=== PATIENT | male | born 1980 | race Caucasian/White ===

== ENCOUNTER 2018-01-12 04:19 | Inpatient (IN) | payer OTHER ==
[2018-01-12] MEDS ORDERED: HYDROmorphone 0.5 MG/0.5 ML Syringe IVPUSH ONE ×2 (05:14→07:19)
[2018-01-12] MEDS ORDERED: Ondansetron 4 MG/2 ML SDV IVPUSH ONE (05:14)
[2018-01-12] MEDS ORDERED: Sodium Chloride 0.9% 1,000 ML IV SCH ×2 (05:15→05:45)
--- NOTE | 2018-01-12 05:21 | EDM.PDOC ---
<Yajaira Muir - Last Filed: 01/12/18 07:03> ED HPI GENERAL MEDICAL PROBLEM - General Chief Complaint: Abdominal Pain Stated Complaint: ABD PAIN Time Seen by Provider: 01/12/18 04:50 Source of Information: Reports: Patient History Limitations: Reports: No Limitations - History of Present Illness INITIAL COMMENTS - FREE TEXT/NARRATIVE: pt arrived with severe pain around the umbilicus. He has vomited 5 times prior to arrival. He sneezed really hard and he developed the pain after that. Onset: Today, Sudden Duration: Hour(s): Location: Reports: Abdomen Associated Symptoms: Reports: Nausea/Vomiting Middle Abdomen Pain Score (Numeric/FACES): 9 - Related Data Allergies Allergy/AdvReac Type Severity Reaction Status Date / Time No Known Allergies Allergy Verified 04/21/14 05:22 Home Meds: Home Meds NK [No Known Home Meds] 04/21/14 [History] Past Medical History - Past Surgical History HEENT Surgical History: Reports: Adenoidectomy, Tonsillectomy GI Surgical History: Reports: Appendectomy, Cholecystectomy Social & Family History - Tobacco Use Smoking Status *Q: Never Smoker - Caffeine Use Caffeine Use: Reports: Tea - Recreational Drug Use Recreational Drug Use: No ED ROS GENERAL - Review of Systems Review Of Systems: See Below Constitutional: Reports: No Symptoms HEENT: Reports: No Symptoms Respiratory: Reports: No Symptoms Cardiovascular: Reports: No Symptoms Endocrine: Reports: No Symptoms GI/Abdominal: Reports: Abdominal Pain, Nausea, Vomiting, Other (pt has a palpable mass near the umbilcus. ) : Reports: No Symptoms Musculoskeletal: Reports: No Symptoms Skin: Reports: No Symptoms ED EXAM, GI/ABD - Physical Exam Exam: See Below Text/Narrative:: pt arrived with pain near the umbilcus on the rt. He can palpate a mass present. Exam Limited By: No Limitations General Appearance: Alert, Moderate Distress, Other (pt has been vomiting. ) Ears: Normal TMs Nose: Normal Inspection Throat/Mouth: Normal Inspection Head: Atraumatic Neck: Normal Inspection Respiratory/Chest: No Respiratory Distress Cardiovascular: Regular Rate, Rhythm GI/Abdominal Exam: Tender, Other (pt has a palpable tender mass which feels like a incarcerated hernia near the umbilcus. He has no history of a hernia previously. ) (Male) Exam: Deferred Course - Vital Signs Last Recorded V/S: Last Vital Signs Temp 98.3 F 01/12/18 09:04 Pulse 84 01/12/18 09:04 Resp 18 01/12/18 09:04 BP 143/80 H 01/12/18 09:04 Pulse Ox 96 01/12/18 09:04 - Orders/Labs/Meds Orders: Active Orders 24 hr Category Date Time Status Abdomen Pelvis w Cont [CT] Stat Exams 01/12/18 06:01 Taken UA W/MICROSCOPIC [URIN] Urgent Lab 01/12/18 07:01 Ordered Iopamidol [Isovue-300 (61%)] Med 01/12/18 06:15 Active 150 ml IV . DIRECTED PRN Sodium Chloride 0.9% [Normal Saline] 1,000 ml Med 01/12/18 05:15 Active IV ASDIRECTED Sodium Chloride 0.9% [Normal Saline] 1,000 ml Med 01/12/18 05:45 Active IV ASDIRECTED Sodium Chloride 0.9% [Normal Saline] 85 ml Med 01/12/18 06:15 Active IV ASDIRECTED Medication Orders Sodium Chloride (Normal Saline) 1,000 mls @ 999 mls/hr IV ASDIRECTED MICHELLE Last Admin: 01/12/18 05:21 Dose: 999 mls/hr Sodium Chloride (Normal Saline) 1,000 mls @ 999 mls/hr IV ASDIRECTED MICHELLE Last Admin: 01/12/18 06:43 Dose: 999 mls/hr Sodium Chloride (Normal Saline) 85 mls @ 3.5 mls/sec IV ASDIRECTED MICHELLE Last Admin: 01/12/18 06:35 Dose: 3.5 mls/sec Iopamidol (Isovue-300 (61%)) 150 ml IV . DIRECTED PRN PRN Reason: RADIOLOGY EXAM Stop: 01/13/18 06:16 Last Admin: 01/12/18 06:36 Dose: 150 ml Labs: Laboratory Tests 01/12/18 01/12/18 01/12/18 Range/Units 05:32 05:32 07:01 WBC 17.9 H (4.5-11.0) K/uL RBC 5.79 (4.30-5.90) M/uL Hgb 17.1 H (12.0-15.0) g/dL Hct 48.5 (40.0-54.0) % MCV 84 (80-98) fL MCH 30 (27-31) pg MCHC 35 (32-36) % Plt Count 381 (150-400) K/uL Neut % (Auto) 90 H (36-66) % Lymph % (Auto) 5 L (24-44) % Dale % (Auto) 4 (2-6) % Eos % (Auto) 0 L (2-4) % Baso % (Auto) 0 (0-1) % Sodium 140 (140-148) mmol/L Potassium 3.7 (3.6-5.2) mmol/L Chloride 104 (100-108) mmol/L Carbon Dioxide 22 (21-32) mmol/L Anion Gap 13.9 (5.0-14.0) mmol/L BUN 7 (7-18) mg/dL Creatinine 1.1 (0.8-1.3) mg/dL Est Cr Clr Drug Dosing 113.98 mL/min Estimated GFR (MDRD) > 60 (>60) Glucose 137 H (74-106) mg/dL Calcium 9.3 (8.5-10.1) mg/dL Total Bilirubin 1.2 H (0.2-1.0) mg/dL AST 14 L (15-37) U/L ALT 31 (12-78) U/L Alkaline Phosphatase 69 (46-116) U/L Total Protein 7.2 (6.4-8.2) g/dL Albumin 4.3 (3.4-5.0) g/dL Globulin 2.9 (2.3-3.5) g/dL Albumin/Globulin Ratio 1.5 (1.2-2.2) Urine Color Yellow Urine Appearance Clear Urine pH 5.0 (4.5-8.0) Ur Specific [place] 1.005 L (1.008-1.030) Urine Protein Negative (NEGATIVE) mg/dL Urine Glucose (UA) Normal (NEGATIVE) mg/dL Urine Ketones 150 H (NEGATIVE) mg/dL Urine Occult Blood Negative (NEGATIVE) Urine Nitrite Negative (NEGAITVE) Urine Bilirubin Negative (NEGATIVE) Urine Urobilinogen 1 (NORMAL) mg/dL Ur Leukocyte Esterase Negative (NEGATIVE) Urine RBC Not seen (0-5) Urine WBC Not seen (0-5) Ur Epithelial Cells Not seen Amorphous Sediment Rare Urine Bacteria Not seen Urine Mucus Rare Meds: Medications Generic Name Dose Route Start Last Admin Trade Name Freq PRN Reason Stop Dose Admin Sodium Chloride 1,000 mls @ 999 mls/hr 01/12/18 05:15 01/12/18 05:21 Normal Saline IV 999 mls/hr ASDIRECTED MICHELLE Administration Sodium Chloride 1,000 mls @ 999 mls/hr 01/12/18 05:45 01/12/18 06:43 Normal Saline IV 999 mls/hr ASDIRECTED MICHELLE Administration Sodium Chloride 85 mls @ 3.5 mls/sec 01/12/18 06:15 01/12/18 06:35 Normal Saline IV 3.5 mls/sec ASDIRECTED MICHELLE Administration Iopamidol 150 ml 01/12/18 06:15 01/12/18 06:36 Isovue-300 (61%) IV 01/13/18 06:16 150 ml . DIRECTED PRN Administration RADIOLOGY EXAM Discontinued Medications Generic Name Dose Route Start Last Admin Trade Name Freq PRN Reason Stop Dose Admin Hydromorphone HCl 0.5 mg 01/12/18 05:14 01/12/18 05:22 Dilaudid IVPUSH 01/12/18 05:15 0.5 mg ONETIME ONE Administration Hydromorphone HCl 0.5 mg 01/12/18 07:19 Dilaudid IVPUSH 01/12/18 07:20 ONETIME ONE Hydromorphone HCl 0.5 mg 01/12/18 08:00 01/12/18 08:02 Dilaudid IVPUSH 01/12/18 08:01 0.5 mg ONETIME ONE Administration Ondansetron HCl 4 mg 01/12/18 05:14 01/12/18 05:22 Zofran IVPUSH 01/12/18 05:15 4 mg ONETIME ONE Administration Prochlorperazine Edisylate 5 mg 01/12/18 07:47 01/12/18 08:04 Compazine IVPUSH 01/12/18 07:48 5 mg ONETIME ONE Administration - Re-Assessments/Exams Free Text/Narrative Re-Assessment/Exam: 01/12/18 07:04 pt has the appearance of a incarcinated hernia. His cat scan is pending His wbc is elevated. He has had [address] hanson has been called. Departure - Departure Time of Disposition: 07:05 Disposition: Admitted As Inpatient 67 Condition: Fair Clinical Impression: Incarcerated hernia, Dehydration - Discharge Information Referrals: PCP,None [Primary Care Provider] - Forms: ED Department Discharge Care Plan Goals: admit to Dr Hanson <OfficerLeland - Last Filed: 01/12/18 09:10> - Assessment/Plan Plan: Assessment Acuity = acute Site and laterality = incarcerated hernia and umbilical region Etiology = probable ventral hernia Manifestations = pain, nausea, vomiting Location of injury = Home Lab values = WBC elevated at 17.9 consistent leukocytosis, total bilirubin elevated 1.2 consistent hyperbilirubinemia, CT scan describes hernia about Plan Called discussed case with Dr. Hanson general surgery he evaluated the patient in the emergency department for surgical intervention This note was dictated using [employer] voice recognition software please call with any questions on syntax or grammar.
[2018-01-12] MEDS ORDERED: Iopamidol 612 MG/ML 150 ML Bottle IV PRN (06:15)
[2018-01-12] MEDS ORDERED: Prochlorperazine 10 MG/2 ML SDV IVPUSH ONE (07:47)
[2018-01-12] MEDS ORDERED: HYDROmorphone 1 MG/ML Syringe IVPUSH ONE (08:00)
[2018-01-12] MEDS ORDERED: fentaNYL 100 MCG/2 ML SDV IVPUSH ONE (09:18)
[2018-01-12] MEDS ORDERED: Piperacillin/Tazobactam 4.5 GM in Sodium Chloride 0.9% 100 ML IV ONE (09:30)
[2018-01-12] MEDS ORDERED: Succinylcholine 200 MG/10 ML MDV ONE ×3 (09:34→12:00)
[2018-01-12] MEDS ORDERED: Propofol 200 MG/20 ML SDV ONE (09:34)
[2018-01-12] MEDS ORDERED: Rocuronium 50 MG/5 ML Vial ONE (09:34)
[2018-01-12] MEDS ORDERED: Neostigmine Methylsulfate 1 MG/ML 5 ML Syringe ONE (09:34)
[2018-01-12] MEDS ORDERED: Ondansetron 4 MG/2 ML SDV ONE (09:34)
[2018-01-12] MEDS ORDERED: Dexamethasone 4 MG/ML SDV ONE (09:34)
[2018-01-12] MEDS ORDERED: Glycopyrrolate 0.2 MG/ML 5 ML MDV ONE (09:34)
[2018-01-12] MEDS ORDERED: Bupivacaine 0.5%/EPINEPHrine 1:200,000 50 ML MDV ONE (10:14)
[2018-01-12] MEDS ORDERED: Benzocaine/Cetylpyridinium/Menthol Lozenge MUCMEM PRN (10:28)
[2018-01-12] MEDS ORDERED: Polyethylene Glycol 3350 Powder 17 GM Packet PO PRN (10:28)
[2018-01-12] MEDS ORDERED: diphenhydrAMINE 50 MG/ML SDV IVPUSH PRN (10:28)
[2018-01-12] MEDS ORDERED: Acetaminophen 325 MG Tab PO PRN (10:28)
[2018-01-12] MEDS ORDERED: Bisacodyl 5 MG Tab PO PRN (10:28)
[2018-01-12] MEDS ORDERED: fentaNYL 250 MCG/5 ML SDV ONE (11:22)
[2018-01-12] MEDS ORDERED: Lactated Ringers 1,000 ML ONE (11:31)
[2018-01-12] MEDS ORDERED: Meropenem 500 MG SDV ONE ×2 (11:34→11:41)
[2018-01-12] MEDS ORDERED: Sodium Chloride 0.9% 10 ML ONE ×2 (11:34→11:41)
[2018-01-12] MEDS ORDERED: fentaNYL 100 MCG/2 ML SDV ONE (12:04)
[2018-01-12] MEDS ORDERED: Ketorolac 60 MG/2 ML SDV ONE (12:07)
[2018-01-12] MEDS ORDERED: Naloxone 0.4 MG/ML SDV IV PRN (12:38)
[2018-01-12] MEDS: hydrOXYzine HCl 100 MG/2 ML SDV IM PRN ×3 (12:39→22:22)
[2018-01-12] MEDS ORDERED: fentaNYL/Normal Saline 600 MCG/30 ML PCA Vial ONE (12:40)
[2018-01-12] MEDS: fentaNYL/Normal Saline 600 MCG/30 ML PCA Vial IV PRN (12:45)
[2018-01-12] MEDS: Piperacillin/Tazobactam/Dext 3.375 GM in Premix Bag 1 BAG IV SCH ×2 (15:46→21:35)
[2018-01-12] MEDS: Sodium Chloride 0.9% 1,000 ML IV SCH (19:26)
[2018-01-12] MEDS: Acetaminophen 325 MG Tab PO PRN (22:30)
[2018-01-13] MEDS: Acetaminophen 325 MG Tab PO PRN ×3 (03:07→19:41)
[2018-01-13] MEDS: Piperacillin/Tazobactam/Dext 3.375 GM in Premix Bag 1 BAG IV SCH ×4 (03:10→21:17)
[2018-01-13] MEDS ORDERED: Calcium Carbonate 500 MG Tab.Chew PO ONE (05:57)
[2018-01-13] MEDS ORDERED: Sodium Chloride 0.9% 250 ML IV SCH (07:45)
[2018-01-13] MEDS ORDERED: Sodium Chloride 0.9% 1,000 ML IV SCH (08:20)
[2018-01-13] MEDS: Calcium Carbonate 500 MG Tab.Chew PO PRN ×5 (08:48→22:32)
[2018-01-13] MEDS: Pantoprazole 40 MG Tab.CR PO SCH (09:55)
--- NOTE | 2018-01-13 10:02 | PN ---
DATE OF SERVICE: 01/13/2018 SUBJECTIVE: The patient is doing well today. Pain is controlled, it is 1-2/10. No nausea, vomiting, shortness of breath, or chest pain, passing any gas. OBJECTIVE: VITAL SIGNS: Stable, temperature 98.9, blood pressure 130/85, pulse 99, respirations 16, and saturation 93% on room air. CARDIOVASCULAR: Regular rate. RESPIRATORY: Lungs are clear to auscultation bilaterally. SKIN: Incision is healing well. Drain output is serosanguineous. ASSESSMENT: Status post small bowel resection for necrotic small bowel. PLAN: 1. GI. He will continue with the clear/full liquid diet today. 2. Fluid, electrolyte, nutrition. The patient's output with respect to urine is low. We will encourage moderate amount of IV fluid support with further IV fluids. 3. Prophylaxis. The patient will be started on Lovenox today. He does have SCDs and has been placed on Protonix. 4. Activity. Activity is highly encouraged. The patient is instructed to ambulate as often as possible. 5. Infectious Disease. His temperature has normalized. His laboratory, white blood cell count is 24,000, which is not surprising. We will continue the Zosyn at this time. 6. General disposition. The patient will continue the same plan and if he continues to progress, estimated time of discharge is approximately 3-4 days, obviously depending on future outcomes. Kevin Hanson MD /[id number]
[2018-01-13] MEDS: hydrOXYzine HCl 100 MG/2 ML SDV IM PRN (10:14)
[2018-01-13] MEDS: Enoxaparin 40 MG/0.4 ML Syringe SUBCUT SCH (11:09)
[2018-01-13] MEDS: Promethazine 25 MG/ML SDV IM PRN ×2 (12:30→23:56)
[2018-01-13] MEDS: Scopolamine 1.5 MG Transdermal Patch TRDERM PRN (14:28)
[2018-01-13] MEDS: Sodium Chloride 0.9% 1,000 ML IV SCH ×2 (15:18→23:33)
[2018-01-13] MEDS: fentaNYL/Normal Saline 600 MCG/30 ML PCA Vial IV PRN (22:29)
[2018-01-14] MEDS: Piperacillin/Tazobactam/Dext 3.375 GM in Premix Bag 1 BAG IV SCH (03:04)
[2018-01-14] MEDS: Sodium Chloride 0.9% 1,000 ML IV SCH (07:36)
--- NOTE | 2018-01-14 07:36 | OR ---
DATE OF PROCEDURE: 01/12/2018 PROCEDURES: 1. Laparoscopic repair of strangulated ventral hernia, converted to open. 2. Small bowel resection, ileum. COMPLICATIONS: None. ASSISTANTS: None. FINDINGS: Necrotic small bowel incarcerated into the ventral hernia. RISKS: Risks, benefits, alternatives, and limitations including, but not limited to infection, bleeding, perforation, or injury to abdominal structures such as bowel, bladder, or blood vessels were explained to the patient. They were also explained of the possibility and sequelae with small bowel resection, open ventral hernia repair, and other risks not listed here. In addition, the patient was also explained the role of pathology, scar formation, abscess formation, and the role of antibiotics. ANESTHESIA: General/local. PREOPERATIVE DIAGNOSIS: Strangulated ventral hernia. POSTOPERATIVE DIAGNOSIS: Strangulated ventral hernia. PROCEDURE IN DETAIL: The patient was placed in the supine position. In the right mid- abdomen, a 10-mm incision was made. A Veress needle was used to enter the abdomen without abnormality. A drop test was also performed without abnormality. Two additional 5-mm ports, one will be eventually converted to an additional 12-mm port, were entered under direct visualization. The small bowel was noted to be incarcerated, and the hernia was approximately 4 cm in size and approximately 3 cm superior to the umbilicus. This was able to be reduced. Upon initial inspection, this was noted to be strangulated and nonviable. Therefore, the decision was made to do a small bowel resection. The blue-load stapler was used to transect the small bowel along with mobilization of this and a ro-load staple would be then used to transect the small bowel along with ro loads to resect the associated mesentery. Transection of the mesentery was close to the bowel to permit maximum preservation of vascular arcade. Through a midline incision, which was approximately 8 cm in size, a [id number] functional end-to-end anastomosis will be performed. A 3-0 Vicryl stitch was used to decrease the potential of an internal hernia. During this process, the anastomosis was created double-wide using two 60 staplers. An Allis clamp was used to close the defect and subsequent transection and 3-0 Vicryl was used to reinforce it. There was spillage from the bowel during this process. This was suction irrigated during this process. Tisseel was also placed over the anastomosis. The fascia was then closed with #1 Vicryl in an interrupted fashion x approximately 10. The subcutaneous tissues were irrigated and closed over a round drain with marry. The abdomen was subsequently re-insufflated. There was gross spillage or leakage from anastomotic process in the abdomen, and this was suction irrigated with meropenem-containing solution. Approximately, 2 L more of irrigation was used during this process also and a 10 flat Danial-Ramos drain was placed in the lower abdomen. The incisions were then reapproximated and irrigated closed with marry. The patient tolerated the procedure well. Of note, the ventral hernia was repaired via the midline incision. Mesh was not used to repair this. However, this was repaired primarily with sutures. Kevin Hanson MD /[id number]
[2018-01-14] MEDS: Calcium Carbonate 500 MG Tab.Chew PO PRN (07:41)
[2018-01-14] MEDS: Pantoprazole 40 MG Tab.CR PO SCH (07:41)
--- NOTE | 2018-01-14 07:42 | CONS ---
DATE OF SERVICE: 01/12/2018 REFERRING PHYSICIAN: CONSULTING PHYSICIAN: Kevin Hanson MD REASON FOR CONSULTATION: Abdominal pain. HISTORY OF PRESENT ILLNESS: A 37-year-old male who has had a 2-day history of periumbilical pain. This is a new problem for him. This is a 4 to 5 on a 10 and has been worsening. It is associated with very mild nausea. Modified by moderate obesity. PAST SURGICAL HISTORY: 1. Laparoscopic cholecystectomy. 2. Open appendectomy. PAST MEDICAL HISTORY: None besides from related to surgery. SOCIAL HISTORY: He does not smoke. FAMILY HISTORY: Noncontributory. REVIEW OF SYSTEMS: GENERAL: No significant change/described above. HEENT: No symptoms. CARDIOVASCULAR: No history of myocardial infarction. RESPIRATORY: No history of shortness of breath. GASTROINTESTINAL: Abdominal pain as described above. GENITOURINARY: No dysuria. NEUROLOGICAL: No symptoms. PSYCHIATRIC: No gross symptoms. The remainder of review of systems is reviewed and is negative. PHYSICAL EXAMINATION: VITAL SIGNS: Stable. GENERAL: The patient is in pain, but not quiet resting. HEENT: Pupils are equal. NECK: Supple. LUNGS: Clear. CARDIOVASCULAR: Regular rhythm and rate. ABDOMEN: Non reducible hernia, midline to the umbilicus, about 2 cm. EXTREMITIES: Full range of motion. Strength 5/5. NEUROLOGICAL: Oriented x3. PSYCHIATRIC: No gross depression. IMAGING DATA: I did review the CT scan which shows incarcerated hernia of small bowel. ASSESSMENT AND PLAN: To the operating room for hernia repair. The patient and I discussed the normal course, which is reduction of the hernia, repaired with mesh. However, we discussed the alternative course which can include open hernia repair, requirement for small bowel resection, delayed primary closure, additional surgery. We also discussed scar formation, neural pathology and injury to abdominal structures during this procedure such as bowel, bladder, and blood vessels. The patient understands these risks and wishes to proceed. Kevin Hanson MD /[id number]
[2018-01-14] MEDS: Ampicillin/Sulbactam Na 3 GM in Sodium Chloride 0.9% 100 ML IV SCH ×3 (10:01→22:13)
[2018-01-14] MEDS: Enoxaparin 40 MG/0.4 ML Syringe SUBCUT SCH (10:01)
[2018-01-14] MEDS: Acetaminophen/HYDROcodone 325-10 MG Tab PO PRN ×3 (10:15→20:21)
[2018-01-14] MEDS ORDERED: Sodium Chloride 0.9% 1,000 ML IV SCH (10:30)
--- NOTE | 2018-01-14 10:30 | PN ---
DATE OF SERVICE: 01/14/2018 SUBJECTIVE: The patient is doing well today. His pain is well controlled. No nausea, vomiting, shortness of breath, or chest pain. The patient is passing gas and is having bowel movements. OBJECTIVE: VITAL SIGNS: Stable. CARDIOVASCULAR: Regular rate. RESPIRATORY: Lungs are clear to auscultation bilaterally. ABDOMEN: Soft. Bowel sounds are positive. ASSESSMENT: Status post small bowel resection. PLAN: 1. GI. We will continue to advance diet to regular diet today. 2. Infectious Disease. The patient's white blood cell count remains elevated, which is the only concern at this point. Therefore, we will stop his Zosyn. We will start Unasyn and vancomycin and remove his Lopez catheter and repeat white blood cell count in the morning. If this remains elevated, we will perform a CT scan to evaluate for any hidden infectious etiology. In addition, we will also perform a UA. 3. Prophylaxis. The patient is ambulating quite well. He is on Lovenox and proton pump inhibitors. 4. The patient may shower today. 5. Pain management. 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 6. We will stop his telemetry. Kevin Hanson MD /[id number]
[2018-01-14] MEDS ORDERED: Vancomycin 2 GM in Sodium Chloride 0.9% 500 ML IV ONE (11:00)
[2018-01-15] MEDS: Acetaminophen/HYDROcodone 325-10 MG Tab PO PRN ×3 (01:50→12:37)
[2018-01-15] MEDS: Ampicillin/Sulbactam Na 3 GM in Sodium Chloride 0.9% 100 ML IV SCH ×4 (04:30→22:23)
[2018-01-15] MEDS: Pantoprazole 40 MG Tab.CR PO SCH (08:05)
--- NOTE | 2018-01-15 09:44 | PN ---
DATE OF SERVICE: 01/15/2018 SUBJECTIVE: The patient is doing much better today. White blood cell count is down by approximately 50%. No nausea, vomiting, shortness of breath, or chest pain. OBJECTIVE: VITAL SIGNS: Stable. CARDIOVASCULAR: Regular rhythm and rate. RESPIRATORY: Lungs clear to auscultation bilaterally. ABDOMEN: Incision healing well. ASSESSMENT: Status post small bowel resection. PLAN: We will continue to work on diet and activity. Continue same antibiotic regimen. Anticipate discharge in approximately next 48 hours. Kevin Hanson MD /[id number]
[2018-01-15] MEDS: Enoxaparin 40 MG/0.4 ML Syringe SUBCUT SCH (10:07)
[2018-01-15] MEDS: oxyCODONE 5 MG Tab PO PRN ×2 (15:11→19:33)
[2018-01-15] MEDS: Calcium Carbonate 500 MG Tab.Chew PO PRN (19:34)
[2018-01-16] MEDS: Acetaminophen 325 MG Tab PO PRN ×2 (00:34→21:45)
[2018-01-16] MEDS: Docusate Sodium 100 MG Cap PO PRN ×2 (00:35→21:41)
[2018-01-16] MEDS: oxyCODONE 5 MG Tab PO PRN ×5 (00:35→20:02)
[2018-01-16] MEDS: Calcium Carbonate 500 MG Tab.Chew PO PRN ×2 (00:52→06:41)
[2018-01-16] MEDS: Ampicillin/Sulbactam Na 3 GM in Sodium Chloride 0.9% 100 ML IV SCH ×4 (03:25→21:41)
[2018-01-16] MEDS: Pantoprazole 40 MG Tab.CR PO SCH (06:41)
[2018-01-16] MEDS: Ibuprofen 600 MG Tab PO PRN (08:05)
[2018-01-16] MEDS: hydrOXYzine HCl 100 MG/2 ML SDV IM PRN (09:32)
[2018-01-16] MEDS: Lactobacillus Rhamnosus GG (Probiotic) Cap PO SCH ×2 (09:32→20:03)
--- NOTE | 2018-01-16 09:32 | PN ---
DATE OF SERVICE: 01/16/2018 SUBJECTIVE: The patient continues to improve. No nausea, vomiting, shortness of breath, or chest pain. He is having bowel movements and tolerating a regular diet. OBJECTIVE: VITAL SIGNS: Stable. CARDIOVASCULAR: Regular rhythm and rate. RESPIRATORY: Lungs clear to auscultation bilaterally. ABDOMEN: Incision healing well. Drain output is serosanguineous. ASSESSMENT: Status post necrotic bowel. PLAN: The patient will continue his regular diet. He is saline locked. We will continue his antibiotic. He still does have a low-grade fever. We will check his white blood cell count in the a.m. again. Overall though, significant improvement comparatively. Kevin Hanson MD /[id number]
[2018-01-16] MEDS: Enoxaparin 40 MG/0.4 ML Syringe SUBCUT SCH (10:36)
[2018-01-17] MEDS: Ibuprofen 600 MG Tab PO PRN ×3 (00:03→17:05)
[2018-01-17] MEDS: oxyCODONE 5 MG Tab PO PRN ×4 (02:36→15:45)
[2018-01-17] MEDS: Acetaminophen 325 MG Tab PO PRN ×3 (02:37→15:46)
[2018-01-17] MEDS: Ampicillin/Sulbactam Na 3 GM in Sodium Chloride 0.9% 100 ML IV SCH ×4 (03:44→22:34)
[2018-01-17] MEDS: Lactobacillus Rhamnosus GG (Probiotic) Cap PO SCH ×2 (08:35→20:12)
[2018-01-17] MEDS: Pantoprazole 40 MG Tab.CR PO SCH (08:36)
[2018-01-17] MEDS ORDERED: Iohexol 300 MG/ML 30 ML Bottle PO ONE (10:56)
[2018-01-17] MEDS: Enoxaparin 40 MG/0.4 ML Syringe SUBCUT SCH (11:23)
--- NOTE | 2018-01-17 13:49 | CT ---
Abdomen Pelvis wo Cont CLINICAL HISTORY: Recent surgery, leukocytosis COMPARISON: 01/12/2018. TECHNIQUE: Axial tomographic images are obtained from the dome of the diaphragm to the pubic symphysi s without IV contrast enhancement. Water soluble oral contrast was used. Auto dosage reduction and it erative reconstruction techniques employed. FINDINGS: There is small bibasal pleural effusions. There is some patchy bibasal airspace disease whi ch is greater on the right. This is likely atelectasis. The liver shows no mass or biliary dilatation . The gallbladder has been removed. The spleen has a normal size and shape. The pancreas shows no mas s or inflammatory change. . The kidneys are free of stones or hydronephrosis. There is moderate diffuse small bowel distention. This may represent the postoperative ileus. There a re numerous surgical clips and sutures from previous bowel resection. There is some fluid density thr oughout the mesenteric fat in the right lower quadrant. There are 2 small fluid collections in the ri ght lower quadrant . The more rostral collection measures 2.6 x 2.0 x 2.3 cm. There is also a small f luid collection lower in the right lower quadrant measuring 2.3 x 2.7 x 1.8 cm. Evaluation is limited without IV contrast. This could represent some minimal residual postoperative fluid. Abscess is not absolutely excluded IMPRESSION: Moderate small bowel distention may represent postoperative ileus. The transition point i s not identified. This has increased since the preop study. Obstruction is not excluded. There is some increased fluid density of the right lower quadrant mesentery. There are 2 small irregu lar shaped fluid collections in the right lower quadrant. This may represent postoperative fluid but abscess cannot be excluded. If clinically relevant short-term follow-up CT with IV contrast should be considered.
--- NOTE | 2018-01-17 18:49 | PN ---
DATE OF SERVICE: 01/17/2018 SUBJECTIVE: The patient continues to improve today. White blood cell count is down again. No nausea, vomiting, shortness of breath, or chest pain. He is having bowel movements. OBJECTIVE: Vital signs are stable. He is afebrile for the last approximately 16 hours. Incision is healing well. ASSESSMENT AND PLAN: Status post small bowel resection. PLAN: The patient will continue to have IV antibiotics. CT scan, which was performed today showed a small amount of fluid but no evidence of abscess. Therefore, continue antibiotics probably through the weekend and re-evaluate on discharge on Sunday or early next week. Kevin Hanson MD /[id number]
[2018-01-17] MEDS: Scopolamine 1.5 MG Transdermal Patch TRDERM PRN (19:34)
[2018-01-17] MEDS: Ondansetron 4 MG/2 ML SDV IVPUSH PRN (20:34)
[2018-01-17] MEDS: Acetaminophen/HYDROcodone 325-10 MG Tab PO PRN (20:34)
[2018-01-18] MEDS: Acetaminophen/HYDROcodone 325-10 MG Tab PO PRN ×5 (02:26→23:07)
[2018-01-18] MEDS: Docusate Sodium 100 MG Cap PO PRN (03:11)
[2018-01-18] MEDS: Ampicillin/Sulbactam Na 3 GM in Sodium Chloride 0.9% 100 ML IV SCH ×4 (03:11→23:07)
[2018-01-18] MEDS: Pantoprazole 40 MG Tab.CR PO SCH (07:32)
[2018-01-18] MEDS: Enoxaparin 40 MG/0.4 ML Syringe SUBCUT SCH (10:20)
[2018-01-18] MEDS: Lactobacillus Rhamnosus GG (Probiotic) Cap PO SCH ×2 (10:20→21:12)
[2018-01-19] MEDS: Ampicillin/Sulbactam Na 3 GM in Sodium Chloride 0.9% 100 ML IV SCH ×4 (04:23→21:13)
[2018-01-19] MEDS: Acetaminophen/HYDROcodone 325-10 MG Tab PO PRN ×5 (04:29→19:35)
[2018-01-19] MEDS: Pantoprazole 40 MG Tab.CR PO SCH (07:07)
--- NOTE | 2018-01-19 08:22 | PCM.SURGPN ---
- General Info Date of Service: 01/19/18 Admission Diagnosis/Problem: Hernia with strangulation Functional Status: Reports: Pain Controlled, Tolerating Diet, Ambulating, Urinating, Incentive Spirometry - Review of Systems General: Reports: No Symptoms (Except wants to go home. He is here for IV antibiotics. ) HEENT: Reports: No Symptoms Pulmonary: Reports: No Symptoms Cardiovascular: Reports: No Symptoms Gastrointestinal: Reports: No Symptoms Genitourinary: Reports: No Symptoms Musculoskeletal: Reports: No Symptoms Skin: Reports: No Symptoms Neurological: Reports: No Symptoms Psychiatric: Reports: No Symptoms - Patient Data Vitals - Most Recent: Last Vital Signs Temp 100.1 F 01/19/18 06:58 Pulse 95 01/19/18 06:58 Resp 18 01/19/18 06:58 BP 142/85 H 01/19/18 06:58 Pulse Ox 93 L 01/19/18 06:58 Weight - Most Recent: 239 lb 15.994 oz I&O - Last 24 Hours: Intake & Output 01/18/18 01/19/18 01/19/18 22:59 06:59 14:59 Intake Total 1070 1370 150 Output Total 545 1110 680 Balance 525 260 -530 Lab Results Last 24 Hrs: Laboratory Results - last 24 hr 01/19/18 Range/Units 06:08 WBC 14.5 H (4.5-11.0) K/uL RBC 4.42 (4.30-5.90) M/uL Hgb 13.0 (12.0-15.0) g/dL Hct 37.5 L (40.0-54.0) % MCV 85 (80-98) fL MCH 29 (27-31) pg MCHC 35 (32-36) % Plt Count 391 (150-400) K/uL Med Orders - Current: Current Medications Acetaminophen (Tylenol) 650 mg PO Q4H PRN PRN Reason: Fever Last Admin: 01/17/18 15:46 Dose: 650 mg Hydrocodone Bitart/Acetaminophen ([place] 325-10 Mg) 1 - 2 tab PO Q4H PRN PRN Reason: Pain Last Admin: 01/19/18 05:23 Dose: 1 tab Benzocaine/Menthol (Cepacol Sore Throat) 1 lozenge MUCMEM Q1H PRN PRN Reason: Sore Throat Bisacodyl (Dulcolax) 5 mg PO DAILY PRN PRN Reason: Constipation Diphenhydramine HCl (Benadryl) 50 mg IVPUSH Q4H PRN PRN Reason: Itching Docusate Sodium (Colace) 100 mg PO BID PRN PRN Reason: Constipation Last Admin: 01/18/18 03:11 Dose: 100 mg Enoxaparin Sodium (Lovenox) 40 mg SUBCUT Q24H [facility] Last Admin: 01/18/18 10:20 Dose: 40 mg Hydroxyzine HCl (Vistaril) 50 mg IM Q4H PRN PRN Reason: Nausea Last Admin: 01/16/18 09:32 Dose: 50 mg Ampicillin Sodium/Sulbactam (Sodium 3 gm/ Sodium Chloride) 100 mls @ 200 mls/ hr IV Q6H [facility] Last Admin: 01/19/18 04:23 Dose: 200 mls/hr Sodium Chloride (Normal Saline) 1,000 mls @ 0 mls/hr IV ASDIRECTED [facility] Last Admin: 01/16/18 00:35 Dose: 25 mls/hr Vancomycin HCl 1.75 gm/ Sodium (Chloride) 250 mls @ 150 mls/hr IV Q8H [facility] Last Admin: 01/19/18 05:16 Dose: 150 mls/hr Ibuprofen (Motrin) 600 mg PO Q6H PRN PRN Reason: Pain Last Admin: 01/17/18 17:05 Dose: 600 mg Lactobacillus Rhamnosus (Culturelle) 1 cap PO BID [facility] Last Admin: 01/18/18 21:12 Dose: 1 cap Ondansetron HCl (Zofran) 4 - 8 mg IVPUSH Q6H PRN PRN Reason: Nausea/Vomiting Last Admin: 01/17/18 20:34 Dose: 8 mg Pantoprazole Sodium (Protonix) 40 mg PO ACBREAKFAST [facility] Last Admin: 01/19/18 07:07 Dose: 40 mg Polyethylene Glycol (Miralax) 17 gm PO DAILY PRN PRN Reason: Constipation Promethazine HCl (Phenergan) 25 mg IM Q6H PRN PRN Reason: Nausea Last Admin: 01/13/18 23:56 Dose: 25 mg Ranitidine HCl (Zantac) 150 mg PO BID [facility] Last Admin: 01/18/18 21:12 Dose: 150 mg Scopolamine (Transderm-Scop) 1.5 mg TRDERM Q72H PRN PRN Reason: Indigestion Last Admin: 01/17/18 19:34 Dose: 1.5 mg Senna/Docusate Sodium (Senna Plus) 1 tab PO BID PRN PRN Reason: Constipation Last Admin: 01/13/18 19:42 Dose: 1 tab Zolpidem Tartrate (Ambien) 5 mg PO BEDTIME PRN PRN Reason: Insomnia Discontinued Medications Acetaminophen (Tylenol) 650 mg PO Q6H PRN PRN Reason: Pain (mild 1-3) Last Admin: 01/12/18 18:15 Dose: 650 mg Hydrocodone Bitart/Acetaminophen ([place] 325-10 Mg) 1 - 2 tab PO Q4H PRN PRN Reason: Abdominal Pain Last Admin: 01/15/18 12:37 Dose: 2 tab Bupivacaine HCl/Epinephrine Bitart (Marcaine 0.5%/Epinephrine 1:200,000) Confirm Administered Dose 50 ml .ROUTE .STK-MED ONE Stop: 01/12/18 10:15 Calcium Carbonate/Glycine (Tums) 1,000 mg PO ONETIME ONE Stop: 01/13/18 05:58 Last Admin: 01/13/18 06:12 Dose: 1,000 mg Calcium Carbonate/Glycine (Tums) 1,000 mg PO Q2H PRN PRN Reason: Indigestion Last Admin: 01/16/18 06:41 Dose: 1,000 mg Dexamethasone (Dexamethasone) Confirm Administered Dose 4 mg .ROUTE .STK-MED ONE Stop: 01/12/18 09:35 Fentanyl (Sublimaze) 30 mcg IVPUSH ONETIME ONE Stop: 01/12/18 09:19 Last Admin: 01/12/18 09:30 Dose: 30 mcg Fentanyl (Sublimaze) Confirm Administered Dose 250 mcg .ROUTE .STK-MED ONE Stop: 01/12/18 11:23 Fentanyl (Sublimaze) Confirm Administered Dose 100 mcg .ROUTE .STK-MED ONE Stop: 01/12/18 12:05 Fentanyl Citrate (Fentanyl) Confirm Administered Dose 500 mcg .ROUTE .STK-MED ONE Stop: 01/12/18 09:44 Fentanyl Citrate (Fentanyl In Ns 20 Mcg/Ml 30 Ml [employer]) 0 mcg IV ASDIRECTED PRN; Protocol PRN Reason: PAIN Last Admin: 01/13/18 22:29 Dose: 600 mcg Fentanyl Citrate (Fentanyl In Ns 20 Mcg/Ml 30 Ml [employer]) Confirm Administered Dose 600 mcg .ROUTE .STK-MED ONE Stop: 01/12/18 12:41 Last Admin: 01/12/18 14:33 Dose: Not Given Glycopyrrolate (Robinul) Confirm Administered Dose 1 mg .ROUTE .STK-MED ONE Stop: 01/12/18 09:35 Hydromorphone HCl (Dilaudid) 0.5 mg IVPUSH ONETIME ONE Stop: 01/12/18 05:15 Last Admin: 01/12/18 05:22 Dose: 0.5 mg Hydromorphone HCl (Dilaudid) 0.5 mg IVPUSH ONETIME ONE Stop: 01/12/18 07:20 Last Admin: 01/12/18 10:33 Dose: Not Given Hydromorphone HCl (Dilaudid) 0.5 mg IVPUSH ONETIME ONE Stop: 01/12/18 08:01 Last Admin: 01/12/18 08:02 Dose: 0.5 mg Sodium Chloride (Normal Saline) 1,000 mls @ 999 mls/hr IV ASDIRECTED [facility] Last Admin: 01/12/18 05:21 Dose: 999 mls/hr Sodium Chloride (Normal Saline) 1,000 mls @ 999 mls/hr IV ASDIRECTED [facility] Last Admin: 01/12/18 06:43 Dose: 999 mls/hr Sodium Chloride (Normal Saline) 85 mls @ 3.5 mls/sec IV ASDIRECTED [facility] Last Admin: 01/12/18 06:35 Dose: 3.5 mls/sec Piperacillin Sod/Tazobactam (Sod 4.5 gm/ Sodium Chloride) 100 mls @ 200 mls/hr IV ONETIME ONE Stop: 01/12/18 09:59 Last Admin: 01/12/18 09:44 Dose: 200 mls/hr Sodium Chloride (Normal Saline) 1,000 mls @ 125 mls/hr IV ASDIRECTED [facility] Last Admin: 01/14/18 07:36 Dose: 125 mls/hr Lactated Ringer's (Ringers, Lactated) Confirm Administered Dose 1,000 mls @ as directed .ROUTE .STK-MED ONE Stop: 01/12/18 11:32 Sodium Chloride (Normal Saline) Confirm Administered Dose 10 mls @ as directed .ROUTE .STK-MED ONE Stop: 01/12/18 11:35 Sodium Chloride (Normal Saline) Confirm Administered Dose 10 mls @ as directed .ROUTE .STK-MED ONE Stop: 01/12/18 11:42 Piperacillin/Tazobactam/ (Dextrose 3.375 gm/ Premix) 50 mls @ 100 mls/hr IV Q6H [facility] Last Admin: 01/14/18 03:04 Dose: 100 mls/hr Sodium Chloride (Normal Saline) 250 mls @ 999 mls/hr IV ASDIRECTED [facility] Last Admin: 01/13/18 07:48 Dose: 999 mls/hr Sodium Chloride (Normal Saline) 1,000 mls @ 250 mls/hr IV ASDIRECTED [facility] Stop: 01/13/18 14:30 Last Infusion: 01/13/18 14:55 Dose: 125 mls/hr Vancomycin HCl 2 gm/ Sodium (Chloride) 500 mls @ 250 mls/hr IV ONETIME ONE Stop: 01/14/18 12:59 Last Admin: 01/14/18 12:42 Dose: 250 mls/hr Vancomycin HCl 1.5 gm/ Sodium (Chloride) 250 mls @ 160 mls/hr IV Q8H [facility] Last Admin: 01/16/18 04:52 Dose: 160 mls/hr Iohexol (Omnipaque) 20 ml PO ONETIME ONE Stop: 01/17/18 10:57 Last Admin: 01/17/18 11:22 Dose: 20 ml Iopamidol (Isovue-300 (61%)) 150 ml IV . DIRECTED PRN PRN Reason: RADIOLOGY EXAM Stop: 01/13/18 06:16 Last Admin: 01/12/18 06:36 Dose: 150 ml Ketorolac Tromethamine (Toradol) Confirm Administered Dose 60 mg .ROUTE .STK- MED ONE Stop: 01/12/18 12:08 Meropenem (Merrem) Confirm Administered Dose 500 mg .ROUTE .STK-MED ONE Stop: 01/12/18 11:35 Last Admin: 01/12/18 11:29 Dose: 500 mg Meropenem (Merrem) Confirm Administered Dose 500 mg .ROUTE .STK-MED ONE Stop: 01/12/18 11:42 Last Admin: 01/12/18 11:43 Dose: 500 mg Naloxone HCl (Narcan) 0.1 mg IV ASDIRECTED PRN PRN Reason: RESP Neostigmine Methylsulfate (Neostigmine) Confirm Administered Dose 5 mg .ROUTE .STK-MED ONE Stop: 01/12/18 09:35 Ondansetron HCl (Zofran) 4 mg IVPUSH ONETIME ONE Stop: 01/12/18 05:15 Last Admin: 01/12/18 05:22 Dose: 4 mg Ondansetron HCl (Zofran) Confirm Administered Dose 4 mg .ROUTE .STK-MED ONE Stop: 01/12/18 09:35 Oxycodone HCl (Oxycodone) 5 mg PO Q4H PRN PRN Reason: Pain Last Admin: 01/17/18 15:45 Dose: 5 mg Prochlorperazine Edisylate (Compazine) 5 mg IVPUSH ONETIME ONE Stop: 01/12/18 07:48 Last Admin: 01/12/18 08:04 Dose: 5 mg Propofol (Diprivan 20 Ml) Confirm Administered Dose 200 mg .ROUTE .STK-MED ONE Stop: 01/12/18 09:35 Rocuronium [place] (Zemuron) Confirm Administered Dose 50 mg .ROUTE .STK-MED ONE Stop: 01/12/18 09:35 Succinylcholine Chloride (Quelicin) Confirm Administered Dose 200 mg .ROUTE .STK -MED ONE Stop: 01/12/18 09:35 Succinylcholine Chloride (Quelicin) Confirm Administered Dose 200 mg .ROUTE .STK -MED ONE Stop: 01/12/18 11:47 Succinylcholine Chloride (Quelicin) 100 mg .ROUTE .STK-MED ONE Stop: 01/12/18 12:01 - Exam Wound/Incisions: Healing Well, No Drainage General: Alert, Oriented, Cooperative, No Acute Distress Lungs: Clear to Auscultation, Normal Respiratory Effort Cardiovascular: Regular Rate, Regular Rhythm GI/Abdominal Exam: Normal Bowel Sounds, Soft, Non-Tender, No Distention Extremities: Normal Inspection Skin: Warm, Dry, Intact Neurological: No New Focal Deficit Psy/Mental Status: Alert, Normal Affect, Normal Mood - Problem List Review Problem List Initiated/Reviewed/Updated: Yes - My Orders Last 24 Hours: Active Orders 24 hr Category Date Time Status CBC W/O DIFF,HEMOGRAM [HEME] DAILY Lab 01/20/18 05:00 Ordered CBC W/O DIFF,HEMOGRAM [HEME] DAILY Lab 01/21/18 05:00 Ordered CBC W/O DIFF,HEMOGRAM [HEME] DAILY Lab 01/22/18 05:00 Ordered CREATININE W/GFR [CHEM] Routine Lab 01/19/18 12:45 Ordered VANCOMYCIN TROUGH [CHEM] Routine Lab 01/19/18 12:45 Ordered Medication Orders Acetaminophen (Tylenol) 650 mg PO Q4H PRN PRN Reason: Fever Last Admin: 01/17/18 15:46 Dose: 650 mg Admin: 01/17/18 06:41 Dose: 650 mg Admin: 01/17/18 02:37 Dose: 650 mg Admin: 01/16/18 21:45 Dose: 650 mg Admin: 01/16/18 00:34 Dose: 650 mg Admin: 01/13/18 19:41 Dose: 650 mg Admin: 01/13/18 11:22 Dose: 650 mg Admin: 01/13/18 03:07 Dose: 650 mg Admin: 01/12/18 22:30 Dose: 650 mg Hydrocodone Bitart/Acetaminophen ([place] 325-10 Mg) 1 - 2 tab PO Q4H PRN PRN Reason: Pain Last Admin: 01/19/18 05:23 Dose: 1 tab Admin: 01/19/18 04:29 Dose: 1 tab Admin: 01/18/18 23:07 Dose: 2 tab Admin: 01/18/18 18:06 Dose: 2 tab Admin: 01/18/18 12:19 Dose: 2 tab Admin: 01/18/18 07:37 Dose: 2 tab Admin: 01/18/18 02:26 Dose: 2 tab Admin: 01/17/18 20:34 Dose: 2 tab Benzocaine/Menthol (Cepacol Sore Throat) 1 lozenge MUCMEM Q1H PRN PRN Reason: Sore Throat Bisacodyl (Dulcolax) 5 mg PO DAILY PRN PRN Reason: Constipation Diphenhydramine HCl (Benadryl) 50 mg IVPUSH Q4H PRN PRN Reason: Itching Docusate Sodium (Colace) 100 mg PO BID PRN PRN Reason: Constipation Last Admin: 01/18/18 03:11 Dose: 100 mg Admin: 01/16/18 21:41 Dose: 100 mg Admin: 01/16/18 00:35 Dose: 100 mg Enoxaparin Sodium (Lovenox) 40 mg SUBCUT Q24H [facility] Last Admin: 01/18/18 10:20 Dose: 40 mg Admin: 01/17/18 11:23 Dose: 40 mg Admin: 01/16/18 10:36 Dose: 40 mg Admin: 01/15/18 10:07 Dose: 40 mg Admin: 01/14/18 10:01 Dose: 40 mg Admin: 01/13/18 11:09 Dose: 40 mg Hydroxyzine HCl (Vistaril) 50 mg IM Q4H PRN PRN Reason: Nausea Last Admin: 01/16/18 09:32 Dose: 50 mg Admin: 01/13/18 10:14 Dose: 50 mg Admin: 01/12/18 22:22 Dose: 50 mg Admin: 01/12/18 17:21 Dose: 50 mg Admin: 01/12/18 12:39 Dose: 50 mg Ampicillin Sodium/Sulbactam (Sodium 3 gm/ Sodium Chloride) 100 mls @ 200 mls/ hr IV Q6H [facility] Last Admin: 01/19/18 04:23 Dose: 200 mls/hr Admin: 01/18/18 23:07 Dose: 200 mls/hr Admin: 01/18/18 15:45 Dose: 200 mls/hr Admin: 01/18/18 10:21 Dose: 200 mls/hr Admin: 01/18/18 03:11 Dose: 200 mls/hr Admin: 01/17/18 22:34 Dose: 200 mls/hr Admin: 01/17/18 16:55 Dose: 200 mls/hr Admin: 01/17/18 10:23 Dose: 200 mls/hr Admin: 01/17/18 03:44 Dose: 200 mls/hr Admin: 01/16/18 21:41 Dose: 200 mls/hr Admin: 01/16/18 15:30 Dose: 200 mls/hr Admin: 01/16/18 09:27 Dose: 200 mls/hr Admin: 01/16/18 03:25 Dose: 200 mls/hr Admin: 01/15/18 22:23 Dose: 200 mls/hr Admin: 01/15/18 16:08 Dose: 200 mls/hr Admin: 01/15/18 10:07 Dose: 200 mls/hr Admin: 01/15/18 04:30 Dose: 200 mls/hr Admin: 01/14/18 22:13 Dose: 200 mls/hr Admin: 01/14/18 16:22 Dose: 200 mls/hr Admin: 01/14/18 10:01 Dose: 200 mls/hr Sodium Chloride (Normal Saline) 1,000 mls @ 0 mls/hr IV ASDIRECTED [facility] Last Admin: 01/16/18 00:35 Dose: 25 mls/hr Vancomycin HCl 1.75 gm/ Sodium (Chloride) 250 mls @ 150 mls/hr IV Q8H [facility] Last Admin: 01/19/18 05:16 Dose: 150 mls/hr Admin: 01/18/18 21:11 Dose: 150 mls/hr Admin: 01/18/18 13:43 Dose: 150 mls/hr Admin: 01/18/18 04:45 Dose: 150 mls/hr Admin: 01/17/18 20:22 Dose: 150 mls/hr Admin: 01/17/18 12:50 Dose: 150 mls/hr Admin: 01/17/18 05:21 Dose: 150 mls/hr Admin: 01/16/18 20:06 Dose: 150 mls/hr Admin: 01/16/18 13:00 Dose: 150 mls/hr Ibuprofen (Motrin) 600 mg PO Q6H PRN PRN Reason: Pain Last Admin: 01/17/18 17:05 Dose: 600 mg Admin: 01/17/18 08:39 Dose: 600 mg Admin: 01/17/18 00:03 Dose: 600 mg Admin: 01/16/18 08:05 Dose: 600 mg Lactobacillus Rhamnosus (Culturelle) 1 cap PO BID [facility] Last Admin: 01/18/18 21:12 Dose: 1 cap Admin: 01/18/18 10:20 Dose: 1 cap Admin: 01/17/18 20:12 Dose: 1 cap Admin: 01/17/18 08:35 Dose: 1 cap Admin: 01/16/18 20:03 Dose: 1 cap Admin: 01/16/18 09:32 Dose: 1 cap Ondansetron HCl (Zofran) 4 - 8 mg IVPUSH Q6H PRN PRN Reason: Nausea/Vomiting Last Admin: 01/17/18 20:34 Dose: 8 mg Pantoprazole Sodium (Protonix) 40 mg PO ACBREAKFAST [facility] Last Admin: 01/19/18 07:07 Dose: 40 mg Admin: 01/18/18 07:32 Dose: 40 mg Admin: 01/17/18 08:36 Dose: 40 mg Admin: 01/16/18 06:41 Dose: 40 mg Admin: 01/15/18 08:05 Dose: 40 mg Admin: 01/14/18 07:41 Dose: 40 mg Admin: 01/13/18 09:55 Dose: 40 mg Polyethylene Glycol (Miralax) 17 gm PO DAILY PRN PRN Reason: Constipation Promethazine HCl (Phenergan) 25 mg IM Q6H PRN PRN Reason: Nausea Last Admin: 01/13/18 23:56 Dose: 25 mg Admin: 01/13/18 12:30 Dose: 25 mg Ranitidine HCl (Zantac) 150 mg PO BID [facility] Last Admin: 01/18/18 21:12 Dose: 150 mg Admin: 01/18/18 10:20 Dose: 150 mg Admin: 01/17/18 20:12 Dose: 150 mg Admin: 01/17/18 08:35 Dose: 150 mg Admin: 01/16/18 20:02 Dose: 150 mg Admin: 01/16/18 10:38 Dose: 150 mg Scopolamine (Transderm-Scop) 1.5 mg TRDERM Q72H PRN PRN Reason: Indigestion Last Admin: 01/17/18 19:34 Dose: 1.5 mg Admin: 01/13/18 14:28 Dose: 1.5 mg Senna/Docusate Sodium (Senna Plus) 1 tab PO BID PRN PRN Reason: Constipation Last Admin: 01/13/18 19:42 Dose: 1 tab Zolpidem Tartrate (Ambien) 5 mg PO BEDTIME PRN PRN Reason: Insomnia - Assessment Assessment (Free Text/Narrative):: He is doing well. He is still in the hospital to receive IV antibiotics. He is afebrile. His WBC is trending down although still slightly elevated. - Plan Plan (Free Text/Narrative):: No change. Continue IV antibiotics.
[2018-01-19] MEDS: Lactobacillus Rhamnosus GG (Probiotic) Cap PO SCH ×2 (09:33→21:13)
[2018-01-19] MEDS: Enoxaparin 40 MG/0.4 ML Syringe SUBCUT SCH (10:38)
[2018-01-19] MEDS: Vancomycin 2 GM in Sodium Chloride 0.9% 500 ML IV SCH ×2 (14:05→22:32)
[2018-01-20] MEDS: Acetaminophen/HYDROcodone 325-10 MG Tab PO PRN ×6 (00:32→22:15)
[2018-01-20] MEDS: Ampicillin/Sulbactam Na 3 GM in Sodium Chloride 0.9% 100 ML IV SCH ×4 (03:26→22:16)
[2018-01-20] MEDS: Vancomycin 2 GM in Sodium Chloride 0.9% 500 ML IV SCH ×3 (05:49→22:50)
[2018-01-20] MEDS: Lactobacillus Rhamnosus GG (Probiotic) Cap PO SCH ×2 (08:34→22:15)
[2018-01-20] MEDS: Pantoprazole 40 MG Tab.CR PO SCH (08:34)
--- NOTE | 2018-01-20 09:46 | PCM.SURGPN ---
- General Info Date of Service: 01/20/18 Date of Surgery/Procedure: 01/12/18 POD#: 8 Functional Status: Reports: Pain Controlled, Tolerating Diet, Ambulating, Urinating - Review of Systems General: Reports: Other (He does not feel any worse, but feels "different." Did not sleep well last night. ) HEENT: Reports: No Symptoms Pulmonary: Reports: No Symptoms Cardiovascular: Reports: No Symptoms Gastrointestinal: Reports: No Symptoms Genitourinary: Reports: No Symptoms Musculoskeletal: Reports: No Symptoms Skin: Reports: No Symptoms Neurological: Reports: No Symptoms Psychiatric: Reports: No Symptoms - Patient Data Vitals - Most Recent: Last Vital Signs Temp 100.8 F H 01/20/18 07:00 Pulse 108 H 01/20/18 07:00 Resp 18 01/20/18 07:00 BP 144/79 H 01/20/18 07:00 Pulse Ox 94 L 01/20/18 07:00 Weight - Most Recent: 244 lb I&O - Last 24 Hours: Intake & Output 01/19/18 01/20/18 01/20/18 22:59 06:59 14:59 Intake Total 1100 1600 Output Total 300 271 750 Balance 800 1329 -750 Lab Results Last 24 Hrs: Laboratory Results - last 24 hr 01/19/18 01/20/18 Range/Units 12:46 05:55 WBC 20.9 H (4.5-11.0) K/uL RBC 4.56 (4.30-5.90) M/uL Hgb 13.1 (12.0-15.0) g/dL Hct 38.9 L (40.0-54.0) % MCV 85 (80-98) fL MCH 29 (27-31) pg MCHC 34 (32-36) % Plt Count 435 H (150-400) K/uL Creatinine 1.0 (0.8-1.3) mg/dL Est Cr Clr Drug Dosing 125.32 mL/min Estimated GFR (MDRD) > 60 (>60) Vancomycin Trough 13.4 (10.0-20.0) ug/mL Med Orders - Current: Current Medications Acetaminophen (Tylenol) 650 mg PO Q4H PRN PRN Reason: Fever Last Admin: 01/17/18 15:46 Dose: 650 mg Hydrocodone Bitart/Acetaminophen ([place] 325-10 Mg) 1 - 2 tab PO Q4H PRN PRN Reason: Pain Last Admin: 01/20/18 05:55 Dose: 2 tab Benzocaine/Menthol (Cepacol Sore Throat) 1 lozenge MUCMEM Q1H PRN PRN Reason: Sore Throat Bisacodyl (Dulcolax) 5 mg PO DAILY PRN PRN Reason: Constipation Diphenhydramine HCl (Benadryl) 50 mg IVPUSH Q4H PRN PRN Reason: Itching Docusate Sodium (Colace) 100 mg PO BID PRN PRN Reason: Constipation Last Admin: 01/18/18 03:11 Dose: 100 mg Enoxaparin Sodium (Lovenox) 40 mg SUBCUT Q24H [facility] Last Admin: 01/19/18 10:38 Dose: 40 mg Hydroxyzine HCl (Vistaril) 50 mg IM Q4H PRN PRN Reason: Nausea Last Admin: 01/16/18 09:32 Dose: 50 mg Ampicillin Sodium/Sulbactam (Sodium 3 gm/ Sodium Chloride) 100 mls @ 200 mls/ hr IV Q6H [facility] Last Admin: 01/20/18 03:26 Dose: 200 mls/hr Sodium Chloride (Normal Saline) 1,000 mls @ 0 mls/hr IV ASDIRECTED [facility] Last Admin: 01/16/18 00:35 Dose: 25 mls/hr Vancomycin HCl 2 gm/ Sodium (Chloride) 500 mls @ 250 mls/hr IV Q8H [facility] Last Admin: 01/20/18 05:49 Dose: 250 mls/hr Ibuprofen (Motrin) 600 mg PO Q6H PRN PRN Reason: Pain Last Admin: 01/17/18 17:05 Dose: 600 mg Lactobacillus Rhamnosus (Culturelle) 1 cap PO BID [facility] Last Admin: 01/20/18 08:34 Dose: 1 cap Ondansetron HCl (Zofran) 4 - 8 mg IVPUSH Q6H PRN PRN Reason: Nausea/Vomiting Last Admin: 01/17/18 20:34 Dose: 8 mg Pantoprazole Sodium (Protonix) 40 mg PO ACBREAKFAST [facility] Last Admin: 01/20/18 08:34 Dose: 40 mg Polyethylene Glycol (Miralax) 17 gm PO DAILY PRN PRN Reason: Constipation Promethazine HCl (Phenergan) 25 mg IM Q6H PRN PRN Reason: Nausea Last Admin: 01/13/18 23:56 Dose: 25 mg Ranitidine HCl (Zantac) 150 mg PO BID [facility] Last Admin: 01/20/18 08:34 Dose: 150 mg Scopolamine (Transderm-Scop) 1.5 mg TRDERM Q72H PRN PRN Reason: Indigestion Last Admin: 01/17/18 19:34 Dose: 1.5 mg Senna/Docusate Sodium (Senna Plus) 1 tab PO BID PRN PRN Reason: Constipation Last Admin: 01/13/18 19:42 Dose: 1 tab Zolpidem Tartrate (Ambien) 5 mg PO BEDTIME PRN PRN Reason: Insomnia Discontinued Medications Acetaminophen (Tylenol) 650 mg PO Q6H PRN PRN Reason: Pain (mild 1-3) Last Admin: 01/12/18 18:15 Dose: 650 mg Hydrocodone Bitart/Acetaminophen ([place] 325-10 Mg) 1 - 2 tab PO Q4H PRN PRN Reason: Abdominal Pain Last Admin: 01/15/18 12:37 Dose: 2 tab Bupivacaine HCl/Epinephrine Bitart (Marcaine 0.5%/Epinephrine 1:200,000) Confirm Administered Dose 50 ml .ROUTE .STK-MED ONE Stop: 01/12/18 10:15 Calcium Carbonate/Glycine (Tums) 1,000 mg PO ONETIME ONE Stop: 01/13/18 05:58 Last Admin: 01/13/18 06:12 Dose: 1,000 mg Calcium Carbonate/Glycine (Tums) 1,000 mg PO Q2H PRN PRN Reason: Indigestion Last Admin: 01/16/18 06:41 Dose: 1,000 mg Dexamethasone (Dexamethasone) Confirm Administered Dose 4 mg .ROUTE .STK-MED ONE Stop: 01/12/18 09:35 Fentanyl (Sublimaze) 30 mcg IVPUSH ONETIME ONE Stop: 01/12/18 09:19 Last Admin: 01/12/18 09:30 Dose: 30 mcg Fentanyl (Sublimaze) Confirm Administered Dose 250 mcg .ROUTE .STK-MED ONE Stop: 01/12/18 11:23 Fentanyl (Sublimaze) Confirm Administered Dose 100 mcg .ROUTE .STK-MED ONE Stop: 01/12/18 12:05 Fentanyl Citrate (Fentanyl) Confirm Administered Dose 500 mcg .ROUTE .STK-MED ONE Stop: 01/12/18 09:44 Fentanyl Citrate (Fentanyl In Ns 20 Mcg/Ml 30 Ml Optimization Engineer) 0 mcg IV ASDIRECTED PRN; Protocol PRN Reason: PAIN Last Admin: 01/13/18 22:29 Dose: 600 mcg Fentanyl Citrate (Fentanyl In Ns 20 Mcg/Ml 30 Ml Optimization Engineer) Confirm Administered Dose 600 mcg .ROUTE .STK-MED ONE Stop: 01/12/18 12:41 Last Admin: 01/12/18 14:33 Dose: Not Given Glycopyrrolate (Robinul) Confirm Administered Dose 1 mg .ROUTE .STK-MED ONE Stop: 01/12/18 09:35 Hydromorphone HCl (Dilaudid) 0.5 mg IVPUSH ONETIME ONE Stop: 01/12/18 05:15 Last Admin: 01/12/18 05:22 Dose: 0.5 mg Hydromorphone HCl (Dilaudid) 0.5 mg IVPUSH ONETIME ONE Stop: 01/12/18 07:20 Last Admin: 01/12/18 10:33 Dose: Not Given Hydromorphone HCl (Dilaudid) 0.5 mg IVPUSH ONETIME ONE Stop: 01/12/18 08:01 Last Admin: 01/12/18 08:02 Dose: 0.5 mg Sodium Chloride (Normal Saline) 1,000 mls @ 999 mls/hr IV ASDIRECTED [facility] Last Admin: 01/12/18 05:21 Dose: 999 mls/hr Sodium Chloride (Normal Saline) 1,000 mls @ 999 mls/hr IV ASDIRECTED [facility] Last Admin: 01/12/18 06:43 Dose: 999 mls/hr Sodium Chloride (Normal Saline) 85 mls @ 3.5 mls/sec IV ASDIRECTED [facility] Last Admin: 01/12/18 06:35 Dose: 3.5 mls/sec Piperacillin Sod/Tazobactam (Sod 4.5 gm/ Sodium Chloride) 100 mls @ 200 mls/hr IV ONETIME ONE Stop: 01/12/18 09:59 Last Admin: 01/12/18 09:44 Dose: 200 mls/hr Sodium Chloride (Normal Saline) 1,000 mls @ 125 mls/hr IV ASDIRECTED [facility] Last Admin: 01/14/18 07:36 Dose: 125 mls/hr Lactated Ringer's (Ringers, Lactated) Confirm Administered Dose 1,000 mls @ as directed .ROUTE .K-MED ONE Stop: 01/12/18 11:32 Sodium Chloride (Normal Saline) Confirm Administered Dose 10 mls @ as directed .ROUTE .[facility] ONE Stop: 01/12/18 11:35 Sodium Chloride (Normal Saline) Confirm Administered Dose 10 mls @ as directed .ROUTE .K-MED ONE Stop: 01/12/18 11:42 Piperacillin/Tazobactam/ (Dextrose 3.375 gm/ Premix) 50 mls @ 100 mls/hr IV Q6H [facility] Last Admin: 01/14/18 03:04 Dose: 100 mls/hr Sodium Chloride (Normal Saline) 250 mls @ [facility] Last Admin: 01/13/18 07:48 Dose: 999 mls/hr Sodium Chloride (Normal Saline) 1,000 mls @ 250 mls/hr IV ASDIRECTED [facility] Stop: 01/13/18 14:30 Last Infusion: 01/13/18 14:55 Dose: 125 mls/hr Vancomycin HCl 2 gm/ Sodium (Chloride) 500 mls @ 250 mls/hr IV ONETIME ONE Stop: 01/14/18 12:59 Last Admin: 01/14/18 12:42 Dose: 250 mls/hr Vancomycin HCl 1.5 gm/ Sodium (Chloride) 250 mls @ 160 mls/hr IV Q8H [facility] Last Admin: 01/16/18 04:52 Dose: 160 mls/hr Vancomycin HCl 1.75 gm/ Sodium (Chloride) 250 mls @ 150 mls/hr IV Q8H [facility] Last Admin: 01/19/18 05:16 Dose: 150 mls/hr Iohexol (Omnipaque) 20 ml PO ONETIME ONE Stop: 01/17/18 10:57 Last Admin: 01/17/18 11:22 Dose: 20 ml Iopamidol (Isovue-300 (61%)) 150 ml IV . DIRECTED PRN PRN Reason: RADIOLOGY EXAM Stop: 01/13/18 06:16 Last Admin: 01/12/18 06:36 Dose: 150 ml Ketorolac Tromethamine (Toradol) Confirm Administered Dose 60 mg .ROUTE .STK- MED ONE Stop: 01/12/18 12:08 Meropenem (Merrem) Confirm Administered Dose 500 mg .ROUTE .STK-MED ONE Stop: 01/12/18 11:35 Last Admin: 01/12/18 11:29 Dose: 500 mg Meropenem (Merrem) Confirm Administered Dose 500 mg .ROUTE .STK-MED ONE Stop: 01/12/18 11:42 Last Admin: 01/12/18 11:43 Dose: 500 mg Naloxone HCl (Narcan) 0.1 mg IV ASDIRECTED PRN PRN Reason: RESP Neostigmine Methylsulfate (Neostigmine) Confirm Administered Dose 5 mg .ROUTE .STK-MED ONE Stop: 01/12/18 09:35 Ondansetron HCl (Zofran) 4 mg IVPUSH ONETIME ONE Stop: 01/12/18 05:15 Last Admin: 01/12/18 05:22 Dose: 4 mg Ondansetron HCl (Zofran) Confirm Administered Dose 4 mg .ROUTE .STK-MED ONE Stop: 01/12/18 09:35 Oxycodone HCl (Oxycodone) 5 mg PO Q4H PRN PRN Reason: Pain Last Admin: 01/17/18 15:45 Dose: 5 mg Prochlorperazine Edisylate (Compazine) 5 mg IVPUSH ONETIME ONE Stop: 01/12/18 07:48 Last Admin: 01/12/18 08:04 Dose: 5 mg Propofol (Diprivan 20 Ml) Confirm Administered Dose 200 mg .ROUTE .STK-MED ONE Stop: 01/12/18 09:35 Rocuronium [place] (Zemuron) Confirm Administered Dose 50 mg .ROUTE .STK-MED ONE Stop: 01/12/18 09:35 Succinylcholine Chloride (Quelicin) Confirm Administered Dose 200 mg .ROUTE .STK -MED ONE Stop: 01/12/18 09:35 Succinylcholine Chloride (Quelicin) Confirm Administered Dose 200 mg .ROUTE .STK -MED ONE Stop: 01/12/18 11:47 Succinylcholine Chloride (Quelicin) 100 mg .ROUTE .STK-MED ONE Stop: 01/12/18 12:01 - Exam Wound/Incisions: Healing Well, No Drainage General: Alert, Oriented, Cooperative, No Acute Distress Lungs: Clear to Auscultation, Normal Respiratory Effort Cardiovascular: Regular Rate, Regular Rhythm GI/Abdominal Exam: Normal Bowel Sounds, Soft, Non-Tender, No Distention Extremities: Normal Inspection Skin: Warm, Dry, Intact Psy/Mental Status: Alert, Normal Affect, Normal Mood - Problem List & Annotations (1) Status post small bowel resection SNOMED Code(s): 905716647469373, 441936316, 802168686034842 Code(s): Z90.49 - ACQUIRED ABSENCE OF OTHER SPECIFIED PARTS OF DIGESTIVE TRACT Status: Acute Current Visit: Yes - Problem List Review Problem List Initiated/Reviewed/Updated: Yes - My Orders Last 24 Hours: Active Orders 24 hr Category Date Time Status CBC W/O DIFF,HEMOGRAM [HEME] DAILY Lab 01/21/18 05:00 Ordered CBC W/O DIFF,HEMOGRAM [HEME] DAILY Lab 01/22/18 05:00 Ordered Vancomycin 2 gm Med 01/19/18 14:00 Active Sodium Chloride 0.9% [Normal Saline] 500 ml IV Q8H Medication Orders Acetaminophen (Tylenol) 650 mg PO Q4H PRN PRN Reason: Fever Last Admin: 01/17/18 15:46 Dose: 650 mg Admin: 01/17/18 06:41 Dose: 650 mg Admin: 01/17/18 02:37 Dose: 650 mg Admin: 01/16/18 21:45 Dose: 650 mg Admin: 01/16/18 00:34 Dose: 650 mg Admin: 01/13/18 19:41 Dose: 650 mg Admin: 01/13/18 11:22 Dose: 650 mg Admin: 01/13/18 03:07 Dose: 650 mg Admin: 01/12/18 22:30 Dose: 650 mg Hydrocodone Bitart/Acetaminophen ([place] 325-10 Mg) 1 - 2 tab PO Q4H PRN PRN Reason: Pain Last Admin: 01/20/18 05:55 Dose: 2 tab Admin: 01/20/18 00:32 Dose: 2 tab Admin: 01/19/18 19:35 Dose: 1 tab Admin: 01/19/18 14:32 Dose: 2 tab Admin: 01/19/18 10:31 Dose: 2 tab Admin: 01/19/18 05:23 Dose: 1 tab Admin: 01/19/18 04:29 Dose: 1 tab Admin: 01/18/18 23:07 Dose: 2 tab Admin: 01/18/18 18:06 Dose: 2 tab Admin: 01/18/18 12:19 Dose: 2 tab Admin: 01/18/18 07:37 Dose: 2 tab Admin: 01/18/18 02:26 Dose: 2 tab Admin: 01/17/18 20:34 Dose: 2 tab Benzocaine/Menthol (Cepacol Sore Throat) 1 lozenge MUCMEM Q1H PRN PRN Reason: Sore Throat Bisacodyl (Dulcolax) 5 mg PO DAILY PRN PRN Reason: Constipation Diphenhydramine HCl (Benadryl) 50 mg IVPUSH Q4H PRN PRN Reason: Itching Docusate Sodium (Colace) 100 mg PO BID PRN PRN Reason: Constipation Last Admin: 01/18/18 03:11 Dose: 100 mg Admin: 01/16/18 21:41 Dose: 100 mg Admin: 01/16/18 00:35 Dose: 100 mg Enoxaparin Sodium (Lovenox) 40 mg SUBCUT Q24H [facility] Last Admin: 01/19/18 10:38 Dose: 40 mg Admin: 01/18/18 10:20 Dose: 40 mg Admin: 01/17/18 11:23 Dose: 40 mg Admin: 01/16/18 10:36 Dose: 40 mg Admin: 01/15/18 10:07 Dose: 40 mg Admin: 01/14/18 10:01 Dose: 40 mg Admin: 01/13/18 11:09 Dose: 40 mg Hydroxyzine HCl (Vistaril) 50 mg IM Q4H PRN PRN Reason: Nausea Last Admin: 01/16/18 09:32 Dose: 50 mg Admin: 01/13/18 10:14 Dose: 50 mg Admin: 01/12/18 22:22 Dose: 50 mg Admin: 01/12/18 17:21 Dose: 50 mg Admin: 01/12/18 12:39 Dose: 50 mg Ampicillin Sodium/Sulbactam (Sodium 3 gm/ Sodium Chloride) 100 mls @ 200 mls/ hr IV Q6H [facility] Last Admin: 01/20/18 03:26 Dose: 200 mls/hr Admin: 01/19/18 21:13 Dose: 200 mls/hr Admin: 01/19/18 16:40 Dose: 200 mls/hr Admin: 01/19/18 10:16 Dose: 200 mls/hr Admin: 01/19/18 04:23 Dose: 200 mls/hr Admin: 01/18/18 23:07 Dose: 200 mls/hr Admin: 01/18/18 15:45 Dose: 200 mls/hr Admin: 01/18/18 10:21 Dose: 200 mls/hr Admin: 01/18/18 03:11 Dose: 200 mls/hr Admin: 01/17/18 22:34 Dose: 200 mls/hr Admin: 01/17/18 16:55 Dose: 200 mls/hr Admin: 01/17/18 10:23 Dose: 200 mls/hr Admin: 01/17/18 03:44 Dose: 200 mls/hr Admin: 01/16/18 21:41 Dose: 200 mls/hr Admin: 01/16/18 15:30 Dose: 200 mls/hr Admin: 01/16/18 09:27 Dose: 200 mls/hr Admin: 01/16/18 03:25 Dose: 200 mls/hr Admin: 01/15/18 22:23 Dose: 200 mls/hr Admin: 01/15/18 16:08 Dose: 200 mls/hr Admin: 01/15/18 10:07 Dose: 200 mls/hr Admin: 01/15/18 04:30 Dose: 200 mls/hr Admin: 01/14/18 22:13 Dose: 200 mls/hr Admin: 01/14/18 16:22 Dose: 200 mls/hr Admin: 01/14/18 10:01 Dose: 200 mls/hr Sodium Chloride (Normal Saline) 1,000 mls @ 0 mls/hr IV ASDIRECTED [facility] Last Admin: 01/16/18 00:35 Dose: 25 mls/hr Vancomycin HCl 2 gm/ Sodium (Chloride) 500 mls @ 250 mls/hr IV Q8H [facility] Last Admin: 01/20/18 05:49 Dose: 250 mls/hr Admin: 01/19/18 22:32 Dose: 250 mls/hr Admin: 01/19/18 14:05 Dose: 250 mls/hr Ibuprofen (Motrin) 600 mg PO Q6H PRN PRN Reason: Pain Last Admin: 01/17/18 17:05 Dose: 600 mg Admin: 01/17/18 08:39 Dose: 600 mg Admin: 01/17/18 00:03 Dose: 600 mg Admin: 01/16/18 08:05 Dose: 600 mg Lactobacillus Rhamnosus (Culturelle) 1 cap PO BID [facility] Last Admin: 01/20/18 08:34 Dose: 1 cap Admin: 01/19/18 21:13 Dose: 1 cap Admin: 01/19/18 09:33 Dose: 1 cap Admin: 01/18/18 21:12 Dose: 1 cap Admin: 01/18/18 10:20 Dose: 1 cap Admin: 01/17/18 20:12 Dose: 1 cap Admin: 01/17/18 08:35 Dose: 1 cap Admin: 01/16/18 20:03 Dose: 1 cap Admin: 01/16/18 09:32 Dose: 1 cap Ondansetron HCl (Zofran) 4 - 8 mg IVPUSH Q6H PRN PRN Reason: Nausea/Vomiting Last Admin: 01/17/18 20:34 Dose: 8 mg Pantoprazole Sodium (Protonix) 40 mg PO ACBREAKFAST [facility] Last Admin: 01/20/18 08:34 Dose: 40 mg Admin: 01/19/18 07:07 Dose: 40 mg Admin: 01/18/18 07:32 Dose: 40 mg Admin: 01/17/18 08:36 Dose: 40 mg Admin: 01/16/18 06:41 Dose: 40 mg Admin: 01/15/18 08:05 Dose: 40 mg Admin: 01/14/18 07:41 Dose: 40 mg Admin: 01/13/18 09:55 Dose: 40 mg Polyethylene Glycol (Miralax) 17 gm PO DAILY PRN PRN Reason: Constipation Promethazine HCl (Phenergan) 25 mg IM Q6H PRN PRN Reason: Nausea Last Admin: 01/13/18 23:56 Dose: 25 mg Admin: 01/13/18 12:30 Dose: 25 mg Ranitidine HCl (Zantac) 150 mg PO BID [facility] Last Admin: 01/20/18 08:34 Dose: 150 mg Admin: 01/19/18 21:13 Dose: 150 mg Admin: 01/19/18 09:33 Dose: 150 mg Admin: 01/18/18 21:12 Dose: 150 mg Admin: 01/18/18 10:20 Dose: 150 mg Admin: 01/17/18 20:12 Dose: 150 mg Admin: 01/17/18 08:35 Dose: 150 mg Admin: 01/16/18 20:02 Dose: 150 mg Admin: 01/16/18 10:38 Dose: 150 mg Scopolamine (Transderm-Scop) 1.5 mg TRDERM Q72H PRN PRN Reason: Indigestion Last Admin: 01/17/18 19:34 Dose: 1.5 mg Admin: 01/13/18 14:28 Dose: 1.5 mg Senna/Docusate Sodium (Senna Plus) 1 tab PO BID PRN PRN Reason: Constipation Last Admin: 01/13/18 19:42 Dose: 1 tab Zolpidem Tartrate (Ambien) 5 mg PO BEDTIME PRN PRN Reason: Insomnia - Assessment Assessment (Free Text/Narrative):: Low grade fever and WBC increased. He looks well, though. - Plan Plan (Free Text/Narrative):: Continue IV antibiotics.
[2018-01-20] MEDS ORDERED: Furosemide 20 MG Tab PO ONE (10:15)
[2018-01-20] MEDS: Enoxaparin 40 MG/0.4 ML Syringe SUBCUT SCH (10:46)
[2018-01-20] MEDS: Zolpidem 5 MG Tab PO PRN (22:14)
[2018-01-20] MEDS: Docusate Sodium 100 MG Cap PO PRN (22:23)
[2018-01-21] MEDS: Ampicillin/Sulbactam Na 3 GM in Sodium Chloride 0.9% 100 ML IV SCH ×4 (03:17→21:53)
[2018-01-21] MEDS: Acetaminophen/HYDROcodone 325-10 MG Tab PO PRN (03:17)
[2018-01-21] MEDS: Ibuprofen 600 MG Tab PO PRN (03:17)
[2018-01-21] MEDS: Vancomycin 2 GM in Sodium Chloride 0.9% 500 ML IV SCH ×3 (05:18→22:32)
[2018-01-21] MEDS ORDERED: Iopamidol 612 MG/ML 150 ML Bottle IV STA (06:08)
[2018-01-21] MEDS ORDERED: Sodium Chloride 0.9% 1,000 ML IV SCH ×2 (08:30→22:28)
[2018-01-21] MEDS: Lactobacillus Rhamnosus GG (Probiotic) Cap PO SCH ×2 (09:45→21:03)
[2018-01-21] MEDS: Pantoprazole 40 MG Tab.CR PO SCH (09:45)
[2018-01-21] MEDS ORDERED: Bupivacaine 0.5%/EPINEPHrine 1:200,000 50 ML MDV ONE (10:04)
[2018-01-21] MEDS ORDERED: Dexamethasone 4 MG/ML SDV ONE (10:12)
[2018-01-21] MEDS ORDERED: Neostigmine Methylsulfate 1 MG/ML 5 ML Syringe ONE (10:12)
[2018-01-21] MEDS ORDERED: Propofol 200 MG/20 ML SDV ONE (10:12)
[2018-01-21] MEDS ORDERED: fentaNYL 250 MCG/5 ML SDV ONE (10:12)
[2018-01-21] MEDS ORDERED: Glycopyrrolate 0.2 MG/ML 5 ML MDV ONE (10:12)
[2018-01-21] MEDS ORDERED: Rocuronium 50 MG/5 ML Vial ONE ×2 (10:12→15:07)
[2018-01-21] MEDS ORDERED: Ondansetron 4 MG/2 ML SDV ONE (10:12)
[2018-01-21] MEDS ORDERED: Succinylcholine 200 MG/10 ML MDV ONE (10:12)
[2018-01-21] MEDS: Morphine 2 MG/ML Syringe IVPUSH PRN ×2 (11:11→12:46)
[2018-01-21] MEDS: Enoxaparin 40 MG/0.4 ML Syringe SUBCUT SCH (11:47)
[2018-01-21] MEDS: Acetaminophen 325 MG Tab PO PRN (11:51)
[2018-01-21] MEDS ORDERED: Ropivacaine 60 ML, Dexamethasone 8 MG, EPINEPHrine 0.4 MG, Sodium Chloride 0.9% 17.6 ML NERVRT SCH ×4 (14:00)
[2018-01-21] MEDS ORDERED: Lactated Ringers 1,000 ML ONE ×2 (14:27→15:45)
--- NOTE | 2018-01-21 14:51 | PN ---
DATE OF SERVICE: 01/21/2018 SUBJECTIVE: The patient has continued to do well. Pain is well controlled. No nausea, vomiting, shortness of breath, or chest pain. Having normal bowel movements. OBJECTIVE: VITAL SIGNS: Stable. The patient is febrile. SKIN: Incision is healing well. ABDOMEN: Nontender, nondistended. ASSESSMENT: Status post small bowel resection. PLAN: The patient and I had a long discussion about his condition. In my absence over the last couple days his white blood cell count has returned. I did CT scan him this morning and it suggests there is a fluid collection or infection. Therefore, we will take the patient back for exploratory laparotomy, open his abdomen, wash his abdomen, and reinspect the anastomosis. If there is a failure to that, we will revise that and address any other indicated procedures. We discussed risks, benefits, alternatives, limitations of this plan including, but not limited to infection, bleeding, injury to bowel, bladder, requirement for multiple operation, and other risks not listed here including septic shock, and the risks of anesthesia. Kevin Hanson MD /[id number] MTDD
[2018-01-21] MEDS ORDERED: Meropenem 500 MG SDV ONE (15:20)
[2018-01-21] MEDS ORDERED: Ketorolac 30 MG/ML SDV IM SCH (16:30)
[2018-01-21] MEDS ORDERED: Naloxone 0.4 MG/ML SDV IV PRN (17:29)
[2018-01-21] MEDS: fentaNYL/Normal Saline 600 MCG/30 ML PCA Vial IV PRN (17:48)
[2018-01-21] MEDS: Acetaminophen 1,000 MG in Premix Bag 1 BAG IV PRN (18:42)
[2018-01-21] MEDS: Ketorolac 30 MG/ML SDV IVPUSH SCH (22:07)
[2018-01-21] MEDS: Sodium Chloride 0.9% 250 ML IV SCH (22:32)
[2018-01-22] MEDS: Sodium Chloride 0.9% 250 ML IV SCH (02:02)
[2018-01-22] MEDS: Ketorolac 30 MG/ML SDV IVPUSH SCH ×2 (03:58→11:07)
[2018-01-22] MEDS: Ampicillin/Sulbactam Na 3 GM in Sodium Chloride 0.9% 100 ML IV SCH ×4 (04:02→21:44)
[2018-01-22] MEDS: Vancomycin 2 GM in Sodium Chloride 0.9% 500 ML IV SCH ×3 (05:38→22:24)
--- NOTE | 2018-01-22 08:26 | OR ---
DATE OF PROCEDURE: 01/21/2018 PROCEDURE: 1. Reopening of recent laparotomy. 2. Lysis of adhesions. FINDINGS: 1. No definitive transition point with respect to bowel obstruction. 2. Patent and functional non leaking anastomotic site in small bowel. 3. Dense adhesions consistent with a postoperative state. COMPLICATIONS: None. CERTIFIED REAL ESTATE APPRAISER: None. ANESTHETIC: General/TAP block. RISKS: Risks, benefits, alternatives, and limitations including, but not limited to infection, bleeding, perforation, injury to abdominal structures such as bowel, bladder, ureter, and other risk not listed here were explained to the patient and wished to proceed. PREOPERATIVE DIAGNOSIS: Concern for small-bowel obstruction. POSTOPERATIVE DIAGNOSIS: Concern for small-bowel obstruction. INDICATIONS: A 37-year-old male who underwent a small-bowel obstruction for necrotic small bowel. The patient continued to have low-grade fevers. CT scan was performed, which diagnosed a small bowel obstruction. Based upon these findings, the patient was taken for exploratory laparotomy. PROCEDURE IN DETAIL: The patient was placed in a supine position. The previous incision was opened. This would be extended throughout the case to optimize maximum visualization. Once the abdomen was open, there was noted to be small bowel, which was very distended. However, there was no gross evidence of purulent fecal material or other significant abnormalities. For the next hour, gentle dissection was performed due to the significant adhesions, which were consistent with the patient's state. There was approximately 5 serosal tears, however, no full thickness tears occurred. These were closed at the end of the case with interrupted or running Vicryl sutures in overlay. The areas of concern for abscess were identified. These appeared to be just fluid pockets; however, there probably was some bacteria noted; therefore, they were cultured aerobic and anaerobic. The irrigation continued throughout this process with meropenem containing antibiotic solution. The small bowel we ran in its entirety multiple times. Due to the concern for perforation due to serosal tears, a small enterotomy was created full thickness and suction was used to remove a large amount of gastrointestinal contents. This was then over sewn with interrupted sutures. No other abnormalities in the pelvis or any other places were noted. This was then thoroughly irrigated again. Of note, approximately 4 L of irrigation were used during this process. The small bowel was resected one more time, placed back in the abdomen. The fascia was closed with #1 Vicryl sutures x3. The fascial defect was then closed with interrupted sutures x3 as previously described. Subcutaneous tissues was approximated with 3-0 Vicryl. A 10 round drain was placed underneath in the subcutaneous layers and marry were used to close the skin. The patient tolerated the procedure well. Kevin Hanson MD /[id number]
--- NOTE | 2018-01-22 08:29 | OR ---
DATE OF PROCEDURE: 01/21/2018 PROCEDURE: Transversus abdominis plain block, bilateral. COMPLICATIONS: None. SENIOR LOAN PROCESSOR: None. ANESTHESIA: TAP block. RISKS: Risks, benefits, alternatives, and limitations including, but not limited to infection, bleeding, and injury to abdominal structures were explained to the patient who wished to proceed. PROCEDURE IN DETAIL: Abdomen was prepped and draped. Using the ultrasound in conjunction with the nuclear fuel processing technician, transverse plane was readily identified. The needle was advanced into this plane under direct ultrasound guide. Needle was drawn back. No intravascular abnormality or blood was noted. Therefore, the entire content of the syringe was injected on the left side. This procedure was then performed the same on the right side, same manner, same fashion, same technique in the same sequences with improvement. The abdomen was then prepped and draped after direct pressure for up to 10 minutes before the procedure. Kevin Hanson MD /[id number]
[2018-01-22] MEDS: Pantoprazole 40 MG Tab.CR PO SCH (09:53)
[2018-01-22] MEDS: Lactobacillus Rhamnosus GG (Probiotic) Cap PO SCH ×2 (09:55→21:48)
[2018-01-22] MEDS: Enoxaparin 40 MG/0.4 ML Syringe SUBCUT SCH (11:07)
[2018-01-22] MEDS: fentaNYL/Normal Saline 600 MCG/30 ML PCA Vial IV PRN (13:37)
[2018-01-22] MEDS ORDERED: Furosemide 20 MG/2 ML VIAL IVPUSH ONE (16:00)
[2018-01-22] MEDS: Potassium Chloride 20 MEQ, Lidocaine 1% 2 ML in Sodium Chloride 0.9% 100 ML IV SCH ×3 (17:16→21:43)
[2018-01-22] MEDS: Acetaminophen 1,000 MG in Premix Bag 1 BAG IV PRN (17:35)
[2018-01-22] MEDS: Sodium Chloride 0.9% 1,000 ML IV SCH ×2 (17:35→19:38)
[2018-01-23] MEDS: Acetaminophen 1,000 MG in Premix Bag 1 BAG IV PRN ×3 (00:13→13:05)
[2018-01-23] MEDS: hydrOXYzine HCl 100 MG/2 ML SDV IM PRN (02:14)
[2018-01-23] MEDS: Ampicillin/Sulbactam Na 3 GM in Sodium Chloride 0.9% 100 ML IV SCH ×4 (03:46→21:08)
[2018-01-23] MEDS: Vancomycin 2 GM in Sodium Chloride 0.9% 500 ML IV SCH ×3 (05:45→22:25)
[2018-01-23] MEDS: fentaNYL/Normal Saline 600 MCG/30 ML PCA Vial IV PRN (07:16)
[2018-01-23] MEDS ORDERED: D5 1/2 NS w/ 20 mEq/L KCl 1,000 ML IV SCH (09:00)
[2018-01-23] MEDS: Potassium Chloride 20 MEQ, Lidocaine 1% 2 ML in Sodium Chloride 0.9% 100 ML IV SCH ×3 (09:48→15:02)
[2018-01-23] MEDS: Furosemide 20 MG/2 ML VIAL IVPUSH SCH (09:50)
--- NOTE | 2018-01-23 09:53 | PN ---
DATE OF SERVICE: 01/23/2018 SUBJECTIVE: The patient showed significant improvement today. He is having multiple bowel movements and is passing large amount of gas. He reports that he has no more fevers or chills. OBJECTIVE: VITAL SIGNS: The patient has remained afebrile since surgery. CARDIOVASCULAR: Regular rhythm and rate. RESPIRATORY: Lungs clear to auscultation bilaterally. ABDOMEN: Distended, but improved. Dressings intact/incision healing well. NG output is approximately 300. Urine output is adequate. ASSESSMENT AND PLAN: Status post lysis of adhesions and incarcerated/strangulated hernia. 1. Infectious Disease. We will continue on Unasyn and vancomycin. We will discuss this with Pharmacy for further evaluation. 2. Fluid/Electrolyte/Nutrition. The patient continues to improve. We will see if we can clamp his NG tube and/or remove it later today or tomorrow. We will also replace potassium. We will change his IV fluids from LR to D5 half-normal saline and 20 of KCl. 3. Prophylaxis. He will remain on Lovenox. The patient is ambulating quite often. 4. Pain control. Continue same pain management, but need to advance to switch him on a p.o. diet in the morning and switch him to p.o. medications. 5. General disposition. The patient overall subjectively and objectively has shown significant improvement from this recent surgery. Kevin Hanson MD /[id number]
[2018-01-23] MEDS: Pantoprazole 40 MG Tab.CR PO SCH (09:54)
[2018-01-23] MEDS: Lactobacillus Rhamnosus GG (Probiotic) Cap PO SCH ×2 (09:54→20:54)
[2018-01-23] MEDS: Enoxaparin 40 MG/0.4 ML Syringe SUBCUT SCH (10:00)
[2018-01-23] MEDS: Acetaminophen 325 MG Tab PO PRN (19:45)
[2018-01-23] MEDS: Zolpidem 5 MG Tab PO PRN (22:26)
[2018-01-24] MEDS: Acetaminophen 325 MG Tab PO PRN ×2 (00:09→05:52)
[2018-01-24] MEDS: Ampicillin/Sulbactam Na 3 GM in Sodium Chloride 0.9% 100 ML IV SCH ×4 (04:13→22:06)
[2018-01-24] MEDS: Ibuprofen 600 MG Tab PO PRN (04:16)
[2018-01-24] MEDS: Vancomycin 2 GM in Sodium Chloride 0.9% 500 ML IV SCH (05:44)
[2018-01-24] MEDS: Pantoprazole 40 MG Tab.CR PO SCH (07:33)
[2018-01-24] MEDS: Furosemide 20 MG/2 ML VIAL IVPUSH SCH (08:19)
[2018-01-24] MEDS: Lactobacillus Rhamnosus GG (Probiotic) Cap PO SCH ×2 (08:19→21:43)
[2018-01-24] MEDS ORDERED: Acetaminophen/HYDROcodone 325-5 MG Tab PO PRN (08:41)
--- NOTE | 2018-01-24 09:11 | PCM.CONS ---
H&P History of Present Illness - General Date of Service: 01/24/18 Admit Problem/Dx: Admission Diagnosis/Problem Admission Diagnosis/Problem Hernia with strangulation Admission Diagnosis/Problem Hernia Source of Information: Patient, Provider, RN History Limitations: Reports: No Limitations - History of Present Illness Initial Comments - Free Text/Narative: Jayce was admitted on January 12 for surgical management of an incarcerated hernia complicated by ischemic bowel. Postoperative course has been complicated by slow return of bowel function as well as fevers and leukocytosis. I was asked to see him today by Dr. Hanson regarding antibiotic management, yeast culture from abdominal fluid as well as PTSD management. Emmanuel reports ongoing mild to moderate left lower abdominal pain. This is an achy pain that is worse with activity. Pain medications to help the pain. It has been slowly getting better following surgery. He does not feel short of breath but appears mildly tachycardic. No complaints of nausea and he's been tolerating clear liquids. Over the last several days he has had a fever around 6:54 PM with fever spikes as high as 103 2 days ago. He has lower extremity swelling which has been slowly improving with diuresis. He required a repeat laparotomy 3 days ago with persistent fevers and ongoing abdominal pain. Small fluid collections were identified but they did not appear to be grossly infected. Cultures from this fluid are growing germ tube positive yeast. Middle Abdomen Pain Score (Numeric/FACES): 7 - Related Data Allergies/Adverse Reactions: Allergies Allergy/AdvReac Type Severity Reaction Status Date / Time No Known Allergies Allergy Verified 04/21/14 05:22 Home Medications: Home Meds NK [No Known Home Meds] 04/21/14 [History] Past Medical History - Past Surgical History HEENT Surgical History: Reports: Adenoidectomy, Tonsillectomy GI Surgical History: Reports: Appendectomy, Cholecystectomy Social & Family History - Family History Family Medical History: Noncontributory - Tobacco Use Smoking Status *Q: Never Smoker - Caffeine Use Caffeine Use: Reports: Tea - Alcohol Use Alcohol Use History: No - Recreational Drug Use Recreational Drug Use: No H&P Review of Systems - Review of Systems: Review Of Systems: See Below Free Text/Narrative: A complete 12 point review of systems was obtained. Pertinent positives and negatives are noted in the history of present illness. All other systems were reviewed and were negative except as noted. Exam - Exam Exam: See Below - Vital Signs Vital Signs: Last Vital Signs Temp 35.4 C 01/24/18 08:08 Pulse 93 01/24/18 08:08 Resp 16 01/24/18 08:08 BP 132/82 01/24/18 08:08 Pulse Ox 95 01/24/18 08:08 Weight: 118.932 kg - Exam Quality Assessment: No: Supplemental Oxygen General: Alert, Oriented, Cooperative. No: Mild Distress HEENT: Conjunctiva Clear, Mucosa Moist & [place]. No: Scleral Icterus Neck: Supple, Trachea Midline. No: Lymphadenopathy Lungs: Normal Respiratory Effort, Decreased Breath Sounds (both bases). No: Crackles, Wheezing Cardiovascular: Regular Rate, Regular Rhythm GI/Abdominal Exam: Soft, No Distention Extremities: Pedal Edema (pitting edema both lower legs). No: Increased Warmth Skin: Warm, Dry Neuro Extensive - Mental Status: Alert, Oriented x3, Nl Response to Commands Neuro Extensive - Motor, Sensory, Reflexes: CN II-XII Intact. No: Dysarthria, Abnormal Motor, Tremor Psychiatric: Alert, Normal Affect - Patient Data Lab Results Last 24 hrs: Laboratory Results - last 24 hr 01/24/18 01/24/18 Range/Units 04:51 04:51 WBC 18.8 H (4.5-11.0) K/uL RBC 3.74 L (4.30-5.90) M/uL Hgb 10.5 L (12.0-15.0) g/dL Hct 33.4 L (40.0-54.0) % MCV 89 (80-98) fL MCH 28 (27-31) pg MCHC 31 L (32-36) % Plt Count 492 H (150-400) K/uL Sodium 139 L (140-148) mmol/L Potassium 3.2 L (3.6-5.2) mmol/L Chloride 103 (100-108) mmol/L Carbon Dioxide 27 (21-32) mmol/L Anion Gap 12.2 (5.0-14.0) mmol/L BUN 13 (7-18) mg/dL Creatinine 0.9 (0.8-1.3) mg/dL Est Cr Clr Drug Dosing 139.25 mL/min Estimated GFR (MDRD) > 60 (>60) Glucose 103 (74-106) mg/dL Calcium 7.5 L (8.5-10.1) mg/dL Result Diagrams: 01/24/18 04:51 01/24/18 04:51 Kaushik Results Last 24 hrs: Microbiology 01/21/18 14:15 Gram Stain - Final Peritoneal Fluid Wound Culture - Preliminary Yeast Isolated Anaerobic Culture - Preliminary NO GROWTH AFTER 2 DAYS Consult PN Assessment/Plan POD#: 2 Procedures: Procedures ASSAY THYROID STIM HORMONE (04/21/14) COMPLETE CBC W/AUTO DIFF WBC (04/21/14) COMPREHEN METABOLIC PANEL (04/21/14) EMERGENCY DEPT VISIT (04/21/14) INFLUENZA A/B AG IA (04/21/14) ROUTINE VENIPUNCTURE (04/21/14) URINALYSIS AUTO W/SCOPE (04/21/14) (1) Fever SNOMED Code(s): 600209848 Code(s): R50.9 - FEVER, UNSPECIFIED Current Visit: Yes Qualifiers: Fever type: unspecified Qualified Code(s): R50.9 - Fever, unspecified (2) PTSD (post-traumatic stress disorder) SNOMED Code(s): 21960797 Code(s): F43.10 - POST-TRAUMATIC STRESS DISORDER, UNSPECIFIED Current Visit : Yes (3) Hypokalemia SNOMED Code(s): 52512052 Code(s): E87.6 - HYPOKALEMIA Current Visit: Yes Problem List Initiated/Reviewed/Updated: Yes My Orders Last 24 Hours: My Active Orders 01/24/18 09:07 Chest 2V [CR] Urgent UA W/MICROSCOPIC [URIN] Routine 01/24/18 09:15 Fluconazole/Normal Saline [Diflucan in NS 200 MG/100 ML] 200 mg Premix Bag 1 bag IV Q24H Potassium Chloride [Klor-Con M20] 40 meq PO BID 01/24/18 15:00 Furosemide [Lasix] 20 mg IVPUSH NOW ONE 01/24/18 21:00 Melatonin 9 mg PO BEDTIME Plan: ASSESSMENT AND PLAN - Recurrent fever - suspect intra-abdominal source. Fluid culture from recent laparotomy is growing germ to positive yeast and this could be the culprit organism. No definite abscess identified on CT scan. Urinalysis not suggestive of infection and chest x-ray did not suggest pneumonia. No MRSA has been cultured and the vancomycin can likely be discontinued. He has been on Amp/ Sulbactam since admission. white blood cell count is trending down. He is still tachycardic. -Discontinue vancomycin -Continue Amp/Sulbactam -start fluconazole -Repeat white blood cell count in the morning hypokalemia - planning to replace again today and repeat in the morning. PTSD - history of involvement. Having trouble sleeping at night. -Melatonin at bedtime Volume overload - still some excess volume from resuscitation at the time of presentation. -Furosemide 2 today and reassess in the morning Status post exploratory laparotomy and surgical repair of incarcerated hernia - seems to be slowly improving from a surgical standpoint. -Postoperative care per Dr. Valentin Kebede MD Requesting Provider: Dr Hanson Date Consult Requested: 01/24/18 Reason for Consult: fever, PTSD Patient History Reviewed: Yes Admission H&P Reviewed: Yes Notified Requestor: Yes Time Spent (in minutes): 60
--- NOTE | 2018-01-24 09:30 | PN ---
DATE OF SERVICE: 01/24/2018 SUBJECTIVE: The patient subjectively is improving. He is having multiple bowel movements. His pain is well controlled. He has no nausea, vomiting, shortness of breath, or chest pain. OBJECTIVE: VITAL SIGNS: Stable, except one temperature of 101.8. CARDIOVASCULAR: Regular rhythm and rate. RESPIRATORY: Lungs clear to auscultation bilaterally. ABDOMEN: Bowel sounds positive. Incision healing well. LABORATORY RESULTS: White blood cell count, which has now decreased to 18 from 24 and potassium is improving at 3.2. ASSESSMENT: Status post small bowel resection. PLAN: 1. Infectious Disease. This is our #1 concern, as he did grow a small amount of yeast from his culture. However, no abdominal infection was cultured. We will discontinue vancomycin. For the etiology of his fever, this is unknown at this time. We will consult the hospitalist service. We will continue Unasyn at this time. Also, of note, the patient's white blood cell count does show some basically well with symptoms and this is also improved. 2. Diet. We will start him on a clear liquid diet and advance the diet today. 3. Prophylaxis. He will remain on Lovenox, SCDs, ambulation, and Zantac. 4. Anxiety. I will also ask the hospitalist to see if we can address this in a better fashion and he did not tolerate the Ambien previously. 5. General disposition. Subjectively and objectively, the patient continues to previous aside from the low-grade fever. Kevin Hanson MD /[id number]
[2018-01-24] MEDS: Potassium Chloride 20 MEQ Tab.ER PO SCH ×2 (09:50→21:43)
[2018-01-24] MEDS ORDERED: Sodium Chloride 0.9% 500 ML IV ONE (10:19)
[2018-01-24] MEDS: Acetaminophen/HYDROcodone 325-10 MG Tab PO PRN ×4 (10:33→22:02)
[2018-01-24] MEDS: Fluconazole/Normal Saline 200 MG in Premix Bag 1 BAG IV SCH (11:16)
[2018-01-24] MEDS: Enoxaparin 40 MG/0.4 ML Syringe SUBCUT SCH (11:20)
--- NOTE | 2018-01-24 12:05 | CR ---
CHEST: 2 view CLINICAL HISTORY:Fever COMPARISON:None FINDINGS: There is mild patchy densities in both lung bases left greater than right. This is likely some atelectasis. No effusion or pneumothorax is seen. Heart and pulmonary vascular is normal. There is moderate diffuse small bowel distention also seen on prior CT. IMPRESSION: Patchy bibasal atelectasis No infiltrates are seen Moderate small bowel distention
[2018-01-24] MEDS: Morphine 2 MG/ML Syringe IVPUSH PRN (12:45)
[2018-01-24] MEDS: tiZANidine 4 MG Tab PO PRN (13:27)
[2018-01-24] MEDS ORDERED: Furosemide 20 MG/2 ML VIAL IVPUSH ONE (15:00)
[2018-01-24] MEDS: Melatonin 3 MG Tab PO SCH (21:43)
[2018-01-25] MEDS: Acetaminophen/HYDROcodone 325-10 MG Tab PO PRN ×2 (03:04→07:44)
[2018-01-25] MEDS: Ampicillin/Sulbactam Na 3 GM in Sodium Chloride 0.9% 100 ML IV SCH (03:05)
[2018-01-25] MEDS: Pantoprazole 40 MG Tab.CR PO SCH (07:39)
--- NOTE | 2018-01-25 08:59 | CR ---
Abdomen 2V AP Flat Upright CLINICAL HISTORY: Emesis FINDINGS: There is moderate the small bowel distention which has increased since prior studies. There are scattered air-fluid levels. There is no significant colonic distention IMPRESSION: Moderate increasing small bowel distention with scattered air-fluid levels. Distal small bowel obstruction is suspected. Dr. Hansno was notified at the time of this dictation at 9:00 AM
[2018-01-25] MEDS: Cefepime 1 GM in Sodium Chloride 0.9% 50 ML IV SCH ×2 (10:05→19:27)
[2018-01-25] MEDS: Lactobacillus Rhamnosus GG (Probiotic) Cap PO SCH ×2 (10:06→22:04)
[2018-01-25] MEDS: Furosemide 20 MG/2 ML VIAL IVPUSH SCH (10:07)
--- NOTE | 2018-01-25 10:54 | PCM.CONSN ---
- General Info Date of Service: 01/25/18 Functional Status: Reports: Pain Controlled. Denies: Tolerating Diet - Review of Systems Gastrointestinal: Reports: Abdominal Pain, Nausea Systems Review Comment:: There were no acute events overnight. The patient did not have any fevers. He does report increasing abdominal distention and vomiting this morning. Abdominal x-ray suggestive of ileus or small bowel obstruction and some air- fluid levels were noted. He did sleep better last night. He reports increasing abdominal pain today compared to yesterday. He also reports increasing anxiety because of the prolonged hospital stay and ongoing difficulties. - Patient Data Vitals - Most Recent: Last Vital Signs Temp 36.1 C 01/25/18 07:00 Pulse 99 01/25/18 07:00 Resp 16 01/25/18 07:00 BP 141/89 H 01/25/18 07:00 Pulse Ox 94 L 01/25/18 07:00 Weight - Most Recent: 118.932 kg I&O - Last 24 Hours: Intake & Output 01/24/18 01/25/18 01/25/18 22:59 06:59 14:59 Intake Total 540 100 Output Total 885 977 Balance -345 -877 Lab Results Last 24 Hours: Laboratory Results - last 24 hr 01/25/18 01/25/18 Range/Units 05:54 05:54 WBC 25.0 H (4.5-11.0) K/uL RBC 4.06 L (4.30-5.90) M/uL Hgb 11.4 L (12.0-15.0) g/dL Hct 35.9 L (40.0-54.0) % MCV 88 (80-98) fL MCH 28 (27-31) pg MCHC 32 (32-36) % Plt Count 685 H (150-400) K/uL Sodium 139 L (140-148) mmol/L Potassium 3.6 (3.6-5.2) mmol/L Chloride 102 (100-108) mmol/L Carbon Dioxide 26 (21-32) mmol/L Anion Gap 14.6 H (5.0-14.0) mmol/L BUN 13 (7-18) mg/dL Creatinine 0.9 (0.8-1.3) mg/dL Est Cr Clr Drug Dosing 139.25 mL/min Estimated GFR (MDRD) > 60 (>60) Glucose 110 H (74-106) mg/dL Calcium 8.1 L (8.5-10.1) mg/dL Kaushik Results Last 24 Hours: Microbiology 01/25/18 10:01 Gram Stain - Final Abdomen - Incision 01/21/18 14:15 Gram Stain - Final Peritoneal Fluid Wound Culture - Final Yeast Isolated Klebsiella Oxytoca Anaerobic Culture - Final NO GROWTH AFTER 3 DAYS Med Orders - Current: Current Medications Acetaminophen (Tylenol) 650 mg PO Q4H PRN PRN Reason: Fever Last Admin: 01/24/18 05:52 Dose: 650 mg Alvimopan (Entereg) 12 mg PO BID MICHELLE Stop: 01/27/18 21:01 Benzocaine/Menthol (Cepacol Sore Throat) 1 lozenge MUCMEM Q1H PRN PRN Reason: Sore Throat Bisacodyl (Dulcolax) 5 mg PO DAILY PRN PRN Reason: Constipation Diphenhydramine HCl (Benadryl) 50 mg IVPUSH Q4H PRN PRN Reason: Itching Last Admin: 01/23/18 20:59 Dose: 50 mg Docusate Sodium (Colace) 100 mg PO BID PRN PRN Reason: Constipation Last Admin: 01/20/18 22:23 Dose: 100 mg Enoxaparin Sodium (Lovenox) 40 mg SUBCUT Q24H [facility] Last Admin: 01/24/18 11:20 Dose: 40 mg Furosemide (Lasix) 20 mg IVPUSH DAILY [facility] Last Admin: 01/25/18 10:07 Dose: 20 mg Hydroxyzine HCl (Vistaril) 50 mg IM Q4H PRN PRN Reason: Nausea Last Admin: 01/23/18 02:14 Dose: 50 mg Potassium Chloride/Dextrose/Sod Cl (D5 1/2 Ns W/ 20 Meq/L Kcl) 1,000 mls @ 25 mls/hr IV ASDIRECTED [facility] Fluconazole/Sodium Chloride (200 mg/ Premix) 100 mls @ 100 mls/hr IV Q24H [facility] Last Admin: 01/24/18 11:16 Dose: 100 mls/hr Cefepime HCl 1 gm/ Sodium (Chloride) 50 mls @ 100 mls/hr IV Q8H [facility] Last Admin: 01/25/18 10:05 Dose: 100 mls/hr Ibuprofen (Motrin) 600 mg PO Q6H PRN PRN Reason: Pain Last Admin: 01/24/18 04:16 Dose: 600 mg Lactobacillus Rhamnosus (Culturelle) 1 cap PO BID MICHELLE Last Admin: 01/25/18 10:06 Dose: 1 cap Melatonin (Melatonin) 9 mg PO BEDTIME [facility] Last Admin: 01/24/18 21:43 Dose: 9 mg Naloxone HCl (Narcan) 0.1 mg IV ASDIRECTED PRN PRN Reason: DYSPNEA Ondansetron HCl (Zofran) 4 - 8 mg IVPUSH Q6H PRN PRN Reason: Nausea/Vomiting Last Admin: 01/17/18 20:34 Dose: 8 mg Polyethylene Glycol (Miralax) 17 gm PO DAILY PRN PRN Reason: Constipation Promethazine HCl (Phenergan) 25 mg IM Q6H PRN PRN Reason: Nausea Last Admin: 01/13/18 23:56 Dose: 25 mg Scopolamine (Transderm-Scop) 1.5 mg TRDERM Q72H PRN PRN Reason: Indigestion Last Admin: 01/17/18 19:34 Dose: 1.5 mg Senna/Docusate Sodium (Senna Plus) 1 tab PO BID PRN PRN Reason: Constipation Last Admin: 01/13/18 19:42 Dose: 1 tab Tizanidine HCl (Zanaflex) 4 mg PO Q6H PRN PRN Reason: Muscle Spasm Last Admin: 01/24/18 13:27 Dose: 4 mg Discontinued Medications Acetaminophen (Tylenol) 650 mg PO Q6H PRN PRN Reason: Pain (mild 1-3) Last Admin: 01/12/18 18:15 Dose: 650 mg Hydrocodone Bitart/Acetaminophen ([place] 325-10 Mg) 1 - 2 tab PO Q4H PRN PRN Reason: Abdominal Pain Last Admin: 01/15/18 12:37 Dose: 2 tab Hydrocodone Bitart/Acetaminophen ([place] 325-10 Mg) 1 - 2 tab PO Q4H PRN PRN Reason: Pain Last Admin: 01/25/18 07:44 Dose: 1 tab Bupivacaine HCl/Epinephrine Bitart (Marcaine 0.5%/Epinephrine 1:200,000) Confirm Administered Dose 50 ml .ROUTE .[facility] ONE Stop: 01/12/18 10:15 Bupivacaine HCl/Epinephrine Bitart (Marcaine 0.5%/Epinephrine 1:200,000) Confirm Administered Dose 50 ml .ROUTE .STK-MED ONE Stop: 01/21/18 10:05 Calcium Carbonate/Glycine (Tums) 1,000 mg PO ONETIME ONE Stop: 01/13/18 05:58 Last Admin: 01/13/18 06:12 Dose: 1,000 mg Calcium Carbonate/Glycine (Tums) 1,000 mg PO Q2H PRN PRN Reason: Indigestion Last Admin: 01/16/18 06:41 Dose: 1,000 mg Ropivacaine 60 ml/Dexamethasone 8 mg/Epinephrine HCl 0.4 mg/ Sodium Chloride 17.6 ml 0 ml NERVRT ASDIRECTED MICHELLE Last Admin: 01/21/18 13:45 Dose: 80 syringe Dexamethasone (Dexamethasone) Confirm Administered Dose 4 mg .ROUTE .STK-MED ONE Stop: 01/12/18 09:35 Dexamethasone (Dexamethasone) Confirm Administered Dose 4 mg .ROUTE .STK-MED ONE Stop: 01/21/18 10:13 Fentanyl (Sublimaze) 30 mcg IVPUSH ONETIME ONE Stop: 01/12/18 09:19 Last Admin: 01/12/18 09:30 Dose: 30 mcg Fentanyl (Sublimaze) Confirm Administered Dose 250 mcg .ROUTE .STK-MED ONE Stop: 01/12/18 11:23 Fentanyl (Sublimaze) Confirm Administered Dose 100 mcg .ROUTE .STK-MED ONE Stop: 01/12/18 12:05 Fentanyl (Sublimaze) Confirm Administered Dose 250 mcg .ROUTE .STK-MED ONE Stop: 01/21/18 10:13 Fentanyl Citrate (Fentanyl) Confirm Administered Dose 500 mcg .ROUTE .STK-MED ONE Stop: 01/12/18 09:44 Fentanyl Citrate (Fentanyl In Ns 20 Mcg/Ml 30 Ml Obstetric Anaesthetist) 0 mcg IV ASDIRECTED PRN; Protocol PRN Reason: PAIN Last Admin: 01/13/18 22:29 Dose: 600 mcg Fentanyl Citrate (Fentanyl In Ns 20 Mcg/Ml 30 Ml Obstetric Anaesthetist) Confirm Administered Dose 600 mcg .ROUTE .STK-MED ONE Stop: 01/12/18 12:41 Last Admin: 01/12/18 14:33 Dose: Not Given Fentanyl Citrate (Fentanyl) Confirm Administered Dose 500 mcg .ROUTE .STK-MED ONE Stop: 01/21/18 14:11 Fentanyl Citrate (Fentanyl In Ns 20 Mcg/Ml 30 Ml Obstetric Anaesthetist) 0 mcg IV ASDIRECTED PRN; Protocol PRN Reason: PAIN Last Admin: 01/23/18 07:16 Dose: 600 mcg Furosemide (Lasix) 20 mg PO ONETIME ONE Stop: 01/20/18 10:16 Last Admin: 01/20/18 10:46 Dose: 20 mg Furosemide (Lasix) 20 mg IVPUSH ONETIME ONE Stop: 01/22/18 16:01 Last Admin: 01/22/18 15:55 Dose: 20 mg Furosemide (Lasix) 20 mg IVPUSH NOW ONE Stop: 01/24/18 15:01 Last Admin: 01/24/18 15:50 Dose: 20 mg Glycopyrrolate (Robinul) Confirm Administered Dose 1 mg .ROUTE .STK-MED ONE Stop: 01/12/18 09:35 Glycopyrrolate (Robinul) Confirm Administered Dose 1 mg .ROUTE .STK-MED ONE Stop: 01/21/18 10:13 Hydromorphone HCl (Dilaudid) 0.5 mg IVPUSH ONETIME ONE Stop: 01/12/18 05:15 Last Admin: 01/12/18 05:22 Dose: 0.5 mg Hydromorphone HCl (Dilaudid) 0.5 mg IVPUSH ONETIME ONE Stop: 01/12/18 07:20 Last Admin: 01/12/18 10:33 Dose: Not Given Hydromorphone HCl (Dilaudid) 0.5 mg IVPUSH ONETIME ONE Stop: 01/12/18 08:01 Last Admin: 01/12/18 08:02 Dose: 0.5 mg Sodium Chloride (Normal Saline) 1,000 mls @ 999 mls/hr IV ASDIRECTED [facility] Last Admin: 01/12/18 05:21 Dose: 999 mls/hr Sodium Chloride (Normal Saline) 1,000 mls @ 999 mls/hr IV ASDIRECTED MICHELLE Last Admin: 01/12/18 06:43 Dose: 999 mls/hr Sodium Chloride (Normal Saline) 85 mls @ 3.5 mls/sec IV ASDIRECTED [facility] Last Admin: 01/12/18 06:35 Dose: 3.5 mls/sec Piperacillin Sod/Tazobactam (Sod 4.5 gm/ Sodium Chloride) 100 mls @ 200 mls/hr IV ONETIME ONE Stop: 01/12/18 09:59 Last Admin: 01/12/18 09:44 Dose: 200 mls/hr Sodium Chloride (Normal Saline) 1,000 mls @ 125 mls/hr IV ASDIRECTED [facility] Last Admin: 01/14/18 07:36 Dose: 125 mls/hr Lactated Ringer's (Ringers, Lactated) Confirm Administered Dose 1,000 mls @ as directed .ROUTE .STK-MED ONE Stop: 01/12/18 11:32 Sodium Chloride (Normal Saline) Confirm Administered Dose 10 mls @ as directed .ROUTE .[facility] ONE Stop: 01/12/18 11:35 Sodium Chloride (Normal Saline) Confirm Administered Dose 10 mls @ as directed .ROUTE .[facility] ONE Stop: 01/12/18 11:42 Piperacillin/Tazobactam/ (Dextrose 3.375 gm/ Premix) 50 mls @ 100 mls/hr IV Q6H [facility] Last Admin: 01/14/18 03:04 Dose: 100 mls/hr Sodium Chloride (Normal Saline) 250 mls @ 999 mls/hr IV ASDIRECTED [facility] Last Admin: 01/13/18 07:48 Dose: 999 mls/hr Sodium Chloride (Normal Saline) 1,000 mls @ 250 [facility]ls[facility] Stop: 01/13/18 14:30 Last Infusion: 01/13/18 14:55 Dose: 125 mls/hr Ampicillin Sodium/Sulbactam (Sodium 3 gm/ Sodium Chloride) 100 mls @ 200 mls/ hr IV Q6H [facility] Last Admin: 01/25/18 03:05 Dose: 200 mls/hr Vancomycin HCl 2 gm/ Sodium (Chloride) 500 mls @ 250 mls/hr IV ONETIME ONE Stop: 01/14/18 12:59 Last Admin: 01/14/18 12:42 Dose: 250 mls/hr Vancomycin HCl 1.5 gm/ Sodium (Chloride) 250 mls @ 160 mls/hr IV Q8H [facility] Last Admin: 01/16/18 04:52 Dose: 160 mls/hr Sodium Chloride (Normal Saline) 1,000 mls @ 0 mls/hr IV ASDIRECTED [facility] Last Admin: 01/16/18 00:35 Dose: 25 mls/hr Vancomycin HCl 1.75 gm/ Sodium (Chloride) 250 mls @ 150 mls/hr IV Q8H [facility] Last Admin: 01/19/18 05:16 Dose: 150 mls/hr Vancomycin HCl 2 gm/ Sodium (Chloride) 500 mls @ 250 mls/hr IV Q8H [facility] Last Admin: 01/24/18 05:44 Dose: 250 mls/hr Sodium Chloride (Normal Saline) 85 mls @ 4 mls/sec IV ASDIRECTED STA Stop: 01/21/18 06:09 Last Admin: 01/21/18 13:36 Dose: Not Given Sodium Chloride (Normal Saline) 1,000 mls @ 125 mls/hr IV ASDIRECTED [facility] Last Admin: 01/21/18 13:14 Dose: 125 mls/hr Lactated Ringer's (Ringers, Lactated) Confirm Administered Dose 1,000 mls @ as directed .ROUTE .STK-MED ONE Stop: 01/21/18 14:28 Lactated Ringer's (Ringers, Lactated) Confirm Administered Dose 1,000 mls @ as directed .ROUTE .STK-MED ONE Stop: 01/21/18 15:46 Acetaminophen 1,000 mg/ Premix 100 mls @ 400 mls/hr IV Q6H PRN PRN Reason: Fever Stop: 01/22/18 18:07 Last Admin: 01/22/18 17:35 Dose: 400 mls/hr Sodium Chloride (Normal Saline) 250 mls @ 999 mls/hr IV ASDIRECTED [facility] Last Admin: 01/22/18 02:02 Dose: 999 mls/hr Sodium Chloride (Normal Saline) 1,000 mls @ 200 mls/hr IV ASDIRECTED [facility] Last Admin: 01/22/18 01:49 Dose: 200 mls/hr Sodium Chloride (Normal Saline) 1,000 mls @ 125 mls/hr IV ASDIRECTED [facility] Last Admin: 01/22/18 19:38 Dose: 125 mls/hr Potassium Chloride 20 meq/Lidocaine HCl 2 ml/ Sodium Chloride 112 mls @ 56 mls/ hr IV Q2H MICHELLE Stop: 01/22/18 21:59 Last Admin: 01/22/18 21:43 Dose: 56 mls/hr Acetaminophen 1,000 mg/ Premix 100 mls @ 400 mls/hr IV Q6H PRN PRN Reason: Pain Stop: 01/28/18 22:30 Last Admin: 01/23/18 13:05 Dose: 400 mls/hr Potassium Chloride 20 meq/Lidocaine HCl 2 ml/ Sodium Chloride 112 mls @ 50 mls/ hr IV Q2H MICHELLE Stop: 01/23/18 14:59 Last Admin: 01/23/18 15:02 Dose: 50 mls/hr Potassium Chloride/Dextrose/Sod Cl (D5 1/2 Ns W/ 20 Meq/L Kcl) 1,000 mls @ 75 mls/hr IV ASDIRECTED MICHELLE Last Admin: 01/23/18 09:55 Dose: 75 mls/hr Sodium Chloride (Normal Saline) 500 mls @ 0 mls/hr IV ASDIRECTED ONE Stop: 01/24/18 10:20 Last Admin: 01/24/18 10:35 Dose: 25 mls/hr Iohexol (Omnipaque) 20 ml PO ONETIME ONE Stop: 01/17/18 10:57 Last Admin: 01/17/18 11:22 Dose: 20 ml Iopamidol (Isovue-300 (61%)) 150 ml IV . DIRECTED PRN PRN Reason: RADIOLOGY EXAM Stop: 01/13/18 06:16 Last Admin: 01/12/18 06:36 Dose: 150 ml Iopamidol (Isovue-300 (61%)) 150 ml IV . DIRECTED STA Stop: 01/21/18 06:09 Last Admin: 01/21/18 13:36 Dose: Not Given Ketorolac Tromethamine (Toradol) Confirm Administered Dose 60 mg .ROUTE .STK- MED ONE Stop: 01/12/18 12:08 Ketorolac Tromethamine (Toradol) 30 mg IM Q6H MICHELLE Stop: 01/22/18 10:31 Last Admin: 01/21/18 17:17 Dose: 30 mg Ketorolac Tromethamine (Toradol) 30 mg IVPUSH Q6H MICHELLE Stop: 01/22/18 10:31 Last Admin: 01/22/18 11:07 Dose: 30 mg Meropenem (Merrem) Confirm Administered Dose 500 mg .ROUTE .STK-MED ONE Stop: 01/12/18 11:35 Last Admin: 01/12/18 11:29 Dose: 500 mg Meropenem (Merrem) Confirm Administered Dose 500 mg .ROUTE .STK-MED ONE Stop: 01/12/18 11:42 Last Admin: 01/12/18 11:43 Dose: 500 mg Meropenem (Merrem) Confirm Administered Dose 500 mg .ROUTE .STK-MED ONE Stop: 01/21/18 15:21 Last Admin: 01/21/18 15:25 Dose: 500 mg Morphine Sulfate (Morphine) 1 - 3 mg IVPUSH Q1H PRN PRN Reason: Pain Last Admin: 01/24/18 12:45 Dose: 1 mg Naloxone HCl (Narcan) 0.1 mg IV ASDIRECTED PRN PRN Reason: RESP Neostigmine Methylsulfate (Neostigmine) Confirm Administered Dose 5 mg .ROUTE .STK-MED ONE Stop: 01/12/18 09:35 Neostigmine Methylsulfate (Neostigmine) Confirm Administered Dose 5 mg .ROUTE .STK-MED ONE Stop: 01/21/18 10:13 Ondansetron HCl (Zofran) 4 mg IVPUSH ONETIME ONE Stop: 01/12/18 05:15 Last Admin: 01/12/18 05:22 Dose: 4 mg Ondansetron HCl (Zofran) Confirm Administered Dose 4 mg .ROUTE .STK-MED ONE Stop: 01/12/18 09:35 Ondansetron HCl (Zofran) Confirm Administered Dose 4 mg .ROUTE .STK-MED ONE Stop: 01/21/18 10:13 Oxycodone HCl (Oxycodone) 5 mg PO Q4H PRN PRN Reason: Pain Last Admin: 01/17/18 15:45 Dose: 5 mg Pantoprazole Sodium (Protonix) 40 mg PO ACBREAKFAST MICHELLE Last Admin: 01/25/18 07:39 Dose: 40 mg Potassium Chloride (Klor-Con M20) 40 meq PO BID MICHELLE Stop: 01/24/18 21:01 Last Admin: 01/24/18 21:43 Dose: 40 meq Prochlorperazine Edisylate (Compazine) 5 mg IVPUSH ONETIME ONE Stop: 01/12/18 07:48 Last Admin: 01/12/18 08:04 Dose: 5 mg Propofol (Diprivan 20 Ml) Confirm Administered Dose 200 mg .ROUTE .STK-MED ONE Stop: 01/12/18 09:35 Propofol (Diprivan 20 Ml) Confirm Administered Dose 200 mg .ROUTE .STK-MED ONE Stop: 01/21/18 10:13 Ranitidine HCl (Zantac) 150 mg PO BID MICHELLE Last Admin: 01/25/18 10:07 Dose: 150 mg Rocuronium [place] (Zemuron) Confirm Administered Dose 50 mg .ROUTE .STK-MED ONE Stop: 01/12/18 09:35 Rocuronium [place] (Zemuron) Confirm Administered Dose 50 mg .ROUTE .STK-MED ONE Stop: 01/21/18 10:13 Rocuronium [place] (Zemuron) Confirm Administered Dose 50 mg .ROUTE .STK-MED ONE Stop: 01/21/18 15:08 Succinylcholine Chloride (Quelicin) Confirm Administered Dose 200 mg .ROUTE .STK -MED ONE Stop: 01/12/18 09:35 Succinylcholine Chloride (Quelicin) Confirm Administered Dose 200 mg .ROUTE .STK -MED ONE Stop: 01/12/18 11:47 Succinylcholine Chloride (Quelicin) 100 mg .ROUTE .STK-MED ONE Stop: 01/12/18 12:01 Succinylcholine Chloride (Quelicin) Confirm Administered Dose 200 mg .ROUTE .STK -MED ONE Stop: 01/21/18 10:13 Zolpidem Tartrate (Ambien) 5 mg PO BEDTIME PRN PRN Reason: Insomnia Last Admin: 01/23/18 22:26 Dose: 5 mg - Exam Quality Assessment: No: Supplemental Oxygen General: Alert, Oriented, Cooperative, No Acute Distress Lungs: Normal Respiratory Effort, Decreased Breath Sounds (both bases). No: Crackles Cardiovascular: Regular Rate, Regular Rhythm GI/Abdominal Exam: Distended, Tender, Abnormal Bowel Sounds (hypoactive) Extremities: Pedal Edema Psy/Mental Status: Alert, Normal Affect Consult PN Assessment/Plan POD#: 3 Procedures: Procedures ASSAY THYROID STIM HORMONE (04/21/14) COMPLETE CBC W/AUTO DIFF WBC (04/21/14) COMPREHEN METABOLIC PANEL (04/21/14) EMERGENCY DEPT VISIT (04/21/14) INFLUENZA A/B AG IA (04/21/14) ROUTINE VENIPUNCTURE (04/21/14) URINALYSIS AUTO W/SCOPE (04/21/14) (1) Fever SNOMED Code(s): 904684814 Code(s): R50.9 - FEVER, UNSPECIFIED Current Visit: Yes Qualifiers: Fever type: unspecified Qualified Code(s): R50.9 - Fever, unspecified (2) PTSD (post-traumatic stress disorder) SNOMED Code(s): 96494870 Code(s): F43.10 - POST-TRAUMATIC STRESS DISORDER, UNSPECIFIED Current Visit : Yes (3) Hypokalemia SNOMED Code(s): 81388647 Code(s): E87.6 - HYPOKALEMIA Current Visit: Yes Problem List Initiated/Reviewed/Updated: Yes My Orders Last 24 Hours: My Active Orders 01/24/18 11:00 Fluconazole/Normal Saline [Diflucan in NS 200 MG/100 ML] 200 mg Premix Bag 1 bag IV Q24H 01/24/18 13:13 tiZANidine [Zanaflex] 4 mg PO Q6H PRN 01/24/18 21:00 Melatonin 9 mg PO BEDTIME 01/25/18 10:00 Cefepime [Maxipime] 1 gm Sodium Chloride 0.9% [Normal Saline] 50 ml IV Q8H 01/25/18 10:51 HYDROmorphone [Dilaudid] 0.5 mg IVPUSH Q2H PRN oxyCODONE 5 mg PO Q4H PRN 01/25/18 10:52 LORazepam [Ativan] 0.5 mg IVPUSH Q4H PRN 01/26/18 09:00 Pantoprazole [ProTONIX IV] 40 mg IVPUSH DAILY Plan: ASSESSMENT AND PLAN - Recurrent fever - suspect intra-abdominal source. Fluid culture from recent laparotomy is growing germ to positive yeast and Klebsiella. Despite what appears to be appropriate antibiotics he continues to have increasing leukocytosis and increasing difficulty. -Change antibiotic coverage to cefepime -Continue fluconazole -Repeat white blood cell count in the morning Hypokalemia - level slowly improving with supplementation. -40 mEq supplementation today PTSD - history of involvement. Slept better last night with melatonin. He does report some increasing anxiety difficulties. -Melatonin at bedtime -Lorazepam as needed for anxiety Volume overload - volume status slowly improving and is mostly located in the ankle region at this time. -Furosemide 1 today Status post exploratory laparotomy and surgical repair of incarcerated hernia - surgical recovery hampered today by either an ileus or developing small bowel obstruction as noted on the abdominal x-ray and by patient's symptoms. NG tube is being replaced today. -Postoperative care per Dr. Valentin Kebede MD
[2018-01-25] MEDS: Fluconazole/Normal Saline 200 MG in Premix Bag 1 BAG IV SCH (11:00)
[2018-01-25] MEDS: Enoxaparin 40 MG/0.4 ML Syringe SUBCUT SCH (11:00)
--- NOTE | 2018-01-25 11:53 | PN ---
DATE OF SERVICE: 01/25/2018 SUBJECTIVE: The patient feels better today. He did have one episode of nausea and vomiting, however, states things are going quite well, and his abdominal pain is well controlled, at 0 to 1. He did have a small bowel movement this morning and is passing small amount of gas. OBJECTIVE: VITAL SIGNS: Stable. He is not tachycardic for the first time. He has no fever at this moment. CARDIOVASCULAR: Regular rhythm and rate. RESPIRATORY: Lungs clear to auscultation bilaterally. ABDOMEN: Distended, moderate, marry are noted. Small amount of drainage in the superior aspect of the wound. Some drainage from the incision site wound around it. Drain bulb output, mostly serous. ASSESSMENT: Status post bowel obstruction/chronic bowel/lysis of adhesions. PLAN: 1. Infectious Disease. It is concerning that the patient's white blood cell count is elevated this morning. Although, other signs of his infectious etiology show improvement. No fever at this moment. He is not tachycardic for the first time since this hospitalization. Cultures did grow up some Klebsiella and fungus. We will, in conjunction with the hospitalist service, change him to cefepime today. I have discontinued his Unasyn. Furthermore, I have removed the bottom 5 marry of his incision and a small amount of drainage was noted. The drain from the incision has also been removed as this may harbor infectious etiology, and this was then cultured. 2. GI activity. The patient has most likely an ileus. I did review the imaging with Radiology. The patient has a definite air-fluid level. No evidence of free air. The obvious concern here is that there is some occult bowel obstruction. However, during the recent surgery, the anastomosis was inspected, found to be patent, and liquid could transverse through the anastomosis. No evidence of a definitive transition point was noted during that surgery. The concern here is repeated surgical evaluations will lead to a worsening or enterotomy, which can lead to fistula formation. Therefore, the GI plan today is to place an NG tube, give him bowel rest. As there is no definitive bowel obstruction, we will start him on Entereg for the next 48 hours. In addition, we will re-evaluate his white blood cell count, fever, and KUB tomorrow and if this is worse, then we will repeat a CT scan. 3. Prophylaxis. The patient remains on Zantac, SCDs, and Lovenox. 4. Fluid, Electrolyte, and Nutrition: Dr. Arzola will continue to assist us with respect to these. 5. General disposition. Aside from the patient's one episode of nausea, vomiting, and elevation of his white blood cell count, he looks resting comfortably, he is ambulating in the halls. He is going to bathroom by himself. He does not appear to be in any extreme. Nonetheless, we will definitely address this elevated white blood cell count and what appears to be postoperative ileus at this moment. Kevin Hanson MD /[id number]
[2018-01-25] MEDS: HYDROmorphone 0.5 MG/0.5 ML Syringe IVPUSH PRN ×4 (12:34→22:04)
[2018-01-25] MEDS: LORazepam 2 MG/ML SDV IVPUSH PRN ×2 (14:42→23:21)
[2018-01-25] MEDS: Potassium Chloride 20 MEQ, Lidocaine 1% 2 ML in Sodium Chloride 0.9% 100 ML IV SCH ×2 (14:42→17:10)
[2018-01-25] MEDS: Melatonin 3 MG Tab PO SCH (22:04)
[2018-01-26] MEDS: Cefepime 1 GM in Sodium Chloride 0.9% 50 ML IV SCH ×3 (02:05→17:13)
[2018-01-26] MEDS: HYDROmorphone 0.5 MG/0.5 ML Syringe IVPUSH PRN ×6 (04:45→19:37)
[2018-01-26] MEDS: Lactobacillus Rhamnosus GG (Probiotic) Cap PO SCH ×2 (08:10→20:47)
[2018-01-26] MEDS: Furosemide 20 MG/2 ML VIAL IVPUSH SCH (08:11)
[2018-01-26] MEDS: Pantoprazole 40 MG Vial IVPUSH SCH (08:12)
--- NOTE | 2018-01-26 10:55 | PN ---
DATE OF SERVICE: 01/26/2018 SUBJECTIVE: The patient improved significantly overnight. He states his pain is essentially 0-1/10. There are no other episodes of nausea and vomiting. OBJECTIVE: VITAL SIGNS: Stable. He remains afebrile, slightly tachycardic. CARDIOVASCULAR: Regular rhythm and rate. RESPIRATORY: Lungs are clear to auscultation bilaterally. ABDOMEN: Moderately distended. SKIN: Incision did not show any evidence of cellulitis. ASSESSMENT: Status post small bowel resection. PLAN: 1. GI. The patient reports having 4 very large well formed bowel movements in the last 24 hours. In addition, he is reporting large amount of gas. We will keep the NG tube in at this time. The abdominal film shows some improvement and also noted gas pattern in the colon itself. 2. Fluid, electrolyte, nutrition. We will start the patient on TPN today. Although, he is having bowel movements, it is unclear his natural course of this process, and he continues to have prolonged delayed gastrointestinal activity. He will require nutrition. We will also replace the potassium in that TPN today. 3. Anxiety, which has significantly improved. It has been managed with the help of the hospitalist service. 4. Infectious Disease. White blood cell count is down today. He remains afebrile throughout the last 24 hours per nursing. 5. General disposition: The patient subjectively and objectively shows again improvement today. We will re-evaluate tomorrow. I did discuss with the patient the role of CT scan at this point because his x-rays show improvement and he has had significant bowel movements and he no longer had fever and improvement of white blood cell count. We will delay any further imaging at this moment. Kevin Hanson MD /[id number]
[2018-01-26] MEDS: LORazepam 2 MG/ML SDV IVPUSH PRN ×2 (11:04→22:24)
[2018-01-26] MEDS: Enoxaparin 40 MG/0.4 ML Syringe SUBCUT SCH (11:23)
[2018-01-26] MEDS: Fluconazole/Normal Saline 200 MG in Premix Bag 1 BAG IV SCH (11:23)
--- NOTE | 2018-01-26 12:42 | PCM.CONSN ---
- General Info Date of Service: 01/26/18 Functional Status: Reports: Pain Controlled - Review of Systems General: Denies: Fever Gastrointestinal: Reports: Abdominal Pain Systems Review Comment:: there were no acute events overnight. Abdominal pain and distention are slightly better today. No significant nausea this morning. Patient has had good rest with use of lorazepam. Anxiety is better today. No fevers overnight. White blood cell count is slightly better today. - Patient Data Vitals - Most Recent: Last Vital Signs Temp 37.9 C 01/26/18 11:21 Pulse 106 H 01/26/18 11:21 Resp 18 01/26/18 11:21 BP 123/77 01/26/18 11:21 Pulse Ox 96 01/26/18 11:21 Weight - Most Recent: 113.942 kg I&O - Last 24 Hours: Intake & Output 01/25/18 01/26/18 01/26/18 22:59 06:59 14:59 Intake Total 356 553 150 Output Total 1435 750 Balance -1079 -197 150 Lab Results Last 24 Hours: Laboratory Results - last 24 hr 01/26/18 01/26/18 Range/Units 05:20 05:20 WBC 23.7 H (4.5-11.0) K/uL RBC 3.88 L (4.30-5.90) M/uL Hgb 11.1 L (12.0-15.0) g/dL Hct 34.2 L (40.0-54.0) % MCV 88 (80-98) fL MCH 29 (27-31) pg MCHC 33 (32-36) % Plt Count 693 H (150-400) K/uL Sodium 140 (140-148) mmol/L Potassium 3.2 L (3.6-5.2) mmol/L Chloride 102 (100-108) mmol/L Carbon Dioxide 26 (21-32) mmol/L Anion Gap 15.2 H (5.0-14.0) mmol/L BUN 14 (7-18) mg/dL Creatinine 0.9 (0.8-1.3) mg/dL Est Cr Clr Drug Dosing 139.25 mL/min Estimated GFR (MDRD) > 60 (>60) Glucose 99 (74-106) mg/dL Calcium 7.7 L (8.5-10.1) mg/dL Kaushik Results Last 24 Hours: Microbiology 01/25/18 10:01 Gram Stain - Final Abdomen - Incision Wound Culture - Preliminary Yeast Med Orders - Current: Current Medications Acetaminophen (Tylenol) 650 mg PO Q4H PRN PRN Reason: Fever Last Admin: 01/24/18 05:52 Dose: 650 mg Alvimopan (Entereg) 12 mg PO BID [facility] Stop: 01/27/18 21:01 Last Admin: 01/26/18 08:10 Dose: 12 mg Benzocaine/Menthol (Cepacol Sore Throat) 1 lozenge MUCMEM Q1H PRN PRN Reason: Sore Throat Bisacodyl (Dulcolax) 5 mg PO DAILY PRN PRN Reason: Constipation Diphenhydramine HCl (Benadryl) 50 mg IVPUSH Q4H PRN PRN Reason: Itching Last Admin: 01/23/18 20:59 Dose: 50 mg Docusate Sodium (Colace) 100 mg PO BID PRN PRN Reason: Constipation Last Admin: 01/20/18 22:23 Dose: 100 mg Enoxaparin Sodium (Lovenox) 40 mg SUBCUT Q24H [facility] Last Admin: 01/26/18 11:23 Dose: 40 mg Furosemide (Lasix) 20 mg IVPUSH DAILY [facility] Last Admin: 01/26/18 08:11 Dose: 20 mg Furosemide (Lasix) 20 mg IVPUSH ONETIME ONE Stop: 01/26/18 15:01 Hydromorphone HCl (Dilaudid) 0.5 mg IVPUSH Q2H PRN PRN Reason: Pain Last Admin: 01/26/18 12:38 Dose: 0.5 mg Hydroxyzine HCl (Vistaril) 50 mg IM Q4H PRN PRN Reason: Nausea Last Admin: 01/23/18 02:14 Dose: 50 mg Potassium Chloride/Dextrose/Sod Cl (D5 1/2 Ns W/ 20 Meq/L Kcl) 1,000 mls @ 25 mls/hr IV ASDIRECTED [facility] Fluconazole/Sodium Chloride (200 mg/ Premix) 100 mls @ 100 mls/hr IV Q24H [facility] Last Admin: 01/26/18 11:23 Dose: 100 mls/hr Cefepime HCl 1 gm/ Sodium (Chloride) 50 mls @ 100 mls/hr IV Q8H [facility] Last Admin: 01/26/18 09:26 Dose: 100 mls/hr Potassium Chloride 20 meq/Lidocaine HCl 2 ml/ Sodium Chloride 112 mls @ 50 mls/ hr IV Q2H [facility] Stop: 01/26/18 18:44 Ibuprofen (Motrin) 600 mg PO Q6H PRN PRN Reason: Pain Last Admin: 01/24/18 04:16 Dose: 600 mg Lactobacillus Rhamnosus (Culturelle) 1 cap PO BID [facility] Last Admin: 01/26/18 08:10 Dose: 1 cap Lorazepam (Ativan) 0.5 mg IVPUSH Q4H PRN PRN Reason: Anxiety Last Admin: 01/26/18 11:04 Dose: 0.5 mg Melatonin (Melatonin) 9 mg PO BEDTIME [facility] Last Admin: 01/25/18 22:04 Dose: Not Given Naloxone HCl (Narcan) 0.1 mg IV ASDIRECTED PRN PRN Reason: DYSPNEA Ondansetron HCl (Zofran) 4 - 8 mg IVPUSH Q6H PRN PRN Reason: Nausea/Vomiting Last Admin: 01/17/18 20:34 Dose: 8 mg Oxycodone HCl (Oxycodone) 5 mg PO Q4H PRN PRN Reason: Pain Pantoprazole Sodium (Protonix Iv) 40 mg IVPUSH DAILY [facility] Last Admin: 01/26/18 08:12 Dose: 40 mg Polyethylene Glycol (Miralax) 17 gm PO DAILY PRN PRN Reason: Constipation Promethazine HCl (Phenergan) 25 mg IM Q6H PRN PRN Reason: Nausea Last Admin: 01/13/18 23:56 Dose: 25 mg Scopolamine (Transderm-Scop) 1.5 mg TRDERM Q72H PRN PRN Reason: Indigestion Last Admin: 01/17/18 19:34 Dose: 1.5 mg Senna/Docusate Sodium (Senna Plus) 1 tab PO BID PRN PRN Reason: Constipation Last Admin: 01/13/18 19:42 Dose: 1 tab Tizanidine HCl (Zanaflex) 4 mg PO Q6H PRN PRN Reason: Muscle Spasm Last Admin: 01/24/18 13:27 Dose: 4 mg Discontinued Medications Acetaminophen (Tylenol) 650 mg PO Q6H PRN PRN Reason: Pain (mild 1-3) Last Admin: 01/12/18 18:15 Dose: 650 mg Hydrocodone Bitart/Acetaminophen (Bonner 325-10 Mg) 1 - 2 tab PO Q4H PRN PRN Reason: Abdominal Pain Last Admin: 01/15/18 12:37 Dose: 2 tab Hydrocodone Bitart/Acetaminophen (Bonner 325-10 Mg) 1 - 2 tab PO Q4H PRN PRN Reason: Pain Last Admin: 01/25/18 07:44 Dose: 1 tab Bupivacaine HCl/Epinephrine Bitart (Marcaine 0.5%/Epinephrine 1:200,000) Confirm Administered Dose 50 ml .ROUTE .STK-MED ONE Stop: 01/12/18 10:15 Bupivacaine HCl/Epinephrine Bitart (Marcaine 0.5%/Epinephrine 1:200,000) Confirm Administered Dose 50 ml .ROUTE .STK-MED ONE Stop: 01/21/18 10:05 Calcium Carbonate/Glycine (Tums) 1,000 mg PO ONETIME ONE Stop: 01/13/18 05:58 Last Admin: 01/13/18 06:12 Dose: 1,000 mg Calcium Carbonate/Glycine (Tums) 1,000 mg PO Q2H PRN PRN Reason: Indigestion Last Admin: 01/16/18 06:41 Dose: 1,000 mg Ropivacaine 60 ml/Dexamethasone 8 mg/Epinephrine HCl 0.4 mg/ Sodium Chloride 17.6 ml 0 ml NERVRT ASDIRECTED [facility] Last Admin: 01/21/18 13:45 Dose: 80 syringe Dexamethasone (Dexamethasone) Confirm Administered Dose 4 mg .ROUTE .STK-MED ONE Stop: 01/12/18 09:35 Dexamethasone (Dexamethasone) Confirm Administered Dose 4 mg .ROUTE .STK-MED ONE Stop: 01/21/18 10:13 Fentanyl (Sublimaze) 30 mcg IVPUSH ONETIME ONE Stop: 01/12/18 09:19 Last Admin: 01/12/18 09:30 Dose: 30 mcg Fentanyl (Sublimaze) Confirm Administered Dose 250 mcg .ROUTE .STK-MED ONE Stop: 01/12/18 11:23 Fentanyl (Sublimaze) Confirm Administered Dose 100 mcg .ROUTE .STK-MED ONE Stop: 01/12/18 12:05 Fentanyl (Sublimaze) Confirm Administered Dose 250 mcg .ROUTE .STK-MED ONE Stop: 01/21/18 10:13 Fentanyl Citrate (Fentanyl) Confirm Administered Dose 500 mcg .ROUTE .STK-MED ONE Stop: 01/12/18 09:44 Fentanyl Citrate (Fentanyl In Ns 20 Mcg/Ml 30 Ml [employer]) 0 mcg IV ASDIRECTED PRN; Protocol PRN Reason: PAIN Last Admin: 01/13/18 22:29 Dose: 600 mcg Fentanyl Citrate (Fentanyl In Ns 20 Mcg/Ml 30 Ml [employer]) Confirm Administered Dose 600 mcg .ROUTE .STK-MED ONE Stop: 01/12/18 12:41 Last Admin: 01/12/18 14:33 Dose: Not Given Fentanyl Citrate (Fentanyl) Confirm Administered Dose 500 mcg .ROUTE .STK-MED ONE Stop: 01/21/18 14:11 Fentanyl Citrate (Fentanyl In Ns 20 Mcg/Ml 30 Ml [employer]) 0 mcg IV ASDIRECTED PRN; Protocol PRN Reason: PAIN Last Admin: 01/23/18 07:16 Dose: 600 mcg Furosemide (Lasix) 20 mg PO ONETIME ONE Stop: 01/20/18 10:16 Last Admin: 01/20/18 10:46 Dose: 20 mg Furosemide (Lasix) 20 mg IVPUSH ONETIME ONE Stop: 01/22/18 16:01 Last Admin: 01/22/18 15:55 Dose: 20 mg Furosemide (Lasix) 20 mg IVPUSH NOW ONE Stop: 01/24/18 15:01 Last Admin: 01/24/18 15:50 Dose: 20 mg Glycopyrrolate (Robinul) Confirm Administered Dose 1 mg .ROUTE .STK-MED ONE Stop: 01/12/18 09:35 Glycopyrrolate (Robinul) Confirm Administered Dose 1 mg .ROUTE .STK-MED ONE Stop: 01/21/18 10:13 Hydromorphone HCl (Dilaudid) 0.5 mg IVPUSH ONETIME ONE Stop: 01/12/18 05:15 Last Admin: 01/12/18 05:22 Dose: 0.5 mg Hydromorphone HCl (Dilaudid) 0.5 mg IVPUSH ONETIME ONE Stop: 01/12/18 07:20 Last Admin: 01/12/18 10:33 Dose: Not Given Hydromorphone HCl (Dilaudid) 0.5 mg IVPUSH ONETIME ONE Stop: 01/12/18 08:01 Last Admin: 01/12/18 08:02 Dose: 0.5 mg Sodium Chloride (Normal Saline) 1,000 mls @ 999 mls/hr IV ASDIRECTED [facility] Last Admin: 01/12/18 05:21 Dose: 999 mls/hr Sodium Chloride (Normal Saline) 1,000 mls @ 999 mls/hr IV ASDIRECTED [facility] Last Admin: 01/12/18 06:43 Dose: 999 mls/hr Sodium Chloride (Normal Saline) 85 mls @ 3.5 mls/sec IV ASDIRECTED [facility] Last Admin: 01/12/18 06:35 Dose: 3.5 mls/sec Piperacillin Sod/Tazobactam (Sod 4.5 gm/ Sodium Chloride) 100 mls @ 200 mls/hr IV ONETIME ONE Stop: 01/12/18 09:59 Last Admin: 01/12/18 09:44 Dose: 200 mls/hr Sodium Chloride (Normal Saline) 1,000 mls @ 125 mls/hr IV ASDIRECTED [facility] Last Admin: 01/14/18 07:36 Dose: 125 mls/hr Lactated Ringer's (Ringers, Lactated) Confirm Administered Dose 1,000 mls @ as directed .ROUTE .STK-MED ONE Stop: 01/12/18 11:32 Sodium Chloride (Normal Saline) Confirm Administered Dose 10 mls @ as directed .ROUTE .STK-MED ONE Stop: 01/12/18 11:35 Sodium Chloride (Normal Saline) Confirm Administered Dose 10 mls @ as directed .ROUTE .STK-MED ONE Stop: 01/12/18 11:42 Piperacillin/Tazobactam/ (Dextrose 3.375 gm/ Premix) 50 mls @ 100 mls/hr IV Q6H [facility] Last Admin: 01/14/18 03:04 Dose: 100 mls/hr Sodium Chloride (Normal Saline) 250 mls @ 999 mls/hr IV ASDIRECTED [facility] Last Admin: 01/13/18 07:48 Dose: 999 mls/hr Sodium Chloride (Normal Saline) 1,000 mls @ 250 mls/hr IV ASDIRECTED [facility] Stop: 01/13/18 14:30 Last Infusion: 01/13/18 14:55 Dose: 125 mls/hr Ampicillin Sodium/Sulbactam (Sodium 3 gm/ Sodium Chloride) 100 mls @ 200 mls/ hr IV Q6H [facility] Last Admin: 01/25/18 03:05 Dose: 200 mls/hr Vancomycin HCl 2 gm/ Sodium (Chloride) 500 mls @ 250 mls/hr IV ONETIME ONE Stop: 01/14/18 12:59 Last Admin: 01/14/18 12:42 Dose: 250 mls/hr Vancomycin HCl 1.5 gm/ Sodium (Chloride) 250 mls @ 160 mls/hr IV Q8H [facility] Last Admin: 01/16/18 04:52 Dose: 160 mls/hr Sodium Chloride (Normal Saline) 1,000 mls @ 0 mls/hr IV ASDIRECTED [facility] Last Admin: 01/16/18 00:35 Dose: 25 mls/hr Vancomycin HCl 1.75 gm/ Sodium (Chloride) 250 mls @ 150 mls/hr IV Q8H [facility] Last Admin: 01/19/18 05:16 Dose: 150 mls/hr Vancomycin HCl 2 gm/ Sodium (Chloride) 500 mls @ 250 mls/hr IV Q8H [facility] Last Admin: 01/24/18 05:44 Dose: 250 mls/hr Sodium Chloride (Normal Saline) 85 mls @ 4 mls/sec IV ASDIRECTED [facility] Stop: 01/21/18 06:09 Last Admin: 01/21/18 13:36 Dose: Not Given Sodium Chloride (Normal Saline) 1,000 mls @ 125 mls/hr IV ASDIRECTED [facility] Last Admin: 01/21/18 13:14 Dose: 125 mls/hr Lactated Ringer's (Ringers, Lactated) Confirm Administered Dose 1,000 mls @ as directed .ROUTE .STK-MED ONE Stop: 01/21/18 14:28 Lactated Ringer's (Ringers, Lactated) Confirm Administered Dose 1,000 mls @ as directed .ROUTE .STK-MED ONE Stop: 01/21/18 15:46 Acetaminophen 1,000 mg/ Premix 100 mls @ 400 mls/hr IV Q6H PRN PRN Reason: Fever Stop: 01/22/18 18:07 Last Admin: 01/22/18 17:35 Dose: 400 mls/hr Sodium Chloride (Normal Saline) 250 mls @ 999 mls/hr IV ASDIRECTED [facility] Last Admin: 01/22/18 02:02 Dose: 999 mls/hr Sodium Chloride (Normal Saline) 1,000 mls @ 200 mls/hr IV ASDIRECTED [facility] Last Admin: 01/22/18 01:49 Dose: 200 mls/hr Sodium Chloride (Normal Saline) 1,000 mls @ 125 mls/hr IV ASDIRECTED [facility] Last Admin: 01/22/18 19:38 Dose: 125 mls/hr Potassium Chloride 20 meq/Lidocaine HCl 2 ml/ Sodium Chloride 112 mls @ 56 mls/ hr IV Q2H [facility] Stop: 01/22/18 21:59 Last Admin: 01/22/18 21:43 Dose: 56 mls/hr Acetaminophen 1,000 mg/ Premix 100 mls @ 400 mls/hr IV Q6H PRN PRN Reason: Pain Stop: 01/28/18 22:30 Last Admin: 01/23/18 13:05 Dose: 400 mls/hr Potassium Chloride 20 meq/Lidocaine HCl 2 ml/ Sodium Chloride 112 mls @ 50 mls/ hr IV Q2H [facility] Stop: 01/23/18 14:59 Last Admin: 01/23/18 15:02 Dose: 50 mls/hr Potassium Chloride/Dextrose/Sod Cl (D5 1/2 Ns W/ 20 Meq/L Kcl) 1,000 mls @ 75 mls/hr IV ASDIRECTED [facility] Last Admin: 01/23/18 09:55 Dose: 75 mls/hr Sodium Chloride (Normal Saline) 500 mls @ 0 mls/hr IV ASDIRECTED ONE Stop: 01/24/18 10:20 Last Admin: 01/24/18 10:35 Dose: 25 mls/hr Potassium Chloride 20 meq/Lidocaine HCl 2 ml/ Sodium Chloride 112 mls @ 56 mls/ hr IV Q2H [facility] Stop: 01/25/18 17:59 Last Admin: 01/25/18 17:10 Dose: 56 mls/hr Iohexol (Omnipaque) 20 ml PO ONETIME ONE Stop: 01/17/18 10:57 Last Admin: 01/17/18 11:22 Dose: 20 ml Iopamidol (Isovue-300 (61%)) 150 ml IV . DIRECTED PRN PRN Reason: RADIOLOGY EXAM Stop: 01/13/18 06:16 Last Admin: 01/12/18 06:36 Dose: 150 ml Iopamidol (Isovue-300 (61%)) 150 ml IV . DIRECTED [facility] Stop: 01/21/18 06:09 Last Admin: 01/21/18 13:36 Dose: Not Given Ketorolac Tromethamine (Toradol) Confirm Administered Dose 60 mg .ROUTE .STK- MED ONE Stop: 01/12/18 12:08 Ketorolac Tromethamine (Toradol) 30 mg IM Q6H [facility] Stop: 01/22/18 10:31 Last Admin: 01/21/18 17:17 Dose: 30 mg Ketorolac Tromethamine (Toradol) 30 mg IVPUSH Q6H [facility] Stop: 01/22/18 10:31 Last Admin: 01/22/18 11:07 Dose: 30 mg Meropenem (Merrem) Confirm Administered Dose 500 mg .ROUTE .STK-MED ONE Stop: 01/12/18 11:35 Last Admin: 01/12/18 11:29 Dose: 500 mg Meropenem (Merrem) Confirm Administered Dose 500 mg .ROUTE .STK-MED ONE Stop: 01/12/18 11:42 Last Admin: 01/12/18 11:43 Dose: 500 mg Meropenem (Merrem) Confirm Administered Dose 500 mg .ROUTE .STK-MED ONE Stop: 01/21/18 15:21 Last Admin: 01/21/18 15:25 Dose: 500 mg Morphine Sulfate (Morphine) 1 - 3 mg IVPUSH Q1H PRN PRN Reason: Pain Last Admin: 01/24/18 12:45 Dose: 1 mg Naloxone HCl (Narcan) 0.1 mg IV ASDIRECTED PRN PRN Reason: RESP Neostigmine Methylsulfate (Neostigmine) Confirm Administered Dose 5 mg .ROUTE .STK-MED ONE Stop: 01/12/18 09:35 Neostigmine Methylsulfate (Neostigmine) Confirm Administered Dose 5 mg .ROUTE .STK-MED ONE Stop: 01/21/18 10:13 Ondansetron HCl (Zofran) 4 mg IVPUSH ONETIME ONE Stop: 01/12/18 05:15 Last Admin: 01/12/18 05:22 Dose: 4 mg Ondansetron HCl (Zofran) Confirm Administered Dose 4 mg .ROUTE .STK-MED ONE Stop: 01/12/18 09:35 Ondansetron HCl (Zofran) Confirm Administered Dose 4 mg .ROUTE .STK-MED ONE Stop: 01/21/18 10:13 Oxycodone HCl (Oxycodone) 5 mg PO Q4H PRN PRN Reason: Pain Last Admin: 01/17/18 15:45 Dose: 5 mg Pantoprazole Sodium (Protonix) 40 mg PO ACBREAKFAST [facility] Last Admin: 01/25/18 07:39 Dose: 40 mg Potassium Chloride (Klor-Con M20) 40 meq PO BID [facility] Stop: 01/24/18 21:01 Last Admin: 01/24/18 21:43 Dose: 40 meq Prochlorperazine Edisylate (Compazine) 5 mg IVPUSH ONETIME ONE Stop: 01/12/18 07:48 Last Admin: 01/12/18 08:04 Dose: 5 mg Propofol (Diprivan 20 Ml) Confirm Administered Dose 200 mg .ROUTE .STK-MED ONE Stop: 01/12/18 09:35 Propofol (Diprivan 20 Ml) Confirm Administered Dose 200 mg .ROUTE .STK-MED ONE Stop: 01/21/18 10:13 Ranitidine HCl (Zantac) 150 mg PO BID [facility] Last Admin: 01/25/18 10:07 Dose: 150 mg Rocuronium Elon (Zemuron) Confirm Administered Dose 50 mg .ROUTE .STK-MED ONE Stop: 01/12/18 09:35 Rocuronium Elon (Zemuron) Confirm Administered Dose 50 mg .ROUTE .STK-MED ONE Stop: 01/21/18 10:13 Rocuronium Elon (Zemuron) Confirm Administered Dose 50 mg .ROUTE .STK-MED ONE Stop: 01/21/18 15:08 Succinylcholine Chloride (Quelicin) Confirm Administered Dose 200 mg .ROUTE .STK -MED ONE Stop: 01/12/18 09:35 Succinylcholine Chloride (Quelicin) Confirm Administered Dose 200 mg .ROUTE .STK -MED ONE Stop: 01/12/18 11:47 Succinylcholine Chloride (Quelicin) 100 mg .ROUTE .STK-MED ONE Stop: 01/12/18 12:01 Succinylcholine Chloride (Quelicin) Confirm Administered Dose 200 mg .ROUTE .STK -MED ONE Stop: 01/21/18 10:13 Zolpidem Tartrate (Ambien) 5 mg PO BEDTIME PRN PRN Reason: Insomnia Last Admin: 01/23/18 22:26 Dose: 5 mg - Exam Quality Assessment: No: Supplemental Oxygen General: Alert, Oriented, Cooperative, No Acute Distress HEENT: Other (NG tube in place) Lungs: Normal Respiratory Effort GI/Abdominal Exam: Distended Extremities: Pedal Edema Skin: Warm, Dry Psy/Mental Status: Alert, Normal Affect Consult PN Assessment/Plan POD#: 5 Procedures: Procedures ASSAY THYROID STIM HORMONE (04/21/14) COMPLETE CBC W/AUTO DIFF WBC (04/21/14) COMPREHEN METABOLIC PANEL (04/21/14) EMERGENCY DEPT VISIT (04/21/14) INFLUENZA A/B AG IA (04/21/14) ROUTINE VENIPUNCTURE (04/21/14) URINALYSIS AUTO W/SCOPE (04/21/14) (1) Fever SNOMED Code(s): 242479537 Code(s): R50.9 - FEVER, UNSPECIFIED Current Visit: Yes Qualifiers: Fever type: unspecified Qualified Code(s): R50.9 - Fever, unspecified (2) PTSD (post-traumatic stress disorder) SNOMED Code(s): 72503235 Code(s): F43.10 - POST-TRAUMATIC STRESS DISORDER, UNSPECIFIED Current Visit : Yes (3) Hypokalemia SNOMED Code(s): 88748818 Code(s): E87.6 - HYPOKALEMIA Current Visit: Yes Problem List Initiated/Reviewed/Updated: Yes My Orders Last 24 Hours: My Active Orders 01/26/18 09:00 Pantoprazole [ProTONIX IV] 40 mg IVPUSH DAILY 01/26/18 12:45 Potassium Chloride 20 MEQ,Lidocaine 1% 2 ML IN 100ML NS @ 50 MLS/HR Potassium Chloride 20 meq Lidocaine 1% [Xylocaine 1%] 2 ml Sodium Chloride 0.9% [Normal Saline] 100 ml IV Q2H 01/26/18 15:00 Furosemide [Lasix] 20 mg IVPUSH ONETIME ONE Plan: ASSESSMENT AND PLAN - Recurrent fever - suspect intra-abdominal source. Fluid culture from recent laparotomy is growing germ to positive yeast and Klebsiella. wound culture also growing yeast, unclear if contaminant or pathogen. Seems a little bit better today with no fevers overnight and white blood cell count is slightly better. -continue cefepime -Continue fluconazole -Repeat white blood cell count in the morning Hypokalemia - level still low despite supplementation. -60 mEq supplementation today PTSD - history of involvement. Slept better last night with melatonin. He does report some increasing anxiety difficulties. -Melatonin at bedtime -Lorazepam as needed for anxiety Volume overload - volume status slowly improving and is mostly located in the ankle region at this time. -Furosemide 2 today Status post exploratory laparotomy and surgical repair of incarcerated hernia - surgical recovery hampered today by either an ileus or developing small bowel obstruction as noted on the abdominal x-ray and by patient's symptoms. NG tube was replaced yesterday. He is now having bowel movements. TPN is planned when a PICC line can be placed. -Postoperative care per Dr. Valentin Kebede MD
[2018-01-26] MEDS: Potassium Chloride 20 MEQ, Lidocaine 1% 2 ML in Sodium Chloride 0.9% 100 ML IV SCH ×3 (13:32→22:08)
[2018-01-26] MEDS ORDERED: Furosemide 20 MG/2 ML VIAL IVPUSH ONE (15:00)
[2018-01-26] MEDS: Melatonin 3 MG Tab PO SCH (20:47)
[2018-01-27] MEDS: Cefepime 1 GM in Sodium Chloride 0.9% 50 ML IV SCH ×3 (02:18→17:55)
[2018-01-27] MEDS: HYDROmorphone 0.5 MG/0.5 ML Syringe IVPUSH PRN ×6 (02:33→22:13)
[2018-01-27] MEDS: Furosemide 20 MG/2 ML VIAL IVPUSH SCH (09:13)
[2018-01-27] MEDS: Pantoprazole 40 MG Vial IVPUSH SCH (09:13)
[2018-01-27] MEDS: Lactobacillus Rhamnosus GG (Probiotic) Cap PO SCH ×2 (09:13→20:48)
[2018-01-27] MEDS ORDERED: Iohexol 300 MG/ML 30 ML Bottle PO ONE (09:50)
[2018-01-27] MEDS: Fluconazole/Normal Saline 200 MG in Premix Bag 1 BAG IV SCH (10:37)
[2018-01-27] MEDS: Enoxaparin 40 MG/0.4 ML Syringe SUBCUT SCH (10:39)
[2018-01-27] MEDS ORDERED: Sodium Chloride 0.9% 100 ML IV SCH (11:45)
--- NOTE | 2018-01-27 12:01 | PN ---
DATE OF SERVICE: 01/27/2018 SUBJECTIVE: The patient is doing well today. Pain is controlled with IV pain medication. He has not had any nausea or vomiting for greater than approximately 2 hours. The patient is still having well formed bowel movement. OBJECTIVE: VITAL SIGNS: Stable. He is afebrile again this morning. CARDIOVASCULAR: Regular rhythm and rate. RESPIRATORY: Lungs are clear to auscultation bilaterally. SKIN: Incision shows improvement without evidence of cellulitis or abnormality. LABORATORY RESULTS: Show white blood cell count of approximately 26,000. Abdominal exam today show improvement especially compared to the 25 of January. 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 PLAN: 1. White blood cell count. The patient's white blood cell count appears stable today. This has not improved unfortunately. Therefore, we will order a CT scan abdomen and pelvis with p.o. and IV contrast to evaluate if there is an underlying infectious source such as abscess or other abnormalities. 2. Gastrointestinal activity. The patient is having fairly normal bowel movements, 1-2 a day, well formed, without abnormality. We will further evaluate this with his CT scan. Both subjectively and objectively, his symptoms seem to be improving. NG-tube output is decreasing. The flat and upright films show improvement. The patient reports now well-formed bowel movements on regular basis. 3. Prophylaxis. Continue same treatment plan. 4. Fluid, electrolyte, and nutrition. They have already attempted to place the PICC line yesterday for TPN due to logistical etiology. Therefore, this will placed later today, worse case scenario tomorrow. However, if the patient's CT scan shows good flow of the contrast through the bowel, we will work on getting him back on diet hopefully the next 24 hours. 5. Anxiety/depression. Hospitalist service today is working on this, but the patient appears to be very stable with respective to this. Kevin Hanson MD /[id number]
[2018-01-27] MEDS ORDERED: Iopamidol 612 MG/ML 150 ML Bottle IV SCH (12:30)
--- NOTE | 2018-01-27 17:42 | PCM.CONSN ---
- General Info Date of Service: 01/27/18 Functional Status: Reports: Pain Controlled - Review of Systems General: Denies: Fever Gastrointestinal: Reports: Abdominal Pain Systems Review Comment:: There were no acute events overnight. No fevers. Still having bowel movements. Abdominal pain persists but is a little better today. Anxiety is stable and manageable. NG tube output has been decreasing. WBC is stable. - Patient Data Vitals - Most Recent: Last Vital Signs Temp 36.8 C 01/27/18 15:11 Pulse 102 H 01/27/18 15:11 Resp 16 01/27/18 15:11 BP 144/85 H 01/27/18 15:11 Pulse Ox 97 01/27/18 15:11 Weight - Most Recent: 109.406 kg I&O - Last 24 Hours: Intake & Output 01/27/18 01/27/18 01/27/18 06:59 14:59 22:59 Intake Total 387 100 Output Total 730 800 Balance -343 -700 Lab Results Last 24 Hours: Laboratory Results - last 24 hr 01/27/18 01/27/18 Range/Units 05:00 05:23 WBC 24.0 H (4.5-11.0) K/uL RBC 4.25 L (4.30-5.90) M/uL Hgb 12.1 (12.0-15.0) g/dL Hct 37.3 L (40.0-54.0) % MCV 88 (80-98) fL MCH 29 (27-31) pg MCHC 32 (32-36) % Plt Count 891 H (150-400) K/uL Sodium 138 L (140-148) mmol/L Potassium 3.6 (3.6-5.2) mmol/L Chloride 100 (100-108) mmol/L Carbon Dioxide 28 (21-32) mmol/L Anion Gap 13.6 (5.0-14.0) mmol/L BUN 10 (7-18) mg/dL Creatinine 0.9 (0.8-1.3) mg/dL Est Cr Clr Drug Dosing 139.25 mL/min Estimated GFR (MDRD) > 60 (>60) Glucose 104 (74-106) mg/dL Calcium 8.3 L (8.5-10.1) mg/dL Kaushik Results Last 24 Hours: Microbiology 01/25/18 10:01 Gram Stain - Final Abdomen - Incision Wound Culture - Final Yeast Med Orders - Current: Current Medications Acetaminophen (Tylenol) 650 mg PO Q4H PRN PRN Reason: Fever Last Admin: 01/24/18 05:52 Dose: 650 mg Alvimopan (Entereg) 12 mg PO BID [facility] Stop: 01/27/18 21:01 Last Admin: 01/27/18 09:12 Dose: 12 mg Benzocaine/Menthol (Cepacol Sore Throat) 1 lozenge MUCMEM Q1H PRN PRN Reason: Sore Throat Bisacodyl (Dulcolax) 5 mg PO DAILY PRN PRN Reason: Constipation Diphenhydramine HCl (Benadryl) 50 mg IVPUSH Q4H PRN PRN Reason: Itching Last Admin: 01/23/18 20:59 Dose: 50 mg Docusate Sodium (Colace) 100 mg PO BID PRN PRN Reason: Constipation Last Admin: 01/20/18 22:23 Dose: 100 mg Enoxaparin Sodium (Lovenox) 40 mg SUBCUT Q24H [facility] Last Admin: 01/27/18 10:39 Dose: 40 mg Furosemide (Lasix) 20 mg IVPUSH DAILY [facility] Last Admin: 01/27/18 09:13 Dose: 20 mg Hydromorphone HCl (Dilaudid) 0.5 mg IVPUSH Q2H PRN PRN Reason: Pain Last Admin: 01/27/18 14:07 Dose: 0.5 mg Hydroxyzine HCl (Vistaril) 50 mg IM Q4H PRN PRN Reason: Nausea Last Admin: 01/23/18 02:14 Dose: 50 mg Potassium Chloride/Dextrose/Sod Cl (D5 1/2 Ns W/ 20 Meq/L Kcl) 1,000 mls @ 25 mls/hr IV ASDIRECTED [facility] Fluconazole/Sodium Chloride (200 mg/ Premix) 100 mls @ 100 mls/hr IV Q24H [facility] Last Admin: 01/27/18 10:37 Dose: 100 mls/hr Cefepime HCl 1 gm/ Sodium (Chloride) 50 mls @ 100 mls/hr IV Q8H [facility] Last Admin: 01/27/18 09:13 Dose: 100 mls/hr Ibuprofen (Motrin) 600 mg PO Q6H PRN PRN Reason: Pain Last Admin: 01/24/18 04:16 Dose: 600 mg Lactobacillus Rhamnosus (Culturelle) 1 cap PO BID [facility] Last Admin: 01/27/18 09:13 Dose: 1 cap Lorazepam (Ativan) 0.5 mg IVPUSH Q4H PRN PRN Reason: Anxiety Last Admin: 01/26/18 22:24 Dose: 0.5 mg Melatonin (Melatonin) 9 mg PO BEDTIME [facility] Last Admin: 01/26/18 20:47 Dose: Not Given Naloxone HCl (Narcan) 0.1 mg IV ASDIRECTED PRN PRN Reason: DYSPNEA Ondansetron HCl (Zofran) 4 - 8 mg IVPUSH Q6H PRN PRN Reason: Nausea/Vomiting Last Admin: 01/17/18 20:34 Dose: 8 mg Oxycodone HCl (Oxycodone) 5 mg PO Q4H PRN PRN Reason: Pain Pantoprazole Sodium (Protonix Iv) 40 mg IVPUSH DAILY [facility] Last Admin: 01/27/18 09:13 Dose: 40 mg Polyethylene Glycol (Miralax) 17 gm PO DAILY PRN PRN Reason: Constipation Promethazine HCl (Phenergan) 25 mg IM Q6H PRN PRN Reason: Nausea Last Admin: 01/13/18 23:56 Dose: 25 mg Scopolamine (Transderm-Scop) 1.5 mg TRDERM Q72H PRN PRN Reason: Indigestion Last Admin: 01/17/18 19:34 Dose: 1.5 mg Senna/Docusate Sodium (Senna Plus) 1 tab PO BID PRN PRN Reason: Constipation Last Admin: 01/27/18 09:12 Dose: 1 tab Tizanidine HCl (Zanaflex) 4 mg PO Q6H PRN PRN Reason: Muscle Spasm Last Admin: 01/24/18 13:27 Dose: 4 mg Discontinued Medications Acetaminophen (Tylenol) 650 mg PO Q6H PRN PRN Reason: Pain (mild 1-3) Last Admin: 01/12/18 18:15 Dose: 650 mg Hydrocodone Bitart/Acetaminophen (Devers 325-10 Mg) 1 - 2 tab PO Q4H PRN PRN Reason: Abdominal Pain Last Admin: 01/15/18 12:37 Dose: 2 tab Hydrocodone Bitart/Acetaminophen (Devers 325-10 Mg) 1 - 2 tab PO Q4H PRN PRN Reason: Pain Last Admin: 01/25/18 07:44 Dose: 1 tab Bupivacaine HCl/Epinephrine Bitart (Marcaine 0.5%/Epinephrine 1:200,000) Confirm Administered Dose 50 ml .ROUTE .STK-MED ONE Stop: 01/12/18 10:15 Bupivacaine HCl/Epinephrine Bitart (Marcaine 0.5%/Epinephrine 1:200,000) Confirm Administered Dose 50 ml .ROUTE .STK-MED ONE Stop: 01/21/18 10:05 Calcium Carbonate/Glycine (Tums) 1,000 mg PO ONETIME ONE Stop: 01/13/18 05:58 Last Admin: 01/13/18 06:12 Dose: 1,000 mg Calcium Carbonate/Glycine (Tums) 1,000 mg PO Q2H PRN PRN Reason: Indigestion Last Admin: 01/16/18 06:41 Dose: 1,000 mg Ropivacaine 60 ml/Dexamethasone 8 mg/Epinephrine HCl 0.4 mg/ Sodium Chloride 17.6 ml 0 ml NERVRT ASDIRECTED [facility] Last Admin: 01/21/18 13:45 Dose: 80 syringe Dexamethasone (Dexamethasone) Confirm Administered Dose 4 mg .ROUTE .STK-MED ONE Stop: 01/12/18 09:35 Dexamethasone (Dexamethasone) Confirm Administered Dose 4 mg .ROUTE .STK-MED ONE Stop: 01/21/18 10:13 Fentanyl (Sublimaze) 30 mcg IVPUSH ONETIME ONE Stop: 01/12/18 09:19 Last Admin: 01/12/18 09:30 Dose: 30 mcg Fentanyl (Sublimaze) Confirm Administered Dose 250 mcg .ROUTE .STK-MED ONE Stop: 01/12/18 11:23 Fentanyl (Sublimaze) Confirm Administered Dose 100 mcg .ROUTE .STK-MED ONE Stop: 01/12/18 12:05 Fentanyl (Sublimaze) Confirm Administered Dose 250 mcg .ROUTE .STK-MED ONE Stop: 01/21/18 10:13 Fentanyl Citrate (Fentanyl) Confirm Administered Dose 500 mcg .ROUTE .STK-MED ONE Stop: 01/12/18 09:44 Fentanyl Citrate (Fentanyl In Ns 20 Mcg/Ml 30 Ml [employer]) 0 mcg IV ASDIRECTED PRN; Protocol PRN Reason: PAIN Last Admin: 01/13/18 22:29 Dose: 600 mcg Fentanyl Citrate (Fentanyl In Ns 20 Mcg/Ml 30 Ml [employer]) Confirm Administered Dose 600 mcg .ROUTE .STK-MED ONE Stop: 01/12/18 12:41 Last Admin: 01/12/18 14:33 Dose: Not Given Fentanyl Citrate (Fentanyl) Confirm Administered Dose 500 mcg .ROUTE .K-MED ONE Stop: 01/21/18 14:11 Fentanyl Citrate (Fentanyl In Ns 20 Mcg/Ml 30 Ml [employer]) 0 mcg IV ASDIRECTED PRN; Protocol PRN Reason: PAIN Last Admin: 01/23/18 07:16 Dose: 600 mcg Furosemide (Lasix) 20 mg PO ONETIME ONE Stop: 01/20/18 10:16 Last Admin: 01/20/18 10:46 Dose: 20 mg Furosemide (Lasix) 20 mg IVPUSH ONETIME ONE Stop: 01/22/18 16:01 Last Admin: 01/22/18 15:55 Dose: 20 mg Furosemide (Lasix) 20 mg IVPUSH NOW ONE Stop: 01/24/18 15:01 Last Admin: 01/24/18 15:50 Dose: 20 mg Furosemide (Lasix) 20 mg IVPUSH ONETIME ONE Stop: 01/26/18 15:01 Last Admin: 01/26/18 14:38 Dose: 20 mg Glycopyrrolate (Robinul) Confirm Administered Dose 1 mg .ROUTE .STK-MED ONE Stop: 01/12/18 09:35 Glycopyrrolate (Robinul) Confirm Administered Dose 1 mg .ROUTE .[facility]-MED ONE Stop: 01/21/18 10:13 Hydromorphone HCl (Dilaudid) 0.5 mg IVPUSH ONETIME ONE Stop: 01/12/18 05:15 Last Admin: 01/12/18 05:22 Dose: 0.5 mg Hydromorphone HCl (Dilaudid) 0.5 mg IVPUSH ONETIME ONE Stop: 01/12/18 07:20 Last Admin: 01/12/18 10:33 Dose: Not Given Hydromorphone HCl (Dilaudid) 0.5 mg IVPUSH ONETIME ONE Stop: 01/12/18 08:01 Last Admin: 01/12/18 08:02 Dose: 0.5 mg Sodium Chloride (Normal Saline) 1,000 mls @ 999 mls/hr IV ASDIRECTED [facility] Last Admin: 01/12/18 05:21 Dose: 999 mls/hr Sodium Chloride (Normal Saline) 1,000 mls @ 999 mls/hr IV ASDIRECTED [facility] Last Admin: 01/12/18 06:43 Dose: 999 mls/hr Sodium Chloride (Normal Saline) 85 mls @ 3.5 mls/sec IV ASDIRECTED [facility] Last Admin: 01/12/18 06:35 Dose: 3.5 mls/sec Piperacillin Sod/Tazobactam (Sod 4.5 gm/ Sodium Chloride) 100 mls @ 200 mls/hr IV ONETIME ONE Stop: 01/12/18 09:59 Last Admin: 01/12/18 09:44 Dose: 200 mls/hr Sodium Chloride (Normal Saline) 1,000 mls @ 125 mls/hr IV ASDIRECTED [facility] Last Admin: 01/14/18 07:36 Dose: 125 mls/hr Lactated Ringer's (Ringers, Lactated) Confirm Administered Dose 1,000 mls @ as directed .ROUTE .STK-MED ONE Stop: 01/12/18 11:32 Sodium Chloride (Normal Saline) Confirm Administered Dose 10 mls @ as directed .ROUTE .STK-MED ONE Stop: 01/12/18 11:35 Sodium Chloride (Normal Saline) Confirm Administered Dose 10 mls @ as directed .ROUTE .STK-MED ONE Stop: 01/12/18 11:42 Piperacillin/Tazobactam/ (Dextrose 3.375 gm/ Premix) 50 mls @ 100 mls/hr IV Q6H [facility] Last Admin: 01/14/18 03:04 Dose: 100 mls/hr Sodium Chloride (Normal Saline) 250 mls @ 999 mls/hr IV ASDIRECTED [facility] Last Admin: 01/13/18 07:48 Dose: 999 mls/hr Sodium Chloride (Normal Saline) 1,000 mls @ 250 mls/hr IV ASDIRECTED [facility] Stop: 01/13/18 14:30 Last Infusion: 01/13/18 14:55 Dose: 125 mls/hr Ampicillin Sodium/Sulbactam (Sodium 3 gm/ Sodium Chloride) 100 mls @ 200 mls/ hr IV Q6H [facility] Last Admin: 01/25/18 03:05 Dose: 200 mls/hr Vancomycin HCl 2 gm/ Sodium (Chloride) 500 mls @ 250 mls/hr IV ONETIME ONE Stop: 01/14/18 12:59 Last Admin: 01/14/18 12:42 Dose: 250 mls/hr Vancomycin HCl 1.5 gm/ Sodium (Chloride) 250 mls @ 160 mls/hr IV Q8H [facility] Last Admin: 01/16/18 04:52 Dose: 160 mls/hr Sodium Chloride (Normal Saline) 1,000 mls @ 0 mls/hr IV ASDIRECTED [facility] Last Admin: 01/16/18 00:35 Dose: 25 mls/hr Vancomycin HCl 1.75 gm/ Sodium (Chloride) 250 mls @ 150 mls/hr IV Q8H [facility] Last Admin: 01/19/18 05:16 Dose: 150 mls/hr Vancomycin HCl 2 gm/ Sodium (Chloride) 500 mls @ 250 mls/hr IV Q8H [facility] Last Admin: 01/24/18 05:44 Dose: 250 mls/hr Sodium Chloride (Normal Saline) 85 mls @ 4 mls/sec IV ASDIRECTED [facility] Stop: 01/21/18 06:09 Last Admin: 01/21/18 13:36 Dose: Not Given Sodium Chloride (Normal Saline) 1,000 mls @ 125 mls/hr IV ASDIRECTED [facility] Last Admin: 01/21/18 13:14 Dose: 125 mls/hr Lactated Ringer's (Ringers, Lactated) Confirm Administered Dose 1,000 mls @ as directed .ROUTE .STK-MED ONE Stop: 01/21/18 14:28 Lactated Ringer's (Ringers, Lactated) Confirm Administered Dose 1,000 mls @ as directed .ROUTE .STK-MED ONE Stop: 01/21/18 15:46 Acetaminophen 1,000 mg/ Premix 100 mls @ 400 mls/hr IV Q6H PRN PRN Reason: Fever Stop: 01/22/18 18:07 Last Admin: 01/22/18 17:35 Dose: 400 mls/hr Sodium Chloride (Normal Saline) 250 mls @ 999 mls/hr IV ASDIRECTED [facility] Last Admin: 01/22/18 02:02 Dose: 999 mls/hr Sodium Chloride (Normal Saline) 1,000 mls @ 200 mls/hr IV ASDIRECTED [facility] Last Admin: 01/22/18 01:49 Dose: 200 mls/hr Sodium Chloride (Normal Saline) 1,000 mls @ 125 mls/hr IV ASDIRECTED [facility] Last Admin: 01/22/18 19:38 Dose: 125 mls/hr Potassium Chloride 20 meq/Lidocaine HCl 2 ml/ Sodium Chloride 112 mls @ 56 mls/ hr IV Q2H [facility] Stop: 01/22/18 21:59 Last Admin: 01/22/18 21:43 Dose: 56 mls/hr Acetaminophen 1,000 mg/ Premix 100 mls @ 400 mls/hr IV Q6H PRN PRN Reason: Pain Stop: 01/28/18 22:30 Last Admin: 01/23/18 13:05 Dose: 400 mls/hr Potassium Chloride 20 meq/Lidocaine HCl 2 ml/ Sodium Chloride 112 mls @ 50 mls/ hr IV Q2H [facility] Stop: 01/23/18 14:59 Last Admin: 01/23/18 15:02 Dose: 50 mls/hr Potassium Chloride/Dextrose/Sod Cl (D5 1/2 Ns W/ 20 Meq/L Kcl) 1,000 mls @ 75 mls/hr IV ASDIRECTED [facility] Last Admin: 01/23/18 09:55 Dose: 75 mls/hr Sodium Chloride (Normal Saline) 500 mls @ 0 mls/hr IV ASDIRECTED ONE Stop: 01/24/18 10:20 Last Admin: 01/24/18 10:35 Dose: 25 mls/hr Potassium Chloride 20 meq/Lidocaine HCl 2 ml/ Sodium Chloride 112 mls @ 56 mls/ hr IV Q2H [facility] Stop: 01/25/18 17:59 Last Admin: 01/25/18 17:10 Dose: 56 mls/hr Potassium Chloride 20 meq/Lidocaine HCl 2 ml/ Sodium Chloride 112 mls @ 56 mls/ hr IV Q2H [facility] Stop: 01/26/18 19:59 Last Admin: 01/26/18 22:08 Dose: 56 mls/hr Sodium Chloride (Normal Saline) 100 mls @ 3 mls/sec IV ASDIRECTED [facility] Stop: 01/27/18 13:00 Last Admin: 01/27/18 12:14 Dose: 3 mls/sec Iohexol (Omnipaque) 20 ml PO ONETIME ONE Stop: 01/17/18 10:57 Last Admin: 01/17/18 11:22 Dose: 20 ml Iohexol (Omnipaque) 20 ml PO ONETIME ONE Stop: 01/27/18 09:51 Last Admin: 01/27/18 10:32 Dose: 20 ml Iopamidol (Isovue-300 (61%)) 150 ml IV . DIRECTED PRN PRN Reason: RADIOLOGY EXAM Stop: 01/13/18 06:16 Last Admin: 01/12/18 06:36 Dose: 150 ml Iopamidol (Isovue-300 (61%)) 150 ml IV . DIRECTED [facility] Stop: 01/21/18 06:09 Last Admin: 01/21/18 13:36 Dose: Not Given Iopamidol (Isovue-300 (61%)) 150 ml IV . DIRECTED [facility] Stop: 01/27/18 13:00 Last Admin: 01/27/18 12:14 Dose: 150 ml Ketorolac Tromethamine (Toradol) Confirm Administered Dose 60 mg .ROUTE .STK- MED ONE Stop: 01/12/18 12:08 Ketorolac Tromethamine (Toradol) 30 mg IM Q6H [facility] Stop: 01/22/18 10:31 Last Admin: 01/21/18 17:17 Dose: 30 mg Ketorolac Tromethamine (Toradol) 30 mg IVPUSH Q6H [facility] Stop: 01/22/18 10:31 Last Admin: 01/22/18 11:07 Dose: 30 mg Meropenem (Merrem) Confirm Administered Dose 500 mg .ROUTE .STK-MED ONE Stop: 01/12/18 11:35 Last Admin: 01/12/18 11:29 Dose: 500 mg Meropenem (Merrem) Confirm Administered Dose 500 mg .ROUTE .STK-MED ONE Stop: 01/12/18 11:42 Last Admin: 01/12/18 11:43 Dose: 500 mg Meropenem (Merrem) Confirm Administered Dose 500 mg .ROUTE .STK-MED ONE Stop: 01/21/18 15:21 Last Admin: 01/21/18 15:25 Dose: 500 mg Morphine Sulfate (Morphine) 1 - 3 mg IVPUSH Q1H PRN PRN Reason: Pain Last Admin: 01/24/18 12:45 Dose: 1 mg Naloxone HCl (Narcan) 0.1 mg IV ASDIRECTED PRN PRN Reason: RESP Neostigmine Methylsulfate (Neostigmine) Confirm Administered Dose 5 mg .ROUTE .STK-MED ONE Stop: 01/12/18 09:35 Neostigmine Methylsulfate (Neostigmine) Confirm Administered Dose 5 mg .ROUTE .STK-MED ONE Stop: 01/21/18 10:13 Ondansetron HCl (Zofran) 4 mg IVPUSH ONETIME ONE Stop: 01/12/18 05:15 Last Admin: 01/12/18 05:22 Dose: 4 mg Ondansetron HCl (Zofran) Confirm Administered Dose 4 mg .ROUTE .STK-MED ONE Stop: 01/12/18 09:35 Ondansetron HCl (Zofran) Confirm Administered Dose 4 mg .ROUTE .STK-MED ONE Stop: 01/21/18 10:13 Oxycodone HCl (Oxycodone) 5 mg PO Q4H PRN PRN Reason: Pain Last Admin: 01/17/18 15:45 Dose: 5 mg Pantoprazole Sodium (Protonix) 40 mg PO ACBREAKFAST [facility] Last Admin: 01/25/18 07:39 Dose: 40 mg Potassium Chloride (Klor-Con M20) 40 meq PO BID [facility] Stop: 01/24/18 21:01 Last Admin: 01/24/18 21:43 Dose: 40 meq Prochlorperazine Edisylate (Compazine) 5 mg IVPUSH ONETIME ONE Stop: 01/12/18 07:48 Last Admin: 01/12/18 08:04 Dose: 5 mg Propofol (Diprivan 20 Ml) Confirm Administered Dose 200 mg .ROUTE .STK-MED ONE Stop: 01/12/18 09:35 Propofol (Diprivan 20 Ml) Confirm Administered Dose 200 mg .ROUTE .STK-MED ONE Stop: 01/21/18 10:13 Ranitidine HCl (Zantac) 150 mg PO BID [facility] Last Admin: 01/25/18 10:07 Dose: 150 mg Rocuronium [place] (Zemuron) Confirm Administered Dose 50 mg .ROUTE .STK-MED ONE Stop: 01/12/18 09:35 Rocuronium [place] (Zemuron) Confirm Administered Dose 50 mg .ROUTE .STK-MED ONE Stop: 01/21/18 10:13 Rocuronium [place] (Zemuron) Confirm Administered Dose 50 mg .ROUTE .STK-MED ONE Stop: 01/21/18 15:08 Succinylcholine Chloride (Quelicin) Confirm Administered Dose 200 mg .ROUTE .STK -MED ONE Stop: 01/12/18 09:35 Succinylcholine Chloride (Quelicin) Confirm Administered Dose 200 mg .ROUTE .STK -MED ONE Stop: 01/12/18 11:47 Succinylcholine Chloride (Quelicin) 100 mg .ROUTE .STK-MED ONE Stop: 01/12/18 12:01 Succinylcholine Chloride (Quelicin) Confirm Administered Dose 200 mg .ROUTE .STK -MED ONE Stop: 01/21/18 10:13 Zolpidem Tartrate (Ambien) 5 mg PO BEDTIME PRN PRN Reason: Insomnia Last Admin: 01/23/18 22:26 Dose: 5 mg - Exam Quality Assessment: No: Supplemental Oxygen General: Alert, Oriented, Cooperative, No Acute Distress, Other (NG in right nare) Lungs: Normal Respiratory Effort GI/Abdominal Exam: Soft, Distended (mild) Extremities: No Pedal Edema Skin: Warm, Dry Psy/Mental Status: Alert, Normal Affect Consult PN Assessment/Plan Procedures: Procedures ASSAY THYROID STIM HORMONE (04/21/14) COMPLETE CBC W/AUTO DIFF WBC (04/21/14) COMPREHEN METABOLIC PANEL (04/21/14) EMERGENCY DEPT VISIT (04/21/14) INFLUENZA A/B AG IA (04/21/14) ROUTINE VENIPUNCTURE (04/21/14) URINALYSIS AUTO W/SCOPE (04/21/14) (1) Fever SNOMED Code(s): 733682191 Code(s): R50.9 - FEVER, UNSPECIFIED Current Visit: Yes Qualifiers: Fever type: unspecified Qualified Code(s): R50.9 - Fever, unspecified (2) PTSD (post-traumatic stress disorder) SNOMED Code(s): 94370049 Code(s): F43.10 - POST-TRAUMATIC STRESS DISORDER, UNSPECIFIED Current Visit : Yes (3) Hypokalemia SNOMED Code(s): 09407691 Code(s): E87.6 - HYPOKALEMIA Current Visit: Yes Problem List Initiated/Reviewed/Updated: Yes Plan: ASSESSMENT AND PLAN - Recurrent fever - suspect intra-abdominal source. Fluid culture from recent laparotomy is growing germ to positive yeast and Klebsiella. wound culture also growing yeast. Clinically looks a little better but WBC not improving. CT this afternoon revealed improving ileus/obstruction, several fluid collections around the anastamosis concerning for possible abscess. -continue cefepime -Continue fluconazole -Repeat white blood cell count in the morning Hypokalemia - at the lower limits of normal. -recheck in the am PTSD - history of involvement. Slept better last night with melatonin. He does report some increasing anxiety difficulties. -Melatonin at bedtime -Lorazepam as needed for anxiety Volume overload - volume status slowly improving. -Furosemide daily Status post exploratory laparotomy and surgical repair of incarcerated hernia - surgical recovery hampered by ileus/small bowel obstruction as noted on the abdominal x-ray and by patient's symptoms. NG tube still in place. He is now having bowel movements. TPN is planned when a PICC line can be placed. -Postoperative care per Dr. Valentin Kebede MD
[2018-01-27] MEDS: Melatonin 3 MG Tab PO SCH (20:49)
[2018-01-28] MEDS: Cefepime 1 GM in Sodium Chloride 0.9% 50 ML IV SCH ×3 (01:48→17:20)
[2018-01-28] MEDS: HYDROmorphone 0.5 MG/0.5 ML Syringe IVPUSH PRN ×6 (04:57→22:15)
[2018-01-28] MEDS: Lactobacillus Rhamnosus GG (Probiotic) Cap PO SCH ×2 (08:51→21:32)
[2018-01-28] MEDS: Pantoprazole 40 MG Vial IVPUSH SCH (08:51)
[2018-01-28] MEDS: Furosemide 20 MG/2 ML VIAL IVPUSH SCH (08:51)
--- NOTE | 2018-01-28 09:16 | CR ---
Abdomen 2V AP Flat Upright CLINICAL HISTORY: Ileus FINDINGS: No free air is identified. There has been placement of an NG tube in the stomach. Small bow el distention has diminished somewhat. There are still scattered air-fluid levels. There is increased gas in the transverse colon IMPRESSION: NG tube placement Decreasing small bowel distention This may represent resolving ileus.
--- NOTE | 2018-01-28 09:41 | CR ---
Abdomen 2V AP Flat Upright CLINICAL HISTORY: Ileus FINDINGS: NG tube is in the fundus of the stomach. There is small bowel distention which is improving when compared to prior studies. There is an increase in gas and feces throughout colon. IMPRESSION: Small bowel distention is improving
--- NOTE | 2018-01-28 09:47 | CR ---
Abdomen 2V AP Flat Upright CLINICAL HISTORY: Ileus FINDINGS: NG tube is in the fundus of the stomach. There is mild diffuse small bowel distention. Ther e is contrast in the colon from prior CT. IMPRESSION: Persistent small bowel distention similar to earlier study. Oral contrast from previous CT is now in the left and rectosigmoid colon
[2018-01-28] MEDS: Enoxaparin 40 MG/0.4 ML Syringe SUBCUT SCH (11:49)
[2018-01-28] MEDS: Fluconazole/Normal Saline 200 MG in Premix Bag 1 BAG IV SCH (12:21)
--- NOTE | 2018-01-28 12:42 | PN ---
DATE OF SERVICE: 01/28/2018 SUBJECTIVE: The patient is improved with every metric today. His pain is well controlled. No nausea, vomiting, shortness of breath, or chest pain. The patient is having bowel movements, showered this morning. OBJECTIVE: VITAL SIGNS: Stable. He is afebrile. CARDIOVASCULAR: Regular rhythm and rate. RESPIRATORY: Lungs are clear to auscultation bilaterally. SKIN: Incision healing well. Open lower aspect of incision also healing well. ASSESSMENT: Status post small bowel resection. PLAN: 1. GI. The patient still has some distended small bowel on his KUB this morning, however, contrast definitively noted in the descending/sigmoid colon noting that this is moving quite well through the intestinal tract, albeit slowly. The NG tube output has also decreased today. Plan with this was to keep the NG tube in for 1-2 more days, daily KUB and continue to await improved GI function, although there definitely is some improvement on a daily basis. 2. Infectious Disease. All metrics in the category also improved. He remained constantly afebrile. His white blood cell count has decreased today. 3. Fluid, electrolyte, nutrition. We will get a PICC line placed today. It was not placed this weekend due to logistics, however, we will get this placed today. In addition to that, we will get a dietary consult and start the patient on TPN today. 4. Anxiety. Continues to improve and remains quite stable. 5. General medical condition. Hospitalist service to follow the patient due to the complexity of the patient, however, this complexity appears to be improving on a daily basis. 6. Risks. The patient and I did review the risks of the current situation. We reviewed the CT scan in that he has a couple of small possible abscesses noted in the abdomen. We did discuss the fact that, in my opinion, the risks of surgical intervention would definitely result in serosal or probable enterotomy. Due to the patient's overall subjective and objective improvement with respect to infectious disease, the best course would be to continue IV antibiotics and possibly re-evaluate with another CT scan at a later time. I discussed with him that he does have a sepsis risk with this plan, however, as previously stated, the risks of enterotomy are incredibly high, and therefore this would be the lower risk of the two. Kevin Hanson MD /[id number]
[2018-01-28] MEDS: 1: AA 5%/Calcium/D15W/Lytes 1,000 ML with MVI, Adult with Vitamin K 10 ML, Chromium/Copp IV SCH ×3 (15:19)
--- NOTE | 2018-01-28 15:58 | PCM.CONSN ---
- General Info Date of Service: 01/28/18 Subjective Update: Mr. Martinez has been stable since yesterday, thus far has had an excellent diuresis with significant improvement in peripheral edema. Current plan per Dr. Hanson is for ongoing bowel rest, continue current antibiotic therapy, initiate TPN. - Review of Systems General: Reports: Weakness. Denies: Fever, Chills Pulmonary: Reports: No Symptoms Cardiovascular: Reports: Edema. Denies: Chest Pain, Palpitations, Dyspnea on Exertion, Orthopnea Gastrointestinal: Reports: Abdominal Pain. Denies: Diarrhea, Difficulty Swallowing, Nausea, Vomiting Genitourinary: Reports: No Symptoms - Patient Data Vitals - Most Recent: Last Vital Signs Temp 98.4 F 01/28/18 13:52 Pulse 99 01/28/18 13:52 Resp 18 01/28/18 13:52 BP 132/81 01/28/18 13:52 Pulse Ox 97 01/28/18 13:52 Weight - Most Recent: 232 lb 6.4 oz I&O - Last 24 Hours: Intake & Output 01/28/18 01/28/18 01/28/18 06:59 14:59 22:59 Intake Total 287 50 Output Total 750 1550 Balance -463 -1500 Lab Results Last 24 Hours: Laboratory Results - last 24 hr 01/28/18 01/28/18 Range/Units 05:48 05:48 WBC 20.6 H (4.5-11.0) K/uL RBC 4.23 L (4.30-5.90) M/uL Hgb 11.9 L (12.0-15.0) g/dL Hct 36.5 L (40.0-54.0) % MCV 86 (80-98) fL MCH 28 (27-31) pg MCHC 33 (32-36) % Plt Count 918 H (150-400) K/uL Sodium 136 L (140-148) mmol/L Potassium 3.3 L (3.6-5.2) mmol/L Chloride 98 L (100-108) mmol/L Carbon Dioxide 27 (21-32) mmol/L Anion Gap 14.3 H (5.0-14.0) mmol/L BUN 6 L (7-18) mg/dL Creatinine 0.8 (0.8-1.3) mg/dL Est Cr Clr Drug Dosing 156.66 mL/min Estimated GFR (MDRD) > 60 (>60) Glucose 104 (74-106) mg/dL Calcium 8.2 L (8.5-10.1) mg/dL Med Orders - Current: Current Medications Acetaminophen (Tylenol) 650 mg PO Q4H PRN PRN Reason: Fever Last Admin: 01/24/18 05:52 Dose: 650 mg Benzocaine/Menthol (Cepacol Sore Throat) 1 lozenge MUCMEM Q1H PRN PRN Reason: Sore Throat Bisacodyl (Dulcolax) 5 mg PO DAILY PRN PRN Reason: Constipation Diphenhydramine HCl (Benadryl) 50 mg IVPUSH Q4H PRN PRN Reason: Itching Last Admin: 01/23/18 20:59 Dose: 50 mg Docusate Sodium (Colace) 100 mg PO BID PRN PRN Reason: Constipation Last Admin: 01/20/18 22:23 Dose: 100 mg Enoxaparin Sodium (Lovenox) 40 mg SUBCUT Q24H [facility] Last Admin: 01/28/18 11:49 Dose: 40 mg Hydromorphone HCl (Dilaudid) 0.5 mg IVPUSH Q2H PRN PRN Reason: Pain Last Admin: 01/28/18 15:18 Dose: 0.5 mg Hydroxyzine HCl (Vistaril) 50 mg IM Q4H PRN PRN Reason: Nausea Last Admin: 01/23/18 02:14 Dose: 50 mg Potassium Chloride/Dextrose/Sod Cl (D5 1/2 Ns W/ 20 Meq/L Kcl) 1,000 mls @ 25 mls/hr IV ASDIRECTED [facility] Fluconazole/Sodium Chloride (200 mg/ Premix) 100 mls @ 100 mls/hr IV Q24H [facility] Last Admin: 01/28/18 12:21 Dose: 100 mls/hr Cefepime HCl 1 gm/ Sodium (Chloride) 50 mls @ 100 mls/hr IV Q8H [facility] Last Admin: 01/28/18 11:36 Dose: 100 mls/hr Fat Emulsion Intravenous (Intralipid 20%) 100 mls @ 8.333 mls/hr IV ONETIME ONE Stop: 01/29/18 03:59 Last Admin: 01/28/18 15:19 Dose: 8.333 mls/hr Multivitamins/Minerals 10 ml/Chromium/Copper/Manganese/Seleni/Zn 1 ml/ Amino Ac/ Electrol/Dextrose/Calcium 1,011 mls @ 100 mls/hr IV .BY DURATION [facility] Last Admin: 01/28/18 15:19 Dose: 100 mls/hr Amino Ac/Electrol/Dextrose/Calcium (Clinimix E 15) 1,000 mls @ 100 mls/hr IV .BY DURATION [facility] Ibuprofen (Motrin) 600 mg PO Q6H PRN PRN Reason: Pain Last Admin: 01/24/18 04:16 Dose: 600 mg Lactobacillus Rhamnosus (Culturelle) 1 cap PO BID [facility] Last Admin: 01/28/18 08:51 Dose: 1 cap Lorazepam (Ativan) 0.5 mg IVPUSH Q4H PRN PRN Reason: Anxiety Last Admin: 01/26/18 22:24 Dose: 0.5 mg Melatonin (Melatonin) 9 mg PO BEDTIME [facility] Last Admin: 01/27/18 20:49 Dose: 9 mg Naloxone HCl (Narcan) 0.1 mg IV ASDIRECTED PRN PRN Reason: DYSPNEA Ondansetron HCl (Zofran) 4 - 8 mg IVPUSH Q6H PRN PRN Reason: Nausea/Vomiting Last Admin: 01/17/18 20:34 Dose: 8 mg Oxycodone HCl (Oxycodone) 5 mg PO Q4H PRN PRN Reason: Pain Pantoprazole Sodium (Protonix Iv) 40 mg IVPUSH DAILY [facility] Last Admin: 01/28/18 08:51 Dose: 40 mg Polyethylene Glycol (Miralax) 17 gm PO DAILY PRN PRN Reason: Constipation Promethazine HCl (Phenergan) 25 mg IM Q6H PRN PRN Reason: Nausea Last Admin: 01/13/18 23:56 Dose: 25 mg Scopolamine (Transderm-Scop) 1.5 mg TRDERM Q72H PRN PRN Reason: Indigestion Last Admin: 01/17/18 19:34 Dose: 1.5 mg Senna/Docusate Sodium (Senna Plus) 1 tab PO BID PRN PRN Reason: Constipation Last Admin: 01/28/18 08:51 Dose: 1 tab Tizanidine HCl (Zanaflex) 4 mg PO Q6H PRN PRN Reason: Muscle Spasm Last Admin: 01/24/18 13:27 Dose: 4 mg Discontinued Medications Acetaminophen (Tylenol) 650 mg PO Q6H PRN PRN Reason: Pain (mild 1-3) Last Admin: 01/12/18 18:15 Dose: 650 mg Hydrocodone Bitart/Acetaminophen ([place] 325-10 Mg) 1 - 2 tab PO Q4H PRN PRN Reason: Abdominal Pain Last Admin: 01/15/18 12:37 Dose: 2 tab Hydrocodone Bitart/Acetaminophen ([place] 325-10 Mg) 1 - 2 tab PO Q4H PRN PRN Reason: Pain Last Admin: 01/25/18 07:44 Dose: 1 tab Alvimopan (Entereg) 12 mg PO BID [facility] Stop: 01/27/18 21:01 Last Admin: 01/27/18 20:49 Dose: 12 mg Bupivacaine HCl/Epinephrine Bitart (Marcaine 0.5%/Epinephrine 1:200,000) Confirm Administered Dose 50 ml .ROUTE .STK-MED ONE Stop: 01/12/18 10:15 Bupivacaine HCl/Epinephrine Bitart (Marcaine 0.5%/Epinephrine 1:200,000) Confirm Administered Dose 50 ml .ROUTE .STK-MED ONE Stop: 01/21/18 10:05 Calcium Carbonate/Glycine (Tums) 1,000 mg PO ONETIME ONE Stop: 01/13/18 05:58 Last Admin: 01/13/18 06:12 Dose: 1,000 mg Calcium Carbonate/Glycine (Tums) 1,000 mg PO Q2H PRN PRN Reason: Indigestion Last Admin: 01/16/18 06:41 Dose: 1,000 mg Ropivacaine 60 ml/Dexamethasone 8 mg/Epinephrine HCl 0.4 mg/ Sodium Chloride 17.6 ml 0 ml NERVRT ASDIRECTED [facility] Last Admin: 01/21/18 13:45 Dose: 80 syringe Dexamethasone (Dexamethasone) Confirm Administered Dose 4 mg .ROUTE .STK-MED ONE Stop: 01/12/18 09:35 Dexamethasone (Dexamethasone) Confirm Administered Dose 4 mg .ROUTE .STK-MED ONE Stop: 01/21/18 10:13 Fentanyl (Sublimaze) 30 mcg IVPUSH ONETIME ONE Stop: 01/12/18 09:19 Last Admin: 01/12/18 09:30 Dose: 30 mcg Fentanyl (Sublimaze) Confirm Administered Dose 250 mcg .ROUTE .STK-MED ONE Stop: 01/12/18 11:23 Fentanyl (Sublimaze) Confirm Administered Dose 100 mcg .ROUTE .STK-MED ONE Stop: 01/12/18 12:05 Fentanyl (Sublimaze) Confirm Administered Dose 250 mcg .ROUTE .STK-MED ONE Stop: 01/21/18 10:13 Fentanyl Citrate (Fentanyl) Confirm Administered Dose 500 mcg .ROUTE .STK-MED ONE Stop: 01/12/18 09:44 Fentanyl Citrate (Fentanyl In Ns 20 Mcg/Ml 30 Ml Technical Planner) 0 mcg IV ASDIRECTED PRN; Protocol PRN Reason: PAIN Last Admin: 01/13/18 22:29 Dose: 600 mcg Fentanyl Citrate (Fentanyl In Ns 20 Mcg/Ml 30 Ml Technical Planner) Confirm Administered Dose 600 mcg .ROUTE .STK-MED ONE Stop: 01/12/18 12:41 Last Admin: 01/12/18 14:33 Dose: Not Given Fentanyl Citrate (Fentanyl) Confirm Administered Dose 500 mcg .ROUTE .STK-MED ONE Stop: 01/21/18 14:11 Fentanyl Citrate (Fentanyl In Ns 20 Mcg/Ml 30 Ml Technical Planner) 0 mcg IV ASDIRECTED PRN; Protocol PRN Reason: PAIN Last Admin: 01/23/18 07:16 Dose: 600 mcg Furosemide (Lasix) 20 mg PO ONETIME ONE Stop: 01/20/18 10:16 Last Admin: 01/20/18 10:46 Dose: 20 mg Furosemide (Lasix) 20 mg IVPUSH ONETIME ONE Stop: 01/22/18 16:01 Last Admin: 01/22/18 15:55 Dose: 20 mg Furosemide (Lasix) 20 mg IVPUSH DAILY [facility] Last Admin: 01/28/18 08:51 Dose: 20 mg Furosemide (Lasix) 20 mg IVPUSH NOW ONE Stop: 01/24/18 15:01 Last Admin: 01/24/18 15:50 Dose: 20 mg Furosemide (Lasix) 20 mg IVPUSH ONETIME ONE Stop: 01/26/18 15:01 Last Admin: 01/26/18 14:38 Dose: 20 mg Glycopyrrolate (Robinul) Confirm Administered Dose 1 mg .ROUTE .STK-MED ONE Stop: 01/12/18 09:35 Glycopyrrolate (Robinul) Confirm Administered Dose 1 mg .ROUTE .STK-MED ONE Stop: 01/21/18 10:13 Hydromorphone HCl (Dilaudid) 0.5 mg IVPUSH ONETIME ONE Stop: 01/12/18 05:15 Last Admin: 01/12/18 05:22 Dose: 0.5 mg Hydromorphone HCl (Dilaudid) 0.5 mg IVPUSH ONETIME ONE Stop: 01/12/18 07:20 Last Admin: 01/12/18 10:33 Dose: Not Given Hydromorphone HCl (Dilaudid) 0.5 mg IVPUSH ONETIME ONE Stop: 01/12/18 08:01 Last Admin: 01/12/18 08:02 Dose: 0.5 mg Sodium Chloride (Normal Saline) 1,000 mls @ 999 mls/hr IV ASDIRECTED [facility] Last Admin: 01/12/18 05:21 Dose: 999 mls/hr Sodium Chloride (Normal Saline) 1,000 mls @ 999 mls/hr IV ASDIRECTED [facility] Last Admin: 01/12/18 06:43 Dose: 999 mls/hr Sodium Chloride (Normal Saline) 85 mls @ 3.5 mls/sec IV ASDIRECTED [facility] Last Admin: 01/12/18 06:35 Dose: 3.5 mls/sec Piperacillin Sod/Tazobactam (Sod 4.5 gm/ Sodium Chloride) 100 mls @ 200 mls/hr IV ONETIME ONE Stop: 01/12/18 09:59 Last Admin: 01/12/18 09:44 Dose: 200 mls/hr Sodium Chloride (Normal Saline) 1,000 mls @ 125 mls/hr IV ASDIRECTED [facility] Last Admin: 01/14/18 07:36 Dose: 125 mls/hr Lactated Ringer's (Ringers, Lactated) Confirm Administered Dose 1,000 mls @ as directed .ROUTE .STK-MED ONE Stop: 01/12/18 11:32 Sodium Chloride (Normal Saline) Confirm Administered Dose 10 mls @ as directed .ROUTE .STK-MED ONE Stop: 01/12/18 11:35 Sodium Chloride (Normal Saline) Confirm Administered Dose 10 mls @ as directed .ROUTE .STK-MED ONE Stop: 01/12/18 11:42 Piperacillin/Tazobactam/ (Dextrose 3.375 gm/ Premix) 50 mls @ 100 mls/hr IV Q6H [facility] Last Admin: 01/14/18 03:04 Dose: 100 mls/hr Sodium Chloride (Normal Saline) 250 mls @ 999 mls/hr IV ASDIRECTED [facility] Last Admin: 01/13/18 07:48 Dose: 999 mls/hr Sodium Chloride (Normal Saline) 1,000 mls @ 250 mls/hr IV ASDIRECTED [facility] Stop: 01/13/18 14:30 Last Infusion: 01/13/18 14:55 Dose: 125 mls/hr Ampicillin Sodium/Sulbactam (Sodium 3 gm/ Sodium Chloride) 100 mls @ 200 mls/ hr IV Q6H [facility] Last Admin: 01/25/18 03:05 Dose: 200 mls/hr Vancomycin HCl 2 gm/ Sodium (Chloride) 500 mls @ 250 mls/hr IV ONETIME ONE Stop: 01/14/18 12:59 Last Admin: 01/14/18 12:42 Dose: 250 mls/hr Vancomycin HCl 1.5 gm/ Sodium (Chloride) 250 mls @ 160 mls/hr IV Q8H [facility] Last Admin: 01/16/18 04:52 Dose: 160 mls/hr Sodium Chloride (Normal Saline) 1,000 mls @ 0 mls/hr IV ASDIRECTED [facility] Last Admin: 01/16/18 00:35 Dose: 25 mls/hr Vancomycin HCl 1.75 gm/ Sodium (Chloride) 250 mls @ 150 mls/hr IV Q8H [facility] Last Admin: 01/19/18 05:16 Dose: 150 mls/hr Vancomycin HCl 2 gm/ Sodium (Chloride) 500 mls @ 250 mls/hr IV Q8H [facility] Last Admin: 01/24/18 05:44 Dose: 250 mls/hr Sodium Chloride (Normal Saline) 85 mls @ 4 mls/sec IV ASDIRECTED [facility] Stop: 01/21/18 06:09 Last Admin: 01/21/18 13:36 Dose: Not Given Sodium Chloride (Normal Saline) 1,000 mls @ 125 mls/hr IV ASDIRECTED [facility] Last Admin: 01/21/18 13:14 Dose: 125 mls/hr Lactated Ringer's (Ringers, Lactated) Confirm Administered Dose 1,000 mls @ as directed .ROUTE .[facility] ONE Stop: 01/21/18 14:28 Lactated Ringer's (Ringers, Lactated) Confirm Administered Dose 1,000 mls @ as directed .ROUTE .[facility] ONE Stop: 01/21/18 15:46 Acetaminophen 1,000 mg/ Premix 100 mls @ 400 mls/hr IV Q6H PRN PRN Reason: Fever Stop: 01/22/18 18:07 Last Admin: 01/22/18 17:35 Dose: 400 mls/hr Sodium Chloride (Normal Saline) 250 mls @ 999 mls/hr IV ASDIRECTED [facility] Last Admin: 01/22/18 02:02 Dose: 999 mls/hr Sodium Chloride (Normal Saline) 1,000 mls @ 200 mls/hr IV ASDIRECTED [facility] Last Admin: 01/22/18 01:49 Dose: 200 mls/hr Sodium Chloride (Normal Saline) 1,000 mls @ 125 mls/hr IV ASDIRECTED [facility] Last Admin: 01/22/18 19:38 Dose: 125 mls/hr Potassium Chloride 20 meq/Lidocaine HCl 2 ml/ Sodium Chloride 112 mls @ 56 mls/ hr IV Q2H [facility] Stop: 01/22/18 21:59 Last Admin: 01/22/18 21:43 Dose: 56 mls/hr Acetaminophen 1,000 mg/ Premix 100 mls @ 400 mls/hr IV Q6H PRN PRN Reason: Pain Stop: 01/28/18 22:30 Last Admin: 01/23/18 13:05 Dose: 400 mls/hr Potassium Chloride 20 meq/Lidocaine HCl 2 ml/ Sodium Chloride 112 mls @ 50 mls/ hr IV Q2H [facility] Stop: 01/23/18 14:59 Last Admin: 01/23/18 15:02 Dose: 50 mls/hr Potassium Chloride/Dextrose/Sod Cl (D5 1/2 Ns W/ 20 Meq/L Kcl) 1,000 mls @ 75 mls/hr IV ASDIRECTED [facility] Last Admin: 01/23/18 09:55 Dose: 75 mls/hr Sodium Chloride (Normal Saline) 500 mls @ 0 [facility] Stop[facility] 01/24/18 10:20 Last Admin: 01/24/18 10:35 Dose: 25 mls/hr Potassium Chloride 20 meq/Lidocaine HCl 2 ml/ Sodium Chloride 112 mls @ 56 mls/ hr IV Q2H [facility] Stop: 01/25/18 17:59 Last Admin: 01/25/18 17:10 Dose: 56 mls/hr Potassium Chloride 20 meq/Lidocaine HCl 2 ml/ Sodium Chloride 112 mls @ 56 mls/ hr IV Q2H [facility] Stop: 01/26/18 19:59 Last Admin: 01/26/18 22:08 Dose: 56 mls/hr Sodium Chloride (Normal Saline) 100 mls @ 3 mls/sec IV ASDIRECTED [facility] Stop: 01/27/18 13:00 Last Admin: 01/27/18 12:14 Dose: 3 mls/sec Iohexol (Omnipaque) 20 ml PO ONETIME ONE Stop: 01/17/18 10:57 Last Admin: 01/17/18 11:22 Dose: 20 ml Iohexol (Omnipaque) 20 ml PO ONETIME ONE Stop: 01/27/18 09:51 Last Admin: 01/27/18 10:32 Dose: 20 ml Iopamidol (Isovue-300 (61%)) 150 ml IV . DIRECTED PRN PRN Reason: RADIOLOGY EXAM Stop: 01/13/18 06:16 Last Admin: 01/12/18 06:36 Dose: 150 ml Iopamidol (Isovue-300 (61%)) 150 ml IV . DIRECTED STA Stop: 01/21/18 06:09 Last Admin: 01/21/18 13:36 Dose: Not Given Iopamidol (Isovue-300 (61%)) 150 ml IV . DIRECTED [facility] Stop: 01/27/18 13:00 Last Admin: 01/27/18 12:14 Dose: 150 ml Ketorolac Tromethamine (Toradol) Confirm Administered Dose 60 mg .ROUTE .STK- MED ONE Stop: 01/12/18 12:08 Ketorolac Tromethamine (Toradol) 30 mg IM Q6H [facility] Stop: 01/22/18 10:31 Last Admin: 01/21/18 17:17 Dose: 30 mg Ketorolac Tromethamine (Toradol) 30 mg IVPUSH Q6H [facility] Stop: 01/22/18 10:31 Last Admin: 01/22/18 11:07 Dose: 30 mg Meropenem (Merrem) Confirm Administered Dose 500 mg .ROUTE .STK-MED ONE Stop: 01/12/18 11:35 Last Admin: 01/12/18 11:29 Dose: 500 mg Meropenem (Merrem) Confirm Administered Dose 500 mg .ROUTE .STK-MED ONE Stop: 01/12/18 11:42 Last Admin: 01/12/18 11:43 Dose: 500 mg Meropenem (Merrem) Confirm Administered Dose 500 mg .ROUTE .STK-MED ONE Stop: 01/21/18 15:21 Last Admin: 01/21/18 15:25 Dose: 500 mg Morphine Sulfate (Morphine) 1 - 3 mg IVPUSH Q1H PRN PRN Reason: Pain Last Admin: 01/24/18 12:45 Dose: 1 mg Naloxone HCl (Narcan) 0.1 mg IV ASDIRECTED PRN PRN Reason: RESP Neostigmine Methylsulfate (Neostigmine) Confirm Administered Dose 5 mg .ROUTE .STK-MED ONE Stop: 01/12/18 09:35 Neostigmine Methylsulfate (Neostigmine) Confirm Administered Dose 5 mg .ROUTE .STK-MED ONE Stop: 01/21/18 10:13 Ondansetron HCl (Zofran) 4 mg IVPUSH ONETIME ONE Stop: 01/12/18 05:15 Last Admin: 01/12/18 05:22 Dose: 4 mg Ondansetron HCl (Zofran) Confirm Administered Dose 4 mg .ROUTE .STK-MED ONE Stop: 01/12/18 09:35 Ondansetron HCl (Zofran) Confirm Administered Dose 4 mg .ROUTE .STK-MED ONE Stop: 01/21/18 10:13 Oxycodone HCl (Oxycodone) 5 mg PO Q4H PRN PRN Reason: Pain Last Admin: 01/17/18 15:45 Dose: 5 mg Pantoprazole Sodium (Protonix) 40 mg PO ACBREAKFAST [facility] Last Admin: 01/25/18 07:39 Dose: 40 mg Potassium Chloride (Klor-Con M20) 40 meq PO BID [facility] Stop: 01/24/18 21:01 Last Admin: 01/24/18 21:43 Dose: 40 meq Prochlorperazine Edisylate (Compazine) 5 mg IVPUSH ONETIME ONE Stop: 01/12/18 07:48 Last Admin: 01/12/18 08:04 Dose: 5 mg Propofol (Diprivan 20 Ml) Confirm Administered Dose 200 mg .ROUTE .STK-MED ONE Stop: 01/12/18 09:35 Propofol (Diprivan 20 Ml) Confirm Administered Dose 200 mg .ROUTE .STK-MED ONE Stop: 01/21/18 10:13 Ranitidine HCl (Zantac) 150 mg PO BID [facility] Last Admin: 01/25/18 10:07 Dose: 150 mg Rocuronium [place] (Zemuron) Confirm Administered Dose 50 mg .ROUTE .STK-MED ONE Stop: 01/12/18 09:35 Rocuronium [place] (Zemuron) Confirm Administered Dose 50 mg .ROUTE .STK-MED ONE Stop: 01/21/18 10:13 Rocuronium [place] (Zemuron) Confirm Administered Dose 50 mg .ROUTE .STK-MED ONE Stop: 01/21/18 15:08 Succinylcholine Chloride (Quelicin) Confirm Administered Dose 200 mg .ROUTE .STK -MED ONE Stop: 01/12/18 09:35 Succinylcholine Chloride (Quelicin) Confirm Administered Dose 200 mg .ROUTE .STK -MED ONE Stop: 01/12/18 11:47 Succinylcholine Chloride (Quelicin) 100 mg .ROUTE .STK-MED ONE Stop: 01/12/18 12:01 Succinylcholine Chloride (Quelicin) Confirm Administered Dose 200 mg .ROUTE .STK -MED ONE Stop: 01/21/18 10:13 Zolpidem Tartrate (Ambien) 5 mg PO BEDTIME PRN PRN Reason: Insomnia Last Admin: 01/23/18 22:26 Dose: 5 mg - Exam Quality Assessment: DVT Prophylaxis General: Alert, Oriented, Cooperative, Mild Distress Lungs: Clear to Auscultation, Normal Respiratory Effort Cardiovascular: Regular Rate, Regular Rhythm, No Murmurs GI/Abdominal Exam: Soft, Non-Tender, No Organomegaly, No Distention Extremities: Non-Tender, Pedal Edema Skin: Warm, Dry Consult PN Assessment/Plan Procedures: Procedures ASSAY THYROID STIM HORMONE (04/21/14) COMPLETE CBC W/AUTO DIFF WBC (04/21/14) COMPREHEN METABOLIC PANEL (04/21/14) EMERGENCY DEPT VISIT (04/21/14) INFLUENZA A/B AG IA (04/21/14) ROUTINE VENIPUNCTURE (04/21/14) URINALYSIS AUTO W/SCOPE (04/21/14) Problem List Initiated/Reviewed/Updated: Yes Plan: ASSESSMENT AND PLAN - Recurrent fever - suspect intra-abdominal source. Fluid culture from recent laparotomy is growing germ to positive yeast and Klebsiella. wound culture also growing yeast. Seems to be slowly improving, no significant temperature elevation over the past 24 hours, white blood cell count has improved modestly since yesterday. -continue cefepime -Continue fluconazole -Repeat white blood cell count in the morning Hypokalemia -recheck in the am PTSD - history of involvement. Slept better last night with melatonin. He does report some increasing anxiety difficulties. -Melatonin at bedtime -Lorazepam as needed for anxiety Volume overload - peripheral edema significantly improved -Old IV furosemide Status post exploratory laparotomy and surgical repair of incarcerated hernia - surgical recovery hampered by ileus/small bowel obstruction as noted on the abdominal x-ray and by patient's symptoms. NG tube still in place. He is now having bowel movements. PICC line has been placed and he has been started on TPN. -Postoperative care per Dr. Hanson
[2018-01-28] MEDS ORDERED: Fat Emulsion 100 ML IV ONE (16:00)
[2018-01-28] MEDS: Acetaminophen 325 MG Tab PO PRN (19:47)
[2018-01-28] MEDS: Melatonin 3 MG Tab PO SCH (21:32)
[2018-01-29] MEDS: 1: AA 5%/Calcium/D15W/Lytes 1,000 ML with MVI, Adult with Vitamin K 10 ML, Chromium/Copp IV SCH ×9 (01:39→23:29)
[2018-01-29] MEDS: Cefepime 1 GM in Sodium Chloride 0.9% 50 ML IV SCH ×3 (01:42→17:23)
[2018-01-29] MEDS: HYDROmorphone 0.5 MG/0.5 ML Syringe IVPUSH PRN ×7 (02:41→23:33)
[2018-01-29] MEDS: Acetaminophen 325 MG Tab PO PRN ×3 (04:05→21:27)
[2018-01-29] MEDS: Lactobacillus Rhamnosus GG (Probiotic) Cap PO SCH ×2 (08:08→21:28)
[2018-01-29] MEDS: Pantoprazole 40 MG Vial IVPUSH SCH (08:47)
[2018-01-29] MEDS: D5 1/2 NS w/ 20 mEq/L KCl 1,000 ML IV SCH (08:48)
--- NOTE | 2018-01-29 08:52 | CR ---
Abdomen 2V AP Flat Upright CLINICAL HISTORY: Ileus FINDINGS: NG tube remains in place. Patient has persistent small bowel distention. There is some gas in the colon. This is similar if not slightly increased since the prior day. There is no free air IMPRESSION: Persistent small bowel distention may be slightly increased since yesterday
[2018-01-29] MEDS: oxyCODONE 5 MG Tab PO PRN ×3 (09:34→21:28)
[2018-01-29] MEDS ORDERED: Potassium Chloride 40 MEQ in Premix Bag 1 BAG IV ONE (10:00)
[2018-01-29] MEDS: Enoxaparin 40 MG/0.4 ML Syringe SUBCUT SCH (10:51)
[2018-01-29] MEDS ORDERED: Central Total Parenteral Nutrition Bag IV ONE (11:00)
[2018-01-29] MEDS: Fluconazole/Normal Saline 200 MG in Premix Bag 1 BAG IV SCH (11:59)
--- NOTE | 2018-01-29 12:50 | PCM.CONSN ---
- General Info Date of Service: 01/29/18 Subjective Update: Emmanuel has done well since yesterday, when seen this morning by Dr. Hanson noted to have abscess developing under one of his incisions. This area has been opened and drained. He had noted some soreness to the area yesterday felt somewhat chilled. He has not had a documented significant temperature elevation white count remains elevated but stable from yesterday. Drainage from the incision on Gram stain shows gram-negative rods with rare gram-positive cocci. Functional Status: Reports: Pain Controlled, Ambulating, Urinating - Review of Systems General: Reports: Weakness. Denies: Fever, Chills Pulmonary: Reports: No Symptoms Cardiovascular: Reports: No Symptoms Gastrointestinal: Reports: Abdominal Pain. Denies: Diarrhea, Difficulty Swallowing, Nausea, Vomiting Musculoskeletal: Reports: No Symptoms - Patient Data Vitals - Most Recent: Last Vital Signs Temp 98.3 F 01/29/18 10:51 Pulse 122 H 01/29/18 10:51 Resp 17 01/29/18 10:51 BP 122/75 01/29/18 10:51 Pulse Ox 98 01/29/18 10:51 Weight - Most Recent: 228 lb 12.8 oz I&O - Last 24 Hours: Intake & Output 01/28/18 01/29/18 01/29/18 22:59 06:59 14:59 Intake Total 738 1439 250 Output Total 780 1175 670 Balance -42 264 -420 Lab Results Last 24 Hours: Laboratory Results - last 24 hr 01/29/18 01/29/18 Range/Units 04:45 04:45 WBC 20.4 H (4.5-11.0) K/uL RBC 4.07 L (4.30-5.90) M/uL Hgb 11.4 L (12.0-15.0) g/dL Hct 35.3 L (40.0-54.0) % MCV 87 (80-98) fL MCH 28 (27-31) pg MCHC 32 (32-36) % Plt Count 749 H (150-400) K/uL Sodium 137 L (140-148) mmol/L Potassium 3.2 L (3.6-5.2) mmol/L Chloride 100 (100-108) mmol/L Carbon Dioxide 30 (21-32) mmol/L Anion Gap 10.2 (5.0-14.0) mmol/L BUN 7 (7-18) mg/dL Creatinine 0.9 (0.8-1.3) mg/dL Est Cr Clr Drug Dosing 139.25 mL/min Estimated GFR (MDRD) > 60 (>60) Glucose 143 H (74-106) mg/dL Calcium 8.0 L (8.5-10.1) mg/dL Phosphorus 2.8 (2.5-4.9) mg/dL Magnesium 2.0 (1.8-2.4) mg/dL Kaushik Results Last 24 Hours: Microbiology 01/29/18 09:10 Gram Stain - Final Other - Abdomen Med Orders - Current: Current Medications Acetaminophen (Tylenol) 650 mg PO Q4H PRN PRN Reason: Fever Last Admin: 01/29/18 04:05 Dose: 650 mg Benzocaine/Menthol (Cepacol Sore Throat) 1 lozenge MUCMEM Q1H PRN PRN Reason: Sore Throat Bisacodyl (Dulcolax) 5 mg PO DAILY PRN PRN Reason: Constipation Diphenhydramine HCl (Benadryl) 50 mg IVPUSH Q4H PRN PRN Reason: Itching Last Admin: 01/23/18 20:59 Dose: 50 mg Docusate Sodium (Colace) 100 mg PO BID PRN PRN Reason: Constipation Last Admin: 01/20/18 22:23 Dose: 100 mg Enoxaparin Sodium (Lovenox) 40 mg SUBCUT Q24H MICHELLE Last Admin: 01/29/18 10:51 Dose: 40 mg Hydromorphone HCl (Dilaudid) 0.5 mg IVPUSH Q2H PRN PRN Reason: Pain Last Admin: 01/29/18 11:13 Dose: 0.5 mg Hydroxyzine HCl (Vistaril) 50 mg IM Q4H PRN PRN Reason: Nausea Last Admin: 01/23/18 02:14 Dose: 50 mg Potassium Chloride/Dextrose/Sod Cl (D5 1/2 Ns W/ 20 Meq/L Kcl) 1,000 mls @ 25 mls/hr IV ASDIRECTED MICHELLE Last Admin: 01/29/18 08:48 Dose: 25 mls/hr Fluconazole/Sodium Chloride (200 mg/ Premix) 100 mls @ 100 mls/hr IV Q24H [facility] Last Admin: 01/29/18 11:59 Dose: 100 mls/hr Cefepime HCl 1 gm/ Sodium (Chloride) 50 mls @ 100 mls/hr IV Q8H [facility] Last Admin: 01/29/18 10:50 Dose: 100 mls/hr Multivitamins/Minerals 10 ml/Chromium/Copper/Manganese/Seleni/Zn 1 ml/ Amino Ac/ Electrol/Dextrose/Calcium 1,011 mls @ 100 mls/hr IV .BY DURATION [facility] Last Admin: 01/28/18 15:19 Dose: 100 mls/hr Amino Ac/Electrol/Dextrose/Calcium (Clinimix E 11/06) 1,000 mls @ 100 mls/hr IV .BY DURATION [facility] Last Admin: 01/29/18 01:39 Dose: 100 mls/hr Potassium Chloride 40 meq/ (Premix) 100 mls @ 25 mls/hr IV ONETIME ONE Stop: 01/29/18 13:59 Last Admin: 01/29/18 10:50 Dose: 25 mls/hr Ibuprofen (Motrin) 600 mg PO Q6H PRN PRN Reason: Pain Last Admin: 01/24/18 04:16 Dose: 600 mg Lactobacillus Rhamnosus (Culturelle) 1 cap PO BID [facility] Last Admin: 01/29/18 08:08 Dose: 1 cap Lorazepam (Ativan) 0.5 mg IVPUSH Q4H PRN PRN Reason: Anxiety Last Admin: 01/26/18 22:24 Dose: 0.5 mg Melatonin (Melatonin) 9 mg PO BEDTIME [facility] Last Admin: 01/28/18 21:32 Dose: 9 mg Naloxone HCl (Narcan) 0.1 mg IV ASDIRECTED PRN PRN Reason: DYSPNEA Ondansetron HCl (Zofran) 4 - 8 mg IVPUSH Q6H PRN PRN Reason: Nausea/Vomiting Last Admin: 01/17/18 20:34 Dose: 8 mg Oxycodone HCl (Oxycodone) 5 mg PO Q4H PRN PRN Reason: Pain Last Admin: 01/29/18 09:34 Dose: 5 mg Pantoprazole Sodium (Protonix Iv) 40 mg IVPUSH DAILY [facility] Last Admin: 01/29/18 08:47 Dose: 40 mg Polyethylene Glycol (Miralax) 17 gm PO DAILY PRN PRN Reason: Constipation Promethazine HCl (Phenergan) 25 mg IM Q6H PRN PRN Reason: Nausea Last Admin: 01/13/18 23:56 Dose: 25 mg Scopolamine (Transderm-Scop) 1.5 mg TRDERM Q72H PRN PRN Reason: Indigestion Last Admin: 01/17/18 19:34 Dose: 1.5 mg Senna/Docusate Sodium (Senna Plus) 1 tab PO BID PRN PRN Reason: Constipation Last Admin: 01/29/18 08:13 Dose: 1 tab Tizanidine HCl (Zanaflex) 4 mg PO Q6H PRN PRN Reason: Muscle Spasm Last Admin: 01/24/18 13:27 Dose: 4 mg Discontinued Medications Acetaminophen (Tylenol) 650 mg PO Q6H PRN PRN Reason: Pain (mild 1-3) Last Admin: 01/12/18 18:15 Dose: 650 mg Hydrocodone Bitart/Acetaminophen ([place] 325-10 Mg) 1 - 2 tab PO Q4H PRN PRN Reason: Abdominal Pain Last Admin: 01/15/18 12:37 Dose: 2 tab Hydrocodone Bitart/Acetaminophen ([place] 325-10 Mg) 1 - 2 tab PO Q4H PRN PRN Reason: Pain Last Admin: 01/25/18 07:44 Dose: 1 tab Alvimopan (Entereg) 12 mg PO BID MICHELLE Stop: 01/27/18 21:01 Last Admin: 01/27/18 20:49 Dose: 12 mg Bupivacaine HCl/Epinephrine Bitart (Marcaine 0.5%/Epinephrine 1:200,000) Confirm Administered Dose 50 ml .ROUTE .STK-MED ONE Stop: 01/12/18 10:15 Bupivacaine HCl/Epinephrine Bitart (Marcaine 0.5%/Epinephrine 1:200,000) Confirm Administered Dose 50 ml .ROUTE .STK-MED ONE Stop: 01/21/18 10:05 Calcium Carbonate/Glycine (Tums) 1,000 mg PO ONETIME ONE Stop: 01/13/18 05:58 Last Admin: 01/13/18 06:12 Dose: 1,000 mg Calcium Carbonate/Glycine (Tums) 1,000 mg PO Q2H PRN PRN Reason: Indigestion Last Admin: 01/16/18 06:41 Dose: 1,000 mg Ropivacaine 60 ml/Dexamethasone 8 mg/Epinephrine HCl 0.4 mg/ Sodium Chloride 17.6 ml 0 ml NERVRT ASDIRECTED MICHELLE Last Admin: 01/21/18 13:45 Dose: 80 syringe Dexamethasone (Dexamethasone) Confirm Administered Dose 4 mg .ROUTE .STK-MED ONE Stop: 01/12/18 09:35 Dexamethasone (Dexamethasone) Confirm Administered Dose 4 mg .ROUTE .STK-MED ONE Stop: 01/21/18 10:13 Fentanyl (Sublimaze) 30 mcg IVPUSH ONETIME ONE Stop: 01/12/18 09:19 Last Admin: 01/12/18 09:30 Dose: 30 mcg Fentanyl (Sublimaze) Confirm Administered Dose 250 mcg .ROUTE .STK-MED ONE Stop: 01/12/18 11:23 Fentanyl (Sublimaze) Confirm Administered Dose 100 mcg .ROUTE .STK-MED ONE Stop: 01/12/18 12:05 Fentanyl (Sublimaze) Confirm Administered Dose 250 mcg .ROUTE .STK-MED ONE Stop: 01/21/18 10:13 Fentanyl Citrate (Fentanyl) Confirm Administered Dose 500 mcg .ROUTE .STK-MED ONE Stop: 01/12/18 09:44 Fentanyl Citrate (Fentanyl In Ns 20 Mcg/Ml 30 Ml [employer]) 0 mcg IV ASDIRECTED PRN; Protocol PRN Reason: PAIN Last Admin: 01/13/18 22:29 Dose: 600 mcg Fentanyl Citrate (Fentanyl In Ns 20 Mcg/Ml 30 Ml [employer]) Confirm Administered Dose 600 mcg .ROUTE .STK-MED ONE Stop: 01/12/18 12:41 Last Admin: 01/12/18 14:33 Dose: Not Given Fentanyl Citrate (Fentanyl) Confirm Administered Dose 500 mcg .ROUTE .STK-MED ONE Stop: 01/21/18 14:11 Fentanyl Citrate (Fentanyl In Ns 20 Mcg/Ml 30 Ml [employer]) 0 mcg IV ASDIRECTED PRN; Protocol PRN Reason: PAIN Last Admin: 01/23/18 07:16 Dose: 600 mcg Furosemide (Lasix) 20 mg PO ONETIME ONE Stop: 01/20/18 10:16 Last Admin: 01/20/18 10:46 Dose: 20 mg Furosemide (Lasix) 20 mg IVPUSH ONETIME ONE Stop: 01/22/18 16:01 Last Admin: 01/22/18 15:55 Dose: 20 mg Furosemide (Lasix) 20 mg IVPUSH DAILY [facility] Last Admin: 01/28/18 08:51 Dose: 20 mg Furosemide (Lasix) 20 mg IVPUSH NOW ONE Stop: 01/24/18 15:01 Last Admin: 01/24/18 15:50 Dose: 20 mg Furosemide (Lasix) 20 mg IVPUSH ONETIME ONE Stop: 01/26/18 15:01 Last Admin: 01/26/18 14:38 Dose: 20 mg Glycopyrrolate (Robinul) Confirm Administered Dose 1 mg .ROUTE .STK-MED ONE Stop: 01/12/18 09:35 Glycopyrrolate (Robinul) Confirm Administered Dose 1 mg .ROUTE .STK-MED ONE Stop: 01/21/18 10:13 Hydromorphone HCl (Dilaudid) 0.5 mg IVPUSH ONETIME ONE Stop: 01/12/18 05:15 Last Admin: 01/12/18 05:22 Dose: 0.5 mg Hydromorphone HCl (Dilaudid) 0.5 mg IVPUSH ONETIME ONE Stop: 01/12/18 07:20 Last Admin: 01/12/18 10:33 Dose: Not Given Hydromorphone HCl (Dilaudid) 0.5 mg IVPUSH ONETIME ONE Stop: 01/12/18 08:01 Last Admin: 01/12/18 08:02 Dose: 0.5 mg Sodium Chloride (Normal Saline) 1,000 mls @ 999 mls/hr IV ASDIRECTED [facility] Last Admin: 01/12/18 05:21 Dose: 999 mls/hr Sodium Chloride (Normal Saline) 1,000 mls @ 999 mls/hr IV ASDIRECTED [facility] Last Admin: 01/12/18 06:43 Dose: 999 mls/hr Sodium Chloride (Normal Saline) 85 mls @ 3.5 mls/sec IV ASDIRECTED [facility] Last Admin: 01/12/18 06:35 Dose: 3.5 mls/sec Piperacillin Sod/Tazobactam (Sod 4.5 gm/ Sodium Chloride) 100 mls @ 200 mls/hr IV ONETIME ONE Stop: 01/12/18 09:59 Last Admin: 01/12/18 09:44 Dose: 200 mls/hr Sodium Chloride (Normal Saline) 1,000 mls @ 125 mls/hr IV ASDIRECTED [facility] Last Admin: 01/14/18 07:36 Dose: 125 mls/hr Lactated Ringer's (Ringers, Lactated) Confirm Administered Dose 1,000 mls @ as directed .ROUTE .STK-MED ONE Stop: 01/12/18 11:32 Sodium Chloride (Normal Saline) Confirm Administered Dose 10 mls @ as directed .ROUTE .STK-MED ONE Stop: 01/12/18 11:35 Sodium Chloride (Normal Saline) Confirm Administered Dose 10 mls @ as directed .ROUTE .STK-MED ONE Stop: 01/12/18 11:42 Piperacillin/Tazobactam/ (Dextrose 3.375 gm/ Premix) 50 mls @ 100 mls/hr IV Q6H [facility] Last Admin: 01/14/18 03:04 Dose: 100 mls/hr Sodium Chloride (Normal Saline) 250 mls @ 999 mls/hr IV ASDIRECTED [facility] Last Admin: 01/13/18 07:48 Dose: 999 mls/hr Sodium Chloride (Normal Saline) 1,000 mls @ 250 mls/hr IV ASDIRECTED [facility] Stop: 01/13/18 14:30 Last Infusion: 01/13/18 14:55 Dose: 125 mls/hr Ampicillin Sodium/Sulbactam (Sodium 3 gm/ Sodium Chloride) 100 mls @ 200 mls/ hr IV Q6H [facility] Last Admin: 01/25/18 03:05 Dose: 200 mls/hr Vancomycin HCl 2 gm/ Sodium (Chloride) 500 mls @ 250 mls/hr IV ONETIME ONE Stop: 01/14/18 12:59 Last Admin: 01/14/18 12:42 Dose: 250 mls/hr Vancomycin HCl 1.5 gm/ Sodium (Chloride) 250 mls @ 160 mls/hr IV Q8H [facility] Last Admin: 01/16/18 04:52 Dose: 160 mls/hr Sodium Chloride (Normal Saline) 1,000 mls @ 0 mls/hr IV ASDIRECTED [facility] Last Admin: 01/16/18 00:35 Dose: 25 mls/hr Vancomycin HCl 1.75 gm/ Sodium (Chloride) 250 mls @ 150 mls/hr IV Q8H [facility] Last Admin: 01/19/18 05:16 Dose: 150 mls/hr Vancomycin HCl 2 gm/ Sodium (Chloride) 500 mls @ 250 mls/hr IV Q8H [facility] Last Admin: 01/24/18 05:44 Dose: 250 mls/hr Sodium Chloride (Normal Saline) 85 mls @ 4 mls/sec IV ASDIRECTED STA Stop: 01/21/18 06:09 Last Admin: 01/21/18 13:36 Dose: Not Given Sodium Chloride (Normal Saline) 1,000 mls @ 125 mls/hr IV ASDIRECTED [facility] Last Admin: 01/21/18 13:14 Dose: 125 mls/hr Lactated Ringer's (Ringers, Lactated) Confirm Administered Dose 1,000 mls @ as directed .ROUTE .STK-MED ONE Stop: 01/21/18 14:28 Lactated Ringer's (Ringers, Lactated) Confirm Administered Dose 1,000 mls @ as directed .ROUTE .STK-MED ONE Stop: 01/21/18 15:46 Acetaminophen 1,000 mg/ Premix 100 mls @ 400 mls/hr IV Q6H PRN PRN Reason: Fever Stop: 01/22/18 18:07 Last Admin: 01/22/18 17:35 Dose: 400 mls/hr Sodium Chloride (Normal Saline) 250 mls @ 999 mls/hr IV ASDIRECTED [facility] Last Admin: 01/22/18 02:02 Dose: 999 mls/hr Sodium Chloride (Normal Saline) 1,000 mls @ 200 mls/hr IV ASDIRECTED [facility] Last Admin: 01/22/18 01:49 Dose: 200 mls/hr Sodium Chloride (Normal Saline) 1,000 mls @ 125 mls/hr IV ASDIRECTED [facility] Last Admin: 01/22/18 19:38 Dose: 125 mls/hr Potassium Chloride 20 meq/Lidocaine HCl 2 ml/ Sodium Chloride 112 mls @ 56 mls/ hr IV Q2H MICHELLE Stop: 01/22/18 21:59 Last Admin: 01/22/18 21:43 Dose: 56 mls/hr Acetaminophen 1,000 mg/ Premix 100 mls @ 400 mls/hr IV Q6H PRN PRN Reason: Pain Stop: 01/28/18 22:30 Last Admin: 01/23/18 13:05 Dose: 400 mls/hr Potassium Chloride 20 meq/Lidocaine HCl 2 ml/ Sodium Chloride 112 mls @ 50 mls/ hr IV Q2H [facility] Stop: 01/23/18 14:59 Last Admin: 01/23/18 15:02 Dose: 50 mls/hr Potassium Chloride/Dextrose/Sod Cl (D5 1/2 Ns W/ 20 Meq/L Kcl) 1,000 mls @ 75 mls/hr IV ASDIRECTED [facility] Last Admin: 01/23/18 09:55 Dose: 75 mls/hr Sodium Chloride (Normal Saline) 500 mls @ 0 mls/hr IV ASDIRECTED ONE Stop: 01/24/18 10:20 Last Admin: 01/24/18 10:35 Dose: 25 mls/hr Potassium Chloride 20 meq/Lidocaine HCl 2 ml/ Sodium Chloride 112 mls @ 56 mls/ hr IV Q2H [facility] Stop: 01/25/18 17:59 Last Admin: 01/25/18 17:10 Dose: 56 mls/hr Potassium Chloride 20 meq/Lidocaine HCl 2 ml/ Sodium Chloride 112 mls @ 56 mls/ hr IV Q2H [facility] Stop: 01/26/18 19:59 Last Admin: 01/26/18 22:08 Dose: 56 mls/hr Sodium Chloride (Normal Saline) 100 mls @ 3 mls/sec IV ASDIRECTED [facility] Stop: 01/27/18 13:00 Last Admin: 01/27/18 12:14 Dose: 3 mls/sec Fat Emulsion Intravenous (Intralipid 20%) 100 mls @ 8.333 mls/hr IV ONETIME ONE Stop: 01/29/18 03:59 Last Admin: 01/28/18 15:19 Dose: 8.333 mls/hr Iohexol (Omnipaque) 20 ml PO ONETIME ONE Stop: 01/17/18 10:57 Last Admin: 01/17/18 11:22 Dose: 20 ml Iohexol (Omnipaque) 20 ml PO ONETIME ONE Stop: 01/27/18 09:51 Last Admin: 01/27/18 10:32 Dose: 20 ml Iopamidol (Isovue-300 (61%)) 150 ml IV . DIRECTED PRN PRN Reason: RADIOLOGY EXAM Stop: 01/13/18 06:16 Last Admin: 01/12/18 06:36 Dose: 150 ml Iopamidol (Isovue-300 (61%)) 150 ml IV . DIRECTED STA Stop: 01/21/18 06:09 Last Admin: 01/21/18 13:36 Dose: Not Given Iopamidol (Isovue-300 (61%)) 150 ml IV . DIRECTED MICHELLE Stop: 01/27/18 13:00 Last Admin: 01/27/18 12:14 Dose: 150 ml Ketorolac Tromethamine (Toradol) Confirm Administered Dose 60 mg .ROUTE .STK- MED ONE Stop: 01/12/18 12:08 Ketorolac Tromethamine (Toradol) 30 mg IM Q6H MICHELLE Stop: 01/22/18 10:31 Last Admin: 01/21/18 17:17 Dose: 30 mg Ketorolac Tromethamine (Toradol) 30 mg IVPUSH Q6H MICHELLE Stop: 01/22/18 10:31 Last Admin: 01/22/18 11:07 Dose: 30 mg Meropenem (Merrem) Confirm Administered Dose 500 mg .ROUTE .STK-MED ONE Stop: 01/12/18 11:35 Last Admin: 01/12/18 11:29 Dose: 500 mg Meropenem (Merrem) Confirm Administered Dose 500 mg .ROUTE .STK-MED ONE Stop: 01/12/18 11:42 Last Admin: 01/12/18 11:43 Dose: 500 mg Meropenem (Merrem) Confirm Administered Dose 500 mg .ROUTE .STK-MED ONE Stop: 01/21/18 15:21 Last Admin: 01/21/18 15:25 Dose: 500 mg Morphine Sulfate (Morphine) 1 - 3 mg IVPUSH Q1H PRN PRN Reason: Pain Last Admin: 01/24/18 12:45 Dose: 1 mg Naloxone HCl (Narcan) 0.1 mg IV ASDIRECTED PRN PRN Reason: RESP Neostigmine Methylsulfate (Neostigmine) Confirm Administered Dose 5 mg .ROUTE .STK-MED ONE Stop: 01/12/18 09:35 Neostigmine Methylsulfate (Neostigmine) Confirm Administered Dose 5 mg .ROUTE .STK-MED ONE Stop: 01/21/18 10:13 Non-Formulary Medication (Total Parenteral Nutrition, Central) 1,000 ml IV ONETIME ONE Stop: 01/29/18 11:01 Ondansetron HCl (Zofran) 4 mg IVPUSH ONETIME ONE Stop: 01/12/18 05:15 Last Admin: 01/12/18 05:22 Dose: 4 mg Ondansetron HCl (Zofran) Confirm Administered Dose 4 mg .ROUTE .STK-MED ONE Stop: 01/12/18 09:35 Ondansetron HCl (Zofran) Confirm Administered Dose 4 mg .ROUTE .STK-MED ONE Stop: 01/21/18 10:13 Oxycodone HCl (Oxycodone) 5 mg PO Q4H PRN PRN Reason: Pain Last Admin: 01/17/18 15:45 Dose: 5 mg Pantoprazole Sodium (Protonix) 40 mg PO ACBREAKFAST [facility] Last Admin: 01/25/18 07:39 Dose: 40 mg Potassium Chloride (Klor-Con M20) 40 meq PO BID [facility] Stop: 01/24/18 21:01 Last Admin: 01/24/18 21:43 Dose: 40 meq Prochlorperazine Edisylate (Compazine) 5 mg IVPUSH ONETIME ONE Stop: 01/12/18 07:48 Last Admin: 01/12/18 08:04 Dose: 5 mg Propofol (Diprivan 20 Ml) Confirm Administered Dose 200 mg .ROUTE .STK-MED ONE Stop: 01/12/18 09:35 Propofol (Diprivan 20 Ml) Confirm Administered Dose 200 mg .ROUTE .STK-MED ONE Stop: 01/21/18 10:13 Ranitidine HCl (Zantac) 150 mg PO BID [facility] Last Admin: 01/25/18 10:07 Dose: 150 mg Rocuronium [place] (Zemuron) Confirm Administered Dose 50 mg .ROUTE .STK-MED ONE Stop: 01/12/18 09:35 Rocuronium [place] (Zemuron) Confirm Administered Dose 50 mg .ROUTE .STK-MED ONE Stop: 01/21/18 10:13 Rocuronium [place] (Zemuron) Confirm Administered Dose 50 mg .ROUTE .STK-MED ONE Stop: 01/21/18 15:08 Succinylcholine Chloride (Quelicin) Confirm Administered Dose 200 mg .ROUTE .STK -MED ONE Stop: 01/12/18 09:35 Succinylcholine Chloride (Quelicin) Confirm Administered Dose 200 mg .ROUTE .STK -MED ONE Stop: 01/12/18 11:47 Succinylcholine Chloride (Quelicin) 100 mg .ROUTE .STK-MED ONE Stop: 01/12/18 12:01 Succinylcholine Chloride (Quelicin) Confirm Administered Dose 200 mg .ROUTE .STK -MED ONE Stop: 01/21/18 10:13 Zolpidem Tartrate (Ambien) 5 mg PO BEDTIME PRN PRN Reason: Insomnia Last Admin: 01/23/18 22:26 Dose: 5 mg - Exam Quality Assessment: DVT Prophylaxis General: Alert, Oriented, Cooperative, Mild Distress Lungs: Clear to Auscultation, Normal Respiratory Effort Cardiovascular: Regular Rate, Regular Rhythm, No Murmurs GI/Abdominal Exam: Soft, No Organomegaly, No Distention, Tender Extremities: Non-Tender, Pedal Edema Skin: Warm, Dry Consult PN Assessment/Plan Procedures: Procedures ASSAY THYROID STIM HORMONE (04/21/14) COMPLETE CBC W/AUTO DIFF WBC (04/21/14) COMPREHEN METABOLIC PANEL (04/21/14) EMERGENCY DEPT VISIT (04/21/14) INFLUENZA A/B AG IA (04/21/14) ROUTINE VENIPUNCTURE (04/21/14) URINALYSIS AUTO W/SCOPE (04/21/14) Problem List Initiated/Reviewed/Updated: Yes My Orders Last 24 Hours: My Active Orders 01/29/18 10:00 Potassium Chloride [KCL 40 MEQ in Water 100 ML] 40 meq Premix Bag 1 bag IV ONETIME Plan: ASSESSMENT AND PLAN - Recurrent fever - suspect intra-abdominal source. Fluid culture from recent laparotomy is growing germ to positive yeast and Klebsiella. wound culture also growing yeast. Second wound opened earlier today, Gram stain shows predominantly gram-negative rods, final ID and sensitivities pending -continue cefepime continue pending further culture results and sensitivities -Continue fluconazole -Repeat white blood cell count in the morning Hypokalemia -IV potassium supplementation -recheck in the am PTSD - history of involvement. Anxiety well controlled with current management -Melatonin at bedtime -Lorazepam as needed for anxiety Volume overload - peripheral edema significantly improved -Hold IV furosemide Status post exploratory laparotomy and surgical repair of incarcerated hernia - surgical recovery hampered by ileus/small bowel obstruction as noted on the abdominal x-ray and by patient's symptoms. NG tube still in place. He is now having bowel movements. PICC line has been placed and he has been started on TPN. -Postoperative care per Dr. Hanson
--- NOTE | 2018-01-29 18:14 | PN ---
DATE OF SERVICE: 01/29/2018 SUBJECTIVE: The patient is doing well today. He has no nausea, vomiting, shortness of breath, or chest pain. OBJECTIVE: VITAL SIGNS: Stable. Low-grade fever. CARDIOVASCULAR: Regular rhythm and rate. RESPIRATORY: Lungs clear to auscultation bilaterally. ABDOMEN: Painful to palpation to the right port site. ASSESSMENT: Status post small bowel resection. PLAN: I did open the port site on his right side today, which had a significant amount of pus associated with this. This was cultured, thoroughly irrigated and packed. This might be the etiology of his elevated white blood cell count. I will continue the antibiotics. They will adjust these once the results come back on the culture. He is to continue nil per os and NG tube. Tomorrow, we will probably re-evaluate him for starting on a diet. Essentially, everything will remain status quo, in the meantime, with respect to TPN and medications. Kevin Hanson MD /[id number]
[2018-01-29] MEDS: LORazepam 2 MG/ML SDV IVPUSH PRN (18:17)
[2018-01-29] MEDS: Melatonin 3 MG Tab PO SCH (21:26)
[2018-01-30] MEDS: Cefepime 1 GM in Sodium Chloride 0.9% 50 ML IV SCH ×3 (02:22→17:05)
[2018-01-30] MEDS: oxyCODONE 5 MG Tab PO PRN ×4 (02:30→23:09)
[2018-01-30] MEDS: Acetaminophen 325 MG Tab PO PRN ×4 (02:30→23:10)
[2018-01-30] MEDS: HYDROmorphone 0.5 MG/0.5 ML Syringe IVPUSH PRN ×7 (02:52→23:09)
--- NOTE | 2018-01-30 08:48 | CR ---
Abdomen 2V AP Flat Upright CLINICAL HISTORY: Ileus FINDINGS: NG tube remains in the stomach. There is persistent small bowel distention with scattered a ir-fluid levels. There is some gas and feces in the colon. IMPRESSION: Persistent small bowel distention with the minimal variability over recent previous studi es
[2018-01-30] MEDS: 1: AA 5%/Calcium/D15W/Lytes 1,000 ML with MVI, Adult with Vitamin K 10 ML, Chromium/Copp IV SCH ×6 (09:38→21:20)
[2018-01-30] MEDS: Lactobacillus Rhamnosus GG (Probiotic) Cap PO SCH ×2 (09:42→21:21)
[2018-01-30] MEDS: Pantoprazole 40 MG Vial IVPUSH SCH (09:42)
[2018-01-30] MEDS: Enoxaparin 40 MG/0.4 ML Syringe SUBCUT SCH (11:32)
[2018-01-30] MEDS: Fluconazole/Normal Saline 200 MG in Premix Bag 1 BAG IV SCH (11:32)
--- NOTE | 2018-01-30 11:43 | PCM.PN ---
- General Info Date of Service: 01/30/18 Subjective Update: Jayce has done well over the past 24 hours and feels physically improved over the past 2 days. NG tube has been removed and he started on clear liquid diet. No significant temperature elevation for the last 24 hours, white blood cell count remains significantly elevated. Culture from port site growing gram- negative rods, final ID and sensitivities pending Functional Status: Reports: Pain Controlled, Tolerating Diet, Ambulating, Urinating - Review of Systems General: Reports: Weakness. Denies: Fever, Chills Pulmonary: Reports: No Symptoms Cardiovascular: Reports: No Symptoms Gastrointestinal: Reports: Abdominal Pain. Denies: Diarrhea, Difficulty Swallowing, Nausea, Vomiting - Patient Data Vitals - Most Recent: Last Vital Signs Temp 96.4 F 01/30/18 10:21 Pulse 93 01/30/18 10:21 Resp 16 01/30/18 10:21 BP 129/80 01/30/18 10:21 Pulse Ox 98 01/30/18 10:21 Weight - Most Recent: 223 lb 14.4 oz I&O - Last 24 Hours: Intake & Output 01/29/18 01/30/18 01/30/18 22:59 06:59 14:59 Intake Total 1310 891 150 Output Total 770 1150 650 Balance 540 259 -500 Lab Results Last 24 Hours: Laboratory Results - last 24 hr 01/30/18 01/30/18 Range/Units 03:27 03:27 WBC 20.4 H (4.5-11.0) K/uL RBC 4.03 L (4.30-5.90) M/uL Hgb 11.4 L (12.0-15.0) g/dL Hct 35.6 L (40.0-54.0) % MCV 88 (80-98) fL MCH 28 (27-31) pg MCHC 32 (32-36) % Plt Count 740 H (150-400) K/uL Sodium 139 L (140-148) mmol/L Potassium 4.2 (3.6-5.2) mmol/L Chloride 102 (100-108) mmol/L Carbon Dioxide 29 (21-32) mmol/L Anion Gap 12.2 (5.0-14.0) mmol/L BUN 9 (7-18) mg/dL Creatinine 0.9 (0.8-1.3) mg/dL Est Cr Clr Drug Dosing 139.25 mL/min Estimated GFR (MDRD) > 60 (>60) Glucose 111 H (74-106) mg/dL Calcium 8.3 L (8.5-10.1) mg/dL Kaushik Results Last 24 Hours: Microbiology 01/29/18 09:10 Gram Stain - Final Other - Abdomen Wound Culture - Preliminary Med Orders - Current: Current Medications Acetaminophen (Tylenol) 650 mg PO Q4H PRN PRN Reason: Fever Last Admin: 01/30/18 07:32 Dose: 650 mg Benzocaine/Menthol (Cepacol Sore Throat) 1 lozenge MUCMEM Q1H PRN PRN Reason: Sore Throat Bisacodyl (Dulcolax) 5 mg PO DAILY PRN PRN Reason: Constipation Diphenhydramine HCl (Benadryl) 50 mg IVPUSH Q4H PRN PRN Reason: Itching Last Admin: 01/23/18 20:59 Dose: 50 mg Docusate Sodium (Colace) 100 mg PO BID PRN PRN Reason: Constipation Last Admin: 01/20/18 22:23 Dose: 100 mg Enoxaparin Sodium (Lovenox) 40 mg SUBCUT Q24H [facility] Last Admin: 01/30/18 11:32 Dose: 40 mg Hydromorphone HCl (Dilaudid) 0.5 mg IVPUSH Q2H PRN PRN Reason: Pain Last Admin: 01/30/18 09:50 Dose: 0.5 mg Hydroxyzine HCl (Vistaril) 50 mg IM Q4H PRN PRN Reason: Nausea Last Admin: 01/23/18 02:14 Dose: 50 mg Potassium Chloride/Dextrose/Sod Cl (D5 1/2 Ns W/ 20 Meq/L Kcl) 1,000 mls @ 25 mls/hr IV ASDIRECTED [facility] Last Admin: 01/29/18 08:48 Dose: 25 mls/hr Fluconazole/Sodium Chloride (200 mg/ Premix) 100 mls @ 100 mls/hr IV Q24H [facility] Last Admin: 01/30/18 11:32 Dose: 100 mls/hr Cefepime HCl 1 gm/ Sodium (Chloride) 50 mls @ 100 mls/hr IV Q8H [facility] Last Admin: 01/30/18 09:39 Dose: 100 mls/hr Multivitamins/Minerals 10 ml/Chromium/Copper/Manganese/Seleni/Zn 1 ml/ Amino Ac/ Electrol/Dextrose/Calcium 1,011 mls @ 100 mls/hr IV .BY DURATION [facility] Last Admin: 01/30/18 09:38 Dose: 100 mls/hr Amino Ac/Electrol/Dextrose/Calcium (Clinimix E 5/15) 1,000 mls @ 100 mls/hr IV .BY DURATION [facility] Last Admin: 01/29/18 23:29 Dose: 100 mls/hr Ibuprofen (Motrin) 600 mg PO Q6H PRN PRN Reason: Pain Last Admin: 01/24/18 04:16 Dose: 600 mg Lactobacillus Rhamnosus (Culturelle) 1 cap PO BID [facility] Last Admin: 01/30/18 09:42 Dose: 1 cap Lorazepam (Ativan) 0.5 mg IVPUSH Q4H PRN PRN Reason: Anxiety Last Admin: 01/29/18 18:17 Dose: 0.5 mg Melatonin (Melatonin) 9 mg PO BEDTIME [facility] Last Admin: 01/29/18 21:26 Dose: 9 mg Naloxone HCl (Narcan) 0.1 mg IV ASDIRECTED PRN PRN Reason: DYSPNEA Ondansetron HCl (Zofran) 4 - 8 mg IVPUSH Q6H PRN PRN Reason: Nausea/Vomiting Last Admin: 01/17/18 20:34 Dose: 8 mg Oxycodone HCl (Oxycodone) 5 mg PO Q4H PRN PRN Reason: Pain Last Admin: 01/30/18 07:32 Dose: 5 mg Pantoprazole Sodium (Protonix Iv) 40 mg IVPUSH DAILY [facility] Last Admin: 01/30/18 09:42 Dose: 40 mg Polyethylene Glycol (Miralax) 17 gm PO DAILY PRN PRN Reason: Constipation Promethazine HCl (Phenergan) 25 mg IM Q6H PRN PRN Reason: Nausea Last Admin: 01/13/18 23:56 Dose: 25 mg Scopolamine (Transderm-Scop) 1.5 mg TRDERM Q72H PRN PRN Reason: Indigestion Last Admin: 01/17/18 19:34 Dose: 1.5 mg Senna/Docusate Sodium (Senna Plus) 1 tab PO BID PRN PRN Reason: Constipation Last Admin: 01/29/18 08:13 Dose: 1 tab Tizanidine HCl (Zanaflex) 4 mg PO Q6H PRN PRN Reason: Muscle Spasm Last Admin: 01/24/18 13:27 Dose: 4 mg Discontinued Medications Acetaminophen (Tylenol) 650 mg PO Q6H PRN PRN Reason: Pain (mild 1-3) Last Admin: 01/12/18 18:15 Dose: 650 mg Hydrocodone Bitart/Acetaminophen ([place] 325-10 Mg) 1 - 2 tab PO Q4H PRN PRN Reason: Abdominal Pain Last Admin: 01/15/18 12:37 Dose: 2 tab Hydrocodone Bitart/Acetaminophen ([place] 325-10 Mg) 1 - 2 tab PO Q4H PRN PRN Reason: Pain Last Admin: 01/25/18 07:44 Dose: 1 tab Alvimopan (Entereg) 12 mg PO BID [facility] Stop: 01/27/18 21:01 Last Admin: 01/27/18 20:49 Dose: 12 mg Bupivacaine HCl/Epinephrine Bitart (Marcaine 0.5%/Epinephrine 1:200,000) Confirm Administered Dose 50 ml .ROUTE .STK-MED ONE Stop: 01/12/18 10:15 Bupivacaine HCl/Epinephrine Bitart (Marcaine 0.5%/Epinephrine 1:200,000) Confirm Administered Dose 50 ml .ROUTE .STK-MED ONE Stop: 01/21/18 10:05 Calcium Carbonate/Glycine (Tums) 1,000 mg PO ONETIME ONE Stop: 01/13/18 05:58 Last Admin: 01/13/18 06:12 Dose: 1,000 mg Calcium Carbonate/Glycine (Tums) 1,000 mg PO Q2H PRN PRN Reason: Indigestion Last Admin: 01/16/18 06:41 Dose: 1,000 mg Ropivacaine 60 ml/Dexamethasone 8 mg/Epinephrine HCl 0.4 mg/ Sodium Chloride 17.6 ml 0 ml NERVRT ASDIRECTED [facility] Last Admin: 01/21/18 13:45 Dose: 80 syringe Dexamethasone (Dexamethasone) Confirm Administered Dose 4 mg .ROUTE .STK-MED ONE Stop: 01/12/18 09:35 Dexamethasone (Dexamethasone) Confirm Administered Dose 4 mg .ROUTE .STK-MED ONE Stop: 01/21/18 10:13 Fentanyl (Sublimaze) 30 mcg IVPUSH ONETIME ONE Stop: 01/12/18 09:19 Last Admin: 01/12/18 09:30 Dose: 30 mcg Fentanyl (Sublimaze) Confirm Administered Dose 250 mcg .ROUTE .STK-MED ONE Stop: 01/12/18 11:23 Fentanyl (Sublimaze) Confirm Administered Dose 100 mcg .ROUTE .STK-MED ONE Stop: 01/12/18 12:05 Fentanyl (Sublimaze) Confirm Administered Dose 250 mcg .ROUTE .STK-MED ONE Stop: 01/21/18 10:13 Fentanyl Citrate (Fentanyl) Confirm Administered Dose 500 mcg .ROUTE .STK-MED ONE Stop: 01/12/18 09:44 Fentanyl Citrate (Fentanyl In Ns 20 Mcg/Ml 30 Ml Stator Plate Washer) 0 mcg IV ASDIRECTED PRN; Protocol PRN Reason: PAIN Last Admin: 01/13/18 22:29 Dose: 600 mcg Fentanyl Citrate (Fentanyl In Ns 20 Mcg/Ml 30 Ml Stator Plate Washer) Confirm Administered Dose 600 mcg .ROUTE .STK-MED ONE Stop: 01/12/18 12:41 Last Admin: 01/12/18 14:33 Dose: Not Given Fentanyl Citrate (Fentanyl) Confirm Administered Dose 500 mcg .ROUTE .STK-MED ONE Stop: 01/21/18 14:11 Fentanyl Citrate (Fentanyl In Ns 20 Mcg/Ml 30 Ml Stator Plate Washer) 0 mcg IV ASDIRECTED PRN; Protocol PRN Reason: PAIN Last Admin: 01/23/18 07:16 Dose: 600 mcg Furosemide (Lasix) 20 mg PO ONETIME ONE Stop: 01/20/18 10:16 Last Admin: 01/20/18 10:46 Dose: 20 mg Furosemide (Lasix) 20 mg IVPUSH ONETIME ONE Stop: 01/22/18 16:01 Last Admin: 01/22/18 15:55 Dose: 20 mg Furosemide (Lasix) 20 mg IVPUSH DAILY [facility] Last Admin: 01/28/18 08:51 Dose: 20 mg Furosemide (Lasix) 20 mg IVPUSH NOW ONE Stop: 01/24/18 15:01 Last Admin: 01/24/18 15:50 Dose: 20 mg Furosemide (Lasix) 20 mg IVPUSH ONETIME ONE Stop: 01/26/18 15:01 Last Admin: 01/26/18 14:38 Dose: 20 mg Glycopyrrolate (Robinul) Confirm Administered Dose 1 mg .ROUTE .STK-MED ONE Stop: 01/12/18 09:35 Glycopyrrolate (Robinul) Confirm Administered Dose 1 mg .ROUTE .STK-MED ONE Stop: 01/21/18 10:13 Hydromorphone HCl (Dilaudid) 0.5 mg IVPUSH ONETIME ONE Stop: 01/12/18 05:15 Last Admin: 01/12/18 05:22 Dose: 0.5 mg Hydromorphone HCl (Dilaudid) 0.5 mg IVPUSH ONETIME ONE Stop: 01/12/18 07:20 Last Admin: 01/12/18 10:33 Dose: Not Given Hydromorphone HCl (Dilaudid) 0.5 mg IVPUSH ONETIME ONE Stop: 01/12/18 08:01 Last Admin: 01/12/18 08:02 Dose: 0.5 mg Sodium Chloride (Normal Saline) 1,000 mls @ 999 mls/hr IV ASDIRECTED [facility] Last Admin: 01/12/18 05:21 Dose: 999 mls/hr Sodium Chloride (Normal Saline) 1,000 mls @ 999 mls/hr IV ASDIRECTED [facility] Last Admin: 01/12/18 06:43 Dose: 999 mls/hr Sodium Chloride (Normal Saline) 85 mls @ 3.5 mls/sec IV ASDIRECTED [facility] Last Admin: 01/12/18 06:35 Dose: 3.5 mls/sec Piperacillin Sod/Tazobactam (Sod 4.5 gm/ Sodium Chloride) 100 mls @ 200 mls/hr IV ONETIME ONE Stop: 01/12/18 09:59 Last Admin: 01/12/18 09:44 Dose: 200 mls/hr Sodium Chloride (Normal Saline) 1,000 mls @ 125 mls/hr IV ASDIRECTED [facility] Last Admin: 01/14/18 07:36 Dose: 125 mls/hr Lactated Ringer's (Ringers, Lactated) Confirm Administered Dose 1,000 mls @ as directed .ROUTE .STK-MED ONE Stop: 01/12/18 11:32 Sodium Chloride (Normal Saline) Confirm Administered Dose 10 mls @ as directed .ROUTE .STK-MED ONE Stop: 01/12/18 11:35 Sodium Chloride (Normal Saline) Confirm Administered Dose 10 mls @ as directed .ROUTE .STK-MED ONE Stop: 01/12/18 11:42 Piperacillin/Tazobactam/ (Dextrose 3.375 gm/ Premix) 50 mls @ 100 mls/hr IV Q6H [facility] Last Admin: 01/14/18 03:04 Dose: 100 mls/hr Sodium Chloride (Normal Saline) 250 mls @ 999 mls/hr IV ASDIRECTED [facility] Last Admin: 01/13/18 07:48 Dose: 999 mls/hr Sodium Chloride (Normal Saline) 1,000 mls @ 250 mls/hr IV ASDIRECTED [facility] Stop: 01/13/18 14:30 Last Infusion: 01/13/18 14:55 Dose: 125 mls/hr Ampicillin Sodium/Sulbactam (Sodium 3 gm/ Sodium Chloride) 100 mls @ 200 mls/ hr IV Q6H [facility] Last Admin: 01/25/18 03:05 Dose: 200 mls/hr Vancomycin HCl 2 gm/ Sodium (Chloride) 500 mls @ 250 mls/hr IV ONETIME ONE Stop: 01/14/18 12:59 Last Admin: 01/14/18 12:42 Dose: 250 mls/hr Vancomycin HCl 1.5 gm/ Sodium (Chloride) 250 mls @ 160 mls/hr IV Q8H [facility] Last Admin: 01/16/18 04:52 Dose: 160 mls/hr Sodium Chloride (Normal Saline) 1,000 mls @ 0 mls/hr IV ASDIRECTED [facility] Last Admin: 01/16/18 00:35 Dose: 25 mls/hr Vancomycin HCl 1.75 gm/ Sodium (Chloride) 250 mls @ 150 mls/hr IV Q8H [facility] Last Admin: 01/19/18 05:16 Dose: 150 mls/hr Vancomycin HCl 2 gm/ Sodium (Chloride) 500 mls @ 250 mls/hr IV Q8H [facility] Last Admin: 01/24/18 05:44 Dose: 250 mls/hr Sodium Chloride (Normal Saline) 85 mls @ 4 mls/sec IV ASDIRECTED [facility] Stop: 01/21/18 06:09 Last Admin: 01/21/18 13:36 Dose: Not Given Sodium Chloride (Normal Saline) 1,000 mls @ 125 mls/hr IV ASDIRECTED [facility] Last Admin: 01/21/18 13:14 Dose: 125 mls/hr Lactated Ringer's (Ringers, Lactated) Confirm Administered Dose 1,000 mls @ as directed .ROUTE .STK-MED ONE Stop: 01/21/18 14:28 Lactated Ringer's (Ringers, Lactated) Confirm Administered Dose 1,000 mls @ as directed .ROUTE .STK-MED ONE Stop: 01/21/18 15:46 Acetaminophen 1,000 mg/ Premix 100 mls @ 400 mls/hr IV Q6H PRN PRN Reason: Fever Stop: 01/22/18 18:07 Last Admin: 01/22/18 17:35 Dose: 400 mls/hr Sodium Chloride (Normal Saline) 250 mls @ 999 mls/hr IV ASDIRECTED [facility] Last Admin: 01/22/18 02:02 Dose: 999 mls/hr Sodium Chloride (Normal Saline) 1,000 mls @ 200 mls/hr IV ASDIRECTED [facility] Last Admin: 01/22/18 01:49 Dose: 200 mls/hr Sodium Chloride (Normal Saline) 1,000 mls @ 125 mls/hr IV ASDIRECTED [facility] Last Admin: 01/22/18 19:38 Dose: 125 mls/hr Potassium Chloride 20 meq/Lidocaine HCl 2 ml/ Sodium Chloride 112 mls @ 56 mls/ hr IV Q2H [facility] Stop: 01/22/18 21:59 Last Admin: 01/22/18 21:43 Dose: 56 mls/hr Acetaminophen 1,000 mg/ Premix 100 mls @ 400 mls/hr IV Q6H PRN PRN Reason: Pain Stop: 01/28/18 22:30 Last Admin: 01/23/18 13:05 Dose: 400 mls/hr Potassium Chloride 20 meq/Lidocaine HCl 2 ml/ Sodium Chloride 112 mls @ 50 mls/ hr IV Q2H [facility] Stop: 01/23/18 14:59 Last Admin: 01/23/18 15:02 Dose: 50 mls/hr Potassium Chloride/Dextrose/Sod Cl (D5 1/2 Ns W/ 20 Meq/L Kcl) 1,000 mls @ 75 mls/hr IV ASDIRECTED [facility] Last Admin: 01/23/18 09:55 Dose: 75 mls/hr Sodium Chloride (Normal Saline) 500 mls @ 0 mls/hr IV ASDIRECTED ONE Stop: 01/24/18 10:20 Last Admin: 01/24/18 10:35 Dose: 25 mls/hr Potassium Chloride 20 meq/Lidocaine HCl 2 ml/ Sodium Chloride 112 mls @ 56 mls/ hr IV Q2H [facility] Stop: 01/25/18 17:59 Last Admin: 01/25/18 17:10 Dose: 56 mls/hr Potassium Chloride 20 meq/Lidocaine HCl 2 ml/ Sodium Chloride 112 mls @ 56 mls/ hr IV Q2H [facility] Stop: 01/26/18 19:59 Last Admin: 01/26/18 22:08 Dose: 56 mls/hr Sodium Chloride (Normal Saline) 100 mls @ 3 mls/sec IV ASDIRECTED [facility] Stop: 01/27/18 13:00 Last Admin: 01/27/18 12:14 Dose: 3 mls/sec Fat Emulsion Intravenous (Intralipid 20%) 100 mls @ 8.333 mls/hr IV ONETIME ONE Stop: 01/29/18 03:59 Last Admin: 01/28/18 15:19 Dose: 8.333 mls/hr Potassium Chloride 40 meq/ (Premix) 100 mls @ 25 mls/hr IV ONETIME ONE Stop: 01/29/18 13:59 Last Admin: 01/29/18 10:50 Dose: 25 mls/hr Iohexol (Omnipaque) 20 ml PO ONETIME ONE Stop: 01/17/18 10:57 Last Admin: 01/17/18 11:22 Dose: 20 ml Iohexol (Omnipaque) 20 ml PO ONETIME ONE Stop: 01/27/18 09:51 Last Admin: 01/27/18 10:32 Dose: 20 ml Iopamidol (Isovue-300 (61%)) 150 ml IV . DIRECTED PRN PRN Reason: RADIOLOGY EXAM Stop: 01/13/18 06:16 Last Admin: 01/12/18 06:36 Dose: 150 ml Iopamidol (Isovue-300 (61%)) 150 ml IV . DIRECTED [facility] Stop: 01/21/18 06:09 Last Admin: 01/21/18 13:36 Dose: Not Given Iopamidol (Isovue-300 (61%)) 150 ml IV . DIRECTED [facility] Stop: 01/27/18 13:00 Last Admin: 01/27/18 12:14 Dose: 150 ml Ketorolac Tromethamine (Toradol) Confirm Administered Dose 60 mg .ROUTE .STK- MED ONE Stop: 01/12/18 12:08 Ketorolac Tromethamine (Toradol) 30 mg IM Q6H [facility] Stop: 01/22/18 10:31 Last Admin: 01/21/18 17:17 Dose: 30 mg Ketorolac Tromethamine (Toradol) 30 mg IVPUSH Q6H [facility] Stop: 01/22/18 10:31 Last Admin: 01/22/18 11:07 Dose: 30 mg Meropenem (Merrem) Confirm Administered Dose 500 mg .ROUTE .STK-MED ONE Stop: 01/12/18 11:35 Last Admin: 01/12/18 11:29 Dose: 500 mg Meropenem (Merrem) Confirm Administered Dose 500 mg .ROUTE .STK-MED ONE Stop: 01/12/18 11:42 Last Admin: 01/12/18 11:43 Dose: 500 mg Meropenem (Merrem) Confirm Administered Dose 500 mg .ROUTE .STK-MED ONE Stop: 01/21/18 15:21 Last Admin: 01/21/18 15:25 Dose: 500 mg Morphine Sulfate (Morphine) 1 - 3 mg IVPUSH Q1H PRN PRN Reason: Pain Last Admin: 01/24/18 12:45 Dose: 1 mg Naloxone HCl (Narcan) 0.1 mg IV ASDIRECTED PRN PRN Reason: RESP Neostigmine Methylsulfate (Neostigmine) Confirm Administered Dose 5 mg .ROUTE .STK-MED ONE Stop: 01/12/18 09:35 Neostigmine Methylsulfate (Neostigmine) Confirm Administered Dose 5 mg .ROUTE .STK-MED ONE Stop: 01/21/18 10:13 Non-Formulary Medication (Total Parenteral Nutrition, Central) 1,000 ml IV ONETIME ONE Stop: 01/29/18 11:01 Last Admin: 01/29/18 13:25 Dose: Not Given Ondansetron HCl (Zofran) 4 mg IVPUSH ONETIME ONE Stop: 01/12/18 05:15 Last Admin: 01/12/18 05:22 Dose: 4 mg Ondansetron HCl (Zofran) Confirm Administered Dose 4 mg .ROUTE .STK-MED ONE Stop: 01/12/18 09:35 Ondansetron HCl (Zofran) Confirm Administered Dose 4 mg .ROUTE .STK-MED ONE Stop: 01/21/18 10:13 Oxycodone HCl (Oxycodone) 5 mg PO Q4H PRN PRN Reason: Pain Last Admin: 01/17/18 15:45 Dose: 5 mg Pantoprazole Sodium (Protonix) 40 mg PO ACBREAKFAST [facility] Last Admin: 01/25/18 07:39 Dose: 40 mg Potassium Chloride (Klor-Con M20) 40 meq PO BID [facility] Stop: 01/24/18 21:01 Last Admin: 01/24/18 21:43 Dose: 40 meq Prochlorperazine Edisylate (Compazine) 5 mg IVPUSH ONETIME ONE Stop: 01/12/18 07:48 Last Admin: 01/12/18 08:04 Dose: 5 mg Propofol (Diprivan 20 Ml) Confirm Administered Dose 200 mg .ROUTE .STK-MED ONE Stop: 01/12/18 09:35 Propofol (Diprivan 20 Ml) Confirm Administered Dose 200 mg .ROUTE .STK-MED ONE Stop: 01/21/18 10:13 Ranitidine HCl (Zantac) 150 mg PO BID [facility] Last Admin: 01/25/18 10:07 Dose: 150 mg Rocuronium [place] (Zemuron) Confirm Administered Dose 50 mg .ROUTE .STK-MED ONE Stop: 01/12/18 09:35 Rocuronium [place] (Zemuron) Confirm Administered Dose 50 mg .ROUTE .STK-MED ONE Stop: 01/21/18 10:13 Rocuronium [place] (Zemuron) Confirm Administered Dose 50 mg .ROUTE .STK-MED ONE Stop: 01/21/18 15:08 Succinylcholine Chloride (Quelicin) Confirm Administered Dose 200 mg .ROUTE .STK -MED ONE Stop: 01/12/18 09:35 Succinylcholine Chloride (Quelicin) Confirm Administered Dose 200 mg .ROUTE .STK -MED ONE Stop: 01/12/18 11:47 Succinylcholine Chloride (Quelicin) 100 mg .ROUTE .STK-MED ONE Stop: 01/12/18 12:01 Succinylcholine Chloride (Quelicin) Confirm Administered Dose 200 mg .ROUTE .STK -MED ONE Stop: 01/21/18 10:13 Zolpidem Tartrate (Ambien) 5 mg PO BEDTIME PRN PRN Reason: Insomnia Last Admin: 01/23/18 22:26 Dose: 5 mg - Exam Quality Assessment: Supplemental Oxygen, DVT Prophylaxis General: Alert, Oriented, Cooperative, Mild Distress Lungs: Clear to Auscultation, Normal Respiratory Effort Cardiovascular: Regular Rate, Regular Rhythm, No Murmurs GI/Abdominal Exam: Soft, No Organomegaly, Tender. No: Distended, Guarding, Rigid, Rebound Extremities: Non-Tender, Pedal Edema Skin: Warm, Dry - Problem List Review Problem List Initiated/Reviewed/Updated: Yes - Plan Plan:: ASSESSMENT AND PLAN - Recurrent fever - suspect intra-abdominal source. Fluid culture from recent laparotomy is growing germ to positive yeast and Klebsiella. wound culture also growing yeast. Second wound opened yesterday, culture growing gram-negative rods , final ID and sensitivities pending. He is been afebrile over the past 24 hours and feels improved, white count remains elevated -continue cefepime continue pending further culture results and sensitivities -Continue fluconazole -Repeat white blood cell count in the morning Hypokalemia-resolved -recheck in the am PTSD - history of involvement. Anxiety well controlled with current management -Melatonin at bedtime -Lorazepam as needed for anxiety Volume overload - peripheral edema significantly improved -Hold IV furosemide Status post exploratory laparotomy and surgical repair of incarcerated hernia - surgical recovery hampered by ileus/small bowel obstruction as noted on the abdominal x-ray and by patient's symptoms. NG tube still in place. He is now having bowel movements. PICC line has been placed and he has been started on TPN. -Postoperative care per Dr. Hanson
[2018-01-30] MEDS ORDERED: Central Total Parenteral Nutrition Bag IV SCH (12:00)
[2018-01-30] MEDS ORDERED: Fat Emulsion 100 ML IV ONE (16:00)
[2018-01-30] MEDS: Melatonin 3 MG Tab PO SCH (21:21)
[2018-01-31] MEDS: Cefepime 1 GM in Sodium Chloride 0.9% 50 ML IV SCH ×2 (02:21→10:52)
[2018-01-31] MEDS: HYDROmorphone 0.5 MG/0.5 ML Syringe IVPUSH PRN ×4 (04:39→15:41)
[2018-01-31] MEDS: Acetaminophen 325 MG Tab PO PRN ×2 (05:29→12:34)
[2018-01-31] MEDS: oxyCODONE 5 MG Tab PO PRN (05:29)
[2018-01-31] MEDS: 1: AA 5%/Calcium/D15W/Lytes 1,000 ML with MVI, Adult with Vitamin K 10 ML, Chromium/Copp IV SCH ×6 (07:13→18:13)
[2018-01-31] MEDS: D5 1/2 NS w/ 20 mEq/L KCl 1,000 ML IV SCH (07:13)
[2018-01-31] MEDS: Pantoprazole 40 MG Vial IVPUSH SCH (08:51)
[2018-01-31] MEDS: Lactobacillus Rhamnosus GG (Probiotic) Cap PO SCH ×2 (08:51→22:14)
--- NOTE | 2018-01-31 08:53 | CR ---
Abdomen 2V AP Flat Upright CLINICAL HISTORY: Ileus FINDINGS: There is persistent small bowel distention with a few scattered air-fluid levels. There is some gas and feces in the colon. Pattern is similar to prior day study. No free air is seen. NG tube has been removed. Surgical drain remains in the pelvic region. IMPRESSION: Persistent small bowel distention without significant change. NG tube has been removed
[2018-01-31] MEDS: Enoxaparin 40 MG/0.4 ML Syringe SUBCUT SCH (11:14)
[2018-01-31] MEDS: Acetaminophen/HYDROcodone 325-10 MG Tab PO PRN ×4 (11:18→23:07)
[2018-01-31] MEDS: Fluconazole/Normal Saline 200 MG in Premix Bag 1 BAG IV SCH (11:20)
[2018-01-31] MEDS ORDERED: Central Total Parenteral Nutrition Bag IV SCH (11:45)
--- NOTE | 2018-01-31 11:46 | PN ---
DATE OF SERVICE: 01/31/2018 SUBJECTIVE: The patient is tolerating his full liquid diet quite well. Having bowel movements. No nausea, vomiting, shortness of breath, or chest pain. Ambulating in the [place] without difficulty. OBJECTIVE: VITAL SIGNS: Stable. CARDIOVASCULAR: Regular rhythm and rate. RESPIRATORY: Lungs clear to auscultation bilaterally. GASTROINTESTINAL: Incision healing well. The right port site is concerning for fistula. ASSESSMENT: Status post small bowel resection. PLAN: 1. GI: We will continue the same diet today. This right port site is concerning for a fistula. If this was the case, then it should be a low-output fistula. Nonetheless, I will continue to work on his diet. We will treat this as a fistula with skin protected and ostomy care. 2. Infectious Disease: White blood cell count shows significant improvement down to 15,000 now. Sensitivities recommended change to ertapenem. We will also have discharge planning evaluate for home IV antibiotics. 3. General disposition. Continues to overall improve. 4. General medical condition. Hospital service continues to follow along. They will make adjustments accordingly. In addition, we will continue the TPN today. Kevin Hanson MD /[id number]
[2018-01-31] MEDS: Ertapenem 1 GM in Sodium Chloride 0.9% 100 ML IV SCH (12:28)
--- NOTE | 2018-01-31 12:54 | PCM.PN ---
- General Info Date of Service: 01/31/18 Subjective Update: Jayce is experienced further improvement over the last 24 hours, he is tolerated clear liquid diet and is been ambulating frequently in the hallways. No recurrent temperature elevations and there has been a significant improvement in his white blood cell count. Culture from recent wound drainage growing Enterobacter which is resistant to multiple antibiotics. Functional Status: Reports: Pain Controlled, Tolerating Diet, Ambulating, Urinating - Review of Systems General: Reports: Weakness. Denies: Fever, Chills Pulmonary: Reports: No Symptoms Cardiovascular: Reports: No Symptoms Gastrointestinal: Reports: Abdominal Pain. Denies: Diarrhea, Difficulty Swallowing, Nausea, Vomiting - Patient Data Vitals - Most Recent: Last Vital Signs Temp 96.1 F 01/31/18 07:30 Pulse 88 01/31/18 07:30 Resp 16 01/31/18 07:30 BP 128/87 01/31/18 07:30 Pulse Ox 99 01/31/18 07:30 Weight - Most Recent: 219 lb 9.6 oz I&O - Last 24 Hours: Intake & Output 01/30/18 01/31/18 01/31/18 22:59 06:59 14:59 Intake Total 1740 1919 1050 Output Total 900 2100 1295 Balance 840 181 -245 Lab Results Last 24 Hours: Laboratory Results - last 24 hr 01/31/18 01/31/18 Range/Units 05:00 05:00 WBC 15.2 H (4.5-11.0) K/uL RBC 3.89 L (4.30-5.90) M/uL Hgb 10.8 L (12.0-15.0) g/dL Hct 34.3 L (40.0-54.0) % MCV 88 (80-98) fL MCH 28 (27-31) pg MCHC 32 (32-36) % Plt Count 633 H (150-400) K/uL Sodium 139 L (140-148) mmol/L Potassium 4.1 (3.6-5.2) mmol/L Chloride 104 (100-108) mmol/L Carbon Dioxide 29 (21-32) mmol/L Anion Gap 10.1 (5.0-14.0) mmol/L BUN 9 (7-18) mg/dL Creatinine 0.8 (0.8-1.3) mg/dL Est Cr Clr Drug Dosing 156.66 mL/min Estimated GFR (MDRD) > 60 (>60) Glucose 115 H (74-106) mg/dL Calcium 8.5 (8.5-10.1) mg/dL Kaushik Results Last 24 Hours: Microbiology 01/29/18 09:10 Gram Stain - Final Other - Abdomen Wound Culture - Final Enterobacter Cloacae Complex Med Orders - Current: Current Medications Acetaminophen (Tylenol) 650 mg PO Q4H PRN PRN Reason: Fever Last Admin: 01/31/18 12:34 Dose: 325 mg Hydrocodone Bitart/Acetaminophen ([place] 325-10 Mg) 1 tab PO Q3H PRN PRN Reason: Pain Last Admin: 01/31/18 11:18 Dose: 1 tab Benzocaine/Menthol (Cepacol Sore Throat) 1 lozenge MUCMEM Q1H PRN PRN Reason: Sore Throat Bisacodyl (Dulcolax) 5 mg PO DAILY PRN PRN Reason: Constipation Diphenhydramine HCl (Benadryl) 50 mg IVPUSH Q4H PRN PRN Reason: Itching Last Admin: 01/23/18 20:59 Dose: 50 mg Docusate Sodium (Colace) 100 mg PO BID PRN PRN Reason: Constipation Last Admin: 01/20/18 22:23 Dose: 100 mg Enoxaparin Sodium (Lovenox) 40 mg SUBCUT Q24H [facility] Last Admin: 01/31/18 11:14 Dose: 40 mg Hydromorphone HCl (Dilaudid) 0.5 mg IVPUSH Q2H PRN PRN Reason: Pain Last Admin: 01/31/18 09:08 Dose: 0.5 mg Hydroxyzine HCl (Vistaril) 50 mg IM Q4H PRN PRN Reason: Nausea Last Admin: 01/23/18 02:14 Dose: 50 mg Potassium Chloride/Dextrose/Sod Cl (D5 1/2 Ns W/ 20 Meq/L Kcl) 1,000 mls @ 25 mls/hr IV ASDIRECTED [facility] Last Admin: 01/31/18 07:13 Dose: 25 mls/hr Fluconazole/Sodium Chloride (200 mg/ Premix) 100 mls @ 100 mls/hr IV Q24H [facility] Last Admin: 01/31/18 11:20 Dose: 100 mls/hr Multivitamins/Minerals 10 ml/Chromium/Copper/Manganese/Seleni/Zn 1 ml/ Amino Ac/ Electrol/Dextrose/Calcium 1,011 mls @ 100 mls/hr IV .BY DURATION [facility] Stop: 01/31/18 14:20 Last Admin: 01/31/18 07:13 Dose: 100 mls/hr Amino Ac/Electrol/Dextrose/Calcium (Clinimix E 5/15) 1,000 mls @ 100 mls/hr IV .BY DURATION [facility] Stop: 01/31/18 14:20 Last Admin: 01/30/18 21:20 Dose: 100 mls/hr Ertapenem 1 gm/ Sodium (Chloride) 100 mls @ 200 mls/hr IV Q24H [facility] Last Admin: 01/31/18 12:28 Dose: 200 mls/hr Fat Emulsion Intravenous (Intralipid 20%) 100 mls @ 8.333 mls/hr IV ONETIME ONE Stop: 02/01/18 03:59 Multivitamins/Minerals 10 ml/Chromium/Copper/Manganese/Seleni/Zn 1 ml/ Amino Ac/ Electrol/Dextrose/Calcium 1,011 mls @ 100 mls/hr IV .BY DURATION [facility] Amino Ac/Electrol/Dextrose/Calcium (Clinimix E 5/15) 1,000 mls @ 100 mls/hr IV .BY DURATION [facility] Ibuprofen (Motrin) 600 mg PO Q6H PRN PRN Reason: Pain Last Admin: 01/24/18 04:16 Dose: 600 mg Lactobacillus Rhamnosus (Culturelle) 1 cap PO BID [facility] Last Admin: 01/31/18 08:51 Dose: 1 cap Lorazepam (Ativan) 0.5 mg IVPUSH Q4H PRN PRN Reason: Anxiety Last Admin: 01/29/18 18:17 Dose: 0.5 mg Melatonin (Melatonin) 9 mg PO BEDTIME [facility] Last Admin: 01/30/18 21:21 Dose: 6 mg Naloxone HCl (Narcan) 0.1 mg IV ASDIRECTED PRN PRN Reason: DYSPNEA Non-Formulary Medication (Total Parenteral Nutrition, Central) 0 ml IV ASDIRECTED [facility] Stop: 01/31/18 13:00 Ondansetron HCl (Zofran) 4 - 8 mg IVPUSH Q6H PRN PRN Reason: Nausea/Vomiting Last Admin: 01/17/18 20:34 Dose: 8 mg Pantoprazole Sodium (Protonix Iv) 40 mg IVPUSH DAILY [facility] Last Admin: 01/31/18 08:51 Dose: 40 mg Polyethylene Glycol (Miralax) 17 gm PO DAILY PRN PRN Reason: Constipation Promethazine HCl (Phenergan) 25 mg IM Q6H PRN PRN Reason: Nausea Last Admin: 01/13/18 23:56 Dose: 25 mg Scopolamine (Transderm-Scop) 1.5 mg TRDERM Q72H PRN PRN Reason: Indigestion Last Admin: 01/17/18 19:34 Dose: 1.5 mg Senna/Docusate Sodium (Senna Plus) 1 tab PO BID PRN PRN Reason: Constipation Last Admin: 01/29/18 08:13 Dose: 1 tab Tizanidine HCl (Zanaflex) 4 mg PO Q6H PRN PRN Reason: Muscle Spasm Last Admin: 01/24/18 13:27 Dose: 4 mg Discontinued Medications Acetaminophen (Tylenol) 650 mg PO Q6H PRN PRN Reason: Pain (mild 1-3) Last Admin: 01/12/18 18:15 Dose: 650 mg Hydrocodone Bitart/Acetaminophen ([place] 325-10 Mg) 1 - 2 tab PO Q4H PRN PRN Reason: Abdominal Pain Last Admin: 01/15/18 12:37 Dose: 2 tab Hydrocodone Bitart/Acetaminophen ([place] 325-10 Mg) 1 - 2 tab PO Q4H PRN PRN Reason: Pain Last Admin: 01/25/18 07:44 Dose: 1 tab Alvimopan (Entereg) 12 mg PO BID [facility] Stop: 01/27/18 21:01 Last Admin: 01/27/18 20:49 Dose: 12 mg Bupivacaine HCl/Epinephrine Bitart (Marcaine 0.5%/Epinephrine 1:200,000) Confirm Administered Dose 50 ml .ROUTE .STK-MED ONE Stop: 01/12/18 10:15 Bupivacaine HCl/Epinephrine Bitart (Marcaine 0.5%/Epinephrine 1:200,000) Confirm Administered Dose 50 ml .ROUTE .STK-MED ONE Stop: 01/21/18 10:05 Calcium Carbonate/Glycine (Tums) 1,000 mg PO ONETIME ONE Stop: 01/13/18 05:58 Last Admin: 01/13/18 06:12 Dose: 1,000 mg Calcium Carbonate/Glycine (Tums) 1,000 mg PO Q2H PRN PRN Reason: Indigestion Last Admin: 01/16/18 06:41 Dose: 1,000 mg Ropivacaine 60 ml/Dexamethasone 8 mg/Epinephrine HCl 0.4 mg/ Sodium Chloride 17.6 ml 0 ml NERVRT ASDIRECTED [facility] Last Admin: 01/21/18 13:45 Dose: 80 syringe Dexamethasone (Dexamethasone) Confirm Administered Dose 4 mg .ROUTE .STK-MED ONE Stop: 01/12/18 09:35 Dexamethasone (Dexamethasone) Confirm Administered Dose 4 mg .ROUTE .STK-MED ONE Stop: 01/21/18 10:13 Fentanyl (Sublimaze) 30 mcg IVPUSH ONETIME ONE Stop: 01/12/18 09:19 Last Admin: 01/12/18 09:30 Dose: 30 mcg Fentanyl (Sublimaze) Confirm Administered Dose 250 mcg .ROUTE .STK-MED ONE Stop: 01/12/18 11:23 Fentanyl (Sublimaze) Confirm Administered Dose 100 mcg .ROUTE .STK-MED ONE Stop: 01/12/18 12:05 Fentanyl (Sublimaze) Confirm Administered Dose 250 mcg .ROUTE .STK-MED ONE Stop: 01/21/18 10:13 Fentanyl Citrate (Fentanyl) Confirm Administered Dose 500 mcg .ROUTE .STK-MED ONE Stop: 01/12/18 09:44 Fentanyl Citrate (Fentanyl In Ns 20 Mcg/Ml 30 Ml [employer]) 0 mcg IV ASDIRECTED PRN; Protocol PRN Reason: PAIN Last Admin: 01/13/18 22:29 Dose: 600 mcg Fentanyl Citrate (Fentanyl In Ns 20 Mcg/Ml 30 Ml [employer]) Confirm Administered Dose 600 mcg .ROUTE .STK-MED ONE Stop: 01/12/18 12:41 Last Admin: 01/12/18 14:33 Dose: Not Given Fentanyl Citrate (Fentanyl) Confirm Administered Dose 500 mcg .ROUTE .STK-MED ONE Stop: 01/21/18 14:11 Fentanyl Citrate (Fentanyl In Ns 20 Mcg/Ml 30 Ml [employer]) 0 mcg IV ASDIRECTED PRN; Protocol PRN Reason: PAIN Last Admin: 01/23/18 07:16 Dose: 600 mcg Furosemide (Lasix) 20 mg PO ONETIME ONE Stop: 01/20/18 10:16 Last Admin: 01/20/18 10:46 Dose: 20 mg Furosemide (Lasix) 20 mg IVPUSH ONETIME ONE Stop: 01/22/18 16:01 Last Admin: 01/22/18 15:55 Dose: 20 mg Furosemide (Lasix) 20 mg IVPUSH DAILY [facility] Last Admin: 01/28/18 08:51 Dose: 20 mg Furosemide (Lasix) 20 mg IVPUSH NOW ONE Stop: 01/24/18 15:01 Last Admin: 01/24/18 15:50 Dose: 20 mg Furosemide (Lasix) 20 mg IVPUSH ONETIME ONE Stop: 01/26/18 15:01 Last Admin: 01/26/18 14:38 Dose: 20 mg Glycopyrrolate (Robinul) Confirm Administered Dose 1 mg .ROUTE .STK-MED ONE Stop: 01/12/18 09:35 Glycopyrrolate (Robinul) Confirm Administered Dose 1 mg .ROUTE .STK-MED ONE Stop: 01/21/18 10:13 Hydromorphone HCl (Dilaudid) 0.5 mg IVPUSH ONETIME ONE Stop: 01/12/18 05:15 Last Admin: 01/12/18 05:22 Dose: 0.5 mg Hydromorphone HCl (Dilaudid) 0.5 mg IVPUSH ONETIME ONE Stop: 01/12/18 07:20 Last Admin: 01/12/18 10:33 Dose: Not Given Hydromorphone HCl (Dilaudid) 0.5 mg IVPUSH ONETIME ONE Stop: 01/12/18 08:01 Last Admin: 01/12/18 08:02 Dose: 0.5 mg Sodium Chloride (Normal Saline) 1,000 mls @ 999 mls/hr IV ASDIRECTED [facility] Last Admin: 01/12/18 05:21 Dose: 999 mls/hr Sodium Chloride (Normal Saline) 1,000 mls @ 999 mls/hr IV ASDIRECTED [facility] Last Admin: 01/12/18 06:43 Dose: 999 mls/hr Sodium Chloride (Normal Saline) 85 mls @ 3.5 mls/sec IV ASDIRECTED [facility] Last Admin: 01/12/18 06:35 Dose: 3.5 mls/sec Piperacillin Sod/Tazobactam (Sod 4.5 gm/ Sodium Chloride) 100 mls @ 200 mls/hr IV ONETIME ONE Stop: 01/12/18 09:59 Last Admin: 01/12/18 09:44 Dose: 200 mls/hr Sodium Chloride (Normal Saline) 1,000 mls @ 125 mls/hr IV ASDIRECTED [facility] Last Admin: 01/14/18 07:36 Dose: 125 mls/hr Lactated Ringer's (Ringers, Lactated) Confirm Administered Dose 1,000 mls @ as directed .ROUTE .STK-MED ONE Stop: 01/12/18 11:32 Sodium Chloride (Normal Saline) Confirm Administered Dose 10 mls @ as directed .ROUTE .STK-MED ONE Stop: 01/12/18 11:35 Sodium Chloride (Normal Saline) Confirm Administered Dose 10 mls @ as directed .ROUTE .K-MED ONE Stop: 01/12/18 11:42 Piperacillin/Tazobactam/ (Dextrose 3.375 gm/ Premix) 50 mls @ 100 mls/hr IV Q6H [facility] Last Admin: 01/14/18 03:04 Dose: 100 mls/hr Sodium Chloride (Normal Saline) 250 mls @ 999 mls/hr IV ASDIRECTED [facility] Last Admin: 01/13/18 07:48 Dose: 999 mls/hr Sodium Chloride (Normal Saline) 1,000 mls @ 250 mls/hr IV ASDIRECTED [facility] Stop: 01/13/18 14:30 Last Infusion: 01/13/18 14:55 Dose: 125 mls/hr Ampicillin Sodium/Sulbactam (Sodium 3 gm/ Sodium Chloride) 100 mls @ 200 mls/ hr IV Q6H [facility] Last Admin: 01/25/18 03:05 Dose: 200 mls/hr Vancomycin HCl 2 gm/ Sodium (Chloride) 500 mls @ 250 mls/hr IV ONETIME ONE Stop: 01/14/18 12:59 Last Admin: 01/14/18 12:42 Dose: 250 mls/hr Vancomycin HCl 1.5 gm/ Sodium (Chloride) 250 mls @ 160 mls/hr IV Q8H [facility] Last Admin: 01/16/18 04:52 Dose: 160 mls/hr Sodium Chloride (Normal Saline) 1,000 mls @ 0 mls/hr IV ASDIRECTED [facility] Last Admin: 01/16/18 00:35 Dose: 25 mls/hr Vancomycin HCl 1.75 gm/ Sodium (Chloride) 250 mls @ 150 mls/hr IV Q8H [facility] Last Admin: 01/19/18 05:16 Dose: 150 mls/hr Vancomycin HCl 2 gm/ Sodium (Chloride) 500 mls @ 250 mls/hr IV Q8H [facility] Last Admin: 01/24/18 05:44 Dose: 250 mls/hr Sodium Chloride (Normal Saline) 85 mls @ 4 mls/sec IV ASDIRECTED [facility] Stop: 01/21/18 06:09 Last Admin: 01/21/18 13:36 Dose: Not Given Sodium Chloride (Normal Saline) 1,000 mls @ 125 mls/hr IV ASDIRECTED [facility] Last Admin: 01/21/18 13:14 Dose: 125 mls/hr Lactated Ringer's (Ringers, Lactated) Confirm Administered Dose 1,000 mls @ as directed .ROUTE .STK-MED ONE Stop: 01/21/18 14:28 Lactated Ringer's (Ringers, Lactated) Confirm Administered Dose 1,000 mls @ as directed .ROUTE .STK-MED ONE Stop: 01/21/18 15:46 Acetaminophen 1,000 mg/ Premix 100 mls @ 400 mls/hr IV Q6H PRN PRN Reason: Fever Stop: 01/22/18 18:07 Last Admin: 01/22/18 17:35 Dose: 400 mls/hr Sodium Chloride (Normal Saline) 250 mls @ 999 mls/hr IV ASDIRECTED [facility] Last Admin: 01/22/18 02:02 Dose: 999 mls/hr Sodium Chloride (Normal Saline) 1,000 mls @ 200 mls/hr IV ASDIRECTED [facility] Last Admin: 01/22/18 01:49 Dose: 200 mls/hr Sodium Chloride (Normal Saline) 1,000 mls @ 125 mls/hr IV ASDIRECTED [facility] Last Admin: 01/22/18 19:38 Dose: 125 mls/hr Potassium Chloride 20 meq/Lidocaine HCl 2 ml/ Sodium Chloride 112 mls @ 56 mls/ hr IV Q2H [facility] Stop: 01/22/18 21:59 Last Admin: 01/22/18 21:43 Dose: 56 mls/hr Acetaminophen 1,000 mg/ Premix 100 mls @ 400 mls/hr IV Q6H PRN PRN Reason: Pain Stop: 01/28/18 22:30 Last Admin: 01/23/18 13:05 Dose: 400 mls/hr Potassium Chloride 20 meq/Lidocaine HCl 2 ml/ Sodium Chloride 112 mls @ 50 mls/ hr IV Q2H [facility] Stop: 01/23/18 14:59 Last Admin: 01/23/18 15:02 Dose: 50 mls/hr Potassium Chloride/Dextrose/Sod Cl (D5 1/2 Ns W/ 20 Meq/L Kcl) 1,000 mls @ 75 mls/hr IV ASDIRECTED [facility] Last Admin: 01/23/18 09:55 Dose: 75 mls/hr Sodium Chloride (Normal Saline) 500 mls @ 0 mls/hr IV ASDIRECTED ONE Stop: 01/24/18 10:20 Last Admin: 01/24/18 10:35 Dose: 25 mls/hr Cefepime HCl 1 gm/ Sodium (Chloride) 50 mls @ 100 mls/hr IV Q8H [facility] Last Admin: 01/31/18 10:52 Dose: 100 mls/hr Potassium Chloride 20 meq/Lidocaine HCl 2 ml/ Sodium Chloride 112 mls @ 56 mls/ hr IV Q2H [facility] Stop: 01/25/18 17:59 Last Admin: 01/25/18 17:10 Dose: 56 mls/hr Potassium Chloride 20 meq/Lidocaine HCl 2 ml/ Sodium Chloride 112 mls @ 56 mls/ hr IV Q2H [facility] Stop: 01/26/18 19:59 Last Admin: 01/26/18 22:08 Dose: 56 mls/hr Sodium Chloride (Normal Saline) 100 mls @ 3 mls/sec IV ASDIRECTED [facility] Stop: 01/27/18 13:00 Last Admin: 01/27/18 12:14 Dose: 3 mls/sec Fat Emulsion Intravenous (Intralipid 20%) 100 mls @ 8.333 mls/hr IV ONETIME ONE Stop: 01/29/18 03:59 Last Admin: 01/28/18 15:19 Dose: 8.333 mls/hr Potassium Chloride 40 meq/ (Premix) 100 mls @ 25 mls/hr IV ONETIME ONE Stop: 01/29/18 13:59 Last Admin: 01/29/18 10:50 Dose: 25 mls/hr Fat Emulsion Intravenous (Intralipid 20%) 100 mls @ 8.333 mls/hr IV ONETIME ONE Stop: 01/31/18 03:59 Last Admin: 01/30/18 15:31 Dose: 8.333 mls/hr Iohexol (Omnipaque) 20 ml PO ONETIME ONE Stop: 01/17/18 10:57 Last Admin: 01/17/18 11:22 Dose: 20 ml Iohexol (Omnipaque) 20 ml PO ONETIME ONE Stop: 01/27/18 09:51 Last Admin: 01/27/18 10:32 Dose: 20 ml Iopamidol (Isovue-300 (61%)) 150 ml IV . DIRECTED PRN PRN Reason: RADIOLOGY EXAM Stop: 01/13/18 06:16 Last Admin: 01/12/18 06:36 Dose: 150 ml Iopamidol (Isovue-300 (61%)) 150 ml IV . DIRECTED [facility] Stop: 01/21/18 06:09 Last Admin: 01/21/18 13:36 Dose: Not Given Iopamidol (Isovue-300 (61%)) 150 ml IV . DIRECTED [facility] Stop: 01/27/18 13:00 Last Admin: 01/27/18 12:14 Dose: 150 ml Ketorolac Tromethamine (Toradol) Confirm Administered Dose 60 mg .ROUTE .STK- MED ONE Stop: 01/12/18 12:08 Ketorolac Tromethamine (Toradol) 30 mg IM Q6H [facility] Stop: 01/22/18 10:31 Last Admin: 01/21/18 17:17 Dose: 30 mg Ketorolac Tromethamine (Toradol) 30 mg IVPUSH Q6H [facility] Stop: 01/22/18 10:31 Last Admin: 01/22/18 11:07 Dose: 30 mg Meropenem (Merrem) Confirm Administered Dose 500 mg .ROUTE .STK-MED ONE Stop: 01/12/18 11:35 Last Admin: 01/12/18 11:29 Dose: 500 mg Meropenem (Merrem) Confirm Administered Dose 500 mg .ROUTE .STK-MED ONE Stop: 01/12/18 11:42 Last Admin: 01/12/18 11:43 Dose: 500 mg Meropenem (Merrem) Confirm Administered Dose 500 mg .ROUTE .STK-MED ONE Stop: 01/21/18 15:21 Last Admin: 01/21/18 15:25 Dose: 500 mg Morphine Sulfate (Morphine) 1 - 3 mg IVPUSH Q1H PRN PRN Reason: Pain Last Admin: 01/24/18 12:45 Dose: 1 mg Naloxone HCl (Narcan) 0.1 mg IV ASDIRECTED PRN PRN Reason: RESP Neostigmine Methylsulfate (Neostigmine) Confirm Administered Dose 5 mg .ROUTE .STK-MED ONE Stop: 01/12/18 09:35 Neostigmine Methylsulfate (Neostigmine) Confirm Administered Dose 5 mg .ROUTE .STK-MED ONE Stop: 01/21/18 10:13 Non-Formulary Medication (Total Parenteral Nutrition, Central) 1,000 ml IV ONETIME ONE Stop: 01/29/18 11:01 Last Admin: 01/29/18 13:25 Dose: Not Given Non-Formulary Medication (Total Parenteral Nutrition, Central) 0 ml IV ASDIRECTED [facility] Stop: 01/30/18 18:00 Ondansetron HCl (Zofran) 4 mg IVPUSH ONETIME ONE Stop: 01/12/18 05:15 Last Admin: 01/12/18 05:22 Dose: 4 mg Ondansetron HCl (Zofran) Confirm Administered Dose 4 mg .ROUTE .STK-MED ONE Stop: 01/12/18 09:35 Ondansetron HCl (Zofran) Confirm Administered Dose 4 mg .ROUTE .STK-MED ONE Stop: 01/21/18 10:13 Oxycodone HCl (Oxycodone) 5 mg PO Q4H PRN PRN Reason: Pain Last Admin: 01/17/18 15:45 Dose: 5 mg Oxycodone HCl (Oxycodone) 5 mg PO Q4H PRN PRN Reason: Pain Last Admin: 01/31/18 05:29 Dose: 5 mg Pantoprazole Sodium (Protonix) 40 mg PO ACBREAKFAST [facility] Last Admin: 01/25/18 07:39 Dose: 40 mg Potassium Chloride (Klor-Con M20) 40 meq PO BID [facility] Stop: 01/24/18 21:01 Last Admin: 01/24/18 21:43 Dose: 40 meq Prochlorperazine Edisylate (Compazine) 5 mg IVPUSH ONETIME ONE Stop: 01/12/18 07:48 Last Admin: 01/12/18 08:04 Dose: 5 mg Propofol (Diprivan 20 Ml) Confirm Administered Dose 200 mg .ROUTE .STK-MED ONE Stop: 01/12/18 09:35 Propofol (Diprivan 20 Ml) Confirm Administered Dose 200 mg .ROUTE .STK-MED ONE Stop: 01/21/18 10:13 Ranitidine HCl (Zantac) 150 mg PO BID [facility] Last Admin: 01/25/18 10:07 Dose: 150 mg Rocuronium Savery (Zemuron) Confirm Administered Dose 50 mg .ROUTE .STK-MED ONE Stop: 01/12/18 09:35 Rocuronium Savery (Zemuron) Confirm Administered Dose 50 mg .ROUTE .STK-MED ONE Stop: 01/21/18 10:13 Rocuronium Savery (Zemuron) Confirm Administered Dose 50 mg .ROUTE .STK-MED ONE Stop: 01/21/18 15:08 Succinylcholine Chloride (Quelicin) Confirm Administered Dose 200 mg .ROUTE .STK -MED ONE Stop: 01/12/18 09:35 Succinylcholine Chloride (Quelicin) Confirm Administered Dose 200 mg .ROUTE .STK -MED ONE Stop: 01/12/18 11:47 Succinylcholine Chloride (Quelicin) 100 mg .ROUTE .STK-MED ONE Stop: 01/12/18 12:01 Succinylcholine Chloride (Quelicin) Confirm Administered Dose 200 mg .ROUTE .STK -MED ONE Stop: 01/21/18 10:13 Zolpidem Tartrate (Ambien) 5 mg PO BEDTIME PRN PRN Reason: Insomnia Last Admin: 01/23/18 22:26 Dose: 5 mg - Exam Quality Assessment: DVT Prophylaxis General: Alert, Oriented, Cooperative, No Acute Distress Lungs: Clear to Auscultation, Normal Respiratory Effort Cardiovascular: Regular Rate, Regular Rhythm, No Murmurs GI/Abdominal Exam: Soft, No Organomegaly, Tender. No: Distended, Guarding, Rigid, Rebound Extremities: Non-Tender, No Pedal Edema Skin: Warm, Dry - Problem List Review Problem List Initiated/Reviewed/Updated: Yes - Plan Plan:: ASSESSMENT AND PLAN - Recurrent fever - CT scan from Sunday showing evidence of ongoing inflammation as well as small areas of probable abscess. No significant temperature elevation over the past few days, white blood cell count is improved to 15,000. Tolerating diet and slowly regaining strength. Most recent wound culture growing Enterobacter resistant to multiple medications including the cefepime. -discontinue cefepime -IV ertapenem which should cover both the Klebsiella and Enterobacter, and work well for home IV antibiotic therapy -Continue fluconazole -Repeat white blood cell count in the morning Hypokalemia-resolved -recheck in the am PTSD - history of involvement. Anxiety well controlled with current management -Melatonin at bedtime -Lorazepam as needed for anxiety Volume overload - peripheral edema significantly improved -Hold IV furosemide Status post exploratory laparotomy and surgical repair of incarcerated hernia - PICC line has been placed and he has been started on TPN. -Postoperative care per Dr. Hanson
[2018-01-31] MEDS ORDERED: Fat Emulsion 100 ML IV ONE (16:00)
[2018-01-31] MEDS: Melatonin 3 MG Tab PO SCH (22:14)
[2018-02-01] MEDS: Acetaminophen/HYDROcodone 325-10 MG Tab PO PRN ×5 (02:58→22:11)
[2018-02-01] MEDS: 1: AA 5%/Calcium/D15W/Lytes 1,000 ML with MVI, Adult with Vitamin K 10 ML, Chromium/Copp IV SCH ×6 (04:23→16:25)
[2018-02-01] MEDS: HYDROmorphone 0.5 MG/0.5 ML Syringe IVPUSH PRN ×3 (04:48→16:30)
[2018-02-01] MEDS: Lactobacillus Rhamnosus GG (Probiotic) Cap PO SCH ×2 (08:43→22:11)
--- NOTE | 2018-02-01 08:45 | CR ---
Abdomen 2V AP Flat Upright CLINICAL HISTORY: Inflammation versus ileus FINDINGS: There is persistent moderate small bowel distention. The gas pattern shows minimal variabil ity over recent previous studies. There is no obvious bowel wall thickening or pneumatosis. No free a ir is seen. There is more gas and feces in the colon IMPRESSION: Persistent small bowel distention in a pattern similar to recent studies
[2018-02-01] MEDS: Pantoprazole 40 MG Tab.CR PO SCH (09:35)
[2018-02-01] MEDS: Enoxaparin 40 MG/0.4 ML Syringe SUBCUT SCH (11:43)
[2018-02-01] MEDS: Fluconazole/Normal Saline 200 MG in Premix Bag 1 BAG IV SCH (11:43)
[2018-02-01] MEDS ORDERED: Central Total Parenteral Nutrition Bag IV SCH (11:45)
--- NOTE | 2018-02-01 12:08 | PN ---
DATE OF SERVICE: 02/01/2018 SUBJECTIVE: The patient continues to show slow and steady improvement. Bowel movements. No nausea, vomiting, shortness of breath, or chest pain. OBJECTIVE: VITAL SIGNS: Stable. Temperature 96.2, blood pressure 132/94. GASTROINTESTINAL: Incision healing well. No signs of cellulitis. Right side abdominal wound shows minimal drainage, well controlled. ASSESSMENT: Status post small bowel resection. PLAN: 1. GI: Advance to regular diet today. Continues to improve. The KUB is discordant with his overall status as he is having normal bowel movements now and tolerating diet well. In addition, the contrast did flow through on my CT scan. 2. Infectious Disease: White blood cell count is 15,000 today. Continue Invanz. Hospice continues to follow. 3. Wound/fistula. Unclear fistula versus wound. We are addressing this and treating this as a fistula with control, but nonetheless this was decreased and has not had any output in several hours. 4. Anxiety, well controlled. 5. Goal. Plan is to get the patient home early next week. Kevin Hanson MD /[id number]
[2018-02-01] MEDS: Ertapenem 1 GM in Sodium Chloride 0.9% 100 ML IV SCH (13:22)
--- NOTE | 2018-02-01 14:19 | PCM.PN ---
- General Info Date of Service: 02/01/18 Subjective Update: Mr. Martinez has continued to improve on a daily basis, energy level is better and he has been transitioned to a regular diet today by Dr. Hanson. White blood cell count is stable from yesterday and he has remained afebrile. Functional Status: Reports: Pain Controlled, Tolerating Diet, Ambulating, Urinating - Review of Systems General: Denies: Fever, Chills Pulmonary: Reports: No Symptoms Cardiovascular: Reports: No Symptoms Gastrointestinal: Reports: Abdominal Pain. Denies: Diarrhea, Difficulty Swallowing, Nausea, Vomiting - Patient Data Vitals - Most Recent: Last Vital Signs Temp 96.2 F 02/01/18 07:45 Pulse 85 02/01/18 07:45 Resp 16 02/01/18 07:45 BP 132/94 H 02/01/18 07:45 Pulse Ox 99 02/01/18 07:45 Weight - Most Recent: 216 lb 6.4 oz I&O - Last 24 Hours: Intake & Output 01/31/18 02/01/18 02/01/18 22:59 06:59 14:59 Intake Total 1717 2292 420 Output Total 960 2985 300 Balance 757 -693 120 Lab Results Last 24 Hours: Laboratory Results - last 24 hr 02/01/18 02/01/18 Range/Units 05:20 05:20 WBC 15.1 H (4.5-11.0) K/uL RBC 4.10 L (4.30-5.90) M/uL Hgb 11.5 L (12.0-15.0) g/dL Hct 36.6 L (40.0-54.0) % MCV 89 (80-98) fL MCH 28 (27-31) pg MCHC 31 L (32-36) % Plt Count 693 H (150-400) K/uL Sodium 138 L (140-148) mmol/L Potassium 4.4 (3.6-5.2) mmol/L Chloride 103 (100-108) mmol/L Carbon Dioxide 30 (21-32) mmol/L Anion Gap 9.4 (5.0-14.0) mmol/L BUN 10 (7-18) mg/dL Creatinine 0.8 (0.8-1.3) mg/dL Est Cr Clr Drug Dosing 156.66 mL/min Estimated GFR (MDRD) > 60 (>60) Glucose 104 (74-106) mg/dL Calcium 9.1 (8.5-10.1) mg/dL Med Orders - Current: Current Medications Acetaminophen (Tylenol) 650 mg PO Q4H PRN PRN Reason: Fever Last Admin: 01/31/18 12:34 Dose: 325 mg Hydrocodone Bitart/Acetaminophen (Craig 325-10 Mg) 1 tab PO Q3H PRN PRN Reason: Pain Last Admin: 02/01/18 08:43 Dose: 1 tab Benzocaine/Menthol (Cepacol Sore Throat) 1 lozenge MUCMEM Q1H PRN PRN Reason: Sore Throat Bisacodyl (Dulcolax) 5 mg PO DAILY PRN PRN Reason: Constipation Diphenhydramine HCl (Benadryl) 50 mg IVPUSH Q4H PRN PRN Reason: Itching Last Admin: 01/23/18 20:59 Dose: 50 mg Docusate Sodium (Colace) 100 mg PO BID PRN PRN Reason: Constipation Last Admin: 01/20/18 22:23 Dose: 100 mg Enoxaparin Sodium (Lovenox) 40 mg SUBCUT Q24H [facility] Last Admin: 02/01/18 11:43 Dose: 40 mg Hydromorphone HCl (Dilaudid) 0.5 mg IVPUSH Q2H PRN PRN Reason: Pain Last Admin: 02/01/18 09:45 Dose: 0.5 mg Hydroxyzine HCl (Vistaril) 50 mg IM Q4H PRN PRN Reason: Nausea Last Admin: 01/23/18 02:14 Dose: 50 mg Potassium Chloride/Dextrose/Sod Cl (D5 1/2 Ns W/ 20 Meq/L Kcl) 1,000 mls @ 25 mls/hr IV ASDIRECTED [facility] Last Admin: 01/31/18 07:13 Dose: 25 mls/hr Fluconazole/Sodium Chloride (200 mg/ Premix) 100 mls @ 100 mls/hr IV Q24H [facility] Last Admin: 02/01/18 11:43 Dose: 100 mls/hr Ertapenem 1 gm/ Sodium (Chloride) 100 mls @ 200 mls/hr IV Q24H [facility] Last Admin: 02/01/18 13:22 Dose: 200 mls/hr Multivitamins/Minerals 10 ml/Chromium/Copper/Manganese/Seleni/Zn 1 ml/ Amino Ac/ Electrol/Dextrose/Calcium 1,011 mls @ 100 mls/hr IV .BY DURATION [facility] Last Admin: 02/01/18 04:23 Dose: 100 mls/hr Amino Ac/Electrol/Dextrose/Calcium (Clinimix E 5/15) 1,000 mls @ 100 mls/hr IV .BY DURATION [facility] Last Admin: 01/31/18 18:13 Dose: 100 mls/hr Fat Emulsion Intravenous (Intralipid 20%) 100 mls @ 8.3 mls/hr IV ONETIME ONE Stop: 02/02/18 04:02 Ibuprofen (Motrin) 600 mg PO Q6H PRN PRN Reason: Pain Last Admin: 01/24/18 04:16 Dose: 600 mg Lactobacillus Rhamnosus (Culturelle) 1 cap PO BID [facility] Last Admin: 02/01/18 08:43 Dose: 1 cap Lorazepam (Ativan) 0.5 mg IVPUSH Q4H PRN PRN Reason: Anxiety Last Admin: 01/29/18 18:17 Dose: 0.5 mg Melatonin (Melatonin) 9 mg PO BEDTIME [facility] Last Admin: 01/31/18 22:14 Dose: 9 mg Naloxone HCl (Narcan) 0.1 mg IV ASDIRECTED PRN PRN Reason: DYSPNEA Ondansetron HCl (Zofran) 4 - 8 mg IVPUSH Q6H PRN PRN Reason: Nausea/Vomiting Last Admin: 01/17/18 20:34 Dose: 8 mg Pantoprazole Sodium (Protonix) 40 mg PO ACBREAKFAST [facility] Last Admin: 02/01/18 09:35 Dose: 40 mg Polyethylene Glycol (Miralax) 17 gm PO DAILY PRN PRN Reason: Constipation Promethazine HCl (Phenergan) 25 mg IM Q6H PRN PRN Reason: Nausea Last Admin: 01/13/18 23:56 Dose: 25 mg Scopolamine (Transderm-Scop) 1.5 mg TRDERM Q72H PRN PRN Reason: Indigestion Last Admin: 01/17/18 19:34 Dose: 1.5 mg Senna/Docusate Sodium (Senna Plus) 1 tab PO BID PRN PRN Reason: Constipation Last Admin: 01/29/18 08:13 Dose: 1 tab Tizanidine HCl (Zanaflex) 4 mg PO Q6H PRN PRN Reason: Muscle Spasm Last Admin: 01/24/18 13:27 Dose: 4 mg Discontinued Medications Acetaminophen (Tylenol) 650 mg PO Q6H PRN PRN Reason: Pain (mild 1-3) Last Admin: 01/12/18 18:15 Dose: 650 mg Hydrocodone Bitart/Acetaminophen (Craig 325-10 Mg) 1 - 2 tab PO Q4H PRN PRN Reason: Abdominal Pain Last Admin: 01/15/18 12:37 Dose: 2 tab Hydrocodone Bitart/Acetaminophen (Craig 325-10 Mg) 1 - 2 tab PO Q4H PRN PRN Reason: Pain Last Admin: 01/25/18 07:44 Dose: 1 tab Alvimopan (Entereg) 12 mg PO BID [facility] Stop: 01/27/18 21:01 Last Admin: 01/27/18 20:49 Dose: 12 mg Bupivacaine HCl/Epinephrine Bitart (Marcaine 0.5%/Epinephrine 1:200,000) Confirm Administered Dose 50 ml .ROUTE .STK-MED ONE Stop: 01/12/18 10:15 Bupivacaine HCl/Epinephrine Bitart (Marcaine 0.5%/Epinephrine 1:200,000) Confirm Administered Dose 50 ml .ROUTE .STK-MED ONE Stop: 01/21/18 10:05 Calcium Carbonate/Glycine (Tums) 1,000 mg PO ONETIME ONE Stop: 01/13/18 05:58 Last Admin: 01/13/18 06:12 Dose: 1,000 mg Calcium Carbonate/Glycine (Tums) 1,000 mg PO Q2H PRN PRN Reason: Indigestion Last Admin: 01/16/18 06:41 Dose: 1,000 mg Ropivacaine 60 ml/Dexamethasone 8 mg/Epinephrine HCl 0.4 mg/ Sodium Chloride 17.6 ml 0 ml NERVRT ASDIRECTED [facility] Last Admin: 01/21/18 13:45 Dose: 80 syringe Dexamethasone (Dexamethasone) Confirm Administered Dose 4 mg .ROUTE .STK-MED ONE Stop: 01/12/18 09:35 Dexamethasone (Dexamethasone) Confirm Administered Dose 4 mg .ROUTE .STK-MED ONE Stop: 01/21/18 10:13 Fentanyl (Sublimaze) 30 mcg IVPUSH ONETIME ONE Stop: 01/12/18 09:19 Last Admin: 01/12/18 09:30 Dose: 30 mcg Fentanyl (Sublimaze) Confirm Administered Dose 250 mcg .ROUTE .STK-MED ONE Stop: 01/12/18 11:23 Fentanyl (Sublimaze) Confirm Administered Dose 100 mcg .ROUTE .STK-MED ONE Stop: 01/12/18 12:05 Fentanyl (Sublimaze) Confirm Administered Dose 250 mcg .ROUTE .STK-MED ONE Stop: 01/21/18 10:13 Fentanyl Citrate (Fentanyl) Confirm Administered Dose 500 mcg .ROUTE .STK-MED ONE Stop: 01/12/18 09:44 Fentanyl Citrate (Fentanyl In Ns 20 Mcg/Ml 30 Ml [employer]) 0 mcg IV ASDIRECTED PRN; Protocol PRN Reason: PAIN Last Admin: 01/13/18 22:29 Dose: 600 mcg Fentanyl Citrate (Fentanyl In Ns 20 Mcg/Ml 30 Ml [employer]) Confirm Administered Dose 600 mcg .ROUTE .STK-MED ONE Stop: 01/12/18 12:41 Last Admin: 01/12/18 14:33 Dose: Not Given Fentanyl Citrate (Fentanyl) Confirm Administered Dose 500 mcg .ROUTE .STK-MED ONE Stop: 01/21/18 14:11 Fentanyl Citrate (Fentanyl In Ns 20 Mcg/Ml 30 Ml [employer]) 0 mcg IV ASDIRECTED PRN; Protocol PRN Reason: PAIN Last Admin: 01/23/18 07:16 Dose: 600 mcg Furosemide (Lasix) 20 mg PO ONETIME ONE Stop: 01/20/18 10:16 Last Admin: 01/20/18 10:46 Dose: 20 mg Furosemide (Lasix) 20 mg IVPUSH ONETIME ONE Stop: 01/22/18 16:01 Last Admin: 01/22/18 15:55 Dose: 20 mg Furosemide (Lasix) 20 mg IVPUSH DAILY [facility] Last Admin: 01/28/18 08:51 Dose: 20 mg Furosemide (Lasix) 20 mg IVPUSH NOW ONE Stop: 01/24/18 15:01 Last Admin: 01/24/18 15:50 Dose: 20 mg Furosemide (Lasix) 20 mg IVPUSH ONETIME ONE Stop: 01/26/18 15:01 Last Admin: 01/26/18 14:38 Dose: 20 mg Glycopyrrolate (Robinul) Confirm Administered Dose 1 mg .ROUTE .STK-MED ONE Stop: 01/12/18 09:35 Glycopyrrolate (Robinul) Confirm Administered Dose 1 mg .ROUTE .STK-MED ONE Stop: 01/21/18 10:13 Hydromorphone HCl (Dilaudid) 0.5 mg IVPUSH ONETIME ONE Stop: 01/12/18 05:15 Last Admin: 01/12/18 05:22 Dose: 0.5 mg Hydromorphone HCl (Dilaudid) 0.5 mg IVPUSH ONETIME ONE Stop: 01/12/18 07:20 Last Admin: 01/12/18 10:33 Dose: Not Given Hydromorphone HCl (Dilaudid) 0.5 mg IVPUSH ONETIME ONE Stop: 01/12/18 08:01 Last Admin: 01/12/18 08:02 Dose: 0.5 mg Sodium Chloride (Normal Saline) 1,000 mls @ 999 mls/hr IV ASDIRECTED [facility] Last Admin: 01/12/18 05:21 Dose: 999 mls/hr Sodium Chloride (Normal Saline) 1,000 mls @ 999 mls/hr IV ASDIRECTED [facility] Last Admin: 01/12/18 06:43 Dose: 999 mls/hr Sodium Chloride (Normal Saline) 85 mls @ 3.5 mls/sec IV ASDIRECTED [facility] Last Admin: 01/12/18 06:35 Dose: 3.5 mls/sec Piperacillin Sod/Tazobactam (Sod 4.5 gm/ Sodium Chloride) 100 mls @ 200 mls/hr IV ONETIME ONE Stop: 01/12/18 09:59 Last Admin: 01/12/18 09:44 Dose: 200 mls/hr Sodium Chloride (Normal Saline) 1,000 mls @ 125 mls/hr IV ASDIRECTED [facility] Last Admin: 01/14/18 07:36 Dose: 125 mls/hr Lactated Ringer's (Ringers, Lactated) Confirm Administered Dose 1,000 mls @ as directed .ROUTE .STK-MED ONE Stop: 01/12/18 11:32 Sodium Chloride (Normal Saline) Confirm Administered Dose 10 mls @ as directed .ROUTE .STK-MED ONE Stop: 01/12/18 11:35 Sodium Chloride (Normal Saline) Confirm Administered Dose 10 mls @ as directed .ROUTE .STK-MED ONE Stop: 01/12/18 11:42 Piperacillin/Tazobactam/ (Dextrose 3.375 gm/ Premix) 50 mls @ 100 mls/hr IV Q6H [facility] Last Admin: 01/14/18 03:04 Dose: 100 mls/hr Sodium Chloride (Normal Saline) 250 mls @ 999 mls/hr IV ASDIRECTED [facility] Last Admin: 01/13/18 07:48 Dose: 999 mls/hr Sodium Chloride (Normal Saline) 1,000 mls @ 250 mls/hr IV ASDIRECTED [facility] Stop: 01/13/18 14:30 Last Infusion: 01/13/18 14:55 Dose: 125 mls/hr Ampicillin Sodium/Sulbactam (Sodium 3 gm/ Sodium Chloride) 100 mls @ 200 mls/ hr IV Q6H [facility] Last Admin: 01/25/18 03:05 Dose: 200 mls/hr Vancomycin HCl 2 gm/ Sodium (Chloride) 500 mls @ 250 mls/hr IV ONETIME ONE Stop: 01/14/18 12:59 Last Admin: 01/14/18 12:42 Dose: 250 mls/hr Vancomycin HCl 1.5 gm/ Sodium (Chloride) 250 mls @ 160 mls/hr IV Q8H [facility] Last Admin: 01/16/18 04:52 Dose: 160 mls/hr Sodium Chloride (Normal Saline) 1,000 mls @ 0 mls/hr IV ASDIRECTED [facility] Last Admin: 01/16/18 00:35 Dose: 25 mls/hr Vancomycin HCl 1.75 gm/ Sodium (Chloride) 250 mls @ 150 mls/hr IV Q8H [facility] Last Admin: 01/19/18 05:16 Dose: 150 mls/hr Vancomycin HCl 2 gm/ Sodium (Chloride) 500 mls @ 250 mls/hr IV Q8H [facility] Last Admin: 01/24/18 05:44 Dose: 250 mls/hr Sodium Chloride (Normal Saline) 85 mls @ 4 mls/sec IV ASDIRECTED [email or web address] Stop: 01/21/18 06:09 Last Admin: 01/21/18 13:36 Dose: Not Given Sodium Chloride (Normal Saline) 1,000 mls @ 125 mls/hr IV ASDIRECTED [facility] Last Admin: 01/21/18 13:14 Dose: 125 mls/hr Lactated Ringer's (Ringers, Lactated) Confirm Administered Dose 1,000 mls @ as directed .ROUTE .STK-MED ONE Stop: 01/21/18 14:28 Lactated Ringer's (Ringers, Lactated) Confirm Administered Dose 1,000 mls @ as directed .ROUTE .[facility] ONE Stop: 01/21/18 15:46 Acetaminophen 1,000 mg/ Premix 100 mls @ 400 mls/hr IV Q6H PRN PRN Reason: Fever Stop: 01/22/18 18:07 Last Admin: 01/22/18 17:35 Dose: 400 mls/hr Sodium Chloride (Normal Saline) 250 mls @ 999 mls/hr IV ASDIRECTED [facility] Last Admin: 01/22/18 02:02 Dose: 999 mls/hr Sodium Chloride (Normal Saline) 1,000 mls @ 200 mls/hr IV ASDIRECTED [facility] Last Admin: 01/22/18 01:49 Dose: 200 mls/hr Sodium Chloride (Normal Saline) 1,000 mls @ 125 mls/hr IV ASDIRECTED [facility] Last Admin: 01/22/18 19:38 Dose: 125 mls/hr Potassium Chloride 20 meq/Lidocaine HCl 2 ml/ Sodium Chloride 112 mls @ 56 mls/ hr IV Q2H [facility] Stop: 01/22/18 21:59 Last Admin: 01/22/18 21:43 Dose: 56 mls/hr Acetaminophen 1,000 mg/ Premix 100 mls @ 400 mls/hr IV Q6H PRN PRN Reason: Pain Stop: 01/28/18 22:30 Last Admin: 01/23/18 13:05 Dose: 400 mls/hr Potassium Chloride 20 meq/Lidocaine HCl 2 ml/ Sodium Chloride 112 mls @ 50 mls/ hr IV Q2H [facility] Stop: 01/23/18 14:59 Last Admin: 01/23/18 15:02 Dose: 50 mls/hr Potassium Chloride/Dextrose/Sod Cl (D5 1/2 Ns W/ 20 Meq/L Kcl) 1,000 mls @ 75 mls/hr IV ASDIRECTED [facility] Last Admin: 01/23/18 09:55 Dose: 75 mls/hr Sodium Chloride (Normal Saline) 500 mls @ 0 mls/hr IV ASDIRECTED ONE Stop: 01/24/18 10:20 Last Admin: 01/24/18 10:35 Dose: 25 mls/hr Cefepime HCl 1 gm/ Sodium (Chloride) 50 mls @ 100 mls/hr IV Q8H [facility] Last Admin: 01/31/18 10:52 Dose: 100 mls/hr Potassium Chloride 20 meq/Lidocaine HCl 2 ml/ Sodium Chloride 112 mls @ 56 mls/ hr IV Q2H [facility] Stop: 01/25/18 17:59 Last Admin: 01/25/18 17:10 Dose: 56 mls/hr Potassium Chloride 20 meq/Lidocaine HCl 2 ml/ Sodium Chloride 112 mls @ 56 mls/ hr IV Q2H [facility] Stop: 01/26/18 19:59 Last Admin: 01/26/18 22:08 Dose: 56 mls/hr Sodium Chloride (Normal Saline) 100 mls @ 3 mls/sec IV ASDIRECTED [facility] Stop: 01/27/18 13:00 Last Admin: 01/27/18 12:14 Dose: 3 mls/sec Fat Emulsion Intravenous (Intralipid 20%) 100 mls @ 8.333 mls/hr IV ONETIME ONE Stop: 01/29/18 03:59 Last Admin: 01/28/18 15:19 Dose: 8.333 mls/hr Multivitamins/Minerals 10 ml/Chromium/Copper/Manganese/Seleni/Zn 1 ml/ Amino Ac/ Electrol/Dextrose/Calcium 1,011 mls @ 100 mls/hr IV .BY DURATION [facility] Stop: 01/31/18 14:20 Last Admin: 01/31/18 07:13 Dose: 100 mls/hr Amino Ac/Electrol/Dextrose/Calcium (Clinimix E 5/15) 1,000 mls @ 100 mls/hr IV .BY DURATION [facility] Stop: 01/31/18 14:20 Last Admin: 01/30/18 21:20 Dose: 100 mls/hr Potassium Chloride 40 meq/ (Premix) 100 mls @ 25 mls/hr IV ONETIME ONE Stop: 01/29/18 13:59 Last Admin: 01/29/18 10:50 Dose: 25 mls/hr Fat Emulsion Intravenous (Intralipid 20%) 100 mls @ 8.333 mls/hr IV ONETIME ONE Stop: 01/31/18 03:59 Last Admin: 01/30/18 15:31 Dose: 8.333 mls/hr Fat Emulsion Intravenous (Intralipid 20%) 100 mls @ 8.333 mls/hr IV ONETIME ONE Stop: 02/01/18 03:59 Last Admin: 01/31/18 15:32 Dose: 8.333 mls/hr Iohexol (Omnipaque) 20 ml PO ONETIME ONE Stop: 01/17/18 10:57 Last Admin: 01/17/18 11:22 Dose: 20 ml Iohexol (Omnipaque) 20 ml PO ONETIME ONE Stop: 01/27/18 09:51 Last Admin: 01/27/18 10:32 Dose: 20 ml Iopamidol (Isovue-300 (61%)) 150 ml IV . DIRECTED PRN PRN Reason: RADIOLOGY EXAM Stop: 01/13/18 06:16 Last Admin: 01/12/18 06:36 Dose: 150 ml Iopamidol (Isovue-300 (61%)) 150 ml IV . DIRECTED [facility] Stop: 01/21/18 06:09 Last Admin: 01/21/18 13:36 Dose: Not Given Iopamidol (Isovue-300 (61%)) 150 ml IV . DIRECTED [facility] Stop: 01/27/18 13:00 Last Admin: 01/27/18 12:14 Dose: 150 ml Ketorolac Tromethamine (Toradol) Confirm Administered Dose 60 mg .ROUTE .STK- MED ONE Stop: 01/12/18 12:08 Ketorolac Tromethamine (Toradol) 30 mg IM Q6H [facility] Stop: 01/22/18 10:31 Last Admin: 01/21/18 17:17 Dose: 30 mg Ketorolac Tromethamine (Toradol) 30 mg IVPUSH Q6H [facility] Stop: 01/22/18 10:31 Last Admin: 01/22/18 11:07 Dose: 30 mg Meropenem (Merrem) Confirm Administered Dose 500 mg .ROUTE .STK-MED ONE Stop: 01/12/18 11:35 Last Admin: 01/12/18 11:29 Dose: 500 mg Meropenem (Merrem) Confirm Administered Dose 500 mg .ROUTE .STK-MED ONE Stop: 01/12/18 11:42 Last Admin: 01/12/18 11:43 Dose: 500 mg Meropenem (Merrem) Confirm Administered Dose 500 mg .ROUTE .STK-MED ONE Stop: 01/21/18 15:21 Last Admin: 01/21/18 15:25 Dose: 500 mg Morphine Sulfate (Morphine) 1 - 3 mg IVPUSH Q1H PRN PRN Reason: Pain Last Admin: 01/24/18 12:45 Dose: 1 mg Naloxone HCl (Narcan) 0.1 mg IV ASDIRECTED PRN PRN Reason: RESP Neostigmine Methylsulfate (Neostigmine) Confirm Administered Dose 5 mg .ROUTE .STK-MED ONE Stop: 01/12/18 09:35 Neostigmine Methylsulfate (Neostigmine) Confirm Administered Dose 5 mg .ROUTE .STK-MED ONE Stop: 01/21/18 10:13 Non-Formulary Medication (Total Parenteral Nutrition, Central) 1,000 ml IV ONETIME ONE Stop: 01/29/18 11:01 Last Admin: 01/29/18 13:25 Dose: Not Given Non-Formulary Medication (Total Parenteral Nutrition, Central) 0 ml IV ASDIRECTED [facility] Stop: 01/30/18 18:00 Non-Formulary Medication (Total Parenteral Nutrition, Central) 0 ml IV ASDIRECTED [facility] Stop: 01/31/18 13:00 Non-Formulary Medication (Total Parenteral Nutrition, Central) 0 ml IV ASDIRECTED [facility] Stop: 02/01/18 13:00 Ondansetron HCl (Zofran) 4 mg IVPUSH ONETIME ONE Stop: 01/12/18 05:15 Last Admin: 01/12/18 05:22 Dose: 4 mg Ondansetron HCl (Zofran) Confirm Administered Dose 4 mg .ROUTE .STK-MED ONE Stop: 01/12/18 09:35 Ondansetron HCl (Zofran) Confirm Administered Dose 4 mg .ROUTE .STK-MED ONE Stop: 01/21/18 10:13 Oxycodone HCl (Oxycodone) 5 mg PO Q4H PRN PRN Reason: Pain Last Admin: 01/17/18 15:45 Dose: 5 mg Oxycodone HCl (Oxycodone) 5 mg PO Q4H PRN PRN Reason: Pain Last Admin: 01/31/18 05:29 Dose: 5 mg Pantoprazole Sodium (Protonix) 40 mg PO ACBREAKFAST [facility] Last Admin: 01/25/18 07:39 Dose: 40 mg Pantoprazole Sodium (Protonix Iv) 40 mg IVPUSH DAILY [facility] Last Admin: 01/31/18 08:51 Dose: 40 mg Potassium Chloride (Klor-Con M20) 40 meq PO BID [facility] Stop: 01/24/18 21:01 Last Admin: 01/24/18 21:43 Dose: 40 meq Prochlorperazine Edisylate (Compazine) 5 mg IVPUSH ONETIME ONE Stop: 01/12/18 07:48 Last Admin: 01/12/18 08:04 Dose: 5 mg Propofol (Diprivan 20 Ml) Confirm Administered Dose 200 mg .ROUTE .STK-MED ONE Stop: 01/12/18 09:35 Propofol (Diprivan 20 Ml) Confirm Administered Dose 200 mg .ROUTE .STK-MED ONE Stop: 01/21/18 10:13 Ranitidine HCl (Zantac) 150 mg PO BID [facility] Last Admin: 01/25/18 10:07 Dose: 150 mg Rocuronium Gabbs (Zemuron) Confirm Administered Dose 50 mg .ROUTE .STK-MED ONE Stop: 01/12/18 09:35 Rocuronium Gabbs (Zemuron) Confirm Administered Dose 50 mg .ROUTE .STK-MED ONE Stop: 01/21/18 10:13 Rocuronium Gabbs (Zemuron) Confirm Administered Dose 50 mg .ROUTE .STK-MED ONE Stop: 01/21/18 15:08 Succinylcholine Chloride (Quelicin) Confirm Administered Dose 200 mg .ROUTE .STK -MED ONE Stop: 01/12/18 09:35 Succinylcholine Chloride (Quelicin) Confirm Administered Dose 200 mg .ROUTE .STK -MED ONE Stop: 01/12/18 11:47 Succinylcholine Chloride (Quelicin) 100 mg .ROUTE .STK-MED ONE Stop: 01/12/18 12:01 Succinylcholine Chloride (Quelicin) Confirm Administered Dose 200 mg .ROUTE .STK -MED ONE Stop: 01/21/18 10:13 Zolpidem Tartrate (Ambien) 5 mg PO BEDTIME PRN PRN Reason: Insomnia Last Admin: 01/23/18 22:26 Dose: 5 mg - Exam Quality Assessment: Central Line/PICC, DVT Prophylaxis General: Alert, Oriented, Cooperative, No Acute Distress Lungs: Clear to Auscultation, Normal Respiratory Effort Cardiovascular: Regular Rate, Regular Rhythm, No Murmurs GI/Abdominal Exam: Soft, Non-Tender, No Organomegaly, No Distention Extremities: Non-Tender, No Pedal Edema - Problem List Review Problem List Initiated/Reviewed/Updated: Yes - Plan Plan:: ASSESSMENT AND PLAN - Recurrent fever - CT scan from Sunday showing evidence of ongoing inflammation as well as small areas of probable abscess. No significant temperature elevation over the past few days, white blood cell count is improved to 15,000. Tolerating diet and slowly regaining strength. Most recent wound culture growing Enterobacter resistant to multiple medications. -IV ertapenem which should cover both the Klebsiella and Enterobacter, and work well for home IV antibiotic therapy -Continue fluconazole -Repeat white blood cell count in the morning Hypokalemia-resolved -recheck in the am PTSD - history of involvement. Anxiety well controlled with current management -Melatonin at bedtime -Lorazepam as needed for anxiety Volume overload - peripheral edema significantly improved -Hold IV furosemide Status post exploratory laparotomy and surgical repair of incarcerated hernia - PICC line has been placed and he has been started on TPN. -Postoperative care per Dr. Hanson
[2018-02-01] MEDS ORDERED: Fat Emulsion 100 ML IV ONE (16:00)
[2018-02-01] MEDS: Acetaminophen 325 MG Tab PO PRN (22:17)
[2018-02-01] MEDS: Docusate Sodium 100 MG Cap PO PRN (22:17)
[2018-02-02] MEDS: 1: AA 5%/Calcium/D15W/Lytes 1,000 ML with MVI, Adult with Vitamin K 10 ML, Chromium/Copp IV SCH ×6 (02:34→15:45)
[2018-02-02] MEDS: Acetaminophen/HYDROcodone 325-10 MG Tab PO PRN ×5 (02:36→20:33)
[2018-02-02] MEDS: Melatonin 3 MG Tab PO SCH (02:37)
[2018-02-02] MEDS: HYDROmorphone 0.5 MG/0.5 ML Syringe IVPUSH PRN (04:42)
[2018-02-02] MEDS: D5 1/2 NS w/ 20 mEq/L KCl 1,000 ML IV SCH (05:16)
[2018-02-02] MEDS: Lactobacillus Rhamnosus GG (Probiotic) Cap PO SCH ×2 (08:21→20:15)
[2018-02-02] MEDS: Pantoprazole 40 MG Tab.CR PO SCH (08:21)
--- NOTE | 2018-02-02 09:04 | PCM.PN ---
- General Info Date of Service: 02/02/18 Subjective Update: Jayce has continued to do well since yesterday, currently tolerating a regular diet. Output from the fistula seems to be decreased over the past 24 hours. Vital signs have remained stable and he has been afebrile, white count remains mildly to moderately elevated. Functional Status: Reports: Pain Controlled, Tolerating Diet, Ambulating, Urinating - Review of Systems General: Denies: Fever, Chills Pulmonary: Reports: No Symptoms Cardiovascular: Reports: No Symptoms Gastrointestinal: Reports: Abdominal Pain. Denies: Diarrhea, Difficulty Swallowing, Nausea, Vomiting - Patient Data Vitals - Most Recent: Last Vital Signs Temp 96.2 F 02/02/18 07:00 Pulse 85 02/02/18 07:00 Resp 18 02/02/18 07:00 BP 130/84 02/02/18 07:00 Pulse Ox 97 02/02/18 07:00 Weight - Most Recent: 475 lb 5.066 oz I&O - Last 24 Hours: Intake & Output 02/01/18 02/02/18 02/02/18 22:59 06:59 14:59 Intake Total 1720 2394 Output Total 410 2010 Balance 1310 384 Lab Results Last 24 Hours: Laboratory Results - last 24 hr 02/02/18 02/02/18 Range/Units 04:20 04:20 WBC 15.6 H (4.5-11.0) K/uL RBC 4.12 L (4.30-5.90) M/uL Hgb 11.6 L (12.0-15.0) g/dL Hct 36.8 L (40.0-54.0) % MCV 89 (80-98) fL MCH 28 (27-31) pg MCHC 32 (32-36) % Plt Count 679 H (150-400) K/uL Sodium 138 L (140-148) mmol/L Potassium 4.6 (3.6-5.2) mmol/L Chloride 101 (100-108) mmol/L Carbon Dioxide 30 (21-32) mmol/L Anion Gap 11.6 (5.0-14.0) mmol/L BUN 11 (7-18) mg/dL Creatinine 0.8 (0.8-1.3) mg/dL Est Cr Clr Drug Dosing 156.66 mL/min Estimated GFR (MDRD) > 60 (>60) Glucose 106 (74-106) mg/dL Calcium 9.3 (8.5-10.1) mg/dL Med Orders - Current: Current Medications Acetaminophen (Tylenol) 650 mg PO Q4H PRN PRN Reason: Fever Last Admin: 02/01/18 22:17 Dose: 325 mg Benzocaine/Menthol (Cepacol Sore Throat) 1 lozenge MUCMEM Q1H PRN PRN Reason: Sore Throat Bisacodyl (Dulcolax) 5 mg PO DAILY PRN PRN Reason: Constipation Diphenhydramine HCl (Benadryl) 50 mg IVPUSH Q4H PRN PRN Reason: Itching Last Admin: 01/23/18 20:59 Dose: 50 mg Docusate Sodium (Colace) 100 mg PO BID PRN PRN Reason: Constipation Last Admin: 02/01/18 22:17 Dose: 100 mg Enoxaparin Sodium (Lovenox) 40 mg SUBCUT Q24H [facility] Last Admin: 02/01/18 11:43 Dose: 40 mg Hydroxyzine HCl (Vistaril) 50 mg IM Q4H PRN PRN Reason: Nausea Last Admin: 01/23/18 02:14 Dose: 50 mg Potassium Chloride/Dextrose/Sod Cl (D5 1/2 Ns W/ 20 Meq/L Kcl) 1,000 mls @ 25 mls/hr IV ASDIRECTED [facility] Last Admin: 02/02/18 05:16 Dose: 25 mls/hr Fluconazole/Sodium Chloride (200 mg/ Premix) 100 mls @ 100 mls/hr IV Q24H [facility] Last Admin: 02/01/18 11:43 Dose: 100 mls/hr Ertapenem 1 gm/ Sodium (Chloride) 100 mls @ 200 mls/hr IV Q24H [facility] Last Admin: 02/01/18 13:22 Dose: 200 mls/hr Multivitamins/Minerals 10 ml/Chromium/Copper/Manganese/Seleni/Zn 1 ml/ Amino Ac/ Electrol/Dextrose/Calcium 1,011 mls @ 100 mls/hr IV .BY DURATION [facility] Stop: 02/02/18 12:59 Last Admin: 02/02/18 02:34 Dose: 100 mls/hr Amino Ac/Electrol/Dextrose/Calcium (Clinimix E 11/06) 1,000 mls @ 100 mls/hr IV .BY DURATION [facility] Stop: 02/02/18 12:59 Last Admin: 02/01/18 16:25 Dose: 100 mls/hr Multivitamins/Minerals 10 ml/Chromium/Copper/Manganese/Seleni/Zn 1 ml/ Amino Ac/ Electrol/Dextrose/Calcium 1,011 mls @ 60 mls/hr IV .BY DURATION [facility] Amino Ac/Electrol/Dextrose/Calcium (Clinimix E 5/15) 1,000 mls @ 60 mls/hr IV .BY DURATION [facility] Fat Emulsion Intravenous (Intralipid 20%) 100 mls @ 10 mls/hr IV ONETIME ONE Stop: 02/03/18 01:59 Ibuprofen (Motrin) 600 mg PO Q6H PRN PRN Reason: Pain Last Admin: 01/24/18 04:16 Dose: 600 mg Lactobacillus Rhamnosus (Culturelle) 1 cap PO BID [facility] Last Admin: 02/02/18 08:21 Dose: 1 cap Lorazepam (Ativan) 0.5 mg IVPUSH Q4H PRN PRN Reason: Anxiety Last Admin: 01/29/18 18:17 Dose: 0.5 mg Melatonin (Melatonin) 9 mg PO BEDTIME [facility] Last Admin: 02/02/18 02:37 Dose: Not Given Naloxone HCl (Narcan) 0.1 mg IV ASDIRECTED PRN PRN Reason: DYSPNEA Ondansetron HCl (Zofran) 4 - 8 mg IVPUSH Q6H PRN PRN Reason: Nausea/Vomiting Last Admin: 01/17/18 20:34 Dose: 8 mg Pantoprazole Sodium (Protonix) 40 mg PO ACBREAKFAST [facility] Last Admin: 02/02/18 08:21 Dose: 40 mg Polyethylene Glycol (Miralax) 17 gm PO DAILY PRN PRN Reason: Constipation Promethazine HCl (Phenergan) 25 mg IM Q6H PRN PRN Reason: Nausea Last Admin: 01/13/18 23:56 Dose: 25 mg Scopolamine (Transderm-Scop) 1.5 mg TRDERM Q72H PRN PRN Reason: Indigestion Last Admin: 01/17/18 19:34 Dose: 1.5 mg Senna/Docusate Sodium (Senna Plus) 1 tab PO BID PRN PRN Reason: Constipation Last Admin: 01/29/18 08:13 Dose: 1 tab Tizanidine HCl (Zanaflex) 4 mg PO Q6H PRN PRN Reason: Muscle Spasm Last Admin: 01/24/18 13:27 Dose: 4 mg Discontinued Medications Acetaminophen (Tylenol) 650 mg PO Q6H PRN PRN Reason: Pain (mild 1-3) Last Admin: 01/12/18 18:15 Dose: 650 mg Hydrocodone Bitart/Acetaminophen (Henderson 325-10 Mg) 1 - 2 tab PO Q4H PRN PRN Reason: Abdominal Pain Last Admin: 01/15/18 12:37 Dose: 2 tab Hydrocodone Bitart/Acetaminophen (Henderson 325-10 Mg) 1 - 2 tab PO Q4H PRN PRN Reason: Pain Last Admin: 01/25/18 07:44 Dose: 1 tab Hydrocodone Bitart/Acetaminophen (Henderson 325-10 Mg) 1 tab PO Q3H PRN PRN Reason: Pain Last Admin: 02/02/18 08:21 Dose: 1 tab Alvimopan (Entereg) 12 mg PO BID [facility] Stop: 01/27/18 21:01 Last Admin: 01/27/18 20:49 Dose: 12 mg Bupivacaine HCl/Epinephrine Bitart (Marcaine 0.5%/Epinephrine 1:200,000) Confirm Administered Dose 50 ml .ROUTE .STK-MED ONE Stop: 01/12/18 10:15 Bupivacaine HCl/Epinephrine Bitart (Marcaine 0.5%/Epinephrine 1:200,000) Confirm Administered Dose 50 ml .ROUTE .STK-MED ONE Stop: 01/21/18 10:05 Calcium Carbonate/Glycine (Tums) 1,000 mg PO ONETIME ONE Stop: 01/13/18 05:58 Last Admin: 01/13/18 06:12 Dose: 1,000 mg Calcium Carbonate/Glycine (Tums) 1,000 mg PO Q2H PRN PRN Reason: Indigestion Last Admin: 01/16/18 06:41 Dose: 1,000 mg Ropivacaine 60 ml/Dexamethasone 8 mg/Epinephrine HCl 0.4 mg/ Sodium Chloride 17.6 ml 0 ml NERVRT ASDIRECTED [facility] Last Admin: 01/21/18 13:45 Dose: 80 syringe Dexamethasone (Dexamethasone) Confirm Administered Dose 4 mg .ROUTE .STK-MED ONE Stop: 01/12/18 09:35 Dexamethasone (Dexamethasone) Confirm Administered Dose 4 mg .ROUTE .STK-MED ONE Stop: 01/21/18 10:13 Fentanyl (Sublimaze) 30 mcg IVPUSH ONETIME ONE Stop: 01/12/18 09:19 Last Admin: 01/12/18 09:30 Dose: 30 mcg Fentanyl (Sublimaze) Confirm Administered Dose 250 mcg .ROUTE .STK-MED ONE Stop: 01/12/18 11:23 Fentanyl (Sublimaze) Confirm Administered Dose 100 mcg .ROUTE .STK-MED ONE Stop: 01/12/18 12:05 Fentanyl (Sublimaze) Confirm Administered Dose 250 mcg .ROUTE .ST-MED ONE Stop: 01/21/18 10:13 Fentanyl Citrate (Fentanyl) Confirm Administered Dose 500 mcg .ROUTE .[facility] ONE Stop: 01/12/18 09:44 Fentanyl Citrate (Fentanyl In Ns 20 Mcg/Ml 30 Ml [facility]) 0 mcg IV ASDIRECTED PRN; Protocol PRN Reason: PAIN Last Admin: 01/13/18 22:29 Dose: 600 mcg Fentanyl Citrate (Fentanyl In Ns 20 Mcg/Ml 30 Ml [employer]) Confirm Administered Dose 600 mcg .ROUTE .[facility] ONE Stop: 01/12/18 12:41 Last Admin: 01/12/18 14:33 Dose: Not Given Fentanyl Citrate (Fentanyl) Confirm Administered Dose 500 mcg .ROUTE .STK-MED ONE Stop: 01/21/18 14:11 Fentanyl Citrate (Fentanyl In Ns 20 Mcg/Ml 30 Ml [employer]) 0 mcg IV ASDIRECTED PRN; Protocol PRN Reason: PAIN Last Admin: 01/23/18 07:16 Dose: 600 mcg Furosemide (Lasix) 20 mg PO ONETIME ONE Stop: 01/20/18 10:16 Last Admin: 01/20/18 10:46 Dose: 20 mg Furosemide (Lasix) 20 mg IVPUSH ONETIME ONE Stop: 01/22/18 16:01 Last Admin: 01/22/18 15:55 Dose: 20 mg Furosemide (Lasix) 20 mg IVPUSH DAILY [facility] Last Admin: 01/28/18 08:51 Dose: 20 mg Furosemide (Lasix) 20 mg IVPUSH NOW ONE Stop: 01/24/18 15:01 Last Admin: 01/24/18 15:50 Dose: 20 mg Furosemide (Lasix) 20 mg IVPUSH ONETIME ONE Stop: 01/26/18 15:01 Last Admin: 01/26/18 14:38 Dose: 20 mg Glycopyrrolate (Robinul) Confirm Administered Dose 1 mg .ROUTE .STK-MED ONE Stop: 01/12/18 09:35 Glycopyrrolate (Robinul) Confirm Administered Dose 1 mg .ROUTE .STK-MED ONE Stop: 01/21/18 10:13 Hydromorphone HCl (Dilaudid) 0.5 mg IVPUSH ONETIME ONE Stop: 01/12/18 05:15 Last Admin: 01/12/18 05:22 Dose: 0.5 mg Hydromorphone HCl (Dilaudid) 0.5 mg IVPUSH ONETIME ONE Stop: 01/12/18 07:20 Last Admin: 01/12/18 10:33 Dose: Not Given Hydromorphone HCl (Dilaudid) 0.5 mg IVPUSH ONETIME ONE Stop: 01/12/18 08:01 Last Admin: 01/12/18 08:02 Dose: 0.5 mg Hydromorphone HCl (Dilaudid) 0.5 mg IVPUSH Q2H PRN PRN Reason: Pain Last Admin: 02/02/18 04:42 Dose: 0.5 mg Sodium Chloride (Normal Saline) 1,000 mls @ 999 mls/hr IV ASDIRECTED [facility] Last Admin: 01/12/18 05:21 Dose: 999 mls/hr Sodium Chloride (Normal Saline) 1,000 mls @ 999 mls/hr IV ASDIRECTED [facility] Last Admin: 01/12/18 06:43 Dose: 999 mls/hr Sodium Chloride (Normal Saline) 85 mls @ 3.5 mls/sec IV ASDIRECTED [facility] Last Admin: 01/12/18 06:35 Dose: 3.5 mls/sec Piperacillin Sod/Tazobactam (Sod 4.5 gm/ Sodium Chloride) 100 mls @ 200 mls/hr IV ONETIME ONE Stop: 01/12/18 09:59 Last Admin: 01/12/18 09:44 Dose: 200 mls/hr Sodium Chloride (Normal Saline) 1,000 mls @ 125 mls/hr IV ASDIRECTED [facility] Last Admin: 01/14/18 07:36 Dose: 125 mls/hr Lactated Ringer's (Ringers, Lactated) Confirm Administered Dose 1,000 mls @ as directed .ROUTE .[facility] ONE Stop: 01/12/18 11:32 Sodium Chloride (Normal Saline) Confirm Administered Dose 10 mls @ as directed .ROUTE .[facility] ONE Stop: 01/12/18 11:35 Sodium Chloride (Normal Saline) Confirm Administered Dose 10 mls @ as directed .ROUTE .[facility] ONE Stop: 01/12/18 11:42 Piperacillin/Tazobactam/ (Dextrose 3.375 gm/ Premix) 50 mls @ 100 mls/hr IV Q6H [facility] Last Admin: 01/14/18 03:04 Dose: 100 mls/hr Sodium Chloride (Normal Saline) 250 mls @ 999 mls/hr IV ASDIRECTED [facility] Last Admin: 01/13/18 07:48 Dose: 999 mls/hr Sodium Chloride (Normal Saline) 1,000 mls @ 250 mls/hr IV ASDIRECTED [facility] Stop: 01/13/18 14:30 Last Infusion: 01/13/18 14:55 Dose: 125 mls/hr Ampicillin Sodium/Sulbactam (Sodium 3 gm/ Sodium Chloride) 100 mls @ 200 mls/ hr IV Q6H [facility] Last Admin: 01/25/18 03:05 Dose: 200 mls/hr Vancomycin HCl 2 gm/ Sodium (Chloride) 500 mls @ 250 mls/hr IV ONETIME ONE Stop: 01/14/18 12:59 Last Admin: 01/14/18 12:42 Dose: 250 mls/hr Vancomycin HCl 1.5 gm/ Sodium (Chloride) 250 mls @ 160 mls/hr IV Q8H [facility] Last Admin: 01/16/18 04:52 Dose: 160 mls/hr Sodium Chloride (Normal Saline) 1,000 mls @ 0 mls/hr IV ASDIRECTED [facility] Last Admin: 01/16/18 00:35 Dose: 25 mls/hr Vancomycin HCl 1.75 gm/ Sodium (Chloride) 250 mls @ 150 mls/hr IV Q8H [facility] Last Admin: 01/19/18 05:16 Dose: 150 mls/hr Vancomycin HCl 2 gm/ Sodium (Chloride) 500 mls @ 250 mls/hr IV Q8H [facility] Last Admin: 01/24/18 05:44 Dose: 250 mls/hr Sodium Chloride (Normal Saline) 85 mls @ 4 mls/sec IV ASDIRECTED [facility] Stop: 01/21/18 06:09 Last Admin: 01/21/18 13:36 Dose: Not Given Sodium Chloride (Normal Saline) 1,000 mls @ 125 mls/hr IV ASDIRECTED [facility] Last Admin: 01/21/18 13:14 Dose: 125 mls/hr Lactated Ringer's (Ringers, Lactated) Confirm Administered Dose 1,000 mls @ as directed .ROUTE .STK-MED ONE Stop: 01/21/18 14:28 Lactated Ringer's (Ringers, Lactated) Confirm Administered Dose 1,000 mls @ as directed .ROUTE .STK-MED ONE Stop: 01/21/18 15:46 Acetaminophen 1,000 mg/ Premix 100 mls @ 400 mls/hr IV Q6H PRN PRN Reason: Fever Stop: 01/22/18 18:07 Last Admin: 01/22/18 17:35 Dose: 400 mls/hr Sodium Chloride (Normal Saline) 250 mls @ 999 mls/hr IV ASDIRECTED [facility] Last Admin: 01/22/18 02:02 Dose: 999 mls/hr Sodium Chloride (Normal Saline) 1,000 mls @ 200 mls/hr IV ASDIRECTED [facility] Last Admin: 01/22/18 01:49 Dose: 200 mls/hr Sodium Chloride (Normal Saline) 1,000 mls @ 125 mls/hr IV ASDIRECTED [facility] Last Admin: 01/22/18 19:38 Dose: 125 mls/hr Potassium Chloride 20 meq/Lidocaine HCl 2 ml/ Sodium Chloride 112 mls @ 56 mls/ hr IV Q2H [facility] Stop: 01/22/18 21:59 Last Admin: 01/22/18 21:43 Dose: 56 mls/hr Acetaminophen 1,000 mg/ Premix 100 mls @ 400 mls/hr IV Q6H PRN PRN Reason: Pain Stop: 01/28/18 22:30 Last Admin: 01/23/18 13:05 Dose: 400 mls/hr Potassium Chloride 20 meq/Lidocaine HCl 2 ml/ Sodium Chloride 112 mls @ 50 mls/ hr IV Q2H [facility] Stop: 01/23/18 14:59 Last Admin: 01/23/18 15:02 Dose: 50 mls/hr Potassium Chloride/Dextrose/Sod Cl (D5 1/2 Ns W/ 20 Meq/L Kcl) 1,000 mls @ 75 mls/hr IV ASDIRECTED [facility] Last Admin: 01/23/18 09:55 Dose: 75 mls/hr Sodium Chloride (Normal Saline) 500 mls @ 0 mls/hr IV ASDIRECTED ONE Stop: 01/24/18 10:20 Last Admin: 01/24/18 10:35 Dose: 25 mls/hr Cefepime HCl 1 gm/ Sodium (Chloride) 50 mls @ 100 mls/hr IV Q8H [facility] Last Admin: 01/31/18 10:52 Dose: 100 mls/hr Potassium Chloride 20 meq/Lidocaine HCl 2 ml/ Sodium Chloride 112 mls @ 56 mls/ hr IV Q2H [facility] Stop: 01/25/18 17:59 Last Admin: 01/25/18 17:10 Dose: 56 mls/hr Potassium Chloride 20 meq/Lidocaine HCl 2 ml/ Sodium Chloride 112 mls @ 56 mls/ hr IV Q2H [facility] Stop: 01/26/18 19:59 Last Admin: 01/26/18 22:08 Dose: 56 mls/hr Sodium Chloride (Normal Saline) 100 mls @ 3 mls/sec IV ASDIRECTED [facility] Stop: 01/27/18 13:00 Last Admin: 01/27/18 12:14 Dose: 3 mls/sec Fat Emulsion Intravenous (Intralipid 20%) 100 mls @ 8.333 mls/hr IV ONETIME ONE Stop: 01/29/18 03:59 Last Admin: 01/28/18 15:19 Dose: 8.333 mls/hr Multivitamins/Minerals 10 ml/Chromium/Copper/Manganese/Seleni/Zn 1 ml/ Amino Ac/ Electrol/Dextrose/Calcium 1,011 mls @ 100 mls/hr IV .BY DURATION [facility] Stop: 01/31/18 14:20 Last Admin: 01/31/18 07:13 Dose: 100 mls/hr Amino Ac/Electrol/Dextrose/Calcium (Clinimix E 5/15) 1,000 mls @ 100 mls/hr IV .BY DURATION [facility] Stop: 01/31/18 14:20 Last Admin: 01/30/18 21:20 Dose: 100 mls/hr Potassium Chloride 40 meq/ (Premix) 100 mls @ 25 mls/hr IV ONETIME ONE Stop: 01/29/18 13:59 Last Admin: 01/29/18 10:50 Dose: 25 mls/hr Fat Emulsion Intravenous (Intralipid 20%) 100 mls @ 8.333 mls/hr IV ONETIME ONE Stop: 01/31/18 03:59 Last Admin: 01/30/18 15:31 Dose: 8.333 mls/hr Fat Emulsion Intravenous (Intralipid 20%) 100 mls @ 8.333 mls/hr IV ONETIME ONE Stop: 02/01/18 03:59 Last Admin: 01/31/18 15:32 Dose: 8.333 mls/hr Fat Emulsion Intravenous (Intralipid 20%) 100 mls @ 8.3 mls/hr IV ONETIME ONE Stop: 02/02/18 04:02 Last Admin: 02/01/18 16:37 Dose: 8.3 mls/hr Iohexol (Omnipaque) 20 ml PO ONETIME ONE Stop: 01/17/18 10:57 Last Admin: 01/17/18 11:22 Dose: 20 ml Iohexol (Omnipaque) 20 ml PO ONETIME ONE Stop: 01/27/18 09:51 Last Admin: 01/27/18 10:32 Dose: 20 ml Iopamidol (Isovue-300 (61%)) 150 ml IV . DIRECTED PRN PRN Reason: RADIOLOGY EXAM Stop: 01/13/18 06:16 Last Admin: 01/12/18 06:36 Dose: 150 ml Iopamidol (Isovue-300 (61%)) 150 ml IV . DIRECTED [facility] Stop: 01/21/18 06:09 Last Admin: 01/21/18 13:36 Dose: Not Given Iopamidol (Isovue-300 (61%)) 150 ml IV . DIRECTED [facility] Stop: 01/27/18 13:00 Last Admin: 01/27/18 12:14 Dose: 150 ml Ketorolac Tromethamine (Toradol) Confirm Administered Dose 60 mg .ROUTE .STK- MED ONE Stop: 01/12/18 12:08 Ketorolac Tromethamine (Toradol) 30 mg IM Q6H [facility] Stop: 01/22/18 10:31 Last Admin: 01/21/18 17:17 Dose: 30 mg Ketorolac Tromethamine (Toradol) 30 mg IVPUSH Q6H [facility] Stop: 01/22/18 10:31 Last Admin: 01/22/18 11:07 Dose: 30 mg Meropenem (Merrem) Confirm Administered Dose 500 mg .ROUTE .STK-MED ONE Stop: 01/12/18 11:35 Last Admin: 01/12/18 11:29 Dose: 500 mg Meropenem (Merrem) Confirm Administered Dose 500 mg .ROUTE .STK-MED ONE Stop: 01/12/18 11:42 Last Admin: 01/12/18 11:43 Dose: 500 mg Meropenem (Merrem) Confirm Administered Dose 500 mg .ROUTE .STK-MED ONE Stop: 01/21/18 15:21 Last Admin: 01/21/18 15:25 Dose: 500 mg Morphine Sulfate (Morphine) 1 - 3 mg IVPUSH Q1H PRN PRN Reason: Pain Last Admin: 01/24/18 12:45 Dose: 1 mg Naloxone HCl (Narcan) 0.1 mg IV ASDIRECTED PRN PRN Reason: RESP Neostigmine Methylsulfate (Neostigmine) Confirm Administered Dose 5 mg .ROUTE .STK-MED ONE Stop: 01/12/18 09:35 Neostigmine Methylsulfate (Neostigmine) Confirm Administered Dose 5 mg .ROUTE .STK-MED ONE Stop: 01/21/18 10:13 Non-Formulary Medication (Total Parenteral Nutrition, Central) 1,000 ml IV ONETIME ONE Stop: 01/29/18 11:01 Last Admin: 01/29/18 13:25 Dose: Not Given Non-Formulary Medication (Total Parenteral Nutrition, Central) 0 ml IV ASDIRECTED [facility] Stop: 01/30/18 18:00 Non-Formulary Medication (Total Parenteral Nutrition, Central) 0 ml IV ASDIRECTED [facility] Stop: 01/31/18 13:00 Non-Formulary Medication (Total Parenteral Nutrition, Central) 0 ml IV ASDIRECTED [facility] Stop: 02/01/18 13:00 Ondansetron HCl (Zofran) 4 mg IVPUSH ONETIME ONE Stop: 01/12/18 05:15 Last Admin: 01/12/18 05:22 Dose: 4 mg Ondansetron HCl (Zofran) Confirm Administered Dose 4 mg .ROUTE .STK-MED ONE Stop: 01/12/18 09:35 Ondansetron HCl (Zofran) Confirm Administered Dose 4 mg .ROUTE .STK-MED ONE Stop: 01/21/18 10:13 Oxycodone HCl (Oxycodone) 5 mg PO Q4H PRN PRN Reason: Pain Last Admin: 01/17/18 15:45 Dose: 5 mg Oxycodone HCl (Oxycodone) 5 mg PO Q4H PRN PRN Reason: Pain Last Admin: 01/31/18 05:29 Dose: 5 mg Pantoprazole Sodium (Protonix) 40 mg PO ACBREAKFAST [facility] Last Admin: 01/25/18 07:39 Dose: 40 mg Pantoprazole Sodium (Protonix Iv) 40 mg IVPUSH DAILY [facility] Last Admin: 01/31/18 08:51 Dose: 40 mg Potassium Chloride (Klor-Con M20) 40 meq PO BID [facility] Stop: 01/24/18 21:01 Last Admin: 01/24/18 21:43 Dose: 40 meq Prochlorperazine Edisylate (Compazine) 5 mg IVPUSH ONETIME ONE Stop: 01/12/18 07:48 Last Admin: 01/12/18 08:04 Dose: 5 mg Propofol (Diprivan 20 Ml) Confirm Administered Dose 200 mg .ROUTE .STK-MED ONE Stop: 01/12/18 09:35 Propofol (Diprivan 20 Ml) Confirm Administered Dose 200 mg .ROUTE .STK-MED ONE Stop: 01/21/18 10:13 Ranitidine HCl (Zantac) 150 mg PO BID [facility] Last Admin: 01/25/18 10:07 Dose: 150 mg Rocuronium [place] (Zemuron) Confirm Administered Dose 50 mg .ROUTE .STK-MED ONE Stop: 01/12/18 09:35 Rocuronium [place] (Zemuron) Confirm Administered Dose 50 mg .ROUTE .STK-MED ONE Stop: 01/21/18 10:13 Rocuronium [place] (Zemuron) Confirm Administered Dose 50 mg .ROUTE .STK-MED ONE Stop: 01/21/18 15:08 Succinylcholine Chloride (Quelicin) Confirm Administered Dose 200 mg .ROUTE .STK -MED ONE Stop: 01/12/18 09:35 Succinylcholine Chloride (Quelicin) Confirm Administered Dose 200 mg .ROUTE .STK -MED ONE Stop: 01/12/18 11:47 Succinylcholine Chloride (Quelicin) 100 mg .ROUTE .STK-MED ONE Stop: 01/12/18 12:01 Succinylcholine Chloride (Quelicin) Confirm Administered Dose 200 mg .ROUTE .STK -MED ONE Stop: 01/21/18 10:13 Zolpidem Tartrate (Ambien) 5 mg PO BEDTIME PRN PRN Reason: Insomnia Last Admin: 01/23/18 22:26 Dose: 5 mg - Exam Quality Assessment: DVT Prophylaxis General: Alert, Oriented, Cooperative, No Acute Distress Lungs: Clear to Auscultation, Normal Respiratory Effort Cardiovascular: Regular Rate, Regular Rhythm, No Murmurs GI/Abdominal Exam: Soft, Non-Tender, No Organomegaly, No Distention Extremities: Non-Tender, No Pedal Edema - Problem List Review Problem List Initiated/Reviewed/Updated: Yes - My Orders Last 24 Hours: My Active Orders 02/02/18 09:01 Acetaminophen/HYDROcodone [Henderson 325-10 MG] See Dose Instructions PO Q4H PRN 02/02/18 21:00 Ranitidine [Zantac] 150 mg PO BEDTIME - Plan Plan:: ASSESSMENT AND PLAN - Recurrent fever - stable over the past several days with no recurrent temperature elevation, white blood cell count remains elevated but stable from yesterday -IV ertapenem which should cover both the Klebsiella and Enterobacter, and work well for home IV antibiotic therapy -Continue fluconazole -Repeat white blood cell count in the morning Hypokalemia-resolved -recheck in the am PTSD - history of involvement. Anxiety well controlled with current management -Melatonin at bedtime -Lorazepam as needed for anxiety Volume overload - peripheral edema significantly improved -Hold IV furosemide Status post exploratory laparotomy and surgical repair of incarcerated hernia - PICC line has been placed and he has been started on TPN. -Postoperative care per Dr. Hanson
[2018-02-02] MEDS: Fluconazole/Normal Saline 200 MG in Premix Bag 1 BAG IV SCH (10:52)
[2018-02-02] MEDS: Enoxaparin 40 MG/0.4 ML Syringe SUBCUT SCH (10:53)
[2018-02-02] MEDS: Docusate Sodium 100 MG Cap PO PRN (10:59)
[2018-02-02] MEDS: Ertapenem 1 GM in Sodium Chloride 0.9% 100 ML IV SCH (12:20)
[2018-02-02] MEDS ORDERED: 1: AA 5%/Calcium/D15W/Lytes 1,000 ML with MVI, Adult with Vitamin K 10 ML, Chromium/Copp IV SCH ×3 (13:00)
[2018-02-02] MEDS ORDERED: Fat Emulsion 100 ML IV ONE (16:00)
[2018-02-03] MEDS: Melatonin 3 MG Tab PO SCH ×2 (00:30→20:22)
[2018-02-03] MEDS: Acetaminophen/HYDROcodone 325-10 MG Tab PO PRN ×5 (00:33→19:48)
[2018-02-03] MEDS: Pantoprazole 40 MG Tab.CR PO SCH (08:02)
[2018-02-03] MEDS: Lactobacillus Rhamnosus GG (Probiotic) Cap PO SCH ×2 (08:41→20:20)
--- NOTE | 2018-02-03 10:13 | PCM.PN ---
- General Info Date of Service: 02/03/18 Subjective Update: Jayce has been stable since yesterday, continues to a regular diet. He has remained afebrile, white blood cell count has modestly increased since yesterday. Overall he is feeling better each day with more energy and less abdominal pain. Liver enzymes are elevated likely secondary to current therapy with TPN. Rate of TPN has been decreased to 40 mL per hour today by Dr. Prajapati. - Review of Systems General: Denies: Fever, Chills Pulmonary: Reports: No Symptoms Cardiovascular: Reports: No Symptoms Gastrointestinal: Reports: Abdominal Pain. Denies: Diarrhea, Difficulty Swallowing, Nausea, Vomiting - Patient Data Vitals - Most Recent: Last Vital Signs Temp 96.8 F 02/03/18 07:00 Pulse 92 02/03/18 07:00 Resp 18 02/03/18 07:00 BP 118/84 02/03/18 07:00 Pulse Ox 95 02/03/18 07:00 Weight - Most Recent: 213 lb 6.4 oz I&O - Last 24 Hours: Intake & Output 02/02/18 02/03/18 02/03/18 22:59 06:59 14:59 Intake Total 1770 1750 Output Total 775 1310 150 Balance 995 440 -150 Lab Results Last 24 Hours: Laboratory Results - last 24 hr 02/03/18 02/03/18 Range/Units 04:40 04:40 WBC 16.6 H (4.5-11.0) K/uL RBC 3.99 L (4.30-5.90) M/uL Hgb 11.6 L (12.0-15.0) g/dL Hct 35.6 L (40.0-54.0) % MCV 89 (80-98) fL MCH 29 (27-31) pg MCHC 33 (32-36) % Plt Count 617 H (150-400) K/uL Sodium 136 L (140-148) mmol/L Potassium 4.3 (3.6-5.2) mmol/L Chloride 99 L (100-108) mmol/L Carbon Dioxide 28 (21-32) mmol/L Anion Gap 13.3 (5.0-14.0) mmol/L BUN 15 (7-18) mg/dL Creatinine 0.9 (0.8-1.3) mg/dL Est Cr Clr Drug Dosing 139.25 mL/min Estimated GFR (MDRD) > 60 (>60) Glucose 106 (74-106) mg/dL Calcium 9.4 (8.5-10.1) mg/dL Phosphorus 4.8 (2.5-4.9) mg/dL Magnesium 2.2 (1.8-2.4) mg/dL Total Bilirubin 0.4 D (0.2-1.0) mg/dL AST 155 H D (15-37) U/L ALT 263 H (12-78) U/L Alkaline Phosphatase 267 H D (46-116) U/L Total Protein 7.0 (6.4-8.2) g/dL Albumin 2.2 L (3.4-5.0) g/dL Globulin 4.8 H (2.3-3.5) g/dL Albumin/Globulin Ratio 0.5 L (1.2-2.2) Med Orders - Current: Current Medications Acetaminophen (Tylenol) 650 mg PO Q4H PRN PRN Reason: Fever Last Admin: 02/01/18 22:17 Dose: 325 mg Hydrocodone Bitart/Acetaminophen ([place] 325-10 Mg) 1 - 2 tab PO Q4H PRN PRN Reason: Pain Last Admin: 02/03/18 09:23 Dose: 2 tab Benzocaine/Menthol (Cepacol Sore Throat) 1 lozenge MUCMEM Q1H PRN PRN Reason: Sore Throat Bisacodyl (Dulcolax) 5 mg PO DAILY PRN PRN Reason: Constipation Diphenhydramine HCl (Benadryl) 50 mg IVPUSH Q4H PRN PRN Reason: Itching Last Admin: 01/23/18 20:59 Dose: 50 mg Docusate Sodium (Colace) 100 mg PO BID PRN PRN Reason: Constipation Last Admin: 02/02/18 10:59 Dose: 100 mg Enoxaparin Sodium (Lovenox) 40 mg SUBCUT Q24H MICHELLE Last Admin: 02/02/18 10:53 Dose: 40 mg Hydroxyzine HCl (Vistaril) 50 mg IM Q4H PRN PRN Reason: Nausea Last Admin: 01/23/18 02:14 Dose: 50 mg Potassium Chloride/Dextrose/Sod Cl (D5 1/2 Ns W/ 20 Meq/L Kcl) 1,000 mls @ 25 mls/hr IV ASDIRECTED [facility] Last Admin: 02/02/18 05:16 Dose: 25 mls/hr Fluconazole/Sodium Chloride (200 mg/ Premix) 100 mls @ 100 mls/hr IV Q24H [facility] Last Admin: 02/02/18 10:52 Dose: 100 mls/hr Ertapenem 1 gm/ Sodium (Chloride) 100 mls @ 200 mls/hr IV Q24H [facility] Last Admin: 02/02/18 12:20 Dose: 200 mls/hr Multivitamins/Minerals 10 ml/Chromium/Copper/Manganese/Seleni/Zn 1 ml/ Amino Ac/ Electrol/Dextrose/Calcium 1,011 mls @ 40 mls/hr IV .BY DURATION [facility] Amino Ac/Electrol/Dextrose/Calcium (Clinimix E 11/06) 1,000 mls @ 40 mls/hr IV .BY DURATION [facility] Ibuprofen (Motrin) 600 mg PO Q6H PRN PRN Reason: Pain Last Admin: 01/24/18 04:16 Dose: 600 mg Lactobacillus Rhamnosus (Culturelle) 1 cap PO BID [facility] Last Admin: 02/03/18 08:41 Dose: 1 cap Lorazepam (Ativan) 0.5 mg IVPUSH Q4H PRN PRN Reason: Anxiety Last Admin: 01/29/18 18:17 Dose: 0.5 mg Melatonin (Melatonin) 9 mg PO BEDTIME [facility] Last Admin: 02/03/18 00:30 Dose: 3 mg Naloxone HCl (Narcan) 0.1 mg IV ASDIRECTED PRN PRN Reason: DYSPNEA Ondansetron HCl (Zofran) 4 - 8 mg IVPUSH Q6H PRN PRN Reason: Nausea/Vomiting Last Admin: 01/17/18 20:34 Dose: 8 mg Pantoprazole Sodium (Protonix) 40 mg PO ACBREAKFAST [facility] Last Admin: 02/03/18 08:02 Dose: 40 mg Polyethylene Glycol (Miralax) 17 gm PO DAILY PRN PRN Reason: Constipation Promethazine HCl (Phenergan) 25 mg IM Q6H PRN PRN Reason: Nausea Last Admin: 01/13/18 23:56 Dose: 25 mg Ranitidine HCl (Zantac) 150 mg PO BEDTIME [facility] Last Admin: 02/02/18 20:13 Dose: 150 mg Scopolamine (Transderm-Scop) 1.5 mg TRDERM Q72H PRN PRN Reason: Indigestion Last Admin: 01/17/18 19:34 Dose: 1.5 mg Senna/Docusate Sodium (Senna Plus) 1 tab PO BID PRN PRN Reason: Constipation Last Admin: 01/29/18 08:13 Dose: 1 tab Tizanidine HCl (Zanaflex) 4 mg PO Q6H PRN PRN Reason: Muscle Spasm Last Admin: 01/24/18 13:27 Dose: 4 mg Discontinued Medications Acetaminophen (Tylenol) 650 mg PO Q6H PRN PRN Reason: Pain (mild 1-3) Last Admin: 01/12/18 18:15 Dose: 650 mg Hydrocodone Bitart/Acetaminophen ([place] 325-10 Mg) 1 - 2 tab PO Q4H PRN PRN Reason: Abdominal Pain Last Admin: 01/15/18 12:37 Dose: 2 tab Hydrocodone Bitart/Acetaminophen ([place] 325-10 Mg) 1 - 2 tab PO Q4H PRN PRN Reason: Pain Last Admin: 01/25/18 07:44 Dose: 1 tab Hydrocodone Bitart/Acetaminophen ([place] 325-10 Mg) 1 tab PO Q3H PRN PRN Reason: Pain Last Admin: 02/02/18 08:21 Dose: 1 tab Alvimopan (Entereg) 12 mg PO BID [facility]LE Stop: 01/27/18 21:01 Last Admin: 01/27/18 20:49 Dose: 12 mg Bupivacaine HCl/Epinephrine Bitart (Marcaine 0.5%/Epinephrine 1:200,000) Confirm Administered Dose 50 ml .ROUTE .STK-MED ONE Stop: 01/12/18 10:15 Bupivacaine HCl/Epinephrine Bitart (Marcaine 0.5%/Epinephrine 1:200,000) Confirm Administered Dose 50 ml .ROUTE .STK-MED ONE Stop: 01/21/18 10:05 Calcium Carbonate/Glycine (Tums) 1,000 mg PO ONETIME ONE Stop: 01/13/18 05:58 Last Admin: 01/13/18 06:12 Dose: 1,000 mg Calcium Carbonate/Glycine (Tums) 1,000 mg PO Q2H PRN PRN Reason: Indigestion Last Admin: 01/16/18 06:41 Dose: 1,000 mg Ropivacaine 60 ml/Dexamethasone 8 mg/Epinephrine HCl 0.4 mg/ Sodium Chloride 17.6 ml 0 ml NERVRT ASDIRECTED [facility] Last Admin: 01/21/18 13:45 Dose: 80 syringe Dexamethasone (Dexamethasone) Confirm Administered Dose 4 mg .ROUTE .STK-MED ONE Stop: 01/12/18 09:35 Dexamethasone (Dexamethasone) Confirm Administered Dose 4 mg .ROUTE .STK-MED ONE Stop: 01/21/18 10:13 Fentanyl (Sublimaze) 30 mcg IVPUSH ONETIME ONE Stop: 01/12/18 09:19 Last Admin: 01/12/18 09:30 Dose: 30 mcg Fentanyl (Sublimaze) Confirm Administered Dose 250 mcg .ROUTE .STK-MED ONE Stop: 01/12/18 11:23 Fentanyl (Sublimaze) Confirm Administered Dose 100 mcg .ROUTE .STK-MED ONE Stop: 01/12/18 12:05 Fentanyl (Sublimaze) Confirm Administered Dose 250 mcg .ROUTE .STK-MED ONE Stop: 01/21/18 10:13 Fentanyl Citrate (Fentanyl) Confirm Administered Dose 500 mcg .ROUTE .STK-MED ONE Stop: 01/12/18 09:44 Fentanyl Citrate (Fentanyl In Ns 20 Mcg/Ml 30 Ml Rfid Engineer) 0 mcg IV ASDIRECTED PRN; Protocol PRN Reason: PAIN Last Admin: 01/13/18 22:29 Dose: 600 mcg Fentanyl Citrate (Fentanyl In Ns 20 Mcg/Ml 30 Ml Rfid Engineer) Confirm Administered Dose 600 mcg .ROUTE .STK-MED ONE Stop: 01/12/18 12:41 Last Admin: 01/12/18 14:33 Dose: Not Given Fentanyl Citrate (Fentanyl) Confirm Administered Dose 500 mcg .ROUTE .STK-MED ONE Stop: 01/21/18 14:11 Fentanyl Citrate (Fentanyl In Ns 20 Mcg/Ml 30 Ml Rfid Engineer) 0 mcg IV ASDIRECTED PRN; Protocol PRN Reason: PAIN Last Admin: 01/23/18 07:16 Dose: 600 mcg Furosemide (Lasix) 20 mg PO ONETIME ONE Stop: 01/20/18 10:16 Last Admin: 01/20/18 10:46 Dose: 20 mg Furosemide (Lasix) 20 mg IVPUSH ONETIME ONE Stop: 01/22/18 16:01 Last Admin: 01/22/18 15:55 Dose: 20 mg Furosemide (Lasix) 20 mg IVPUSH DAILY [facility] Last Admin: 01/28/18 08:51 Dose: 20 mg Furosemide (Lasix) 20 mg IVPUSH NOW ONE Stop: 01/24/18 15:01 Last Admin: 01/24/18 15:50 Dose: 20 mg Furosemide (Lasix) 20 mg IVPUSH ONETIME ONE Stop: 01/26/18 15:01 Last Admin: 01/26/18 14:38 Dose: 20 mg Glycopyrrolate (Robinul) Confirm Administered Dose 1 mg .ROUTE .STK-MED ONE Stop: 01/12/18 09:35 Glycopyrrolate (Robinul) Confirm Administered Dose 1 mg .ROUTE .STK-MED ONE Stop: 01/21/18 10:13 Hydromorphone HCl (Dilaudid) 0.5 mg IVPUSH ONETIME ONE Stop: 01/12/18 05:15 Last Admin: 01/12/18 05:22 Dose: 0.5 mg Hydromorphone HCl (Dilaudid) 0.5 mg IVPUSH ONETIME ONE Stop: 01/12/18 07:20 Last Admin: 01/12/18 10:33 Dose: Not Given Hydromorphone HCl (Dilaudid) 0.5 mg IVPUSH ONETIME ONE Stop: 01/12/18 08:01 Last Admin: 01/12/18 08:02 Dose: 0.5 mg Hydromorphone HCl (Dilaudid) 0.5 mg IVPUSH Q2H PRN PRN Reason: Pain Last Admin: 02/02/18 04:42 Dose: 0.5 mg Sodium Chloride (Normal Saline) 1,000 mls @ 999 mls/hr IV ASDIRECTED [facility]HELLE Last Admin: 01/12/18 05:21 Dose: 999 mls/hr Sodium Chloride (Normal Saline) 1,000 mls @ 999 mls/hr IV ASDIRECTED [facility]HEL[facility] Last Admin: 01/12/18 06:43 Dose: 999 mls/hr Sodium Chloride (Normal Saline) 85 mls @ 3.5 mls/sec IV ASDIRECTED MICHELLE Last Admin: 01/12/18 06:35 Dose: 3.5 mls/sec Piperacillin Sod/Tazobactam (Sod 4.5 gm/ Sodium Chloride) 100 mls @ 200 mls/hr IV ONETIME ONE Stop: 01/12/18 09:59 Last Admin: 01/12/18 09:44 Dose: 200 mls/hr Sodium Chloride (Normal Saline) 1,000 mls @ 125 mls/hr IV ASDIRECTED [facility] Last Admin: 01/14/18 07:36 Dose: 125 mls/hr Lactated Ringer's (Ringers, Lactated) Confirm Administered Dose 1,000 mls @ as directed .ROUTE .[facility] ONE Stop: 01/12/18 11:32 Sodium Chloride (Normal Saline) Confirm Administered Dose 10 mls @ as directed .ROUTE .[facility] ONE Stop: 01/12/18 11:35 Sodium Chloride (Normal Saline) Confirm Administered Dose 10 mls @ as directed .ROUTE .[facility] ONE Stop: 01/12/18 11:42 Piperacillin/Tazobactam/ (Dextrose 3.375 gm/ Premix) 50 mls @ 100 mls/hr IV Q6H [facility] Last Admin: 01/14/18 03:04 Dose: 100 mls/hr Sodium Chloride (Normal Saline) 250 mls @ 999 mls/hr IV ASDIRECTED [facility] Last Admin: 01/13/18 07:48 Dose: 999 mls/hr Sodium Chloride (Normal Saline) 1,000 mls @ 250 mls/hr IV ASDIRECTED [facility] Stop: 01/13/18 14:30 Last Infusion: 01/13/18 14:55 Dose: 125 mls/hr Ampicillin Sodium/Sulbactam (Sodium 3 gm/ Sodium Chloride) 100 mls @ 200 mls/ hr IV Q6H [facility] Last Admin: 01/25/18 03:05 Dose: 200 mls/hr Vancomycin HCl 2 gm/ Sodium (Chloride) 500 mls @ 250 mls/hr IV ONETIME ONE Stop: 01/14/18 12:59 Last Admin: 01/14/18 12:42 Dose: 250 mls/hr Vancomycin HCl 1.5 gm/ Sodium (Chloride) 250 mls @ 160 mls/hr IV Q8H [facility] Last Admin: 01/16/18 04:52 Dose: 160 mls/hr Sodium Chloride (Normal Saline) 1,000 mls @ 0 mls/hr IV ASDIRECTED [facility] Last Admin: 01/16/18 00:35 Dose: 25 mls/hr Vancomycin HCl 1.75 gm/ Sodium (Chloride) 250 mls @ 150 mls/hr IV Q8H [facility] Last Admin: 01/19/18 05:16 Dose: 150 mls/hr Vancomycin HCl 2 gm/ Sodium (Chloride) 500 mls @ 250 mls/hr IV Q8H [facility] Last Admin: 01/24/18 05:44 Dose: 250 mls/hr Sodium Chloride (Normal Saline) 85 mls @ 4 mls/sec IV ASDIRECTED [facility] Stop: 01/21/18 06:09 Last Admin: 01/21/18 13:36 Dose: Not Given Sodium Chloride (Normal Saline) 1,000 mls @ 125 mls/hr IV ASDIRECTED [facility]HEL[facility] Last Admin: 01/21/18 13:14 Dose: 125 mls/hr Lactated Ringer's (Ringers, Lactated) Confirm Administered Dose 1,000 mls @ as directed .ROUTE .STK-MED ONE Stop: 01/21/18 14:28 Lactated Ringer's (Ringers, Lactated) Confirm Administered Dose 1,000 mls @ as directed .ROUTE .STK-MED ONE Stop: 01/21/18 15:46 Acetaminophen 1,000 mg/ Premix 100 mls @ 400 mls/hr IV Q6H PRN PRN Reason: Fever Stop: 01/22/18 18:07 Last Admin: 01/22/18 17:35 Dose: 400 mls/hr Sodium Chloride (Normal Saline) 250 mls @ 999 mls/hr IV ASDIRECTED [facility] Last Admin: 01/22/18 02:02 Dose: 999 mls/hr Sodium Chloride (Normal Saline) 1,000 mls @ 200 mls/hr IV ASDIRECTED [facility]HEL[facility] Last Admin: 01/22/18 01:49 Dose: 200 mls/hr Sodium Chloride (Normal Saline) 1,000 mls @ 125 mls/hr IV ASDIRECTED [facility]HEL[facility] Last Admin: 01/22/18 19:38 Dose: 125 mls/hr Potassium Chloride 20 meq/Lidocaine HCl 2 ml/ Sodium Chloride 112 mls @ 56 mls/ hr IV Q2H [facility]HEL[facility] Stop: 01/22/18 21:59 Last Admin: 01/22/18 21:43 Dose: 56 mls/hr Acetaminophen 1,000 mg/ Premix 100 mls @ 400 mls/hr IV Q6H PRN PRN Reason: Pain Stop: 01/28/18 22:30 Last Admin: 01/23/18 13:05 Dose: 400 mls/hr Potassium Chloride 20 meq/Lidocaine HCl 2 ml/ Sodium Chloride 112 mls @ 50 mls/ hr IV Q2H [facility] Stop: 01/23/18 14:59 Last Admin: 01/23/18 15:02 Dose: 50 mls/hr Potassium Chloride/Dextrose/Sod Cl (D5 1/2 Ns W/ 20 Meq/L Kcl) 1,000 mls @ 75 mls/hr IV ASDIRECTED [facility] Last Admin: 01/23/18 09:55 Dose: 75 mls/hr Sodium Chloride (Normal Saline) 500 mls @ 0 mls/hr IV ASDIRECTED ONE Stop: 01/24/18 10:20 Last Admin: 01/24/18 10:35 Dose: 25 mls/hr Cefepime HCl 1 gm/ Sodium (Chloride) 50 mls @ 100 mls/hr IV Q8H [facility] Last Admin: 01/31/18 10:52 Dose: 100 mls/hr Potassium Chloride 20 meq/Lidocaine HCl 2 ml/ Sodium Chloride 112 mls @ 56 mls/ hr IV Q2H [facility] Stop: 01/25/18 17:59 Last Admin: 01/25/18 17:10 Dose: 56 mls/hr Potassium Chloride 20 meq/Lidocaine HCl 2 ml/ Sodium Chloride 112 mls @ 56 mls/ hr IV Q2H [facility] Stop: 01/26/18 19:59 Last Admin: 01/26/18 22:08 Dose: 56 mls/hr Sodium Chloride (Normal Saline) 100 mls @ 3 mls/sec IV ASDIRECTED [facility] Stop: 01/27/18 13:00 Last Admin: 01/27/18 12:14 Dose: 3 mls/sec Fat Emulsion Intravenous (Intralipid 20%) 100 mls @ 8.333 mls/hr IV ONETIME ONE Stop: 01/29/18 03:59 Last Admin: 01/28/18 15:19 Dose: 8.333 mls/hr Multivitamins/Minerals 10 ml/Chromium/Copper/Manganese/Seleni/Zn 1 ml/ Amino Ac/ Electrol/Dextrose/Calcium 1,011 mls @ 100 mls/hr IV .BY DURATION [facility] Stop: 01/31/18 14:20 Last Admin: 01/31/18 07:13 Dose: 100 mls/hr Amino Ac/Electrol/Dextrose/Calcium (Clinimix E 5/15) 1,000 mls @ 100 mls/hr IV .BY DURATION [facility] Stop: 01/31/18 14:20 Last Admin: 01/30/18 21:20 Dose: 100 mls/hr Potassium Chloride 40 meq/ (Premix) 100 mls @ 25 mls/hr IV ONETIME ONE Stop: 01/29/18 13:59 Last Admin: 01/29/18 10:50 Dose: 25 mls/hr Fat Emulsion Intravenous (Intralipid 20%) 100 mls @ 8.333 mls/hr IV ONETIME ONE Stop: 01/31/18 03:59 Last Admin: 01/30/18 15:31 Dose: 8.333 mls/hr Fat Emulsion Intravenous (Intralipid 20%) 100 mls @ 8.333 mls/hr IV ONETIME ONE Stop: 02/01/18 03:59 Last Admin: 01/31/18 15:32 Dose: 8.333 mls/hr Multivitamins/Minerals 10 ml/Chromium/Copper/Manganese/Seleni/Zn 1 ml/ Amino Ac/ Electrol/Dextrose/Calcium 1,011 mls @ 100 mls/hr IV .BY DURATION [facility] Stop: 02/02/18 12:59 Last Admin: 02/02/18 02:34 Dose: 100 mls/hr Amino Ac/Electrol/Dextrose/Calcium (Clinimix E 5/15) 1,000 mls @ 100 mls/hr IV .BY DURATION [facility] Stop: 02/02/18 12:59 Last Admin: 02/02/18 15:45 Dose: Not Given Fat Emulsion Intravenous (Intralipid 20%) 100 mls @ 8.3 mls/hr IV ONETIME ONE Stop: 02/02/18 04:02 Last Admin: 02/01/18 16:37 Dose: 8.3 mls/hr Multivitamins/Minerals 10 ml/Chromium/Copper/Manganese/Seleni/Zn 1 ml/ Amino Ac/ Electrol/Dextrose/Calcium 1,011 mls @ 60 mls/hr IV .BY DURATION [facility] Stop: 02/03/18 09:59 Amino Ac/Electrol/Dextrose/Calcium (Clinimix E /15) 1,000 mls @ 60 mls/hr IV .BY DURATION MICHELLE Stop: 02/03/18 09:59 Last Admin: 02/02/18 18:38 Dose: 60 mls/hr Fat Emulsion Intravenous (Intralipid 20%) 100 mls @ 10 mls/hr IV ONETIME ONE Stop: 02/03/18 01:59 Last Admin: 02/02/18 16:32 Dose: 10 mls/hr Iohexol (Omnipaque) 20 ml PO ONETIME ONE Stop: 01/17/18 10:57 Last Admin: 01/17/18 11:22 Dose: 20 ml Iohexol (Omnipaque) 20 ml PO ONETIME ONE Stop: 01/27/18 09:51 Last Admin: 01/27/18 10:32 Dose: 20 ml Iopamidol (Isovue-300 (61%)) 150 ml IV . DIRECTED PRN PRN Reason: RADIOLOGY EXAM Stop: 01/13/18 06:16 Last Admin: 01/12/18 06:36 Dose: 150 ml Iopamidol (Isovue-300 (61%)) 150 ml IV . DIRECTED STA Stop: 01/21/18 06:09 Last Admin: 01/21/18 13:36 Dose: Not Given Iopamidol (Isovue-300 (61%)) 150 ml IV . DIRECTED MICHELLE Stop: 01/27/18 13:00 Last Admin: 01/27/18 12:14 Dose: 150 ml Ketorolac Tromethamine (Toradol) Confirm Administered Dose 60 mg .ROUTE .STK- MED ONE Stop: 01/12/18 12:08 Ketorolac Tromethamine (Toradol) 30 mg IM Q6H MIC[facility]LE Stop: 01/22/18 10:31 Last Admin: 01/21/18 17:17 Dose: 30 mg Ketorolac Tromethamine (Toradol) 30 mg IVPUSH Q6H [facility]LE Stop: 01/22/18 10:31 Last Admin: 01/22/18 11:07 Dose: 30 mg Meropenem (Merrem) Confirm Administered Dose 500 mg .ROUTE .STK-MED ONE Stop: 01/12/18 11:35 Last Admin: 01/12/18 11:29 Dose: 500 mg Meropenem (Merrem) Confirm Administered Dose 500 mg .ROUTE .STK-MED ONE Stop: 01/12/18 11:42 Last Admin: 01/12/18 11:43 Dose: 500 mg Meropenem (Merrem) Confirm Administered Dose 500 mg .ROUTE .STK-MED ONE Stop: 01/21/18 15:21 Last Admin: 01/21/18 15:25 Dose: 500 mg Morphine Sulfate (Morphine) 1 - 3 mg IVPUSH Q1H PRN PRN Reason: Pain Last Admin: 01/24/18 12:45 Dose: 1 mg Naloxone HCl (Narcan) 0.1 mg IV ASDIRECTED PRN PRN Reason: RESP Neostigmine Methylsulfate (Neostigmine) Confirm Administered Dose 5 mg .ROUTE .STK-MED ONE Stop: 01/12/18 09:35 Neostigmine Methylsulfate (Neostigmine) Confirm Administered Dose 5 mg .ROUTE .STK-MED ONE Stop: 01/21/18 10:13 Non-Formulary Medication (Total Parenteral Nutrition, Central) 1,000 ml IV ONETIME ONE Stop: 01/29/18 11:01 Last Admin: 01/29/18 13:25 Dose: Not Given Non-Formulary Medication (Total Parenteral Nutrition, Central) 0 ml IV ASDIRECTED MICHELLE Stop: 01/30/18 18:00 Non-Formulary Medication (Total Parenteral Nutrition, Central) 0 ml IV ASDIRECTED [facility]HELLE Stop: 01/31/18 13:00 Non-Formulary Medication (Total Parenteral Nutrition, Central) 0 ml IV ASDIRECTED MICHELLE Stop: 02/01/18 13:00 Ondansetron HCl (Zofran) 4 mg IVPUSH ONETIME ONE Stop: 01/12/18 05:15 Last Admin: 01/12/18 05:22 Dose: 4 mg Ondansetron HCl (Zofran) Confirm Administered Dose 4 mg .ROUTE .STK-MED ONE Stop: 01/12/18 09:35 Ondansetron HCl (Zofran) Confirm Administered Dose 4 mg .ROUTE .STK-MED ONE Stop: 01/21/18 10:13 Oxycodone HCl (Oxycodone) 5 mg PO Q4H PRN PRN Reason: Pain Last Admin: 01/17/18 15:45 Dose: 5 mg Oxycodone HCl (Oxycodone) 5 mg PO Q4H PRN PRN Reason: Pain Last Admin: 01/31/18 05:29 Dose: 5 mg Pantoprazole Sodium (Protonix) 40 mg PO ACBREAKFAST [facility] Last Admin: 01/25/18 07:39 Dose: 40 mg Pantoprazole Sodium (Protonix Iv) 40 mg IVPUSH DAILY [facility] Last Admin: 01/31/18 08:51 Dose: 40 mg Potassium Chloride (Klor-Con M20) 40 meq PO BID [facility]HELLE Stop: 01/24/18 21:01 Last Admin: 01/24/18 21:43 Dose: 40 meq Prochlorperazine Edisylate (Compazine) 5 mg IVPUSH ONETIME ONE Stop: 01/12/18 07:48 Last Admin: 01/12/18 08:04 Dose: 5 mg Propofol (Diprivan 20 Ml) Confirm Administered Dose 200 mg .ROUTE .STK-MED ONE Stop: 01/12/18 09:35 Propofol (Diprivan 20 Ml) Confirm Administered Dose 200 mg .ROUTE .STK-MED ONE Stop: 01/21/18 10:13 Ranitidine HCl (Zantac) 150 mg PO BID [facility] Last Admin: 01/25/18 10:07 Dose: 150 mg Rocuronium [place] (Zemuron) Confirm Administered Dose 50 mg .ROUTE .STK-MED ONE Stop: 01/12/18 09:35 Rocuronium [place] (Zemuron) Confirm Administered Dose 50 mg .ROUTE .STK-MED ONE Stop: 01/21/18 10:13 Rocuronium [place] (Zemuron) Confirm Administered Dose 50 mg .ROUTE .STK-MED ONE Stop: 01/21/18 15:08 Succinylcholine Chloride (Quelicin) Confirm Administered Dose 200 mg .ROUTE .STK -MED ONE Stop: 01/12/18 09:35 Succinylcholine Chloride (Quelicin) Confirm Administered Dose 200 mg .ROUTE .STK -MED ONE Stop: 01/12/18 11:47 Succinylcholine Chloride (Quelicin) 100 mg .ROUTE .STK-MED ONE Stop: 01/12/18 12:01 Succinylcholine Chloride (Quelicin) Confirm Administered Dose 200 mg .ROUTE .STK -MED ONE Stop: 01/21/18 10:13 Zolpidem Tartrate (Ambien) 5 mg PO BEDTIME PRN PRN Reason: Insomnia Last Admin: 01/23/18 22:26 Dose: 5 mg - Exam Quality Assessment: DVT Prophylaxis General: Alert, Oriented, Cooperative, No Acute Distress Lungs: Clear to Auscultation, Normal Respiratory Effort Cardiovascular: Regular Rate, Regular Rhythm, No Murmurs GI/Abdominal Exam: Soft, Non-Tender, No Organomegaly, No Distention Extremities: Non-Tender, No Pedal Edema - Problem List Review Problem List Initiated/Reviewed/Updated: Yes - My Orders Last 24 Hours: My Active Orders 02/02/18 21:00 Ranitidine [Zantac] 150 mg PO BEDTIME - Plan Plan:: ASSESSMENT AND PLAN - Recurrent fever - stable over the past several days with no recurrent temperature elevation, white blood cell count remains elevated and modestly increased from yesterday -IV ertapenem which should cover both the Klebsiella and Enterobacter, and work well for home IV antibiotic therapy -Continue fluconazole -Repeat white blood cell count in the morning Hypokalemia-resolved -recheck in the am Liver enzyme elevation-likely secondary to TPN, expect improvement as TPN is decreased and then discontinued -Continue to monitor PTSD - history of involvement. Anxiety well controlled with current management -Melatonin at bedtime -Lorazepam as needed for anxiety Volume overload - peripheral edema significantly improved -Hold IV furosemide Status post exploratory laparotomy and surgical repair of incarcerated hernia - PICC line has been placed and he has been started on TPN. Development of enterocutaneous fistula -Postoperative care per Dr. Hanson
[2018-02-03] MEDS ORDERED: 1: AA 5%/Calcium/D15W/Lytes 1,000 ML with MVI, Adult with Vitamin K 10 ML, Chromium/Copp IV SCH ×3 (11:00)
[2018-02-03] MEDS: Fluconazole/Normal Saline 200 MG in Premix Bag 1 BAG IV SCH (11:48)
[2018-02-03] MEDS: Enoxaparin 40 MG/0.4 ML Syringe SUBCUT SCH (11:49)
[2018-02-03] MEDS: Ertapenem 1 GM in Sodium Chloride 0.9% 100 ML IV SCH (12:51)
[2018-02-03] MEDS: Ondansetron 4 MG/2 ML SDV IVPUSH PRN (19:20)
[2018-02-03] MEDS: Docusate Sodium 100 MG Cap PO PRN (21:09)
[2018-02-03] MEDS ORDERED: Lactated Ringers 1,000 ML IV SCH (23:45)
[2018-02-03] MEDS ORDERED: HYDROmorphone/Normal Saline 15 MG/30 ML PCA IV SCH (23:45)
[2018-02-04] MEDS: tiZANidine 4 MG Tab PO PRN (02:55)
[2018-02-04] MEDS ORDERED: Lactated Ringers 1,000 ML IV SCH ×2 (04:45→06:45)
[2018-02-04] MEDS ORDERED: Iopamidol 612 MG/ML 150 ML Bottle IV STA (04:47)
--- NOTE | 2018-02-04 08:29 | PN ---
DATE OF SERVICE: 02/03/2018 The patient has been afebrile with stable vital signs. White count remains mildly elevated at 16,000. Otherwise, there were no signs of any active infection. Continue the present antibiotics per Dr. Puckett. The patient's oral intake has been fairly good, around 1800 mL yesterday. His abdominal x-ray shows I think more air in the colon, but the small bowel is also somewhat distended and has not increased in caliber to any appreciable extent. He does continue to move his bowels;he had 225 mL of small bowel content into the ostomy bag via the small bowel fistula. The labs does show marginally low sodium and chloride, and we will adjust those through the TPN. I will move the TPN down to 40 mL an hour in anticipation of possible discharge home in the next day or so. The patient is changing his ostomy appliance, so that issue appears to be well-addressed. Charan Prajapati MD /[id number]
--- NOTE | 2018-02-04 08:32 | PN ---
DATE OF SERVICE: 02/04/2018 HISTORY OF PRESENT ILLNESS: I was called about the patient at approximately 4 this a.m. as he was having tachycardia, and there was concern for recurrent infection. The patient underwent laboratory with results that showed hemoglobin dropped to 8.9 from 11.6, and an increase in his white blood cell count. Prior to this, the patient was doing quite well, and was scheduled to be discharged today. His pain was well controlled. He had no nausea, vomiting, shortness of breath, chest pain, was having regular bowel movements, and was ambulating without difficulty on his own, on a regular diet. The patient underwent a stat CT scan, and discussing with radiologist, it was felt that this is a spontaneous splenic rupture or bleed. The patient has not had any trauma during this hospitalization. There was also no infection noted on his CT scan today. CURRENT PROBLEMS: 1. Spontaneous splenic rupture. I did have a discussion with . The patient may have splenic salvage if Interventional Radiology can stop this bleeding. The etiology of this is unknown at this time. So, the surgeon and I discussed the risks , benefits, alternatives, and limitations of transfer or not. I did discuss with him his current status, and I have made the decision that as the patient's blood pressure is 139/77 and his pulse is 130, he is not somnolent or confused, and making an attempt at splenic salvage, it would be reasonable to transfer him. I take responsibility of this risk but I feel it is best for the patient and we discussed both choices. The other option would be a splenectomy in this facility, however, based upon the patient's condition and potential for splenic salvage, I elected to transfer the patient. I did discuss with the patient that this involves risk of transfer versus taking the patient to the operating room. We also had discussion with the patient the potential of a life-threatening illness due to transfer versus performing a splenectomy here. The patient has selected being transferred by air for possible splenic salvage. 2. GI. The patient has had normal bowel movements for greater than 1 to 2 weeks. He is not having nausea or vomiting. He has no NG tube. He is eating a regular diet on his own. There was concern for a fistula, however, none was seen today. He does have a minimal output, abscess, or drainage on his right side. This has decreased , and we have been treating it as a fistula; however, etiology of this is unknown. 3. Infectious Disease. The patient has been on fluconazole, and he has had a yeast from his abdominal culture and on ertapenem. 4. General disposition. The patient has been followed by the Hospitalist Service. The patient had some anxiety, which is well controlled. Kevin Hanson MD /[id number]
--- NOTE | 2018-02-04 08:45 | CR ---
2 view abdomen Multiple surgical marry are demonstrated. There is diffuse dilatation of predominantly small bowel. There are air-fluid levels scattered throughout the abdomen. There is a drainage tube in the pelvis. Impression: 1. Multiple mildly dilated loops of small bowel scattered air-fluid levels. The finding may reflect a postoperative ileus. Small bowel obstruction not excluded.
--- NOTE | 2018-02-04 08:48 | CR ---
2 view abdomen Comparison: Previous day. Findings: Again demonstrated are dilated loops of small bowel. There are scattered air-fluid levels. There is air visualized within the colon. There is no free air seen. There is a drainage catheter in the pelvis. Impression: 1. Postoperative abdomen. Dilated bowel consistent with ileus versus obstruction. No significant inte rval change.
--- NOTE | 2018-02-04 15:11 | DISCH ---
DISCHARGE DIAGNOSES: 1. Spontaneous splenic hemorrhage. 2. Infarcted small bowel secondary to ventral hernia. 3. Postoperative ileus. 4. Intraabdominal abscess. SUMMARY OF HOSPITAL COURSE: This is a pleasant 37-year-old gentleman on 01/12/2018, was taken to the operating room for infarcted small bowel. The patient underwent an uneventful small-bowel resection. Postoperatively, he did well and then developed a postoperative ileus. A CT scan was performed on 01/21/2018 and this showed a suggestion of a possible infection versus bowel obstruction. The patient was taken on 01/21/2018 for a laparotomy. This was found to have a patent none function, none leaking anastomotic site. Dense adhesions in the functional bowel obstruction secondary to adhesions basically causing several tortuous angles of small bowel, but no definitive transition point. The patient continued to improve very slowly. His white count continued to improve. Cultures grew out yeast and Klebsiella. The patient also had the wound infection which was treated by opening the wound and the marry were kept in due to concern of worsening infection, bleeding, dehiscence, however, this has not developed. In addition, on 01/23, the patient known to have an infection of his right abdomen incision site. This site was opened up and a small amount of drainage was noted from this and this was subsequently cultured as Enterobacter. The antibiotics at this point as the patient has been on antibiotics, was then switched to Invanz. The concern was that this was a developing fistula; however, the output has just remained significantly low. Nonetheless, was treated as a fistula with wound protection, skin protected, but continued to have a small out puts. The patient's KUB continued to show a slow functioning intestine; however, the oral contrast that went through the bowel readily went through into the sigmoid colon without difficulty. Throughout this hospitalization, the patient continued to have his normal bowel movements. These were well- formed and was tolerating his diet. In fact, the patient was scheduled to be evaluated for potential discharge on February 04. However, he developed an acute abdominal pain, diaphoresis, and tachycardia. The patient underwent a CT scan and emergent transfer to the intensive care unit. He was found to have a spontaneous splenic rupture. The patient was then evaluated and he was found to be stable with a blood pressure of 122/83, pulse of 130s to 140s and afebrile. In discussion with Home, the risks, benefits, and alternatives of the transfer were discussed. There was concern for a decompensation during the transfer. However, the patient's blood pressure actually improved to 120/62. During discussion point, his respiratory rate normalized and his tachycardia has slightly improved. He had a Lopez catheter placed and he was making greater than 15 mL/hour of urinary output. The patient was then transfused 1 unit of packed red blood cells and discussing with the patient, he was subsequently transferred via air to [facility] to be evaluated for possible Interventional Radiology coiling of the splenic vessels. In addition, during this whole hospitalization, the patient had a rather unknown inflammatory process. This was common and the radiologist and the etiologies remained unknown. The fluid collections in his abdomen had completely resolved on today's CT scan essentially aside from the spleen. The patient had no significant abnormalities noted in the abdominal compartment. Followup per Home, activity and diet etc. per [facility] as the patient is transferred there.
== END 2018-02-04 07:35 | DRG 335 ==
LOC: JP.ED 04:19 → JP.SDS 10:07 → JP.2SS 10:28 → OBSVTOIN 12:37 → JP.2SS 12:59 → JP.MS 01-22 15:55 → JP.ICU 02-04 05:19
PROVIDERS: ADMIT Surgery; ATTEND Surgery
PROC: 0WQF0ZZ Repair Abdominal Wall, Open Approach (ICD-10-PCS; principal; 2018-01-12)
PROC: 0DBB0ZX Excision of Ileum, Open Approach, Diagnostic (ICD-10-PCS; 2018-01-12)
PROC: 0WJF4ZZ Inspection of Abdominal Wall, Percutaneous Endoscopic Approach (ICD-10-PCS; 2018-01-12)
PROC: 0DNW0ZZ Release Peritoneum, Open Approach (ICD-10-PCS; 2018-01-21)
PROC: 0D980ZX Drainage of Small Intestine, Open Approach, Diagnostic (ICD-10-PCS; 2018-01-21)
PROC: 3E1M38Z Irrigation of Peritoneal Cavity using Irrigating Substance, Percutaneous Approach (ICD-10-PCS; 2018-01-21)
PROC: 3E0T3BZ Introduction of Anesthetic Agent into Peripheral Nerves and Plexi, Percutaneous Approach (ICD-10-PCS; 2018-01-21)
PROC: 05HY33Z Insertion of Infusion Device into Upper Vein, Percutaneous Approach (ICD-10-PCS; 2018-01-28)
PROC: 0W9F0ZZ Drainage of Abdominal Wall, Open Approach (ICD-10-PCS; 2018-01-29)
PROC: 30233N1 Transfusion of Nonautologous Red Blood Cells into Peripheral Vein, Percutaneous Approach (ICD-10-PCS; 2018-02-04)
DX: K43.6 Other and unspecified ventral hernia with obstruction, without gangrene (principal); K65.1 Peritoneal abscess; K55.9 Vascular disorder of intestine, unspecified; K56.7 Ileus, unspecified; K63.2 Fistula of intestine; D73.5 Infarction of spleen; Z53.31 Laparoscopic surgical procedure converted to open procedure; E86.0 Dehydration; K66.0 Peritoneal adhesions (postprocedural) (postinfection); R50.9 Fever, unspecified; F43.10 Post-traumatic stress disorder, unspecified; E87.6 Hypokalemia; B96.82 Vibrio vulnificus as the cause of diseases classified elsewhere; B96.1 Klebsiella pneumoniae [K. pneumoniae] as the cause of diseases classified elsewhere; B96.89 Other specified bacterial agents as the cause of diseases classified elsewhere; B37.9 Candidiasis, unspecified; E87.70 Fluid overload, unspecified
CPT/HCPCS: 36415; 36430; 36569; 51701; 51702; 71046; 71046-26; 74019; 74019-26; 74176; 74176-26; 74177; 80048; 80053; 80202; 81001; 82565; 83735; 84100; 85025; 85027; 85610; 85730; 86850; 86900; 86901; 86920; 86922; 87040; 87070; 87075; 87077; 87186; 87205; 87493; 88302; 88307; 94762; 96361; 96365; 96372; 96375; 96376; 99285-25; A9270-GY; C1751; C9113; J0131; J0171; J0295; J0330; J0692; J0780; J1100; J1170; J1200; J1335; J1450; J1650; J1885; J1940; J2060; J2185; J2270; J2405; J2543; J2550; J2704; J2710; J2795; J3010; J3370; J3410; J3480; J3490; J7030; J7040; J7050; J7120; P9016; Q9965

== ENCOUNTER 2018-12-24 22:30 | Emergency (ER) | payer OTHER ==
--- NOTE | 2018-12-24 23:45 | EDM.PDOC ---
ED HPI GENERAL MEDICAL PROBLEM - General Chief Complaint: Lower Extremity Injury/Pain Stated Complaint: RIGHT ANKLE PAIN/SWELLING Time Seen by Provider: 12/24/18 23:30 Source of Information: Reports: Patient History Limitations: Reports: No Limitations - History of Present Illness INITIAL COMMENTS - FREE TEXT/NARRATIVE: 38-year-old male turned his right ankle 6 hours ago, heard a pop and has significant swelling over the lateral ankle. He thinks it may be broken and was afraid to go to sleep without checking it out. It's painful to bear weight. No other injury. Onset: Sudden Duration: Hour(s): (6 hours ago) Location: Reports: Lower Extremity, Right Associated Symptoms: Reports: No Other Symptoms Right Ankle Pain Score (Numeric/FACES): 5 - Related Data Allergies Allergy/AdvReac Type Severity Reaction Status Date / Time No Known Allergies Allergy Verified 12/24/18 23:43 Home Meds: Home Meds NK [No Known Home Meds] 04/21/14 [History] Past Medical History - Past Surgical History HEENT Surgical History: Reports: Adenoidectomy, Tonsillectomy GI Surgical History: Reports: Appendectomy, Cholecystectomy Social & Family History - Family History Family Medical History: Noncontributory - Caffeine Use Caffeine Use: Reports: Tea Review of Systems - Review of Systems Review Of Systems: See Below Constitutional: Denies: Fever Respiratory: Reports: No Symptoms Cardiovascular: Reports: No Symptoms Skin: Denies: Bruising ED EXAM, GENERAL - Physical Exam Exam: See Below Exam Limited By: No Limitations General Appearance: Alert, No Apparent Distress Respiratory/Chest: No Respiratory Distress Extremities: Other (Exam is otherwise limited to the lower extremities. The right ankle has swelling and tenderness over the lateral malleolus. The medial malleolus is nontender. There is no crepitus or significant deformity) Course - Vital Signs Last Recorded V/S: Last Vital Signs Temp 96.7 F 12/24/18 23:40 Pulse 75 12/24/18 23:40 Resp 16 12/24/18 23:40 BP 131/89 12/24/18 23:40 Pulse Ox 95 12/24/18 23:40 - Orders/Labs/Meds Orders: Active Orders 24 hr Category Date Time Status DME for Discharge [COMM] Stat Oth 12/25/18 00:13 Ordered - Re-Assessments/Exams Free Text/Narrative Re-Assessment/Exam: 12/24/18 23:45 An x-ray of the right ankle was obtained. 12/25/18 00:12 X-ray shows a distal fibular fracture. Patient was placed in a cam walker and fitted with crutches, and will recheck with orthopedics next week. Departure - Departure Time of Disposition: 00:47 Disposition: Home, Self-Care 01 Clinical Impression: Closed right fibular fracture Qualifiers: Encounter type: initial encounter Fibula location: distal Fracture morphology: unspecified fracture morphology Qualified Code(s): S82.831A - Other fracture of upper and lower end of right fibula, initial encounter for closed fracture - Discharge Information Instructions: Tibial and Fibular Fractures Referrals: Bright Hartman MD [Primary Care Provider] - Forms: ED Department Discharge Care Plan Goals: Wear walking boot, use crutches, and avoid significant weightbearing with the right foot until your recheck with orthopedics. Call for an appointment tomorrow. Elevate the foot, take a regular dose of anti-inflammatories and use stronger pain medication sparingly if needed. - My Orders Last 24 Hours: My Active Orders 12/25/18 00:13 DME for Discharge [COMM] Stat - Assessment/Plan Last 24 Hours: My Active Orders 12/25/18 00:13 DME for Discharge [COMM] Stat
--- NOTE | 2018-12-25 00:29 | CRLCR ---
Indication: Injury and pain Technique: Right ankle 3 views Comparison: None Findings/Impression: Bones: Acute nondisplaced fracture is in the tip of the lateral malleolus. No other osseous abnormality. Joint spaces: Ankle mortise is normal. Soft tissues: Lateral soft tissue swelling. Dictated by Sen Anne MD @ 12/25/2018 12:27:38 AM Dictated by: Sen Anne MD @ 12/25/2018 00:27:46 (Electronically Signed)
== END 2018-12-25 00:47 | disposition home or self-care (01) ==
LOC: JP.ED 22:30
DX: S82.831A Other fracture of upper and lower end of right fibula, initial encounter for closed fracture (principal); X50.9XXA Other and unspecified overexertion or strenuous movements or postures, initial encounter
CPT/HCPCS: 73610-RT; 99283-25